=== PATIENT | female | born 1965 ===

== ENCOUNTER 2020-01-29 08:24 | Day surgery (SDC) | payer OTHER, SELFPAY ==
[2020-01-25 15:18] VITALS: BMI 34.2
--- NOTE | 2020-01-28 09:08 | HO.ANESPROP2 ---
Documented by User: Ladan Saunders 01/28/20 09:08 HPI - Anesthesia Eval Consult details Narrative: 54yo F for colonoscopy PMFSH Past Medical History Medical History Chronic fatigue syndrome Chronic pain Elevated cholesterol Fibromyalgia History of anxiety History of depression HTN (hypertension) Hx of cyst of breast Hx of sciatica Insulin dependent diabetes mellitus Obesity Osteoarthritis Plantar fasciitis Restless leg syndrome Rotator cuff syndrome of right shoulder Surgical History Surgical History History of back surgery Hx of section Hx of removal of cyst Social History Social History Smoking Status: Former smoker Smoking Quit Date: 2 weeks ago Patient Given Instructions on How to Stop Smoking: Yes Date Education Initiated: 01/25/20 Use of substances other than those prescribed or required for medical reasons: Yes Substance Use Frequency: Weekly Advance Directives: No Meds Allergies Allergy/AdvReac Type Severity Reaction Status Date / Time No Known Allergies Allergy Unverified 01/25/20 15:06 Home Medications Medication Instructions Recorded Confirmed Type acetaminophen [Tylenol 8 Hour] 1,300 mg PO Q12H 01/25/20 01/25/20 History aspirin [Aspir-81] 81 mg PO DAILY 01/25/20 01/25/20 History atorvastatin 40 mg PO BEDTIME 01/25/20 01/25/20 History cranberry extract 250 mg PO 01/25/20 History docusate sodium [Dulcolax Stool 100 mg PO DAILY 01/25/20 01/25/20 History Softener (dss)] dulaglutide [Trulicity] 1.5 mg SUBCUT QWEEK 01/25/20 01/25/20 History ibuprofen 1,200 mg PO BID 01/25/20 01/25/20 History insulin degludec [Tresiba 32 unit SUBCUT DAILY 01/25/20 01/25/20 History FlexTouch U-200] metformin 1,000 mg PO BID 01/25/20 01/25/20 History mirtazapine 15 mg PO BEDTIME 01/25/20 01/25/20 History multivitamin 1 tab PO DAILY 01/25/20 01/25/20 History oxybutynin chloride 5 mg PO BEDTIME 01/25/20 01/25/20 History pantoprazole 40 mg PO DAILY 01/25/20 01/25/20 History ropinirole [Requip] 8 mg PO BID 01/25/20 01/29/20 History valsartan 160 mg PO DAILY 01/25/20 01/25/20 History venlafaxine [Effexor] 25 mg PO BEDTIME 01/25/20 01/25/20 History venlafaxine [Effexor] 200 mg PO BEDTIME 01/25/20 01/25/20 History Exam Exam Date and Time: January 28, 2020 0908 Height,Weight and Vital Signs: Height 5 ft 3 in Weight 87.543 kg Assessment and Plan Assessment Anesthesia Assessment: Chart Reviewed Documented by User: Alea Freeman 01/29/20 08:52 [facility] Past Medical History Medical History Chronic fatigue syndrome Chronic pain Elevated cholesterol Fibromyalgia History of anxiety History of depression HTN (hypertension) Hx of cyst of breast Hx of sciatica Insulin dependent diabetes mellitus Obesity Osteoarthritis Plantar fasciitis Restless leg syndrome Rotator cuff syndrome of right shoulder Surgical History Surgical History History of back surgery Hx of section Hx of removal of cyst Social History Social History Smoking Status: Former smoker Smoking Quit Date: 2 weeks ago Patient Given Instructions on How to Stop Smoking: Yes Date Education Initiated: 01/25/20 Use of substances other than those prescribed or required for medical reasons: Yes Substance Use Frequency: Weekly Advance Directives: No Meds Allergies Allergy/AdvReac Type Severity Reaction Status Date / Time No Known Allergies Allergy Unverified 01/25/20 15:06 Home Medications Medication Instructions Recorded Confirmed Type acetaminophen [Tylenol 8 Hour] 1,300 mg PO Q12H 01/25/20 01/25/20 History aspirin [Aspir-81] 81 mg PO DAILY 01/25/20 01/25/20 History atorvastatin 40 mg PO BEDTIME 01/25/20 01/25/20 History cranberry extract 250 mg PO 01/25/20 History docusate sodium [Dulcolax Stool 100 mg PO DAILY 01/25/20 01/25/20 History Softener (dss)] dulaglutide [Trulicity] 1.5 mg SUBCUT QWEEK 01/25/20 01/25/20 History ibuprofen 1,200 mg PO BID 01/25/20 01/25/20 History insulin degludec [Tresiba 32 unit SUBCUT DAILY 01/25/20 01/25/20 History FlexTouch U-200] metformin 1,000 mg PO BID 01/25/20 01/25/20 History mirtazapine 15 mg PO BEDTIME 01/25/20 01/25/20 History multivitamin 1 tab PO DAILY 01/25/20 01/25/20 History oxybutynin chloride 5 mg PO BEDTIME 01/25/20 01/25/20 History pantoprazole 40 mg PO DAILY 01/25/20 01/25/20 History ropinirole [Requip] 8 mg PO BID 01/25/20 01/29/20 History valsartan 160 mg PO DAILY 01/25/20 01/25/20 History venlafaxine [Effexor] 25 mg PO BEDTIME 01/25/20 01/25/20 History venlafaxine [Effexor] 200 mg PO BEDTIME 01/25/20 01/25/20 History Exam Airway Mallampati Class: II TM Dist: >3cm Neck ROM: Full Heart: RRR Lungs: CTA
[2020-01-29 08:47] VITALS: BP 159/95; PULSE 89; RESP 16; TEMP 36.2; O2SAT 98
--- NOTE | 2020-01-29 08:52 | P.CONAN_ITS ---
[facility] Past Medical History Medical History Chronic fatigue syndrome Chronic pain Elevated cholesterol Fibromyalgia History of anxiety History of depression HTN (hypertension) Hx of cyst of breast Hx of sciatica Insulin dependent diabetes mellitus Obesity Osteoarthritis Plantar fasciitis Restless leg syndrome Rotator cuff syndrome of right shoulder Surgical History Surgical History History of back surgery Hx of section Hx of removal of cyst Social History Social History Smoking Status: Former smoker Smoking Quit Date: 2 weeks ago Patient Given Instructions on How to Stop Smoking: Yes Date Education Initiated: 01/25/20 Use of substances other than those prescribed or required for medical reasons: Yes Substance Use Frequency: Weekly Advance Directives: No Meds Allergies Allergy/AdvReac Type Severity Reaction Status Date / Time No Known Allergies Allergy Unverified 01/25/20 15:06 Home Medications Medication Instructions Recorded Confirmed Type acetaminophen [Tylenol 8 Hour] 1,300 mg PO Q12H 01/25/20 01/25/20 History aspirin [Aspir-81] 81 mg PO DAILY 01/25/20 01/25/20 History atorvastatin 40 mg PO BEDTIME 01/25/20 01/25/20 History cranberry extract 250 mg PO 01/25/20 History docusate sodium [Dulcolax Stool 100 mg PO DAILY 01/25/20 01/25/20 History Softener (dss)] dulaglutide [Trulicity] 1.5 mg SUBCUT QWEEK 01/25/20 01/25/20 History ibuprofen 1,200 mg PO BID 01/25/20 01/25/20 History insulin degludec [Tresiba 32 unit SUBCUT DAILY 01/25/20 01/25/20 History FlexTouch U-200] metformin 1,000 mg PO BID 01/25/20 01/25/20 History mirtazapine 15 mg PO BEDTIME 01/25/20 01/25/20 History multivitamin 1 tab PO DAILY 01/25/20 01/25/20 History oxybutynin chloride 5 mg PO BEDTIME 01/25/20 01/25/20 History pantoprazole 40 mg PO DAILY 01/25/20 01/25/20 History ropinirole [Requip] 8 mg PO BID 01/25/20 01/29/20 History valsartan 160 mg PO DAILY 01/25/20 01/25/20 History venlafaxine [Effexor] 25 mg PO BEDTIME 01/25/20 01/25/20 History venlafaxine [Effexor] 200 mg PO BEDTIME 01/25/20 01/25/20 History Exam Exam Date and Time: January 29, 2020 0852 Height,Weight and Vital Signs: Height 5 ft 3 in Weight 87.543 kg Last Vital Signs Temp 97.2 F 01/29/20 08:47 Pulse 89 01/29/20 08:47 Resp 16 01/29/20 08:47 BP 159/95 H 01/29/20 08:47 Pulse Ox 98 01/29/20 08:47 Assessment and Plan Assessment Anesthesia Assessment: Anesthesia Plan Discussed, Smoking Cess. Discussed and PAT Visit Final Anesthetic Review NPO: Yes ASA Class: II and III Final Preanesthetic Review: No Changes in Pt Med Stat, Meds/Allgs Chart Reviewed, Consent Obtained/Reviewed and Anes Risks/Benef Reviewed Patient Risk: Intermediate Procedure Risk: Low Anesthetic Plan Anesthetic Plan: MAC: Disposition: Standard PACU
[2020-01-29 08:53] LABS: Glucose, Whole Blood 175 mg/dL (60-115)
--- NOTE | 2020-01-29 08:53 | MHC.SHP ---
Pre-Procedural Eval Section A The patient is an INPATIENT: No The History & Physical has been completed within 30 days and I have reviewed it.: No Section B Chief Complaint: SCREENING Details of Present Illness: for screening colonoscopy, no GI complaints Relevant Family History (Specify if Yes): Yes Relevant Social History: None Present Medications: see Short Stay Collaborative assessment Medical History: Significant History (DM, obesity,fibromyalgia, chronic fatigue) Allergies: Allergies Allergy/AdvReac Type Severity Reaction Status Date / Time No Known Allergies Allergy Unverified 01/25/20 15:06 Review of Systems Sugical H&P ROS: Negative: Constitution, Cardiovascular, Respiratory, Neurological, Psychiatric, Hem-Onc, Allergic/Immunologic, Gastrointestinal, Genitourinary, Musculoskeletal, Integumentary, Endocrine and Eyes/Ears/Nose/Throat Exam Surgical H&P Exam: Normal: HEENT, Normal: Heart, Normal: Lungs, Normal: Extremities, Normal: Abdomen, Normal: Skin and Normal: Neurological Plan Diagnosis/Plan: Unchanged Patient has been examined and remains a candidate for the planned procedure
[2020-01-29] MEDS: Lactated Ringers 1,000 ML 100 ML IVCONT (09:05)
[2020-01-29 10:10] VITALS: BP 125/65; PULSE 84; RESP 22; TEMP 36.2; O2SAT 96
--- NOTE | 2020-01-29 10:10 | PM.OP ---
Brief Operative Note Date of procedure: 01/29/20 Pre-op diagnosis: colon ca scree Post-op diagnosis: other (incomplete colonoscopy - poor prep) Procedure: incomplete colonoscopy Surgeon: Ramón Small MD Anesthesia: MAC Estimated blood loss (mL): 0 Pathology: none sent Condition: stable Disposition: PACU
[2020-01-29 10:25] VITALS: BP 130/85; PULSE 88; RESP 20; O2SAT 99
--- NOTE | 2020-01-29 10:46 | OP_ITS ---
SURGEON: Ramón Small MD INDICATIONS: The patient is a 54-year-old female referred to me for screening colonoscopy. She understood the technique of procedure and was aware of the risks, benefits, and alternatives. She did state that she had a colonoscopy in 2010. PREOPERATIVE DIAGNOSIS: Colon cancer screening. POSTOPERATIVE DIAGNOSIS: Poor bowel prep. Therefore, incomplete colonoscopy up to about the area of the transverse colon. PROCEDURE PERFORMED: Incomplete colonoscopy. ESTIMATED BLOOD LOSS: COMPLICATIONS: ANESTHESIA: ASSISTANTS: SPECIMENS: DESCRIPTION OF PROCEDURE: She was brought to the operating room, placed in left lateral decubitus position under monitored anesthesia care. A full digital rectal exam was done. There were no palpable mass or lesions. We proceeded to gently advance the scope with insufflation. Immediately, we encountered pools of thin watery stools. We were able to see some of the lumen, so we were able to advance the scope all the way to about the transverse colon. However, from this point on, there was increased amount of pools of watery brown stool and visualization became much more difficult. This pools of stool were seen throughout the colon that had been traversed so far. In view of this very poor bowel prep, we decided to withdraw the scope and not proceed as visualization of the colon mucosa was very poor. We continued to examine with scope withdrawal and there were no large lesions that were seen. However, as stated earlier, there was note of multiple segments with thin brown watery stools throughout and visualization was inadequate. We desufflated with withdrawal and the scope was then withdrawn completely. The patient tolerated the procedure well. I would, however, discuss these findings to her and would recommend repeating the colonoscopy hopefully with better bowel prep. MD SMILEY Chappell/TRELLL / [id number]
== END 2020-01-29 11:00 | disposition home or self-care (01) ==
PROVIDERS: Visit Provider Surgery
PROC: 0DJD8ZZ Inspection of Lower Intestinal Tract, Via Natural or Artificial Opening Endoscopic (ICD-10-PCS; CPT 45378; principal; 2020-01-29 09:40)
DX: Z12.11 Encounter for screening for malignant neoplasm of colon (principal); E66.01 Morbid (severe) obesity due to excess calories; Z68.34 Body mass index [BMI] 34.0-34.9, adult; K59.09 Other constipation; I10 Essential (primary) hypertension; E11.9 Type 2 diabetes mellitus without complications; Z79.4 Long term (current) use of insulin; Z79.82 Long term (current) use of aspirin; Z79.899 Other long term (current) drug therapy; Z87.891 Personal history of nicotine dependence
CPT/HCPCS: 45378; 82947

== ENCOUNTER → 2020-02-15 08:49 | Outpatient (BNVA) | payer OTHER, SELFPAY | PROVIDERS: Visit Provider Surgery | DX: Z01.818 Encounter for other preprocedural examination (principal); R13.10 Dysphagia, unspecified; Z98.890 Other specified postprocedural states | CPT/HCPCS: 99212 ==

== ENCOUNTER 2020-03-08 06:07 | Day surgery (SDC) | payer OTHER, SELFPAY ==
[2020-03-02 14:47] VITALS: BMI 34.2
[2020-03-08 06:52] VITALS: BP 131/75; PULSE 83; RESP 16; TEMP 35.9; O2SAT 96
[2020-03-08] MEDS: Lactated Ringers 1,000 ML 50 ML IVCONT (07:20)
--- NOTE | 2020-03-08 07:22 | HO.ANESPROP2 ---
HPI - Anesthesia Eval Consult details Narrative: 54yo female patient here for EGD and colonoscopy. [facility] Past Medical History Medical History (Updated 03/08/20 @ 07:29 by Leslie Leong) Chronic fatigue syndrome Chronic pain Dysphagia Elevated cholesterol Fibromyalgia History of anxiety History of depression HTN (hypertension) Hx of cyst of breast Hx of sciatica Insulin dependent diabetes mellitus Obesity Osteoarthritis Plantar fasciitis Restless leg syndrome Rotator cuff syndrome of right shoulder Family History Family history of problems with anesthesia: No Surgical History Surgical History History of back surgery Hx of section Hx of removal of cyst History of Problems with Anesthesia: No Social History Social History Smoking Status: Former smoker Advance Directives: No Advance Directives Information Provided: Yes Meds Allergies Allergy/AdvReac Type Severity Reaction Status Date / Time No Known Allergies Allergy Verified 02/15/20 08:56 Home Medications Medication Instructions Recorded Confirmed Type acetaminophen [Tylenol 8 Hour] 1,300 mg PO Q12H 01/25/20 03/02/20 History aspirin [Aspir-81] 81 mg PO DAILY 01/25/20 03/02/20 History atorvastatin 40 mg PO BEDTIME 01/25/20 03/02/20 History cranberry extract 250 mg PO 01/25/20 History docusate sodium [Dulcolax Stool 100 mg PO DAILY 01/25/20 03/02/20 History Softener (dss)] dulaglutide [Trulicity] 1.5 mg SUBCUT QWEEK 01/25/20 03/02/20 History ibuprofen 1,200 mg PO BID 01/25/20 03/02/20 History insulin degludec [Tresiba 32 unit SUBCUT DAILY 01/25/20 03/02/20 History FlexTouch U-200] metformin 1,000 mg PO BID 01/25/20 01/25/20 History mirtazapine 15 mg PO BEDTIME 01/25/20 03/02/20 History multivitamin 1 tab PO DAILY 01/25/20 03/02/20 History oxybutynin chloride 5 mg PO BEDTIME 01/25/20 03/02/20 History pantoprazole 40 mg PO DAILY 01/25/20 03/02/20 History ropinirole [Requip] 8 mg PO BID 01/25/20 03/02/20 History valsartan 160 mg PO DAILY 01/25/20 03/02/20 History venlafaxine [Effexor] 25 mg PO BEDTIME 01/25/20 03/02/20 History venlafaxine [Effexor] 200 mg PO BEDTIME 01/25/20 03/02/20 History Exam Exam Date and Time: March 08, [id number] Height,Weight and Vital Signs: Height 5 ft 3 in Weight 87.54 kg Last Vital Signs Temp 96.7 F L 03/08/20 06:52 Pulse 83 03/08/20 06:52 Resp 16 03/08/20 06:52 BP 131/75 03/08/20 06:52 Pulse Ox 96 03/08/20 06:52 Pertinent Lab Results Pertinent Lab Results: POC 148mg% Airway Mallampati Class: II TM Dist: >3cm Neck ROM: Full (Some shoulder pain) Loose/Missing/Broken Teeth: Yes (Missing) Heart: RRR Lungs: CTAB Assessment and Plan Assessment Anesthesia Assessment: Anesthesia Plan Discussed and Chart Reviewed Final Anesthetic Review NPO: No (About 2oz kadi calixto with meds this am) ASA Class: III Final Preanesthetic Review: No Changes in Pt Med Stat, Meds/Allgs Chart Reviewed, Consent Obtained/Reviewed and Anes Risks/Benef Reviewed Patient Risk: Intermediate Procedure Risk: Low Anesthetic Plan Anesthetic Plan: MAC: Disposition: Standard PACU
--- NOTE | 2020-03-08 07:27 | MHC.SHP ---
Pre-Procedural Eval Section B Chief Complaint: Screening, Dysphagia Allergies: Allergies Allergy/AdvReac Type Severity Reaction Status Date / Time No Known Allergies Allergy Verified 02/15/20 08:56 Plan Patient has been examined and remains a candidate for the planned procedure
[2020-03-08 07:43] LABS: Glucose, Whole Blood 148 mg/dL (60-115)
[2020-03-08 08:09] VITALS: BP 104/64; PULSE 101; RESP 16; TEMP 36.2; O2SAT 97
--- NOTE | 2020-03-08 08:12 | PM.OP ---
Brief Operative Note Date of Service: 03/08/20 Pre-op diagnosis: dysphagia, colon ca screen Post-op diagnosis: other (normal EGD and colonoscopy findings) Procedure: EGD, colonoscopy Surgeon: Ramón Small MD Anesthesia: MAC Estimated blood loss (mL): 0 Condition: stable Disposition: PACU
[2020-03-08 08:24] VITALS: BP 108/69; PULSE 91; RESP 16; TEMP 36.2; O2SAT 97
--- NOTE | 2020-03-08 08:29 | OP_ITS ---
SURGEON: Ramón Small MD INDICATIONS: The patient is a 54-year-old female, who underwent colonoscopy for screening last December 2019. However, she had very poor bowel prep, so I recommended to repeat a colonoscopy. Her primary care physician had also stated that she had dysphagia and wanted to include an EGD in the report. The patient has felt that her food seems to be stuck in her chest whenever she swallows. She understood the technique of the EGD and colonoscopy. She was aware of the risks, benefits, and alternatives. PREOPERATIVE DIAGNOSIS: Dysphagia, for colon cancer screening. POSTOPERATIVE DIAGNOSIS: PROCEDURE PERFORMED: ESTIMATED BLOOD LOSS: COMPLICATIONS: ANESTHESIA: ASSISTANTS: SPECIMENS: POSTOPERATIVE DIAGNOSES: 1. Normal esophagogastroduodenoscopy. 2. Normal colonoscopy. DESCRIPTION OF PROCEDURE: She was brought to the operating room and placed in left lateral decubitus position under monitored anesthesia care. A surgical time-out was done. A bite-block was in position. We gently inserted the gastroscope through the bite-block into the oropharynx. The vocal cords were visualized. The esophageal slit was seen posterior to this. The esophageal slit was intubated. The scope was advanced through the entire length of the esophagus easily all the way to the stomach. We continued to advance through the pyloric orifice. The C-loop of the duodenum was examined carefully. The duodenal mucosa unremarkable. There were no lesions or any ulcers. The scope was gradually withdrawn with careful examination of the entire duodenal mucosa being done with scope withdrawal. The scope was brought back into the stomach. The scope was retroflexed to visualize cardia and hiatus. There was a note of a small hiatal hernia. We examined the entire stomach mucosa carefully and there were no lesions or any ulcers. We proceeded to withdraw the scope back into the esophagus. The GE junction appeared unremarkable. The entire length of the esophageal mucosa appeared unremarkable without any lesions or any stricture. The scope was then withdrawn completely. We then proceeded to do the colonoscopy The patient was placed in left lateral decubitus position. A full digital rectal exam was done. There were no palpable anal canal lesions. The tip of the Olympus colonoscope was gently introduced through the anal orifice and advanced with insufflation all the way to the cecum. The cecum was intubated. The cecum was identified by visualization of the ileocecal valve as well as the appendiceal orifice. The cecal mucosa was unremarkable. The scope was gradually withdrawn with careful examination of the entire colonic mucosa being done with scope withdrawal. The patient had good bowel prep at this time, but it was unlikely that any lesion had been missed. The rectum was reached and there were no lesions seen. The anal canal was unremarkable. The scope was then withdrawn completely. The patient tolerated the procedure well. There were no complications noted. I would recommend that her next colonoscopy for screening will be in the next 10 years. PROCEDURES PERFORMED: Esophagogastroduodenoscopy and colonoscopy. MD SMILEY Chappell/NOEMI / [id number]
--- NOTE | 2020-03-08 08:46 | HO.POSTANES ---
Post Anesthesia Evaluation Post Anesthesia Evaluation Vital Signs: Vital Signs Temp Pulse Resp BP Pulse Ox 03/08/20 08:24 97.1 F 91 16 108/69 97 03/08/20 08:09 97.1 F 101 H 16 104/64 97 03/08/20 06:52 96.7 F L 83 16 131/75 96 Anesthesia: Monitored Mental Status: Awake Pain Control: Satisfactory Nausea/Vomiting: None Hydration: Adequate Anesthesia-Related Issues: No Anes. Related Issues
== END 2020-03-08 08:55 | disposition home or self-care (01) ==
PROVIDERS: Visit Provider Surgery
PROC: (CPT 43235; principal; 2020-03-08 07:30)
DX: Z12.11 Encounter for screening for malignant neoplasm of colon (principal); R13.10 Dysphagia, unspecified; E11.9 Type 2 diabetes mellitus without complications; Z79.4 Long term (current) use of insulin
CPT/HCPCS: 43235; G0121; 82947; J2765

== ENCOUNTER → 2020-03-21 09:18 | Outpatient (BNVA) | payer OTHER, SELFPAY | PROVIDERS: Visit Provider Surgery | DX: Z13.89 Encounter for screening for other disorder (principal) | CPT/HCPCS: 99212 ==

== ENCOUNTER 2022-03-12 19:55 | Emergency (ER) | payer OTHER, SELFPAY ==
[2022-03-12 20:01] VITALS: BP 162/94; PULSE 119; RESP 20; O2SAT 98; BMI 33.3
--- NOTE | 2022-03-12 20:04 | ED.WOUNDLAC ---
HPI - Wound/Laceration General Chief Complaint: Skin/Abscess/Foreign Body <Kortney Leavitt NP - Last Filed: 03/12/22 20:06> Stated Complaint: cyst on bottom, hurts to sit <Kortney Leavitt NP - Last Filed: 03/12/22 20:06> Time Seen by Provider: 03/12/22 20:23 <Kortney Leavitt NP - Last Filed: 03/12/22 20:06> Source: patient <SARAN Joe - Last Filed: 03/12/22 21:09> Mode of arrival: ambulatory <SARAN Joe - Last Filed: 03/12/22 21:09> Limitations: no limitations <SARAN Joe - Last Filed: 03/12/22 21:09> History of Present Illness HPI narrative: 56-year-old female presents to the ER for evaluation of an abscess/cyst on her left buttock. She reports that it started a few days ago, she was seen at [facility] 2 days ago wounds prescribe doxycycline. She reports it was not drained at that time. She has been taking pictures of it. She states it started as a reddened area with a black central dot. She states that is now open and draining. She feels a ?hunger of meat? hanging out of the area. She denies any fever or chills at home. She reports history of a labial cyst in the past and was almost septic from it so she is worried that may happen again. <SARAN Joe - Last Filed: 03/12/22 21:09> Onset (ago): day(s) <SARAN Joe - Last Filed: 03/12/22 21:09> Location: genitals <SARAN Joe - Last Filed: 03/12/22 21:09> Place: home <SARAN Joe - Last Filed: 03/12/22 21:09> Patient tetanus UTD: Yes <SARAN Joe Last Filed: 03/12/22 21:09> Context: accidental <SARAN Joe Last Filed: 03/12/22 21:09> Associated symptoms: pain <SARAN Joe - Last Filed: 03/12/22 21:09> Treatments prior to arrival: bandage and other (abx) <SARAN Joe - Last Filed: 03/12/22 21:09> Related Data Home Medications: Home Medications Medication Instructions Recorded Confirmed acetaminophen 650 mg 1,300 mg PO Q12H 01/25/20 03/02/20 tablet,extended release (Tylenol 8 Hour) aspirin 81 mg tablet,delayed 81 mg PO DAILY 01/25/20 03/02/20 release atorvastatin 40 mg tablet 40 mg PO BEDTIME 01/25/20 03/02/20 cranberry extract 250 mg tablet 250 mg PO 01/25/20 docusate sodium 100 mg capsule 100 mg PO DAILY 01/25/20 03/02/20 (Dulcolax Stool Softener (docusate)) dulaglutide 1.5 mg/0.5 mL 1.5 mg subcut QWEEK 01/25/20 03/02/20 subcutaneous pen injector (Trulicity) ibuprofen 600 mg tablet 1,200 mg PO BID 01/25/20 03/02/20 insulin degludec 200 unit/mL (3 32 unit subcut DAILY 01/25/20 03/02/20 mL) subcutaneous pen (Tresiba FlexTouch U-200 insulin) metformin 1,000 mg tablet 1,000 mg PO BID 01/25/20 01/25/20 mirtazapine 15 mg tablet 15 mg PO BEDTIME 01/25/20 03/02/20 multivitamin 1 tab PO DAILY 01/25/20 03/02/20 oxybutynin chloride 5 mg tablet 5 mg PO BEDTIME 01/25/20 03/02/20 pantoprazole 40 mg tablet,delayed 40 mg PO DAILY 01/25/20 03/02/20 release ropinirole 4 mg tablet 8 mg PO BID 01/25/20 03/08/20 valsartan 160 mg tablet 160 mg PO DAILY 01/25/20 03/02/20 venlafaxine 100 mg tablet 200 mg PO BEDTIME 01/25/20 03/02/20 venlafaxine 25 mg tablet 25 mg PO BEDTIME 01/25/20 03/02/20 mirtazapine 15 mg tablet (Remeron) 15 mg PO BEDTIME 03/21/20 morphine 15 mg immediate release 15 mg PO BID PRN 03/21/20 tablet Previous Rx's Medication Instructions Recorded peg 3350-electrolytes 236 240 ml PO Q10M #4,000 mL 01/25/20 gram-22.74 gram-6.74 gram-5.86 gram solution (Golytely) sodium,potassium,mag sulfates 17.5 See Rx Instructions PO .COMPLEX 02/15/20 gram-3.13 gram-1.6 gram oral soln #354 mL (Suprep Bowel Prep Kit) sodium,potassium,mag sulfates 17.5 See Rx Instructions PO .COMPLEX 02/17/20 gram-3.13 gram-1.6 gram oral soln #354 mL (Suprep Bowel Prep Kit) cephalexin 500 mg capsule 500 mg PO QID 7 days #28 caps 03/12/22 <Kortney Leavitt NP - Last Filed: 03/12/22 20:06> Allergies/Adverse Reactions: Allergies Allergy/AdvReac Type Severity Reaction Status Date / Time No Known Allergies Allergy Verified 03/12/22 20:06 <Kortney Leavitt NP - Last Filed: 03/12/22 20:06> Review of Systems Review of Systems: Constitutional: No Fever, No Chills Cardiovascular: No Chest Pain, No SOB Gastrointestinal: No Nausea, No Vomiting, No Diarrhea, No abdominal Pain Genitourinary: No Dysuria, No Urinary Frequency, No Hematuria Musculoskeletal: No joint pain, No Myalgias Skin: + Skin Lesions, No rash Neuro: No Weakness, No Dizziness, No Headache Psych: +Anxiety/Panic Heme/Lymph: No Lymphadenopathy <SARAN Joe - Last Filed: 03/12/22 21:09> ON LICENSE OF [facility] Past Medical History Medical History: Medical History Chronic fatigue syndrome Chronic pain Dysphagia Elevated cholesterol Fibromyalgia History of anxiety History of depression HTN (hypertension) Hx of cyst of breast Hx of sciatica Insulin dependent diabetes mellitus Obesity Osteoarthritis Plantar fasciitis Restless leg syndrome Rotator cuff syndrome of right shoulder <Kortney Leavitt NP - Last Filed: 03/12/22 20:06> Surgical History: Surgical History History of back surgery Hx of section Hx of removal of cyst <Kortney Leavitt NP - Last Filed: 03/12/22 20:06> Social History Social History: Social History Advance Directives: No Advance Directives Information Provided: No <Kortney Leavitt NP - Last Filed: 03/12/22 20:06> Physical Exam Vital Signs: Vital Signs: Last Vital Signs Temp 97.8 F 03/12/22 20:32 Pulse 81 03/12/22 20:32 Resp 20 03/12/22 20:01 BP 133/75 03/12/22 20:32 Pulse Ox 95 03/12/22 20:32 O2 Del Method 03/12/22 20:32 BMI result Body Mass Index 33.3 <Kortney Leavitt NP - Last Filed: 03/12/22 20:06> Vital Signs: Last Vital Signs Temp 97.8 F 03/12/22 20:32 Pulse 81 03/12/22 20:32 Resp 20 03/12/22 20:01 BP 133/75 03/12/22 20:32 Pulse Ox 95 03/12/22 20:32 O2 Del Method 03/12/22 20:32 BMI result Body Mass Index 33.3 <SARAN Joe - Last Filed: 03/12/22 21:09> Appearance: Alert. Oriented X3. No acute distress. HEENT: normal inspection CVS: Normal heart rate and rhythm. Pulses normal. Respiratory: No respiratory distress. Skin: Skin warm and dry. Normal skin color. Normal skin turgor. No rashes. : Normal inspection of the external genitalia. At the base of the left buttock there is a 1 cm around circular ulceration with clean base, yellow muciod scabbing protruding, moderate surrounding induration and erythema/warmth. no fluctuance. no active drainage. Extremities: normal inspection x4, normal ROM Neuro: Oriented X 3. Grossly normal, nonfocal, ambulatory. Normal speech and cognition.. <SARAN Joe - Last Filed: 03/12/22 21:09> Course Course Course Narrative: This is a rapid medical exam. Deferred additional HPI, ROS and PE to primary provider. 56 yo female with history of IDDM, depression, anxiety, arthritis, DDD seen at [facility] Saturday for cyst on buttocks and started on doxycycline 100mg BID which patient has been taking. Patient here she is concerned that the area is getting worse. No fevers, chills. VSS. Unable to visualize in triage. <Kortney Leavitt NP - Last Filed: 03/12/22 20:06> Reevaluation(s) Reevaluation #1: 56-year-old female presents to the ER for evaluation of a cyst/abscess on her left buttock. There is a yellow, purulence well-formed scab that is being out of the ulceration. This was trimmed away using forceps and scissors. The ulceration has a clean base with pink mucosa. No purulent discharge. There is mild surrounding cellulitis without any appreciated area for incision and drainage today. She seems to be responding to doxycycline but will add Gram-negative coverage with Keflex. Does not appear to extend to the perirectal area and seems to be very localized. She arrived to the ER tachycardic 119, but afebrile. She was anxious and nervous and triage. Heart rate repeated and was in the 80s. She appears well, nontoxic. Comfortable discharge home with additional antibiotic management. She will follow-up with her PCP. <SARAN Joe - Last Filed: 03/12/22 21:09> Medications Administered Discontinued Medications Generic Name Dose Route Start Last Admin Trade Name Freq PRN Reason Stop Dose Admin Cephalexin HCl 1,000 mg 03/12/22 20:39 03/12/22 20:43 Cephalexin 500 Mg Capsule PO 03/12/22 20:40 1,000 mg ONCE ONE Administration <Kortney Leavitt NP - Last Filed: 03/12/22 20:06> Medications Administered Discontinued Medications Generic Name Dose Route Start Last Admin Trade Name Freq PRN Reason Stop Dose Admin Cephalexin HCl 1,000 mg 03/12/22 20:39 03/12/22 20:43 Cephalexin 500 Mg Capsule PO 03/12/22 20:40 1,000 mg ONCE ONE Administration <SARAN Joe - Last Filed: 03/12/22 21:09> Discharge Plan Discharge Clinical Impression: Cellulitis <Kortney Leavitt NP - Last Filed: 03/12/22 20:06> Patient Disposition: Home, Self-Care <Kortney Leavitt NP - Last Filed: 03/12/22 20:06> Instructions: Cellulitis (ED), Warm Compress or Soak (ED) <Kortney Leavitt NP - Last Filed: 03/12/22 20:06> Additional Instructions: Take the prescribed antibiotic as directed, continue to take her previously prescribed antibiotic as well. Use warm compresses to the area several times per day Follow-up with your doctor. If you develop new or worsening symptoms call 911 or come back to the ER for further evaluation. <Kortney Leavitt NP - Last Filed: 03/12/22 20:06> Prescriptions: New cephalexin 500 mg capsule 500 mg PO QID 7 Days Qty: 28 0RF No Action peg 3350-electrolytes [Golytely] 236-22.74-6.74 -5.86 gram recon soln 240 ml PO Q10M Qty: 4000 0RF Rx Instructions: until fecal effluent is clear; do not exceed a total volume of 2,000 mL Suprep Bowel Prep Kit 17.5-3.13-1.6 gram recon soln See Rx Instructions PO .COMPLEX Qty: 354 0RF Rx Instructions: DILUTE; drink full amount early evening before AND next morning at least 2 hr before procedure; follow w 32 oz. water PO multivitamin Tablet 1 tab PO DAILY atorvastatin 40 mg Tablet 40 mg PO BEDTIME venlafaxine [Effexor] 25 mg Tablet 25 mg PO BEDTIME aspirin [Aspir-81] 81 mg Tablet,Delayed Release (Dr/Ec) 81 mg PO DAILY acetaminophen [Tylenol 8 Hour] 650 mg Tablet Extended Release 1,300 mg PO Q12H venlafaxine [Effexor] 100 mg Tablet 200 mg PO BEDTIME pantoprazole 40 mg Tablet,Delayed Release (Dr/Ec) 40 mg PO DAILY metformin 1,000 mg Tablet 1,000 mg PO BID docusate sodium [Dulcolax Stool Softener (dss)] 100 mg Capsule 100 mg PO DAILY mirtazapine 15 mg Tablet 15 mg PO BEDTIME ibuprofen 600 mg Tablet 1,200 mg PO BID oxybutynin chloride 5 mg Tablet 5 mg PO BEDTIME ropinirole [Requip] 4 mg Tablet 8 mg PO BID valsartan 160 mg Tablet 160 mg PO DAILY cranberry extract 250 mg Tablet 250 mg PO Tresiba FlexTouch U-200 200 unit/mL (3 mL) Insulin Pen 32 unit SUBCUT DAILY Trulicity 1.5 mg/0.5 mL Pen Injector 1.5 mg SUBCUT QWEEK Suprep Bowel Prep Kit 17.5-3.13-1.6 gram recon soln See Rx Instructions PO .COMPLEX Qty: 354 0RF Rx Instructions: DILUTE; drink full amount early evening before AND next morning at least 2 hr before procedure; follow w 32 oz. water PO mirtazapine [Remeron] 15 mg tablet 15 mg PO BEDTIME morphine 15 mg tablet 15 mg PO BID PRN <Kortney Leavitt NP - Last Filed: 03/12/22 20:06> Interventions: ED Discharge Assessment Last Done: 03/12/22 20:58 <Kortney Leavitt NP - Last Filed: 03/12/22 20:06> Discharge Date/Time: 03/12/22 20:58 <Kortney Leavitt NP - Last Filed: 03/12/22 20:06>
[2022-03-12 20:32] VITALS: BP 133/75; PULSE 81; TEMP 36.6; O2SAT 95
[2022-03-12] MEDS: cephALEXin 500 MG CAPSULE 1000 MG PO (20:43)
== END 2022-03-12 20:58 | disposition home or self-care (01) ==
PROVIDERS: Emergency Provider Emergency Medicine; PCP Internal Medicine
DX: L03.317 Cellulitis of buttock (principal); E11.9 Type 2 diabetes mellitus without complications; Z79.4 Long term (current) use of insulin
CPT/HCPCS: 99282; 99283

== ENCOUNTER 2022-07-11 08:25 | Outpatient (REF) | payer OTHER, SELFPAY ==
[2022-07-11 09:43] LABS: Alanine Aminotransferase 19 U/L (0-31); Albumin Level 3.7 g/dL (3.5-5.0); Alkaline Phosphatase 109 U/L (39-117); Anion Gap 13 (12-20); Aspartate Amino Transferase 17 U/L (5-31); Bilirubin Total 0.3 mg/dL (0.0-1.0); Blood Urea Nitrogen 9 mg/dL (9-16); Calcium 8.7 mg/dL (8.4-10.2); Carbon Dioxide 28 mmol/L (22-29); Chloride 108 mmol/L (96-108); Estimated Glomerular Filt Rate > 60; Glucose Random 240 mg/dL (60-115); Sodium 145 mmol/L (135-145); Total Protein 6.2 g/dL (6.5-8.0)
[2022-07-11 10:03] LABS: Free T4 (Free Thyroxine) 0.76 ng/dL (0.71-1.85); Thyroid Stimulating Hormone 3.16 uIU/mL (0.32-4.0)
== END 2022-07-11 08:26 | disposition home or self-care (01) ==
LOC: HO.LAB 08:25
PROVIDERS: PCP Internal Medicine; Visit Provider Nurse Practitioner Psychiatric/Mental Health
DX: F33.2 Major depressive disorder, recurrent severe without psychotic features (principal); F43.10 Post-traumatic stress disorder, unspecified
CPT/HCPCS: 36415; 80053; 84439; 84443

== ENCOUNTER 2022-07-25 09:45 | Outpatient (RCR) | payer OTHER, SELFPAY ==
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
[2022-07-10 13:08] VITALS: BP 140/60; PULSE 76; TEMP 36.8
[2022-07-10 13:12] VITALS: BMI 37.2
--- NOTE | 2022-07-10 14:08 | PC.ADMIT ---
Patient is a 57 year old female who self referred to PHP d/t increased depression and anxiety. She reports many stressors including her father being dx with dementia, her brother having a bilateral leg amputation, and her son being incarcerated. Patient reports she has been taking her medications as prescribed including her diabetic medications however stated she does not take her blood sugars and is unable to remember the last time she took her blood sugar. Patient reports she has not been checking her Blood sugars as she has a phobia. She stated she is, bad at it . Patient does however state she takes her insulin daily. Patient educated on diabetes care. Patient reports she was dx with diabetes while in the hospital in 2012 as she had Ketoacidosis. She stated that is when she found out she had diabetes. Patient reports she has not been hospitalized since 2013 for diabetes related complications. Patient is alert and oriented x4. Calm and cooperative. Presented with depressed mood and anxious affect. Denied SI or thoughts to harm herself. Patient given a copy of her safety plan and I reviewed her plan with her. Patient has a history of substance use, see below. Medications reconciled with patient and patient's pharmacy.
--- NOTE | 2022-07-10 14:26 | PC.NURSE ---
Per [facility] pharmacy Last filled Pantoprazole 40 mg daily 12/24/22 fro 90 day supply, no refills, and Oxybutrin 10 mg daily last filled 09/23/21 with no refills.
--- NOTE | 2022-07-10 14:36 | PC.NURSE ---
Patient stated she is no longer on Fluoxetine d/t diarrhea.
--- NOTE | 2022-07-12 14:58 | HO.PHP ---
Clients case was reviewed and opened today in treatment team.
--- NOTE | 2022-07-18 09:56 | HO.PHPPROGNO ---
Subjective Subjective Date of Service: 07/18/22 Reason For Visit: anxiety Medical Problems Affecting Mental Status: No Interim History: Describes mood as good, more anxious right now than depressed . No SI, no safety concerns. Has not yet started the risperidone. Has been having trouble staying asleep, slept almost 5 hours last night. Planning trip to [facility] july, having anxiety about this. Received a phone call several nights ago from her mother, brought up past trauma. Medication Compliance: Intermittent Side effects from medications: No Attending Groups: Yes Review of Systems Acute medical concerns: No Medical Review of Systems: unchanged Review of Systems Review of Systems Yes all other systems are reviewed and are negative Constitutional: Reports no additional constitutional complaints Mental Status Exam Mental Status Exam Narrative: NAD Patient Appearance: Well Grooomed Patient Orientation: Person, Place, Time and Situation Level of Consciousness: Appropriate Patient Behavior: Appropriate, Talkative, Cooperative, Anxious and Good Eye Contact Mood Description: Anxious Affect Description: Depressed (improving) and Anxious Patient Cognition Impaired: No Ability to Follow Directions: Excellent Speech Pattern: Clear Memory Description: Intact Hallucinations: None Delusions: Not Present Thought Process: Intact Thought Content: positive for Intact Depressive Symptoms: Increased Anxiety, Difficulty Sleeping, Loss of Int. in Activity, Unhappiness, Increased Fatigue, Loss of Energy and Difficulty Concentrating Judgement: Fair Diagnostics Vital Signs (24Hr): BMI result Body Mass Index 37.2 Assessment & Plan Assessment & Plan (1) Major depressive disorder, recurrent severe without psychotic features: Status: Acute Code(s): F33.2 - Major depressive disorder, recurrent severe without psychotic features Assessment and Plan: Describes mood as good, more anxious right now than depressed . No SI, no safety concerns. Has not yet started the risperidone. We discussed the medication, patient was encouraged to started tonight. Has been having trouble staying asleep, slept almost 5 hours last night. We discussed this, possibility that the phone call from her mother triggered the past trauma, which could in turn have led to difficulty sleeping afterwards. Planning trip to [facility] july, having anxiety about this. Going to stay there for several months, to visit son that is incarcerated. Patient will also have contact with her grand children. Received a phone call several nights ago from her mother, brought up past trauma. She reports she process this on the phone with her sister. (2) PTSD (post-traumatic stress disorder): Status: Acute Code(s): F43.10 - Post-traumatic stress disorder, unspecified Plan 1. Continue with to be plan of care. 2. Continue with current medications, patient states she will start a trial of risperidone tonight. 3. Follow-up as per protocol. Patient educated on: diagnosis, medication risk/benefits and therapeutic strategies Reason for contiued partial hosp. stay Substantial Risk for: harm to self, inability to function and rapid decompensation Certification I certify that partial hospital treatment is medically necessary due to the symptoms and problems resulting from the patient's mental illness and the failure to treat the patient at the partial hospital level of care would likely result in the patient requiring inpatient psychiatric care which could not be prevented at a less intensive level of care. Total time managing care of this patient today ___20_ minutes. Discharge Plan Discharge Attending provider: Lucas Leone Medications: New risperidone 0.25 mg tablet 0.25 mg PO BEDTIME Qty: 7 0RF No Action multivitamin Tablet 1 tab PO DAILY atorvastatin 40 mg Tablet 40 mg PO BEDTIME ropinirole [Requip] 4 mg Tablet 8 mg PO BID valsartan 160 mg Tablet 160 mg PO DAILY cranberry extract 250 mg Tablet 250 mg PO DAILY Trulicity 1.5 mg/0.5 mL Pen Injector 1.5 mg SUBCUT QWEEK Rx Instructions: Takes on Saturday metformin 500 mg tablet 500 mg PO BID estradiol 10 mcg tablet 10 mcg vaginal 2XW hydroxyzine pamoate 25 mg Capsule 25 mg PO BID PRN (Reason: Anxiety) escitalopram oxalate 10 mg Tablet 10 mg PO DAILY pregabalin 75 mg capsule 75 mg PO BID insulin degludec [Tresiba FlexTouch U-100] 100 unit/mL (3 mL) Insulin Pen 48 unit SUBCUT DAILY mirtazapine [Remeron] 15 mg tablet 15 mg PO BEDTIME Patient Comments: Patient stated she is currently taking 15 mg QHS. Stand Alone Forms: Patient Portal Discharge page Patient Education: Risperidone (By mouth)
--- NOTE | 2022-07-23 17:17 | HO.PHP ---
Reached out to [facility] with Yuli to get clarification around if the identified psychiatrist is also her outpatient therapist. [facility] had noted that the psychiatrist April Merritt, is not her outpatient therapist. [facility] staff placed a referral through [facility] for OP therapy with Yuli. Yuli stated she will complete the walk in intake sometime this week. [facility] staff member noted she is currently on the waitlist for OP services. [facility] staff and Yuli were receptive.
--- NOTE | 2022-07-25 11:32 | P.PNPSP_ITS ---
Subjective Subjective Date of Service: 07/25/22 Reason For Visit: anxiety Medical Problems Affecting Mental Status: No Interim History: Reports with experiencing some acid reflux is morning, left group to go outside due to this. Feels stable emotionally/mood grover. No SI, no mood lability, states depression and anxiety manageable. Sees her psychiatric provider on August 14. Took risperidone, states that she experienced edema in feet bilaterally. We reviewed side effects, plan to discontinue prescription. Patient states she did not notice overall beneficial effect from risperidone any way. Plans to leave for [place] on August 15, may spend up to 3 months there, visiting family. Feels stable for discharge from [facility] at this time. Medication Compliance: Yes Side effects from medications: Yes (bilat pedal edema, attributes to risperidone) Attending Groups: Yes Review of Systems Acute medical concerns: No Medical Review of Systems: unchanged Review of Systems Review of Systems Had some edema when started risperidone, has since stopped taking it, edema has resolved. Yes all other systems are reviewed and are negative Constitutional: Reports no additional constitutional complaints Mental Status Exam Mental Status Exam Narrative: NAD Patient Appearance: Well Grooomed Patient Orientation: Person, Place, Time and Situation Level of Consciousness: Appropriate Patient Behavior: Appropriate, Cooperative and Good Eye Contact Mood Description: Appropriate Affect Description: Appropriate Patient Cognition Impaired: No Ability to Follow Directions: Excellent Speech Pattern: Clear Memory Description: Intact Hallucinations: None Delusions: Not Present Thought Process: Intact Thought Content: positive for Intact Judgement: Good Diagnostics Vital Signs (24Hr): BMI result Body Mass Index 37.2 Assessment & Plan Assessment & Plan (1) Major depressive disorder, recurrent severe without psychotic features: Status: Acute Code(s): F33.2 - Major depressive disorder, recurrent severe without psychotic features Assessment and Plan: Feels ready for discharge from [facility] at this time. States that her depression, anxiety, and PTSD symptoms have stabilized. Plans to go to [place] for up to 3 months on August 15, has an appointment with her outpatient psychiatric provider on August 14. States she will obtain scripts/refills from her provider at that time. Stopped the trial of risperidone 0.25mg at night for PTSD sx, reports she experienced pedal edema from it. Taking all other medications as prescribed by outpatient provider. No SI, feels safe. Looking forward to seeing her family in [place]. States that she has found groups in [facility] to be helpful. (2) Generalized anxiety disorder: Status: Acute Code(s): F41.1 - Generalized anxiety disorder (3) PTSD (post-traumatic stress disorder): Status: Acute Code(s): F43.10 - Post-traumatic stress disorder, unspecified Plan 1. Patient appears stable for discharge from [facility] at this time. 2. Patient to follow-up with outpatient providers going forward. Patient educated on: diagnosis, medication risk/benefits and therapeutic strategies Informed Consent: understands Reason for contiued partial hosp. stay Substantial Risk for: stable for discharge Certification I certify that partial hospital treatment is medically necessary due to the symptoms and problems resulting from the patient's mental illness and the fa ilure to treat the patient at the partial hospital level of care would likely result in the patient requiring inpatient psychiatric care which could not be prevented at a less intensive level of care. Total time managing care of this patient today __20__ minutes. Discharge Plan Discharge Attending provider: Lucas Leone Medications: No Action multivitamin Tablet 1 tab PO DAILY atorvastatin 40 mg Tablet 40 mg PO BEDTIME ropinirole [Requip] 4 mg Tablet 8 mg PO BID valsartan 160 mg Tablet 160 mg PO DAILY cranberry extract 250 mg Tablet 250 mg PO DAILY Trulicity 1.5 mg/0.5 mL Pen Injector 1.5 mg SUBCUT QWEEK Rx Instructions: Takes on Saturday metformin 500 mg tablet 500 mg PO BID estradiol 10 mcg tablet 10 mcg vaginal 2XW hydroxyzine pamoate 25 mg Capsule 25 mg PO BID PRN (Reason: Anxiety) escitalopram oxalate 10 mg Tablet 10 mg PO DAILY pregabalin 75 mg capsule 75 mg PO BID insulin degludec [Tresiba FlexTouch U-100] 100 unit/mL (3 mL) Insulin Pen 48 unit SUBCUT DAILY mirtazapine [Remeron] 15 mg tablet 15 mg PO BEDTIME Patient Comments: Patient stated she is currently taking 15 mg QHS. Stand Alone Forms: Patient Portal Discharge page Patient Education: Risperidone (By mouth), Depression (DC)
== END 2022-07-25 23:59 | disposition home or self-care (01) ==
LOC: HO.PHPA 09:45
PROVIDERS: Visit Provider Psychiatry & Neurology Psychiatry
DX: F33.2 Major depressive disorder, recurrent severe without psychotic features (principal); F43.10 Post-traumatic stress disorder, unspecified; F41.1 Generalized anxiety disorder; F14.10 Cocaine abuse, uncomplicated
CPT/HCPCS: 90791; 90853

== ENCOUNTER 2023-07-06 14:43 | Emergency (ER) | payer OTHER, SELFPAY ==
--- NOTE | ~2023-07-06 | CT_ITS ---
EXAMINATION: CT ABDOMEN AND PELVIS WITH CONTRAST CLINICAL INFORMATION: Abdominal pain, nausea, vomiting COMPARISON: None available. TECHNIQUE: Multidetector volumetric images were obtained from the superior aspect of the liver through the pubic symphysis following administration 85 mL of Omnipaque 350 intravenous contrast. Sagittal and coronal reformatted images were obtained on the technologist's workstation. Oral contrast: No This CT examination was performed using dose optimization techniques as appropriate, variously including the following: *Automated exposure control *Adjustment of mA and/or kV according to patient size (this includes techniques or standardized protocols for targeted exams where dose is matched to indication/reason for exam; i.e. extremities or head) *Use of iterative reconstruction technique DLP: 683 mGy-cm FINDINGS: LUNG BASES: The visualized lung bases are unremarkable. LIVER, GALLBLADDER, AND BILIARY TREE: The liver is normal in size, shape, and attenuation. No focal hepatic lesion or biliary ductal dilatation is present. The gallbladder is unremarkable with no evidence of radiopaque gallstones, gallbladder wall thickening, or obvious pericholecystic inflammatory changes. PANCREAS: Unremarkable. SPLEEN: Unremarkable. ADRENAL GLANDS: Unremarkable. KIDNEYS AND URETERS: The kidneys are normal in size, shape, and attenuation. No hydronephrosis, hydroureter, or calculi seen. No perinephric stranding. BLADDER: Unremarkable. GASTROINTESTINAL TRACT: The small and large bowel are unremarkable. The appendix is unremarkable. ABDOMINAL WALL: No significant hernia is appreciated. LYMPH NODES: Normal. VASCULAR: Unremarkable. PELVIC VISCERA: Unremarkable. OSSEOUS STRUCTURES: Multilevel degenerative changes of the lumbar spine, worst at L3-L4 where there is moderate central canal and severe right and moderate left neural foraminal stenosis. CT/CT abdomen pelvis w IV con IMPRESSION: No significant abnormality. Fleischner guidelines were followed.
[2023-07-06 15:27] VITALS: BP 146/58; PULSE 100; RESP 18; TEMP 36; O2SAT 98; BMI 36.0
--- NOTE | 2023-07-06 15:29 | ED_ITS ---
HPI - Nausea/Vomiting/Diarrhea General Chief complaint: Nausea/Vomiting/Diarrhea Stated complaint: Stomach virus Time Seen by Provider: 07/06/23 17:39 Source: patient Mode of arrival: ambulatory Limitations: no limitations History of Present Illness HPI Narrative: 58-year-old female history of anxiety, depression, PTSD, dysphagia, cocaine abuse presents with fatigue, malaise, myalgias, nausea, vomiting, fatigue all of which started this morning, she decided to come into the emergency department because she was feeling dehydrated. Patient denies sick contacts. Denies abdominal pain, chest pain, shortness of breath, headache, vision changes, dizziness, weakness, melena, changes in urinary or bowel habits, hematochezia Related Data Home Medications ?Medication ?Instructions ?Recorded ?Confirmed atorvastatin 40 mg tablet 40 mg PO BEDTIME 01/25/20 07/10/22 cranberry extract 250 mg tablet 250 mg PO DAILY 01/25/20 07/10/22 dulaglutide 1.5 mg/0.5 mL 1.5 mg subcut QWEEK 01/25/20 07/10/22 subcutaneous pen injector (Trulicity) multivitamin 1 tab PO DAILY 01/25/20 07/10/22 ropinirole 4 mg tablet 8 mg PO BID 01/25/20 07/10/22 valsartan 160 mg tablet 160 mg PO DAILY 01/25/20 07/10/22 mirtazapine 15 mg tablet (Remeron) 15 mg PO BEDTIME 03/21/20 07/10/22 escitalopram oxalate 10 mg tablet 10 mg PO DAILY 07/10/22 07/10/22 estradiol 10 mcg vaginal tablet 10 mcg vaginal 2XW 07/10/22 07/10/22 hydroxyzine pamoate 25 mg capsule 25 mg PO BID PRN Anxiety 07/10/22 07/10/22 insulin degludec 100 unit/mL (3 48 unit subcut DAILY 07/10/22 07/10/22 mL) subcutaneous pen (Tresiba FlexTouch U-100 insulin) metformin 500 mg tablet 500 mg PO BID 07/10/22 07/10/22 pregabalin 75 mg capsule 75 mg PO BID 07/10/22 07/10/22 Previous Rx's ?Medication ?Instructions ?Recorded cefuroxime axetil 250 mg tablet 250 mg PO BID 7 days #14 tabs 07/06/23 ondansetron 4 mg disintegrating 4 mg PO Q6H PRN nausea and 07/06/23 tablet vomiting #14 tabs Allergies Allergy/AdvReac Type Severity Reaction Status Date / Time No Known Allergies Allergy Verified 07/06/23 15:29 Review of Systems 2 Review of Systems: Yes all other systems are reviewed and are negative [facility] Past Medical History Attestation statement: The following information was validated with the patient. Source: old records reviewed and nursing notes reviewed Medical History Kidney disease Dysphagia Hx of cyst of breast Chronic fatigue syndrome Osteoarthritis Hx of sciatica History of anxiety History of depression Fibromyalgia Plantar fasciitis Obesity Insulin dependent diabetes mellitus Elevated cholesterol HTN (hypertension) Rotator cuff syndrome of right shoulder Chronic pain Restless leg syndrome Surgical History Hx of removal of cyst History of back surgery Hx of section Social History Social History Household Members: None Patient Tobacco Use Status: Current everyday Tobacco user Tobacco use type: Cigarette Advance Directives: No Advance Directives Information Provided: Yes Physical Exam 2 Vital Signs: Vital Signs: Last Vital Signs Temp 98.6 F 07/06/23 20:25 Pulse 78 07/06/23 20:25 Resp 18 07/06/23 20:25 BP 126/63 07/06/23 20:25 Pulse Ox 100 07/06/23 20:25 O2 Del Method Room Air 07/06/23 20:25 BMI result Body Mass Index 36.0 vss Appearance: Alert.? Oriented X3.? No acute distress.? Head: Normocephalic, atraumatic, no step-offs or deformities Eyes: Pupils equal, round and reactive to light.? Neck: Normal inspection.? Neck supple.? CVS: Normal heart rate and rhythm.? Pulses normal.? Respiratory: No respiratory distress.? Breath sounds normal.? Abdomen: Soft and diffuse abdominal discomfort.? Skin: Skin warm and dry.? Normal skin color.? Normal skin turgor.? Extremities: No lower extremity edema.? No calf ttp. 5/5 strength to bilateral upper and lower extremities Back: No midline tenderness, no C-spine tenderness, full range of motion, no CVA tenderness bilaterally Neuro: Oriented X 3.? No motor deficit.? No sensory deficit. CN 2-12 intact Course Course Course Narrative: This is a Rapid Medical Examination (RME) in triage, full HPI, ROS, assessment and plan per primary provider in the Main ED. 58 yo female presenting with N/V/D since this morning at 6am. Feels dehydrated. No abdominal pain. VSS in triage Plan: lab workup and viral swab Reevaluation(s) Reevaluation #1: CBC with leukocytosis likely reactive secondary to nausea, vomiting. Chemistry with low potassium 1.2, IV potassium ordered. Random glucose 269 patient takes insulin at home fluids ordered here. CT abd and UA pending. Time: 17:51 Reevaluation #2: UA with 1+ bacteria. Patient without urinary symptoms however very low level of epithelial cells makes me concerned for UTI. Will treat with Ceftin. CT abdomen pelvis pending, beta hydroxybutyrate and VBG also pending. Signed out to Bhavani Alfaro Time: 18:31 Reevaluation #3: CT normal. stable for d/c home Medications Administered Discontinued Medications Generic Name Dose Route Start Last Admin Trade Name Freq PRN Reason Stop Dose Admin Magnesium Sulfate 2 gm in 50 mls @ 25 mls/hr 07/06/23 16:11 07/06/23 18:28 Magnesium Sulfate/H2o IV 07/06/23 18:10 25 mls/hr ONCE ONE Administration Sodium Chloride 1,000 mls @ 999 mls/hr 07/06/23 16:15 07/06/23 19:38 Ns IVCONT 07/06/23 17:15 Infused .Q1H1M YASH Infusion Sodium Chloride 1,000 mls @ 999 mls/hr 07/06/23 18:00 07/06/23 20:18 Ns IV 07/06/23 19:00 999 mls/hr .Q1H1M YASH Administration Iohexol 85 ml 07/06/23 19:09 07/06/23 19:09 Iohexol 350 Mg/Ml 100 Ml Infus..Btl IV 07/06/23 19:10 85 ml ONCE ONE Administration Ropinirole HCl 8 mg 07/06/23 20:10 07/06/23 20:28 Ropinirole Hcl 2 Mg Tablet PO 07/06/23 20:11 8 mg ONCE ONE Administration Medical Decision Making Medical Decision Making [facility] Narrative: 58-year-old female presents with nausea, vomiting, fatigue, malaise, diarrhea all of which started this morning. No known sick contacts. Physical exam diffuse abdominal discomfort. History and physical exam concerning for flu versus COVID versus gastroenteritis versus norovirus. Unlikely acute abdomen. Will rule out metabolic derangements. Unlikely pancreatitis, diverticulitis, cholecystitis, appendicitis, obstruction, C diff. unlikely DKA, HHS Plan at this time labs, imaging urine Differential Diagnosis Differential Diagnoses: The differential diagnosis associated with the presentation includes History and physical exam concerning for flu versus COVID versus gastroenteritis versus norovirus. Unlikely acute abdomen. Will rule out metabolic derangements. Unlikely pancreatitis, diverticulitis, cholecystitis, appendicitis, obstruction, C diff. unlikely DKA, HHS Admission/Observation Consideration of admission/observation: Escalation of care including admission/observation considered unlikley Lab Data [facility] Lab Attestation statement: I reviewed the patient's lab results. 07/06/23 15:38 07/06/23 15:38 Labs: Lab Results 07/06/23 07/06/23 07/06/23 Range/Units 15:38 17:39 18:40 WBC 11.0 H (4.8-10.8) X10*3/uL RBC 4.46 (4.20-5.50) X10*6/uL Hgb 13.4 (12.0-16.0) g/dl Hct 39.3 (37.0-47.0) % MCV 88.1 (80.0-98.0) fL MCH 30.0 (27.0-33.0) pg MCHC 34.1 (31.0-35.0) g/dl RDW 12.3 (11.0-16.0) % Plt Count 255 (160-400) X10*3/uL MPV 9.5 (9.4-12.3) fL Immature Gran % (Auto) 0.4 (0.0-0.4) % Neut % (Auto) 78.0 H (45-73) % Lymph % (Auto) 16.2 L (20-40) % Rankin % (Auto) 4.5 (2-11) % Eos % (Auto) 0.7 (0-4) % Baso % (Auto) 0.2 (0-2) % Lymph # (Auto) 1.8 (1.2-4.9) X10*3/uL Rankin # (Auto) 0.5 (0.1-1.2) X10*3/uL Eos # (Auto) 0.1 (0.0-0.4) X10*3/uL Baso # (Auto) 0.0 (0.0-0.2) X10*3/uL Abs Immat Gran (auto) 0.04 H (0.00-0.03) X10*3/uL Absolute Neuts (auto) 8.6 H (2.0-8.3) x10*3/uL Absolute Nucleated RBC 0.000 (0.0-0.012) X10*3/uL Nucleated RBC % (auto) 0.0 (0.0-0.2) /100WBC VBG pH (7.32-7.43) VBG pCO2 mmHg VBG pO2 mmHg VBG HCO3 (22-26) mmol/L VBG O2 Saturation % VBG Base Excess mmol/L Sodium 137 (135-145) mmol/L Potassium 4.0 (3.3-5.1) mmol/L Chloride 103 (96-108) mmol/L Carbon Dioxide 26 (22-29) mmol/L Anion Gap 12 (12-20) BUN 14 (9-16) mg/dL Creatinine 0.84 (0.5-1.4) mg/dL Estim Creat Clear Calc 77.7 Estimated GFR > 60 Random Glucose 269 H (60-115) mg/dL Calcium 9.0 (8.4-10.2) mg/dL Magnesium 1.2 L* (1.6-2.6) mg/dL Total Bilirubin 0.6 (0.0-1.0) mg/dL Direct Bilirubin 0.2 (0.0-0.5) mg/dL AST 15 (5-31) U/L ALT 16 (0-31) U/L Alkaline Phosphatase 96 (39-117) U/L Total Protein 7.2 (6.5-8.0) g/dL Albumin 3.8 (3.5-5.0) g/dL Lipase 15 (8-78) U/L Beta-Hydroxybutyrate 0.06 (0.02-0.27) mmol/L Urine Color Yellow Urine Appearance Clear Urine pH 5.5 (5.0-9.0) Ur Specific [place] >= 1.030 H (1.005-1.025) Urine Protein Trace (Neg-Trace) mg/dL Urine Glucose (UA) >=1000 H (Negative) mg/dL Urine Ketones Trace (Negative) mg/dL Urine Blood Negative (Negative) Urine Nitrite Negative (Negative) Ur Leukocyte Esterase Negative (Negative) Urine RBC 0-2 (0-2) /HPF Urine WBC 0-5 (0-5) /HPF Ur Squamous Epith Cells 3-5 (0-2) /HPF Urine Bacteria 1+ (None Seen) Hyaline Casts 0-2 (0-2) /LPF Influenza Type A (PCR) NEGATIVE (Negative) Influenza Type B (PCR) NEGATIVE (Negative) RSV RNA Qual (PCR) NEGATIVE (Negative) SARS-CoV-2 RNA (RT-PCR) NEGATIVE (Negative) 07/06/23 Range/Units 18:46 WBC (4.8-10.8) X10*3/uL RBC (4.20-5.50) X10*6/uL Hgb (12.0-16.0) g/dl Hct (37.0-47.0) % MCV (80.0-98.0) fL MCH (27.0-33.0) pg MCHC (31.0-35.0) g/dl RDW (11.0-16.0) % Plt Count (160-400) X10*3/uL MPV (9.4-12.3) fL Immature Gran % (Auto) (0.0-0.4) % Neut % (Auto) (45-73) % Lymph % (Auto) (20-40) % Rankin % (Auto) (2-11) % Eos % (Auto) (0-4) % Baso % (Auto) (0-2) % Lymph # (Auto) (1.2-4.9) X10*3/uL Rankin # (Auto) (0.1-1.2) X10*3/uL Eos # (Auto) (0.0-0.4) X10*3/uL Baso # (Auto) (0.0-0.2) X10*3/uL Abs Immat Gran (auto) (0.00-0.03) X10*3/uL Absolute Neuts (auto) (2.0-8.3) x10*3/uL Absolute Nucleated RBC (0.0-0.012) X10*3/uL Nucleated RBC % (auto) (0.0-0.2) /100WBC VBG pH 7.36 (7.32-7.43) VBG pCO2 46 mmHg VBG pO2 48 mmHg VBG HCO3 27 H (22-26) mmol/L VBG O2 Saturation 77.0 % VBG Base Excess 1.2 mmol/L Sodium (135-145) mmol/L Potassium (3.3-5.1) mmol/L Chloride (96-108) mmol/L Carbon Dioxide (22-29) mmol/L Anion Gap (12-20) BUN (9-16) mg/dL Creatinine (0.5-1.4) mg/dL Estim Creat Clear Calc Estimated GFR Random Glucose (60-115) mg/dL Calcium (8.4-10.2) mg/dL Magnesium (1.6-2.6) mg/dL Total Bilirubin (0.0-1.0) mg/dL Direct Bilirubin (0.0-0.5) mg/dL AST (5-31) U/L ALT (0-31) U/L Alkaline Phosphatase (39-117) U/L Total Protein (6.5-8.0) g/dL Albumin (3.5-5.0) g/dL Lipase (8-78) U/L Beta-Hydroxybutyrate (0.02-0.27) mmol/L Urine Color Urine Appearance Urine pH (5.0-9.0) Ur Specific [place] (1.005-1.025) Urine Protein (Neg-Trace) mg/dL Urine Glucose (UA) (Negative) mg/dL Urine Ketones (Negative) mg/dL Urine Blood (Negative) Urine Nitrite (Negative) Ur Leukocyte Esterase (Negative) Urine RBC (0-2) /HPF Urine WBC (0-5) /HPF Ur Squamous Epith Cells (0-2) /HPF Urine Bacteria (None Seen) Hyaline Casts (0-2) /LPF Influenza Type A (PCR) (Negative) Influenza Type B (PCR) (Negative) RSV RNA Qual (PCR) (Negative) SARS-CoV-2 RNA (RT-PCR) (Negative) Independent Interpretation I performed an independent interpretation of an: CT Scan Radiology Impression Discussion of test interpretation with radiology: I have reviewed the radiologist's reading. External Record Review External record reviewed: Inpatient record, Office record, Outpatient record, Prior outpatient labs, Prior outpatient radiology, Primary care record and Outside ED record Prescription Management I considered prescription management with: Other (antiemetic ) Chronic Conditions Patient?s care impacted by: Other (Depression, anxiety, substance use disorder) Critical Care Time Critical Care Time Critical Care Time: Yes Total Critical Care Time: 35 Attestation: I attest to this time spent taking care of the patient, obtaining history, physical, reviewing labs, imaging, repleting magnesium Discharge Plan Discharge Clinical Impression: Viral illness, Nausea & vomiting, Diarrhea, Hypomagnesemia, Urinary tract infection Patient Disposition: Home, Self-Care Instructions: Urinary Tract Infection in Women (ED), Acute Abdominal Pain (ED), Viral Syndrome (ED), Nutrition Tips for Relief of Diarrhea (ED) Additional Instructions: CT scan today was normal. Labs were unremarkable. Take your medications as prescribed. If you were prescribed antibiotics today, it is important that you take your medication to their entirety, do not skip any doses, do not finish them early. Follow-up with your primary care provider this week. Return to the emergency department with new or worsening symptoms. Such as fevers, chills, chest pain, shortness of breath, nausea, vomiting, dizziness, headache, vision changes, lethargy In case of emergency call 911 Zofran has been sent for nausea vomiting. Your potassium was low here in the hospital. We gave you potassium. Please follow-up with your PCP for recheck in 1-3 days. Prescriptions: New ondansetron 4 mg tablet,disintegrating 4 mg PO Q6H PRN (Reason: nausea and vomiting) Qty: 14 0RF cefuroxime axetil 250 mg tablet 250 mg PO BID 7 Days Qty: 14 0RF No Action multivitamin Tablet 1 tab PO DAILY atorvastatin 40 mg Tablet 40 mg PO BEDTIME ropinirole [Requip] 4 mg Tablet 8 mg PO BID valsartan 160 mg Tablet 160 mg PO DAILY cranberry extract 250 mg Tablet 250 mg PO DAILY Trulicity 1.5 mg/0.5 mL Pen Injector 1.5 mg SUBCUT QWEEK Rx Instructions: Takes on Saturday metformin 500 mg tablet 500 mg PO BID estradiol 10 mcg tablet 10 mcg vaginal 2XW hydroxyzine pamoate 25 mg Capsule 25 mg PO BID PRN (Reason: Anxiety) escitalopram oxalate 10 mg Tablet 10 mg PO DAILY pregabalin 75 mg capsule 75 mg PO BID insulin degludec [Tresiba FlexTouch U-100] 100 unit/mL (3 mL) Insulin Pen 48 unit SUBCUT DAILY mirtazapine [Remeron] 15 mg tablet 15 mg PO BEDTIME Patient Comments: Patient stated she is currently taking 15 mg QHS. Referrals: Sydnie Andrade MD [Primary Care Provider] - 2 days Print Language: Bulgarian
[2023-07-06 15:43] LABS: MANUAL DIFF FLAG NO
[2023-07-06 15:57] LABS: Basophils Percent Auto 0.2 % (0-2); Eosinophils Absolute Auto 0.1 X10*3/uL (0.0-0.4); Eosinophils Percent Auto 0.7 % (0-4); Hematocrit 39.3 % (37.0-47.0); Hemoglobin 13.4 g/dl (12.0-16.0); Imm Gran Abs Auto 0.04 X10*3/uL (0.00-0.03); Imm Gran Pct Auto 0.4 % (0.0-0.4); Lymphocytes Absolute Auto 1.8 X10*3/uL (1.2-4.9); Lymphocytes Percent Auto 16.2 % (20-40); Mean Corpuscular HGB Conc 34.1 g/dl (31.0-35.0); Mean Corpuscular Volume 88.1 fL (80.0-98.0); Mean Platelet Volume 9.5 fL (9.4-12.3); Monocytes Absolute Auto 0.5 X10*3/uL (0.1-1.2); Monocytes Percent Auto 4.5 % (2-11); Neutrophils Absolute Auto 8.6 x10*3/uL (2.0-8.3); Platelet Count 255 X10*3/uL (160-400); Red Blood Count 4.46 X10*6/uL (4.20-5.50); Red Cell Distribution Width 12.3 % (11.0-16.0)
[2023-07-06 16:12] LABS: Alanine Aminotransferase 16 U/L (0-31); Albumin Level 3.8 g/dL (3.5-5.0); Alkaline Phosphatase 96 U/L (39-117); Anion Gap 12 (12-20); Aspartate Amino Transferase 15 U/L (5-31); Bilirubin Direct 0.2 mg/dL (0.0-0.5); Bilirubin Total 0.6 mg/dL (0.0-1.0); Blood Urea Nitrogen 14 mg/dL (9-16); Carbon Dioxide 26 mmol/L (22-29); Chloride 103 mmol/L (96-108); Creatinine Clr Calc Pharmacy 77.7; Estimated Glomerular Filt Rate > 60; Glucose Random 269 mg/dL (60-115); Magnesium 1.2 mg/dL (1.6-2.6); Sodium 137 mmol/L (135-145); Total Protein 7.2 g/dL (6.5-8.0)
[2023-07-06 16:21] LABS: Influenza A PCR NEGATIVE (Negative); Influenza B PCR NEGATIVE (Negative); Resp Syncy Virus RNA Qual PCR NEGATIVE (Negative); SARS COV2 PCR INHOUSE NEGATIVE (Negative)
[2023-07-06 17:49] LABS: Appearance Urine Clear; Color Urine Yellow; Glucose Urine UA >=1000 mg/dL (Negative); Leukocyte Esterase Urine Negative (Negative); Nitrite Urine Negative (Negative); PH 5.5 (5.0-9.0); Specific Gravity - Urine >= 1.030 (1.005-1.025); UMIC TRIGGER UACC YES; Urine Blood Negative (Negative); Urine Ketones Trace mg/dL (Negative); Urine Protein Trace mg/dL (Neg-Trace)
[2023-07-06 18:11] LABS: Bacteria Urine 1+ (None Seen); Hyaline Casts Urine 0-2 /LPF (0-2); RBC Urine 0-2 /HPF (0-2); WBC Urine 0-5 /HPF (0-5)
[2023-07-06] MEDS: Magnesium Sulfate/H2O 2 GM/50 ML PIGGYBACK IV (18:28)
[2023-07-06 18:29] LABS: Lipase 15 U/L (8-78)
[2023-07-06] MEDS: 0.9 % Sodium Chloride 1,000 ML 999 ML IVCONT (18:34)
[2023-07-06 18:51] LABS: Venous Blood Gas Refer to POC result
[2023-07-06 18:51] LABS: VBG Base Excess 1.2 mmol/L; VBG HCO3 27 mmol/L (22-26); VBG pCO2 46 mmHg; VBG pH 7.36 (7.32-7.43); VBG pO2 48 mmHg
[2023-07-06 19:01] LABS: Beta-Hydroxybutyrate 0.06 mmol/L (0.02-0.27)
[2023-07-06] MEDS: iohexoL 350 MG/ML 100 ML INFUS..BTL 85 ML IV (19:09)
[2023-07-06] MEDS: 0.9 % Sodium Chloride 1,000 ML 999 ML IV (20:18)
[2023-07-06 20:25] VITALS: BP 126/63; PULSE 78; RESP 18; TEMP 37; O2SAT 100
[2023-07-06] MEDS: rOPINIRole HCL 2 MG TABLET 8 MG PO (20:28)
[2023-07-06 22:45] VITALS: BP 140/66; PULSE 80; RESP 18; TEMP 36.7; O2SAT 97
== END 2023-07-06 22:47 | disposition home or self-care (01) ==
PROVIDERS: Physician Assistant; Emergency Provider Emergency Medicine Emergency Medical Services; PCP Internal Medicine
DX: B34.9 Viral infection, unspecified (principal); N39.0 Urinary tract infection, site not specified; E83.42 Hypomagnesemia; R11.2 Nausea with vomiting, unspecified; M79.10 Myalgia, unspecified site; F14.10 Cocaine abuse, uncomplicated; Z03.818 Encounter for observation for suspected exposure to other biological agents ruled out; Z79.899 Other long term (current) drug therapy
CPT/HCPCS: 0241U; 36415; 74177; 80048; 80076; 81001; 82010; 82803; 83690; 83735; 85025; 96365; 96366; 99284; J3475; Q9967

== ENCOUNTER 2023-10-07 13:29 | Outpatient (AMB) | payer OTHER, SELFPAY ==
[2023-10-07 13:39] VITALS: BP 138/68; PULSE 110; BMI 35.1
--- NOTE | 2023-10-07 13:39 | MHC.OFFVIS ---
Vital Signs 10/07/23 13:39 Height 5 ft 3 in Weight 198 lb BMI 35.1 BP 138/68 Blood Pressure Location Rt brachial Position Sitting Pulse 110 H Intake Visit Reasons: ? recall colonoscopy, EGD Intake Note: This patient presents for a recall colonoscopy and EGD. Patient c/o; reports dysphagia, reports constipation, reports pain, reports bulge, ? EGD. Last colonoscopy:03/08/2020 [employer] Operator Required: No Accompanied by: Self / Same As Patient Allergies No Known Allergies Allergy (Verified 10/07/23 13:39) HPI HPI ? recall colonoscopy, EGD: Details: [age] year old female referred to me for a question of a hernia. She has multiple complaints with regards to her abdomen. She says she has this frequent ?fluttering? of her abdominal wall. She has this chronic history of dysphagia and that was why I had done an EGD in the past. She also has chronic constipation. She says she takes Colace and Metamucil for this She says that she has this frequent incision being full all the time. In view of her above multiple complaints, she asked to be referred to me. Review of her records shows that she had an EGD and colonoscopy in 2019. This were both unremarkable. I had recommended a follow-up colonoscopy in 10 years. She has a long history of diabetes. Her A1c hovers between 8 and 9. [facility] Medical History (Updated 10/07/23 @ 14:07 by Ramón Small MD) Abdominal pain Kidney disease Dysphagia Hx of cyst of breast Chronic fatigue syndrome Osteoarthritis Hx of sciatica History of anxiety History of depression Fibromyalgia Plantar fasciitis Obesity Insulin dependent diabetes mellitus Elevated cholesterol HTN (hypertension) Rotator cuff syndrome of right shoulder Chronic pain Restless leg syndrome Surgical History Hx of removal of cyst History of back surgery Hx of section Social History Household Members: None Patient Tobacco Use Status: Current everyday Tobacco user Tobacco use type: Cigarette Substance Use Type: Marijuana Review of Systems Const Denies chills and Denies fever(s) Card Denies chest pain, Denies dyspnea and Denies dyspnea on exertion Resp Denies cough, Denies dyspnea and Denies dyspnea on exertion GI Denies hematochezia, Denies change in bowel habits and Reports constipation Denies hematuria Musc Denies back pain and Denies limited range of motion Neuro Denies focal weakness and Denies convulsions Psych Denies depression and Denies mood swings Physical Exam Vital Signs: Last Vital Signs Pulse 110 H 10/07/23 13:39 BP 138/68 10/07/23 13:39 BMI result Body Mass Index 35.1 Const General: comfortable and no acute distress Orientation/consciousness: patient oriented x3 Neck Neck: Yes no lymphadenopathy Resp Auscultation: clear to auscultation bilaterally Cardio Rhythm: regular rhythm GI Other: No palpable hernia on the abdominal wall with Valsalva maneuvers Palpation (GI): Soft to palpation, nontender and no guarding Neuro General: patient oriented x3 Assessment & Plan Assessment & Plan (1) Abdominal pain: Code(s): R10.9 - Unspecified abdominal pain Category: Medical Plan: She mentions various abdominal complaints including pain, difficulty swallowing, constipation and a question of a hernia. She says she was told by her primary care that she has a hernia Current exam does not reveal any abdominal wall hernia. She does state that she had a CAT scan just about 3 weeks ago. I am going to retrieve this and review the findings I will review the CT scan findings with her and discuss what may be the next step in her care. I also had a long discussion with her about the importance of good control of her diabetes. She understands that diabetes itself can cause some degree of gastroparesis. Coding Level of Care Code New Pt Level 3 (07746) Diagnoses Abdominal pain R10.9
== END 2023-10-07 14:05 | disposition home or self-care (01) ==
PROVIDERS: PCP Internal Medicine; Visit Provider Surgery
DX: R10.9 Unspecified abdominal pain (principal)
CPT/HCPCS: 99203

== ENCOUNTER → 2023-10-07 13:29 | Outpatient (BNVA) | payer OTHER, SELFPAY | PROVIDERS: PCP Internal Medicine; Visit Provider Surgery | DX: R10.9 Unspecified abdominal pain (principal) | CPT/HCPCS: 99202 ==

== ENCOUNTER 2024-04-25 21:56 | Emergency (ER) | payer OTHER, SELFPAY ==
--- NOTE | ~2024-04-25 | CT_ITS ---
CLINICAL HISTORY: R flank pain CT abdomen and pelvis without contrast Comparison: CT of the abdomen and pelvis from 07/06/2023. Findings: Mild bibasilar atelectasis and/or scarring of the imaged lung bases with motion artifacts. No obstructing stone of either imaged kidney or either imaged ureter accounting for motion artifacts. Multiple calcifications in the pelvis are favored to be due to phleboliths. Mild fat deposition of the liver with motion artifacts. Adrenal glands are unremarkable accounting for artifacts. Imaged spleen is nonenlarged. Mild volume loss of the pancreas. Mild pancreatic stranding could be obscured given the degraded motion artifacts. Gallbladder is unremarkable for CT without contrast and with artifacts. Mild small bowel dilatation in the midabdomen is nonspecific measuring up to 2.2 cm diameter. No definite small bowel obstruction in this noncontrast study with motion artifacts. Severe stool burden is present, including the cecum. Imaged appendix is gas-filled and nondilated. 1 cm calcification of the uterus is likely due to ventral fibroid with a additional small fibroids in the uterus by CT. No adnexal soft tissue mass by CT. Trace fluid in the pelvis may be reactive. No free intraperitoneal air. Subcutaneous edema is noted. Urinary bladder is mildly distended. Vascular calcifications include imaged aorta and its branches. Mild vertebral height losses appear old chronic. Multifocal vacuum disc phenomenon redemonstrated with multifocal degenerative changes of the imaged spine. IMPRESSION: 1. Severe stool burden, including the cecum. No small bowel obstruction. 2. Mild small bowel dilatation is nonspecific including upper abdomen. This can be seen with adjacent inflammation such as mild pancreatitis. 3. No definite obstructing stone in either kidney or either ureter in the study with motion artifacts. This document has been electronically signed by: Robbie Renner MD on 04/26/2024 02:19:52
[2024-04-25 22:07] VITALS: BP 136/57; PULSE 92; RESP 16; TEMP 36.6; O2SAT 95; BMI 35.1
--- NOTE | 2024-04-25 22:17 | ECG_ITS ---
Test Reason : abd pain Blood Pressure : */* mmHG Vent. Rate : 76 BPM Atrial Rate : 76 BPM P-R Int : 118 ms QRS Dur : 86 ms QT Int : 386 ms P-R-T Axes : 50 -46 41 degrees QTcB Int : 434 ms Normal sinus rhythm Left axis deviation Abnormal ECG When compared with ECG of 05-Jul-2016 18:07, No significant change was found Referred By: Generic ED Physician Electronically Signed By: CHRISTOPHER DEL TORO MD
--- OUTSIDE RECORDS SUMMARY | 2024-04-25 23:19 | XMS_ITS | Patient Health Record ---
Author Organization [facility] Address [address], [place] [id number] Care Team Providers Care Supervisor Fertilizer Processing Name Role Phone Ghada Sanchez MD Primary Care Provider Unavaila ble Landon Cee Unavailable [phone] Allergies No Known Allergies Reason For Referral No Information Medications Medication SIG (Take, Route, Frequency, Duration) Notes Start Date End Date Status Pepcid Not-Taking multivitamin Multiple Vitamins 1 tab(s) orally once a day for 30 day(s) Active naproxen Not-Taking metFORMIN 1000 mg 1 tab(s) orally 2 ti mes a day Active Cymbalta 60 mg 1 cap(s) orally once a day for 30 day(s) Not-Taking Requip Active clonazePAM 0.5 mg 1 tab(s) orally QHS for 30 day(s) Not-Taking atorvastatin Active simvastatin 20 mg 1 tab(s) orally once a day (at bedtime) for 30 day(s) Not-Taking lisinopril Active traMADol 50 mg 1 tab(s) orally Not-Taking Tresiba Active glipiZIDE 5 mg 1 tab(s) orally once a day Not-Taking Trulicity Pen Active Seroquel 100 mg 1 tab(s) orally Not-Taking Vistaril Active aspirin Active Lexapro Active Stool Softener with Laxative Active valsartan Active Tylenol Active Protonix Active Immunizations Vaccine Route Administration Date Status Comme nts Td offered and declined Unknown 09/18/2011 Administered PPD planted Unknown 09/18/2011 Administered PPD planted Unknown 09/24/2011 Administered PPD negative Unknown 09/27/2011 Administered 0 mm. 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) Photosensitization (692.72) Active confirmed Problem Hypercholesterolemia (96160579) Hypercholesterolemia (272.0) Active confirmed Problem Hypertension (10748651) Hypertension NOS (401.9) Active confirmed Problem Low back pain (133534866) Low back pain (724.2) Active confirmed Problem Fibromyalgia (169120056) Fibromyalgia (729.1) Active confirmed Problem Chronic pain (57491732) Chronic pain, not elsewhere classified (338.29) Active confirmed Problem Anxiety state (256180653) ANXIETY STATE NOS (300.00) Active confirmed Plan Of Treatment No Information Insurance Providers Payer Name Payer Address Payer Phone Subscriber Number Group Number Insured Name Patient Relationship to Insured Coverage Start Date Coverage End Date [address] [phone] [id number] Jermaine bañuelos Yuli Self - patient is the insured [employer] [facility] [employer] 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 scolosis in back restless legs Diabetes Surgical History Surgery Date(Month/Year) L5-S1 [place] [facility] [place] 1998 1983 Rt Breast cyst non malignant 2000 Hospitalization History Reason Date(Month/Year) [place] [facility] admit [facility] for SI x 3 days [facility]
--- OUTSIDE RECORDS SUMMARY | 2024-04-25 23:19 | XMS_ITS | Continuity of Care Document ---
Author Organization [facility] Address [address] [place] [address]- Care Team Providers Care Television News Producer Name Role Phone Sydnie Andrade MD Primary Care Physician [phone] Encounter [facility] Date(s): 03/09/24 - 04/08/[address] [id number] Encounter Type: Triage Allergies, Adverse Reactions, Alerts Substance Criticality Severity Reaction Reaction Severity Status contrast media (iodine-based) 1 Low criticality Mild Active 1Facial tingling after receiving CT contrast 02/04/2023. NO anaphylaxis, facial swelling, or throat swelling. Immunizations Given and Recorded Vaccine Date Status Refusal Reason tetanus/diphtheria/pertussis, acel(Tdap) 02/04/24 Given tetanus/diphtheria/pertussis, acel(Tdap) 04/07/13 Given influenza virus vaccine, inactivated 02/04/24 Give n influenza virus vaccine, inactivated 03/16/22 Give n influenza virus vaccine, inactivated 01/15/19 Give n influenza virus vaccine, inactivated 02/02/16 Myke rded [id number] 12y+ bivalent booster vax 03/16/22 Given SARS-CoV-2 (COVID-19) mRNA-1273 vaccine 07/01/20 R ecorded SARS-CoV-2 (COVID-19) mRNA-1273 vaccine 06/03/20 R ecorded Hepatitis B Vaccine (old term) 07/31/15 Recorded Hepatitis B Vaccine (old term) 07/30/14 Recorded Hepatitis B Vaccine (old term) 07/30/13 Recorded pneumococcal 23-valent vaccine 07/30/14 Recorded Medications Alcohol Pads See Instructions, # 200 each, Refills 11, Tot. Refills 11, Maintenance, dx: T2DM icd10: E11.9 to check blood sugar up to 4 times per day, 12/19/23 2:43:00 PM EDT, Supply, 160, cm, 12/17/23 13:55:00 EDT, Height, 95, kg, 09/22/23 21:51:00 EDT, Dry Weight Start Date: 12/19/23 Status: Ordered Quantity: 200.0 Unit: each Repeat number: 12 Alcohol Wipes See Instructions, # 100 each, Refills 11, Tot. Refills 11, Maintenance, dx: T2DM to check blood sugar up to 4 times per day, 11/28/22 9:20:00 AM EDT, Supply, 159, cm, 10/16/22 14:19:00 EDT, Height, 89.25, kg, 03/27/22 13:48:00 EST, Dry Weight Start Date: 11/28/22 Status: Ordered Quantity: 100.0 Unit: each Repeat number: 12 amLODIPine 10 mg oral tablet See Instructions, TAKE 1 TABLET BY MOUTH ONCE DAILY, # 90 tablet, 1 Refills, Maintenance, 03/31/24 8:11:00 AM EST, [facility] [id number], 160, cm, 03/12/24 2:19:00 EST, Height, 90, kg, 03/12/24 2:19:00 EST, Dry Weight Start Date: 03/31/24 Status: Ordered Quantity: 90.0 Unit: tablet Repeat number: 2 atorvastatin 40 mg oral tablet See Instructions, TAKE 1 TABLET BY MOUTH ONCE DAILY AT BEDTIME, # 90 tablet, 1 Refills, Maintenance, 03/31/24 8:12:00 AM EST, [place], [place] - [id number], 160, cm, 03/12/24 2:19:00EST, Height, 90, kg, 03/12/24 2:19:00 EST, Dry Weight Start Date: 03/31/24 Status: Ordered Quantity: 90.0 Unit: tablet Repeat number: 2 bench shower chair bench shower chair, See Instructions, # 1 each, Refills 0, Tot. Refills 0, Maintenance, dx: lumbar spondylosis ICD10: M47.816 duration: 99, 01/09/24 2:41:00 PM EDT, Supply Start Date: 01/09/24 Status: Ordered Quantity: 1.0 Unit: each Repeat number: 1 cetirizine 10 mg oral tablet 1 tablet = 10 mg, By Mouth, Daily, # 90 tablet, 3 Refills, Maintenance, 11/19/23 12:49:00 PM EDT, Tablet, [facility] [id number], Partial fill upon patient request if the prescription is for a schedule II opioid drug., 160, cm, 10/31/23 15:16:00 EDT, Height, 95, kg, 09/22/23 21:51:00 EDT, Dry Weight Start Date: 11/19/23 Stop Date: 11/13/24 Status: Ordered Quantity: 90.0 Unit: tablet Repeat number: 4 contour 10 in flip pillow contour 10 in flip pillow, See Instructions, # 1 each, Refills 0, Tot. Refills 0, Maintenance, dx: restless leg syndrome, chronic low back pain ICD10: M54.5, G25.81 duration: 12 months, 11/22/23 3:19:00 PM EDT, Supply Start Date: 11/22/23 Status: Ordered Quantity: 1.0 Unit: each Repeat number: 1 cranberry oral capsule 1 capsule, By Mouth, Daily, # 90 capsule, 3 Refills, Maintenance, 02/04/24 2:29:00 PM EST, [facility] [id number], Partial fill upon patient request if the prescription is for a schedule II opioid drug., 1 capsule By Mouth Daily,x90 days, 160, cm, 02/04/24 14:09:00 EST, Height, 95, kg, 09/22/23 21:51:00 EDT, Dry Weight Start Date: 02/04/24 Stop Date: 01/29/25 Status: Ordered Quantity: 90.0 Unit: capsule Repeat number: 4 Daily Luciana oral tablet See Instructions, TAKE 1 TABLET BY MOUTH EVERY DAY, # 90 tablet, 3 Refills, 04/15/22 8:15:00 AM EST,[facility] [id number], 90, TAKE 1 TABLET BY MOUTH EVERY DAY, 159, cm, 03/27/22 13:48:00 EST, Height, 89.25, kg, 03/27/22 13:48:00 EST, Dry Weight Start Date: 04/15/22 Status: Ordered Quantity: 90.0 Unit: tablet Repeat number: 4 Dexcom G6 Heel Seat Trimmer Dexcom G6 Heel Seat Trimmer, See Instructions, # 1 each, Refills 0, Tot. Refills 0, Maintenance, Use to check blood sugar 4 times daily as directed., 06/28/23 3:58:00 PM EDT, PA is in progress, to replace G7, Supply, 159, cm, 06/18/23 14:07:00 EDT, Height, 96, kg, 01/28/23 16:17:00 EDT, Dry Weight Start Date: 06/28/23 Status: Ordered Quantity: 1.0 Unit: each Repeat number: 1 Indication: Type 2 diabetes mellitus without complications Dexcom G6 Sensor Dexcom G6 Sensor, See Instructions, # 3 each, Refills 11, Tot. Refills 11, Maintenance, Use to monitor BG 4 times daily as directed. Replace sensor every 10 days, 3 sernsors/month ., 12/17/23 2:54:00 PM EDT, PA is in progress, to replace G7, Supply, 160, cm, 12/17/23 13:55:00 EDT, Height, 95, kg, 09/22/23 21:51:00 EDT, Dry Weight Start Date: 12/17/23 Status: Ordered Quantity: 3.0 Unit: each Repeat number: 12 Indication: Type 2 diabetes mellitus without complications Dexcom G6 Transmitter Dexcom G6 Transmitter, See Instructions, # 1 each, Refills 3, Tot. Refills 3, Maintenance, Use to monitor BG 4 times daily as directed. Replace transmitter every 90 days., 12/17/23 2:54:00 PM EDT, PA is in progress, to replace G7, Supply, 160, cm, 12/17/23 13:55:00 EDT, Height, 95, kg, 09/22/23 21:51:00 EDT, Dry Weight Start Date: 12/17/23 Status: Ordered Quantity: 1.0 Unit: each Repeat number: 4 Indication: Type 2 diabetes mellitus without complications docusate sodium 100 mg oral capsule See Instructions, TAKE 1 CAPSULE BY MOUTH ONCE DAILY NEEDED FOR CONSTIPATION, # 90 capsule, 1 Refills, Maintenance, 12/16/23 11:35:00 PM EDT, [place], [place] - [id number], 160, cm, 12/05/23 13:58:00 EDT, Height, 95, kg, 09/22/23 21:51:00 EDT, Dry Weight Start Date: 12/16/23 Status: Ordered Quantity: 90.0 Unit: capsule Repeat number: 2 Ecotrin 325 mg oral delayed release tablet 1 tablet = 325 mg, By Mouth, Daily, # 30 tablet, 0 Refills, Maintenance, 01/29/23 6:43:00 AM EDT, EC Tablet, Partial fill upon patient request if the prescription is for a schedule II opioid drug. Start Date: 01/29/23 Status: Ordered Quantity: 30.0 Unit: tablet Repeat number: 1 escitalopram 10 mg oral tablet 2 tablet = 20 mg, By Mouth, Daily in AM, 0 Refills, Maintenance, 10/16/22 2:32:00 PM EDT, Partial fill upon patient request if the prescription is for a schedule II opioid drug. Start Date: 10/16/22 Status: Ordered Repeat number: 1 flip table flip table, See Instructions, # 1 each, Refills 0, Tot. Refills 0, Maintenance, dx: diabetic neuropathy, chronic low back pain ICD10: E11.40 duration: 99, 11/22/23 3:20:00 PM EDT, Supply Start Date: 11/22/23 Status: Ordered Quantity: 1.0 Unit: each Repeat number: 1 Gvoke HypoPen 0.5 mg/0.1 mL subcutaneous solution 0.2 mL = 1 mg, Subcutaneous Injection, Once, To be use for hypoglycemic emergency by family member or accompanying person, if blood glucoses less than 60 and unconscious. Please call 911 after use glucagon pen., # 0.2 mL, 0 Refills, Soft Stop, 12/17/23 2:52:00 PM EDT, Solution, [place], [place] - [phone], Partial fill upon patient request if the prescription is for a schedule II opioid drug., 160, cm, 12/17/23 13:55:00 EDT, Height, 95, kg, 09/22/23 21:51:00 EDT, Dry Weight Start Date: 12/17/23 Status: Ordered Quantity: 0.2 Unit: mL Repeat number: 1 handheld shower head handheld shower head, See Instructions, # 1 each, Refills 0, Tot. Refills 0, Maintenance, dx: lumbar spondylosis ICD10: M47.816 duration: , 01/09/24 2:42:00 PM EDT, Supply Start Date: 01/09/24 Status: Ordered Quantity: 1.0 Unit: each Repeat number: 1 home blood pressure monitor home blood pressure monitor, See Instructions, # 1 each, Refills 0, Tot. Refills 0, Maintenance, dx: hypertension ICD10: I10 duration: , 10/31/23 4:46:00 PM EDT, Supply Start Date: 10/31/23 Status: Ordered Quantity: 1.0 Unit: each Repeat number: 1 hydrochlorothiazide-valsartan 12.5 mg-320 mg oral tablet See Instructions, TAKE 1 TABLET BY MOUTH ONCE DAILY, # 90 tablet, 1 Refills, Maintenance, 03/31/24 8:12:00 AM EST, [facility] [id number], TAKE 1 TABLET BY MOUTH ONCE DAILY, 160, cm, 03/12/24 2:19:00 EST, Height, 90, kg, 03/12/24 2:19:00 EST, Dry Weight Start Date: 03/31/24 Status: Ordered Quantity: 90.0 Unit: tablet Repeat number: 2 Insulin Lispro KwikPen 100 units/mL injectable solution See Instructions, 100 - 149 6 units 150 - 199 8 units 200 - 249 10 units 250 - 299 12 units 300 - 349 14 units 350 - 399 16 units maximum units 50 units/day, # 15 mL, 5 Refills, Maintenance, 12/17/23 2:50:00 PM EDT, [facility] [id number], Partial fill upon patient request ifthe prescription is for a schedule II opioid drug., 160, cm, 12/17/23 13:55:00 EDT, Height, 95, kg,09/22/23 21:51:00 EDT, Dry Weight Start Date: 12/17/23 Status: Ordered Quantity: 15.0 Unit: mL Repeat number: 6 left thumb spica splint left thumb spica splint, See Instructions, # 1 each, Refills 0, Tot. Refills 0, Maintenance, dx: left dequervains tenosynovitis ICD10: M65.4 duration: 12 weeks, 12/11/23 2:13:00 PM EDT, Supply Start Date: 12/11/23 Status: Ordered Quantity: 1.0 Unit: each Repeat number: 1 metFORMIN 500 mg oral tablet See Instructions, TAKE 2 TABLETS BY MOUTH two (2) times a day, # 360 tablet, 1 Refills, Maintenance, 03/31/24 8:13:00 AM EST, [facility], [place] - [id number], 160, cm, 03/12/24 2:19:00EST, Height, 90, kg, 03/12/24 2:19:00 EST, Dry Weight Start Date: 03/31/24 Status: Ordered Quantity: 360.0 Unit: tablet Repeat number: 2 mirtazapine 15 mg oral tablet 1 tablet = 15 mg, By Mouth, Daily at bedtime, # 90 tablet, 3 Refills, Maintenance, 10/31/23 3:57:00 PM EDT, [facility], [facility] [id number], Partial fill upon patient request if the prescription is for a schedule II opioid drug., 160, cm, 10/31/23 15:16:00 EDT, Height, 95, kg, 09/21/2420:51:00 EDT, Dry Weight Start Date: 10/31/23 Stop Date: 10/25/24 Status: Ordered Quantity: 90.0 Unit: tablet Repeat number: 4 morphine 15 mg/8 to 12 hr oral tablet, extended release 1 tablet = 15 mg, By Mouth, Every 12 hours, # 56 tablet, 0 Refills, Maintenance, 03/09/24 1:26:00 PMEST, ER Tablet, [place], [place] - [id number], Partial fill upon patient request if the prescription is for a schedule II opioid drug., 160, cm, 02/04/24 14:09:00 EST, Height, 95, kg, 09/22/23 21:51:00 EDT, Dry Weight Start Date: 03/09/24 Stop Date: 04/06/24 Status: Ordered Quantity: 56.0 Unit: tablet Repeat number: 1 nalOXONE 4 mg/0.1 mL nasal spray = 4 mg, Nares, Both, Once, # 2 each, 0 Refills, Soft Stop, 04/22/23 8:46:00 AM EST, [place], [place] - [id number], Partial fill upon patient request if the prescription is for a schedule II opioid drug., 159, cm, 04/19/23 13:30:00 EST, Height, 96, kg, 01/28/23 16:17:00 EDT, Dry Weight Start Date: 04/22/23 Status: Ordered Quantity: 2.0 Unit: each Repeat number: 1 One Touch Delica Lancets See Instructions, # 100 each, Refills 11, Tot. Refills 11, Maintenance, dx: T2DM to check blood sugar up to 4 times per day, 11/28/22 9:20:00 AM EDT, Supply, 159, cm, 10/16/22 14:19:00 EDT, Height, 89.25, kg, 03/27/22 13:48:00 EST, Dry Weight Start Date: 11/28/22 Status: Ordered Quantity: 100.0 Unit: each Repeat number: 12 One Touch Delica Lancing System See Instructions, # 1 each, Maintenance, dx: T2DM to check blood sugar up to 4 times a day, :13:00 AM EDT, Supply, 159, cm, 10/16/22 14:19:00 EDT, Height, 89.25, kg, 03/27/22 13:48:00 EST, Dry Weight Start Date: 11/28/22 Status: Ordered Quantity: 1.0 Unit: each Repeat number: 1 One Touch Ultra 2 Glucose Meter See Instructions, # 1 each, Maintenance, dx: T2DM ICD10: E11.9 to check blood sugar up to 4 times per day, 11/28/22 9:07:00 AM EDT, Supply, 159, cm, 10/16/22 14:19:00 EDT, Height, 89.25, kg, 03/27/22 13:48:00 EST, Dry Weight Start Date: 11/28/22 Status: Ordered Quantity: 1.0 Unit: each Repeat number: 1 One Touch Ultra Test Strips See Instructions, # 100 each, Refills 11, Tot. Refills 11, Maintenance, dx: T2DM to test blood sugar up to four times per day, 11/28/22 9:12:00 AM EDT, Supply, 159, cm, 10/16/22 14:19:00 EDT, Height, 89.25, kg, 03/27/22 13:48:00 EST, Dry Weight Start Date: 11/28/22 Status: Ordered Quantity: 100.0 Unit: each Repeat number: 12 OneTouch Ultra Test strips OneTouch Ultra Test strips, See Instructions, # 100 Unknown, 3 Refills, Maintenance, USE TO TEST FINGER STICK BLOOD SUGAR UP TO 4 (FOUR) TIMES DAILY, 03/09/24 5:05:00 PM EST, 160, cm, 02/04/24 14:09:00 EST, Height, 95, kg, 09/22/23 21:51:00 EDT, Dry Weight Start Date: 03/09/24 Status: Ordered Quantity: 100.0 Unit: Unknown Repeat number: 1 OneTouch Ultra Test strips OneTouch Ultra Test strips, See Instructions, # 100 Unknown, 11 Refills, Maintenance, USE TO TEST FINGER STICK BLOOD SUGAR UP TO 4 (FOUR) TIMES DAILY, 12/24/23 2:18:00 PM EDT, 160, cm, 12/17/23 13:55:00 EDT, Height, 95, kg, 09/22/23 21:51:00 EDT, Dry Weight Start Date: 12/24/23 Status: Ordered Quantity: 100.0 Unit: Unknown Repeat number: 1 oxybutynin 10 mg/24 hr oral tablet, extended release 1 tablet = 10 mg, By Mouth, Daily, # 90 tablet, 3 Refills, Maintenance, 10/31/23 3:59:00 PM EDT, [place], [place] - [id number], Partial fill upon patient request if the prescription isfor a schedule II opioid drug., 160, cm, 10/31/23 15:16:00 EDT, Height, 95, kg, 09/22/23 21:51:00 EDT, Dry Weight Start Date: 10/31/23 Stop Date: 10/25/24 Status: Ordered Quantity: 90.0 Unit: tablet Repeat number: 4 oxybutynin 10 mg/24 hr oral tablet, extended release 1 tablet = 10 mg, By Mouth, Daily in AM, TAKE 1 TABLET BY MOUTH EVERY DAY WITH MEALS Start Date: 12/29/18 Status: Ordered Repeat number: 1 pantoprazole 40 mg oral delayed release tablet See Instructions, TAKE 1 TABLET BY MOUTH two (2) times a day, # 60 tablet, 5 Refills, Maintenance, 12/16/23 11:31:00 PM EDT, 160, cm, 12/05/23 13:58:00 EDT, Height, 95, kg, 09/22/23 21:51:00 EDT, Dry Weight Start Date: 12/16/23 Status: Ordered Quantity: 60.0 Unit: tablet Repeat number: 6 Pen [place], 32 G x 4 mm BD Ultra Fine III See instructions, # 100 each, Refills 5, Tot. Refills 5, Maintenance, to inject tresiba every day dx: T2DM ICD10: E11.9, 04/08/24 2:36:00 PM EST, Supply, 159, cm, 03/12/23 14:24:00 EST, Height, 96, kg,01/28/23 16:17:00 EDT, Dry Weight Start Date: 04/08/24 Stop Date: 09/30/25 Status: Ordered Quantity: 100.0 Unit: each Repeat number: 6 pregabalin 150 mg oral capsule 1 capsule = 150 mg, By Mouth, 2 times a day, # 60 capsule, 5 Refills, Maintenance, 02/10/24 2:28:00PM EST, Capsule, [facility] [id number], Partial fill upon patient request if the prescription is for a schedule II opioid drug., 160, cm, 02/04/24 14:09:00 EST, Height, 95, kg, 09/22/23 21:51:00 EDT, Dry Weight Start Date: 02/10/24 Stop Date: 08/08/24 Status: Ordered Quantity: 60.0 Unit: capsule Repeat number: 6 rOPINIRole 4 mg oral tablet See Instructions, TAKE 2 TABLETS BY MOUTH two (2) times a day, # 360 tablet, 1 Refills, Maintenance, 03/31/24 8:13:00 AM EST, [facility] [id number], 160, cm, 03/12/24 2:19:00EST, Height, 90, kg, 03/12/24 2:19:00 EST, Dry Weight Start Date: 03/31/24 Status: Ordered Quantity: 360.0 Unit: tablet Repeat number: 2 Skin Tac Wipes Skin Tac Wipes, See Instructions, # 50 each, Refills 3, Tot. Refills 3, Maintenance, Apply under dexcom sensor every 10 days as directed. Dx E11.9, ALF 12 months., 07/08/23 1:28:00 PM EDT, Supply Start Date: 07/08/23 Status: Ordered Quantity: 50.0 Unit: each Repeat number: 4 Indication: Type 2 diabetes mellitus without complications square fenestrated tegaderm 8.8cmx8.8 cm square fenestrated tegaderm 8.8cmx8.8 cm, See Instructions, # 30 each, Refills 11, Tot. Refills 11,Maintenance, dx: T2DM ICD10: E11.9 to use to keep dexcom in place, 04/22/23 8:45:00 AM EST, Supply, 159, cm, 04/19/23 13:30:00 EST, Height, 96, kg, 01/28/23 16:17:00 EDT, Dry Weight Start Date: 04/22/23 Status: Ordered Quantity: 30.0 Unit: each Repeat number: 12 Tegaderm Transparent Film Dressing 4in x 10 in Tegaderm Transparent Film Dressing 4in x 10 in, See Instructions, # 20 each, Refills 3, Tot. Refills 3, Maintenance, Apply over Dexcom sensor every 10 days as directed. Dx E11.9, ALF 12 months., 07/08/23 1:28:00 PM EDT, Supply Start Date: 07/08/23 Status: Ordered Quantity: 20.0 Unit: each Repeat number: 4 tempurpedic orthopedic peters sized mattress tempurpedic orthopedic peters sized mattress, See Instructions, # 1 each, Refills 0, Tot. Refills 0,Maintenance, dx: chronic low back pain, achilles tendonitis ICD10: M54.5 duration: 99, 03/18/23 8:51:00 AM EST, Supply Start Date: 03/18/23 Status: Ordered Quantity: 1.0 Unit: each Repeat number: 1 toilet seat riser w/ removable arms toilet seat riser w/ removable arms, See Instructions, # 1 each, Refills 0, Tot. Refills 0, Maintenance, dx: lumbar spondylosis ICD10: M47.816 duration: 99, 01/09/24 2:39:00 PM EDT, Supply Start Date: 01/09/24 Status: Ordered Quantity: 1.0 Unit: each Repeat number: 1 Tresiba FlexTouch 100 units/mL subcutaneous solution = 80 units, Subcutaneous Injection, Daily, # 30 mL, 11 Refills, Maintenance, 12/03/23 1:54:00 PM EDT,[place], [place] - [phone], increase in dose. patient was taking 66 units daily, 160, cm, 12/03/23 13:21:00 EDT, Height, 95, kg, 09/22/23 21:51:00 EDT, Dry Weight Start Date: 12/03/23 Stop Date: 11/27/24 Status: Ordered Quantity: 30.0 Unit: mL Repeat number: 12 true comfort lancet 30 gauge true comfort lancet 30 gauge, See Instructions, # 200 each, Refills 11, Tot. Refills 11, Maintenance, dx: T2DM icd10: E11.9 to check blood sugar up to 4 times per day, 12/19/23 2:42:00 PM EDT, Supply,160, cm, 12/17/23 13:55:00 EDT, Height, 95, kg, 09/22/23 21:51:00 EDT, Dry Weight Start Date: 12/19/23 Status: Ordered Quantity: 200.0 Unit: each Repeat number: 12 Tylenol Extra Strength 500 mg oral tablet 2 tablet = 1,000 mg, By Mouth, 3 times a day, PRN as needed for pain, # 100 tablet, 5 Refills, Maintenance, 02/11/24 5:08:00 PM EST, Tablet, [place], [place] - [id number], Partial fill upon patient request if the prescription is for a schedule II opioid drug., 160, cm, 02/04/24 14:09:00 EST, Height, 95, kg, 09/22/23 21:51:00 EDT, Dry Weight Start Date: 02/11/24 Stop Date: 08/09/24 Status: Ordered Quantity: 100.0 Unit: tablet Repeat number: 6 Vistaril pamoate 25 mg oral capsule 1 capsule = 25 mg, By Mouth, Daily in AM, 0 Refills, Maintenance, 01/25/23 9:31:00 AM EDT, Partial fill upon patient request if the prescription is for a schedule II opioid drug. Start Date: 01/25/23 Status: Ordered Repeat number: 1 Problem List Condition Confirmation Course Effective Dates Status Health Status Informant COVID-19 1 Confirmed 07/28/21 Active Depression Confirmed Active Diabetes mellitus Confirmed Active Controlled substance agreement signed 04/19/2023 Confirmed Active Fibromyalgia Confirmed Active Hypercholesterolemia Confirmed Active HLD (hyperlipidemia) Confirmed Active Hypertension Confirmed Active Low back pain with radiation Confirmed Active Morbid obesity Confirmed Active Osteoarthritis Confirmed Active N [employer], [employer]; Norma Larry, Confirmed Active Nasal septum perforation Confirmed Active Plantar fasciitis Confirmed Active Restless legs syndrome Confirmed Active Severe obesity (BMI 35.0-39.9) with comorbidity Confirmed Active Lumbar spinal stenosis, Controlled Substance Agreement Signed Confirmed 03/18/20 Active Lumbar spondylitis Confirmed Active 1Problem added by Discern Expert Social History Social History Type Response Smoking Status Use: 4 or less cigar ettes(less than 1/4 pack)/day in last 30 days; Interested in cessation: No; Patient wants NRT during admission No;Former smokeless tobacco user, quit more than 30 days ago entered on: 05/22/22 Sex Sex Representation Female (finding) Patient Care team information Care Team Personnel Name: Carlita Jensen RN Position: [facility] AMB Nurse Member Role: Primary Care Nurse Name: Brigette Chaidez Position: [facility] Outreach Member Role: Lifetime Consulting Physician Name: Kiara Stapleton RN Position: [facility] Onco RN Member Role: Primary Care Nurse Name: Aneta Navarro RN Position: [facility] SN RN Member Role: Primary Care Nurse Name: Shyam Jimenez DO Position: [facility] Renal MD Member Role: Lifetime Consulting Physician Address: [address] [place], [place] [address] [place] [address]- DS Telecom: Name: Echo Gomez RN Position: [facility] RN Member Role: Primary Care Nurse Name: Adriana Bolden RN Position: [facility] Onco RN Member Role: Primary Care Nurse Name: Sydnie Andrade MD Position: [facility] Physician - Primary Care Member Role: PCP Address: [address] [place] [phone]- Telecom: Care Team Related Persons Name: NANDO BRADFORD Name: NANDO BRADFORD Name: JV BRADFORD Insurance Providers Guarantor name: FAB SANCHEZ Health Plan Information #: 1 Payer: [facility] Member Number: NA Policy Number: NA Group Number: NA
--- OUTSIDE RECORDS SUMMARY | 2024-04-25 23:19 | XMS_ITS | Continuity of Care Document ---
Author Organization [facility] [place] Address [address] [place] [address]- Care Team Providers Care Sugar Controller Name Role Phone Sydnie Andrade MD Primary Care Physician [phone] Encounter [facility] [place] Date(s): 03/09/24 - 04/08/[address] [id number] Encounter Type: Triage Allergies, Adverse Reactions, [...] influenza virus vaccine, inactivated 02/02/16 Myke rded [id number] 12y+ bivalent booster vax 03/16/22 Given SARS-CoV-2 [...] 1 Refills, Maintenance, 03/31/24 8:11:00 AM EST, [facility] [id number], 160, cm, 03/12/24 2:19:00 EST, Height, 90, kg, 03/12/24 2:19:00 EST, Dry Weight Start Date: 03/31/24 Status: Ordered Quantity: 90.0 Unit: tablet Repeat number: 2 atorvastatin 40 mg oral tablet See Instructions, TAKE 1 TABLET BY MOUTH ONCE DAILY AT BEDTIME, # 90 tablet, 1 Refills, Maintenance, 03/31/24 8:12:00 AM EST, [place], [place] - [id number], 160, cm, 03/12/24 2:19:00EST, Height, 90, kg, [...] Refills, Maintenance, 11/19/23 12:49:00 PM EDT, Tablet, [facility] [id number], Partial fill upon patient request if the [...] 3 Refills, Maintenance, 02/04/24 2:29:00 PM EST, [facility] [id number], Partial fill upon patient request if the [...] 90 tablet, 3 Refills, 04/15/22 8:15:00 AM EST,[facility] [id number], 90, TAKE 1 TABLET BY MOUTH EVERY DAY, 159, cm, 03/27/22 13:48:00 EST, Height, 89.25, kg, 03/27/22 13:48:00 EST, Dry Weight Start Date: 04/15/22 Status: Ordered Quantity: 90.0 Unit: tablet Repeat number: 4 Dexcom G6 Msw Dexcom G6 Msw, See Instructions, # 1 each, Refills 0, [...] 1 Refills, Maintenance, 12/16/23 11:35:00 PM EDT, [place], [place] - [id number], 160, cm, 12/05/23 13:58:00 EDT, Height, 95, [...] Soft Stop, 12/17/23 2:52:00 PM EDT, Solution, [place], [place] - [id number], Partial fill upon patient request if the [...] 1 Refills, Maintenance, 03/31/24 8:12:00 AM EST, [facility] [id number], TAKE 1 TABLET BY MOUTH ONCE DAILY, [...] 5 Refills, Maintenance, 12/17/23 2:50:00 PM EDT, [facility] [id number], Partial fill upon patient request ifthe prescription [...] 1 Refills, Maintenance, 03/31/24 8:13:00 AM EST, [facility], [place] - [id number], 160, cm, 03/12/24 2:19:00EST, Height, 90, kg, 03/12/24 2:19:00 EST, Dry Weight Start Date: 03/31/24 Status: Ordered Quantity: 360.0 Unit: tablet Repeat number: 2 mirtazapine 15 mg oral tablet 1 tablet = 15 mg, By Mouth, Daily at bedtime, # 90 tablet, 3 Refills, Maintenance, 10/31/23 3:57:00 PM EDT, [facility], [facility] [id number], Partial fill upon patient request if the [...] Refills, Maintenance, 03/09/24 1:26:00 PMEST, ER Tablet, [place], [place] - [id number], Partial fill upon patient request if the [...] Refills, Soft Stop, 04/22/23 8:46:00 AM EST, [place], [place] - [id number], Partial fill upon patient request if the [...] 3 Refills, Maintenance, 10/31/23 3:59:00 PM EDT, [place], [place] - [id number], Partial fill upon patient request if the [...] 60.0 Unit: tablet Repeat number: 6 Pen [place], 32 G x 4 mm BD Ultra [...] 5 Refills, Maintenance, 02/10/24 2:28:00PM EST, Capsule, [facility] [id number], Partial fill upon patient request if the [...] 1 Refills, Maintenance, 03/31/24 8:13:00 AM EST, [facility] [id number], 160, cm, 03/12/24 2:19:00EST, Height, 90, kg, 03/12/24 2:19:00 EST, Dry Weight Start Date: 03/31/24 Status: Ordered Quantity: 360.0 Unit: tablet Repeat number: 2 Skin Tac Wipes Skin Tac Wipes, See Instructions, # 50 each, Refills 3, Tot. Refills 3, Maintenance, Apply under dexcom sensor every 10 days as directed. 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; Norma Larry, Confirmed Active Nasal septum perforation [...] MD Member Role: Lifetime Consulting Physician Address: [address] [place], [place] [address] [place] [address]- [place] [employer]: Name: Echo Gomez RN Position: [facility] RN Member Role: Primary Care Nurse Name: Adriana Bolden RN Position: [facility] Onco RN Member Role: Primary Care Nurse Name: Sydnie Andrade MD Position: [facility] Physician - Primary Care Member Role: PCP Address: [address] [place] [phone]- Telecom: Care Team Related Persons Name: NANDO BRADFORD Name: NANDO BRADFORD Name: JV BRADFORD Insurance Providers Guarantor name: FAB SANCHEZ Health Plan Information #: 1 Payer: [facility] [employer]/[facility] Member Number: NA Policy Number: NA Group Number: NA
[2024-04-25 23:20] LABS: Appearance Urine Clear; Basophils Absolute Auto 0.1 X10*3/uL (0.0-0.2); Basophils Percent Auto 0.9 % (0-2); Color Urine Yellow; Eosinophils Absolute Auto 0.1 X10*3/uL (0.0-0.4); Eosinophils Percent Auto 0.9 % (0-4); Glucose Urine UA >=1000 mg/dL (Negative); Hematocrit 38.2 % (37.0-47.0); Hemoglobin 13.3 g/dl (12.0-16.0); Imm Gran Abs Auto 0.02 X10*3/uL (0.00-0.03); Imm Gran Pct Auto 0.3 % (0.0-0.4); Leukocyte Esterase Urine Negative (Negative); Lymphocytes Absolute Auto 2.7 X10*3/uL (1.2-4.9); Lymphocytes Percent Auto 33.7 % (20-40); MANUAL DIFF FLAG NO; Mean Corpuscular HGB Conc 34.8 g/dl (31.0-35.0); Mean Corpuscular Hemoglobin 31.4 pg (27.0-33.0); Mean Corpuscular Volume 90.3 fL (80.0-98.0); Mean Platelet Volume 9.9 fL (9.4-12.3); Monocytes Absolute Auto 0.5 X10*3/uL (0.1-1.2); Monocytes Percent Auto 6.3 % (2-11); Neutrophils Absolute Auto 4.6 x10*3/uL (2.0-8.3); Neutrophils Percent Auto 57.9 % (45-73); Nitrite Urine Negative (Negative); Platelet Count 214 X10*3/uL (160-400); Red Blood Count 4.23 X10*6/uL (4.20-5.50); Specific Gravity - Urine >= 1.030 (1.005-1.025); UMIC TRIGGER UACC YES; Urine Blood Negative (Negative); Urine Ketones Negative (Negative); Urine Protein Negative (Neg-Trace); White Blood Count 7.9 X10*3/uL (4.8-10.8)
--- OUTSIDE RECORDS SUMMARY | 2024-04-25 23:20 | XMS_ITS | Data Portability ---
Author Organization [facility] Brian Sylvester Msalex formerly [facility], [facility] Address [address] [place] [address] Care Team Providers Care Senior Administrative Assistant Name Role Phone [facility] Primary Care Provider Assessment Encounter Date Assessment Date Assessment LastModified by Organization Details LastModified Time 08/29/2023 08/29/2023 I am seeing the patient today under the supervision of zhang who was available but who did not see the patient. Patient comes to the office with known L lateral epicondylitis. The patient has done well with conservative management for their elbow. Has had increasing discomfort over the past several weeks without injury. Pain is generalized about the elbow. Off and on discomfort is noted at night. PFMSH and ROS has been reviewed, updated, and is located in the patient's chart. PHYSICAL FINDINGS: The patient is well appearing, in no apparent distress, alert and oriented to person, place and time. Gait is symmetric. No significant swelling, warmth or erythema about either elbow. There is mild tenderness to palpation about the lateral epicondyle. Active range of motion of the elbow is near full with elbow to shoulder. Peripheral, vascular, lymphatic examination, skin, neurologic coordination, reflexes, sensation are within normal limits. ASSESSMENT : L elbow lateral epicondylitis. PLAN: The patient has done well with conservative management in regards to the L elbow. Continued conservative management recommended. Moderating activities with the upper extremity recommended also. Please see procedure note. The patient will follow up prn. Previous shoulder injection only helped a little bit once proceed with MRI of the left shoulder to confirm rotator cuff tear for surgical planning ramon Not available 08/29/2023 07:40:19 02/19/2024 02/19/2024 I am seeing the patient today under the supervision of Dr Bowen who was available but who did not see the patient. ramon Not available 02/19/2024 14:23:31 Plan of Treatment Reminders Order Date Submit Date Provider Last Modified By Organization Details Last Modified Time Details Appointments RECHECK 15 2024 01:00P Madonna Cedeno PA-C Not available Not available Not available Lab None recorded . Referral None recorded . Procedures None recorded . Surgeries None recorded . Imaging MRI, ankle, w/o contrast - eval peroneal tendons 2024 025 [email or web address] [facility] ([facility]), [address], [place], [address], 04/24/2024 13:43:52 Medication Orders None recorded . Patient TargetsNo targets recorded. Patient InstructionsNo instructions recorded. Reason for Referral None Reported. Results Created Date Observation Date Name Description Value Unit Range Abnormal Flag Note LastModifiedBy Organization Detail LastModifiedTime 09/23/19 24 09/20/2023 MRI, shoul brad, w/o contr ast [facility] Access ion Number : [id number] Patien t Name: Yuli Pendleton Record Number : [id number] Date of : 1965 Date of Exam: 2023 Referr ing Physic kalie: [facility] ([facility]) [address], [address] [facility] [place] [address] Exam: MR Should er (C-) CPT 23340 - Left Room Descri ption: [facility] Pion 3T Clinic al Histor y: Other specif ic joint derang ements of the left should er, questi on tear. 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 Techni que: MRI of the left should er was perfor med withou t intrav enous contra st. Compar beverly: None. Findin gs: Rotato r cuff: There is tendin opathy of infras pinatu s and to a lesser extent supras pinatu s. The subsca pulari s and teres minor tendon s are intact . There is normal muscle bulk. Glenoi d labrum and biceps tendon : There is no displa mamta labral tear. The biceps tendon is in the groove , though there is mild thicke edmund and interm ediate signal of the intra- articu lar portio n, sugges ting mild tendin opathy . AC joint: Mild to modera te acromi oclavi cular degene rative change s seen with bony prolif eratio n and subcho ndral marrow edema. There is mild narrow ing of the medial outlet . Trace fluid is seen in the subacr omial/ subdel toid bursa. Articu lar cartil age: There is chondr al thinni ng inferi liv on the whole head. No discre te chondr al defect in the glenoi d. No eviden ce of glenoh umeral joint effusi on. Bone: The bone and bone marrow are normal . Impres marily: 1. Tendin opathy of infras pinatu s and to lesser extent supras pinatu s with no eviden ce of rotato r cuff tear. 2. Mild tendin opathy of the intra- articu lar biceps . 3. Mild to modera te acromi oclavi cular and mild glenoh umeral degene rative change . Electr onical ly Signed By: Bijal grantzliya [facility] ([facility]) [address], [place], [address], 09/24/2023 19:28:21 11/30/19 24 03/09/2020 imagi ng/di agnos tic resul t No observ ation record ed. [email or web address] Not Available 11/01 04:27:35 11/30/19 24 03/09/2020 imagi ng/di agnos tic resul t No observ ation record ed. [email or web address] Not Available 11/01 04:27:36 11/30/19 24 10/13/2018 imagi ng/di agnos tic resul t No observ ation record ed. [email or web address] Not Available 11/01 04:27:54 11/30/19 24 12/15/2018 imagi ng/di agnos tic resul t No observ ation record ed. [email or web address] Not Available 11/01 04:27:56 04/23/19 25 04/19/2024 MRI, ankle , w/o contr ast [facility] Access ion Number : [id number] Zana johnson Name: Yuli Pendleton Record Number : [id number] Date of : 1965 Date of Exam: 2024 Referr ing Physic kalie: [facility]) [address] [facility] [place] [address] Exam: MR Ankle (C-) CPT 37460 - Right Room Descri ption: [facility] Pion 3T Right ankle MRI Clinic al Histor y: Pain. Findin gs: Marrow edema and cystic change at the fourth metata rsal base The anteri or and staple processing machine operator ior tibiof ibular ligame nts are intact . Helicopter Repairer ior talofi bular ligame nt is intact . Amorph ous, interm ediate T2 signal replac es the anteri or talofi bular ligame nt. Findin g is consis tent with a high-g rade partia l injury /sprai n of the ATFL. The deltoi d and calcan eofibu lar ligame nts are intact . The staple processing machine operator ior tibial is, flexor digito rum, and flexor halluc is longus tendon s are intact . Perone us brevis split tear at the level of the retrom alleol ar groove and hindfo ot. Perone us longus tendon is intact . Mild perone al tenosy noviti s with a small amount of fluid in the tendon sheath . The anteri or tibial is, extens or halluc is, and extens or digito rum tendon s are intact . The planta r fascia is intact The Achill es tendon is intact . The sinus tarsi is within normal limits . Impres marily: Interm ediate T2 signal within an amorph ous anteri or talofi bular ligame nt. Findin g is consis tent with a high-g rade partia l injury /sprai n of the ATFL. Perone us brevis split tear with mild perone al tenosy noviti s. Small amount of marrow edema and cystic change at the fourth metata rsal base is likely due to early/ mild degene rative change at the fourth TMT joint. Electr onical ly Signed By: Annetta Esparza MD [email or web address] [facility] ([facility]) [address], [place], [address], 04/24/2024 08:05:33 Result Notes None recorded. Problems Name Problem SNOMED Code Status Onset Date Resolution Date Notes Provider Name and Address Organization Details Recorded Time No complaint s 356218627 Active Status: 'I'; Not Available [facility] 4 09:10:06 Trigger thumb of left hand 121201193854 107 Active 2023 Humble Hernandes PA-C [address], [place], [address] , [facility] 4 14:23:36 Impingeme nt syndrome of right shoulder region 494087451306 102 Active 2018 Problem Code: M75.41; Problem Code Type: ICD-10; Status: 'A'; Not Available [facility] 4 10:55:17 Trigger finger of right hand 455344176764 84919 Active 2018 Problem Code: M65.341; Problem Code Type: ICD-10; Status: 'A'; Not Available [facility] 4 10:55:17 Carpal tunnel syndrome of right wrist 184554719509 108 Active 2018 Problem Code: G56.01; Problem Code Type: ICD-10; Status: 'A'; Not Available [facility] 4 10:55:17 Osteoarth ritis of wrist 520961304 Active 2023 Humble Hernandes PA-C [address], [place], [address] , [facility] - [facility] 4 11:29:03 Impingeme nt syndrome of left shoulder region 991492736388 104 Active 2023 Humble Hernandes PA-C [address], [place], [address] , [facility] - [facility] 4 11:29:09 Lateral epicondyl itis of left humerus 308271860737 100 Active 2023 Humble Hernandes PA-C [address], [place], [address] , [facility] 4 07:40:24 Pain of left shoulder joint 506656144082 34175 Active 2023 Humble Hernandes PA-C [address], [place], [address] , [facility] 4 07:40:33 Derangeme nt of left shoulder joint 982736591363 [facility] 4 07:41:50 Problem Notes None recorded. Procedures Surgical History Date Name Laterality Status Provider Name and Address Organization Details Recorded Time 4 JZLat Epi completed Humble Hernandes PA-C [address], [place], [address], [facility] 02/19/2024 14:23:51 4 JZTrigger Finger Injection completed Humble Hernandes PA-C [address], [place], [address], [facility] 02/19/2024 14:24:05 4 JZLat Epi completed Humble Hernandes PA-C [address], [place], [address], [facility] 08/29/2023 07:40:42 4 JZShoulder INJ completed Humble Hernandes PA-C [address], [place], [address], [facility] 08/15/2023 11:28:48 4 JZWrist Joint Inj completed Humble Hernandes PA-C [address], [place], [address], [facility] 08/15/2023 11:28:47 Imaging Results Imaging Date Name Status LastModified by Organiz ation Details LastModified Time 09/20/2023 MRI, shoulder, w/o contrast completed [email or web address] [facility] ([facility]) [address] [place], [address], 09/24/2023 19:28:21 03/09/2020 imaging/diagn ostic result completed Information not available 11/30/2023 04:27:35 03/09/2020 imaging/diagn ostic result completed Information not available 11/30/2023 04:27:36 10/13/2018 imaging/diagn ostic result completed Information not available 11/30/2023 04:27:54 12/15/2018 imaging/diagn ostic result completed Information not available 11/30/2023 04:27:56 04/19/2024 MRI, ankle, w/o contrast completed [email or web address] [facility] ([facility]) [address] [place], [address], 04/24/2024 08:05:33 Procedure Notes None recorded. Medical Equipment None Reported. Allergies No known drug allergies Medications Name Sig Start Date Stop Date Status Note LastModified by Organization Details LastModified Time atorvastati n 40 mg tablet TAKE 1 TABLET BY MOUTH ONCE DAILY AT BEDTIME active Not Available Not Available No t Available metformin 500 mg tablet TAKE 2 TABLETS BY MOUTH two (2) times a day active Not Available Not Available No t Available cefuroxime axetil 250 mg tablet TAKE 1 TABLET BY MOUTH two (2) times a day FOR 7 DAYS active Not Available Not Available No t Available cetirizine 10 mg tablet TAKE 1 TABLET BY MOUTH DAILY active Not Available Not Available No t Available cefpodoxime 200 mg tablet TAKE 1 TABLET BY MOUTH EVERY TWELVE HOURS FOR 9 DAYS active Not Available Not Available No t Available oxybutynin chloride ER 10 mg tablet,exte nded release 24 hr TAKE 1 TABLET BY MOUTH ONCE DAILY active Not Available Not Available No t Available miconazole nitrate 2 % topical cream APPLY TO THE AFFECTED AREA TOPICALLY two (2) times a day active Not Available Not Available No t Available miconazole nitrate 2 % vaginal cream APPLY 1 APPLICATO RFUL VAGINALLY two (2) times a day FOR 14 DAYS active Not Available Not Available No t Available amlodipine 5 mg tablet TAKE 1 TABLET BY MOUTH ONCE DAILY active Not Available Not Available No t Available sulfamethox azole 800 mg-trimetho prim 160 mg tablet TAKE 1 TABLET BY MOUTH two (2) times a day FOR 7 DAYS 08/28 completed Not Available Not Available Not Available acetaminoph en 500 mg tablet TAKE 2 TABLETS BY MOUTH 3 (THREE) TIMES A DAY NEEDED FOR PAIN active Not Available Not Available No t Available aspirin 325 mg tablet,tico yed release TAKE 1 TABLET BY MOUTH ONCE DAILY. TO start THE DAY AFTER SURGERY 08/28 completed Not Available Not Available Not Available OneTouch Ultra Test strips USE TO TEST FINGER STICK BLOOD SUGAR UP TO 4 (FOUR) TIMES DAILY active Not Available Not Available No t Available amlodipine 10 mg tablet TAKE 1 TABLET BY MOUTH ONCE DAILY active Not Available Not Available No t Available pantoprazol e 40 mg tablet,tico yed release TAKE 1 TABLET BY MOUTH two (2) times a day active Not Available Not Available No t Available acyclovir 5 % topical ointment APPLY TO THE AFFECTED AREA 2-5 TIMES daily 08/28 completed Not Available Not Available Not Available mirtazapine 30 mg tablet TAKE 1 TABLET BY MOUTH EVERYDAY AT BEDTIME active Not Available Not Available No t Available valsartan 320 mg tablet TAKE 1 TABLET BY MOUTH ONCE DAILY active Not Available Not Available No t Available docusate sodium 100 mg capsule TAKE 1 CAPSULE BY MOUTH ONCE DAILY NEEDED FOR CONSTIPAT ION active Not Available Not Available No t Available morphine ER 15 mg tablet,exte nded release TAKE 1 TABLET BY MOUTH EVERY TWELVE HOURS active Not Available Not Available No t Available mirtazapine 15 mg tablet TAKE 1 TABLET BY MOUTH ONCE DAILY AT BEDTIME active Not Available Not Available No t Available methadone 5 mg tablet TAKE 1 TABLET BY MOUTH EVERY 8 HOURS NEEDED FOR PAIN 08/14 completed Not Available Not Available Not Available ondansetron 4 mg disintegrat ing tablet PLACE 1 TABLET UNDER THE TONGUE TO DISSOLVE EVERY 8 HOURS NEEDED FOR NAUSEA AND FOR VOMITING active Not Available Not Available No t Available doxycycline hyclate 100 mg tablet TAKE 1 TABLET BY MOUTH two (2) times a day FOR 7 DAYS active Not Available Not Available No t Available ropinirole 4 mg tablet TAKE 2 TABLETS BY MOUTH two (2) times a day active Not Available Not Available No t Available hydroxyzine pamoate 25 mg capsule Take one (1) capsule by mouth three times a day, as needed active Not Available Not Available No t Available valsartan 160 mg tablet TAKE 1 TABLET BY MOUTH ONCE DAILY active Not Available Not Available No t Available insulin lispro (U-100) 100 unit/mL subcutaneou s pen 150-199 2 units; 200-249 4 units; 250-299 6 units; 300-349 - 8 units; 350-399 - 10 units; over 400 call clinic; maximum units 30 units/day active Not Available Not Available No t Available escitalopra m 10 mg tablet Take one and one half (1.5) tablets by mouth daily active Not Available Not Available No t Available escitalopra m 20 mg tablet Take one (1) tablet by mouth daily active Not Available Not Available No t Available Alcohol Prep Pads USE TO TEST FINGER STICK BLOOD SUGAR UP TO 4 (FOUR) TIMES DAILY active Not Available Not Available No t Available pregabalin 150 mg capsule TAKE 1 CAPSULE BY MOUTH two (2) times a day active Not Available Not Available No t Available valsartan 320 mg-hydrochl orothiazide 12.5 mg tablet TAKE 1 TABLET BY MOUTH ONCE DAILY active Not Available Not Available No t Available oxycodone HCl-oxycodo ne-ASA as directed 1 TABLET Q 4 HOURS PRN PAIN DO NOT DIRVE WHILE ON THIS MED 07/25 completed Statu s: 'Disc ontin ued'; Not Available Not Available Not Available estradiol 10 mcg vaginal tablet INSERT 1 TABLET VAGINALLY TWICE A WEEK active Not Available Not Available No t Available BD Ultra-Fine Erika Pen Needle 32 gauge x /32 USE TO INJECT tresiba EVERY DAY active Not Available Not Available No t Available Trulicity 1.5 mg/0.5 mL subcutaneou s pen injector INJECT 1 PEN SUBCUTANE OUSLY ONCE WEEKLY. ROTATE INJECTION SITES active Not Available Not Available No t Available Tresiba FlexTouch U-100 insulin 100 unit/mL (3 mL) subcutaneou s pen INJECT 80 UNITS UNDER THE SKIN ONCE DAILY active Not Available Not Available No t Available naloxone 4 mg/actuatio n nasal spray SPRAY ONCE INTO EACH NOSTRIL DIRECTED active Not Available Not Available No t Available Dexcom G6 Sensor device Use to monitor BG 4 times daily as directed. Replace sensor every 10 days. active Not Available Not Available No t Available Dexcom G6 Roll Cleaner Use to check blood sugar 4 times daily as directed. active Not Available Not Available No t Available Dexcom G6 Transmitter device Use to monitor BG 4 times daily as directed. Replace transmitt er every 90 days. active Not Available Not Available No t Available True Comfort Lancet 30 gauge USE TO TEST FINGER STICK BLOOD SUGAR UP TO 4 (FOUR) TIMES DAILY active Not Available Not Available No t Available OneTouch Ultra2 Meter USE TO TEST FINGER STICK BLOOD SUGAR UP TO 4 (FOUR) TIMES DAILY active Not Available Not Available No t Available Gvoke HypoPen 2-Pack 0.5 mg/0.1 mL subcutaneou s auto-inject or TO be USE FOR hypoglyce harshal emergency BY family member OR accompany ing person, IF blood glucoses less THAN 60 AND unconscio us. Please call 911 AFTER USE glucagon pen.] active Not Available Not Available No t Available Trulicity 3 mg/0.5 mL subcutaneou s pen injector INJECT THE CONTENT OF 1 pen UNDER THE SKIN EACH WEEK active Not Available Not Available No t Available Daily-Luciana (with folic acid) 400 mcg tablet TAKE 1 TABLET BY MOUTH ONCE DAILY active Not Available Not Available No t Available cranberry fruit concentrate 215 mg capsule TAKE 1 CAPSULE BY MOUTH ONCE DAILY active Not Available Not Available No t Available Vitals Date Recorded Body height Body mass index (BMI) Body weight Provider Name and Address Organization Details Last Updated DateTime 08/15/2023 160.02 cm 37.2 kg/m2 13926.4 g CRIS MO [facility] 08/15/2023 10:35:22 Date Recorded Body height Body mass index (BMI) Body weight Provider Name and Address Organization Details Last Updated DateTime 08/29/2023 160.02 cm 37.2 kg/m2 76085.4 g CRIS MO [facility] 08/29/2023 07:35:32 Date Recorded Body height Body mass index (BMI) Body weight Provider Name and Address Organization Details Last Updated DateTime 02/19/2024 160.02 cm 37.2 kg/m2 14258.4 g Nick Morales [facility] 02/19/2024 14:13:05 Date Recorded Body height Body mass index (BMI) Body weight Provider Name and Address Organization Details Last Updated DateTime 04/14/2024 160.02 cm 37.2 kg/m2 26998.4 g ROBIN SOTO [place] [facility] 04/14/2024 15:40:01 Social History None recorded. Functional Status None recorded. Mental Status None recorded. Family History Nothing Reported. Medical History Condition Response Allergies/Hayfever N Coronary Artery Disease N Breathing or lung disorders N Anxiety/Depression N Emphysema N Nerve Disorders Y Thyroid Problems N COPD N Pacemaker N Kidney/Bladder Problems N Anemia N Vascular Disease Y Heart Trouble N Gastrointestinal Disease N Heart Attack (DE) N Cholesterol Y Diabetes Y Autoimmune disease N Bleeding Disorder N Orthotics N Arthritis Y Seizures/Epilepsy N Blood Clot N AIDS/HIV N Congestive Heart Failure (CHF) N Acid Reflux (GERD) Y Cancer N Stroke N Asthma N Peripheral Vascular Disease N Sleep Apnea N Hepatitis N Heart Disease N Rheumatoid Arthritis Y Arrhythmia N Pulmonary Embolism N Headaches N Fibromyalgia N Hypertension Y Osteoporosis N Gynecological HistoryNo gynecological history recorded. Obstetrics History GPAL:G 0 P 0 0 0 0 Past Encounters Encounter ID Performer Location Encounter Start Date Encounter Closed Date Diagnosis/Indication Diagnosis SNOMED-CT Code Diagnosis ICD10 Code Diagnosis Note [id number] GINO Kim [address] [place] [address] 08/15/2023 10:30:06 09/10/2023 10:15:02 Osteoarthritis of wrist 932259284 M19.039 Impingemen t syndrome of left shoulder region 3979360498 79713 M75.42 [id number] Humble Hernandes PA-C [place] [address] [place] [address] 08/29/2023 07:29:21 09/19/2023 12:07:47 Lateral epicondylitis of left humerus 8701045118 15744 M77.12 Pain of le ft shoulder joint 2031967695 3456050 M25.021 [id number] GINO Kim [address] [place] [address] 02/19/2024 14:07:04 03/17/2024 11:37:08 Lateral epicondylitis of left humerus 0215128438 19991 M77.12 Trigger th umb of left hand 3584666713 76128 M65.936 [id number] GINO Davis [address] [place] [address] 04/14/2024 14:58:36 04/24/2024 13:43:52 Ankle pain 812712737 M25.571 Peroneal t endinitis of right lower limb 0907779336 80969 M76.71 Left Achil les tendinitis 7239248857 55671 M76.62 Health Concerns Section Related Observation LastModified by Organization Detai ls LastModified Time None Recorded Concern Status LastModified by Organization Details LastModified Time None Recorded Advance Directives Directive None Recorded Payers Encounter Date Sequence Insurance Name Policy Number Policy Parsons Covered Member ID Parsons Member ID Guarantor Name 08/15/2023 1 [facility] - DOS ON OR AFTER 2022 - ONE CARE (MEDICARE REPLACEMENT/AD VANTAGE - HMO) Yuli Hayden [id number] Yuli Hayden 08/29/2023 1 [facility] DOS ON OR AFTER 2022 - ONE CARE (MEDICARE REPLACEMENT/AD VANTAGE - HMO) Yuli Hayden [id number] Yuli Hayden 02/19/2024 1 [facility] DOS ON OR AFTER 2022 - ONE CARE (MEDICARE REPLACEMENT/AD VANTAGE - HMO) Yuli Hayden [id number] Yuli Hayden 04/14/2024 1 [facility] - DOS ON OR AFTER 2022 - ONE CARE (MEDICARE REPLACEMENT/AD VANTAGE - HMO) Yuli Hayden [id number] Yuli Hayden Notes Date Note Type Note Provider Name and Address Organization Details Recorded Time 04/14/2024 text/html I am seeing this patient under the supervision of Dr. Blackmon, who was available but who did not see the patient. HPI: Patient is a 58-year-old female presenting today for follow-up in regards to bilateral ankle pain. She is status post left insertional Achilles reconstruction, calcaneal exostectomy and gastrocnemius recession in December 2022. Last seen by myself for this in May 2023. She continues to have some swelling about the Achilles tendon insertion and soreness about the lateral aspect of the ankle on the left. On her right side she fell a few weeks ago and landed on her right side. She feels that since then her foot has been staying inverted and she has difficulty everting the foot. She also feels that her restless leg syndrome has been worsened since then. She has a follow-up with her primary care in this regard. Denies any interval trauma. Denies any fevers, chills, or paresthesias. PFMSH, Meds and ROS reviewed, updated and signed by me, and is located in the patient's chart. PHYSICAL EXAMINATION: The patient is well appearing and in no apparent distress. Alert and oriented x 3. Examination of her left ankle reveals mild edema. She has well-healed gastrocnemius incision. Good gastrocnemius flexibility. Normal Esparza test. Healed incision over the posterior Achilles tendon. No evidence of infectious changes. Calf soft, nontender. Sensation intact to light touch in the left lower extremity. Examination of her right ankle reveals mild edema about the lateral ankle with no evidence of erythema or warmth. Neutral alignment. Good ankle sagittal plane range of motion although with mild discomfort. Difficulty with hindfoot eversion and pain with such. Calf soft, nontender. Sensation intact light touch in the lower right lower extremity. RADIOLOGY: X-rays were reviewed from outside facility. 3 views of the right ankle reveal no evidence of acute fractures IMPRESSION: Left ankle discomfort status post surgery December 2022, right ankle pain status post injury, possible common peroneal nerve injury, possible peroneal tendon injury PLAN: Discussed the findings and situation with the patient today. I believe most of the discomfort in her right side is secondary to the fall that she had. She may have had a contusion to the common peroneal nerve which is making it difficult to find her peroneal tendons and silver her hindfoot. That being said she has pain with hindfoot inversion's I recommended an MRI to evaluate her peroneal tendons. She will follow-up in 2 weeks for MRI review. Call with questions or concerns. The patient is ambulatory, but has weakness and/or instability of their extremity which requires stabilization from this semi-rigid/rigid orthosis to improve their function. Verbal and written instructions for the use and application of this item were given. Patient was instructed that should the brace result in increased pain, decreased sensation, increased swelling or an overall worsening of their medical condition, to please contact our office immediately. Cathy Cedeno PA-C [address], [place], [address], [facility] 04/15/2024 12:35:20 OBGyn Episode No OBEpisode recorded.
--- OUTSIDE RECORDS SUMMARY | 2024-04-25 23:20 | XMS_ITS | Data Portability ---
Author Organization [employer], [place] - [facility] Address [address] [place] [phone] Care Team Providers Care Groundwater Consultant Name Role Phone HIM CCA OTHER Assessment Encounter Date Assessment Date Assessment LastModified by Organization Details LastModified Time 08/07/2021 08/07/2021 I have reviewed and agree with the assessment and plan as documented by the application integration engineer. I provided real-time medical direction for this encounter and was immediately available to provide additional phone-based assistance as needed. Pt 56F concerned for COVID. Recent hospitalization, states she feels improved and wanted to see results. Vitals normal. Rapid strep+covid negative. Reassurance provided. Pt advised to follow up with care team and instructed to seek medical attention if new or concerning symptoms. [email or web address] Not available 08/07/2021 16:51:31 09/16/2023 09/16/2023 As noted, we alex ring called to see this patient regarding concerns of UTI 58 yo F s/p UTI in May 2023 (?treated with cephalexin) with right flank pain x 1 week consistent with prior UTI. No hematuria. No dysuria. +nausea. Vomited earlier in the day (has a h/o this, she is scheduled for an endoscopy). No fevers. No chills. No cough. No sob. No cp. PMHx notable for DM, htn, CKD. No recent catheterization or hospitalizations. On medic exam tachycardic to 115, afebrile, awake, alert, oriented, nonfocal neuro exam, lungs clear, tachycardic, abd +nabs, soft, nd, right CVA tenderness, otherwise nontender, no ext edema; no skin rashes on flank Evaluation in the field was performed by my application integration engineer colleague, as noted above, I provided real-time direction and supervision for this visit. Impression & Plan: Right flank pain, possible UTI/pyelo. Ddx includes intra-abd processes but lower clinical suspicion for appendicitis, hepatobiliary dz, colitis, diverticulitis. Also lower clinical suspicion for acute pulmonary process Tachycardia--resol berto with IVFs, lower clinical suspicion for PE. EKG reviewed--no acute ischemic changes LR 1L Toradol 15mg IVP Ceftriaxone 1g IV Vitals and sxs improved. She is afebrile. Repeat HR 89 Unable to find prior abx or ucx results. Will Rx empirically with cefpodoxime while ucx are pending Primary care, consider a re-evaluation of the patient. We did empirically treat for possible UTI given udip with ++LE and right flank pain with ucx pending. Disposition: We discussed the diagnostic uncertainty of home visits and the risk associated with this. In this case, the patient and I felt this to be an acceptable and reasonable amount of risk given the benefit of avoiding an ED visit. We discussed the need to seek care urgently/emergentl y in the setting of any new or worsening serious symptoms, particularly fevers, vomiting, chills, abdominal pain [email or web address] Not available 09/16/2023 16:39:01 09/23/2023 09/23/2023 I provided real -time medical direction via phone for this encounter and was available for additional phone-based assistance as needed. I have reviewed and agree with the Assessment and Plan as documented by the Program Director Scouting. Patient given the opportunity to ask questions. Our service contacted for an assessment of: Urinary tract infection As per above, patient with known ESBL in urine and was referred to the emergency department but left last night. Calls for an appointment again today. Per application integration engineer on the scene, patient has stable vital signs and is afebrile Impression: ESBL UTI Plan: Referred back to the emergency department [email or web address] Not available 09/23/2023 12:29:02 Plan of Treatment Reminders Order Date Submit Date Provider Last Modified By Organization Details Last Modified Time Details Appointments None recorded. Lab urinalysis, dipstick [address] [facility], [address] [place] [address], [id number], 08:17:07 BMP, serum or plasma [address] [facility], [address] [place] [address], [phone], 4 08:17:21 hemoglobin + hematocrit, blood [address] [facility], [address] [place] [address], [phone], 4 08:17:42 culture, urine 2023 024 [facility], [address] [place] [address], [id number], 4 10:06:26 urinalysis, dipstick [address] [facility], [address] [place] [address], [phone], 4 08:17:58 Referral None recorded. Procedures None recorded. Surgeries None recorded. Imaging electrocard iogram [email or web address] [place] [address], [address] [place] [address], [phone], 4 13:43:54 Medication Orders lactated Ringers intravenous solution 2023 024 [email or web address] [place], [place] - [id number], [address] [place], [address], 4 16:03:32 ketorolac 30 mg/mL injection solution 2023 024 [email or web address] Not available 4 16:03:32 cefpodoxime 200 mg tablet 2023 024 [place] - [id number], [address] [place], [address], 4 12:52:35 Patient TargetsNo targets recorded. Patient InstructionsNo instructions recorded. Reason for Referral None Reported. Results Created Date Observation Date Name Description Value Unit Range Abnormal Flag Note LastModifiedBy Organization Detail LastModifiedTime 09/16/19 24 09/19/2023 URINE CULTU RE,CO MPREH ENSIV E urine culture,comp rehensive Final report abnormal Not Available [facility] ([facility]) [address] [place], [address], 09/19/2023 12:06:46 09/16/19 24 09/19/2023 URINE CULTU RE,CO MPREH ENSIV E result 1 Klebsi clemente pneumo niae abnormal Great er than 100,0 00 colon y formi ng units per mL Susce ptibi lity profi le is consi stent with a proba ble ESBL. Not Available [facility] ([facility]) [address] [facility], [place], [address], 09/19/2023 12:06:46 09/16/19 24 09/19/2023 URINE CULTU RE,CO MPREH ENSIV E antimicrobia l susceptibili ty Commen t S = Susce ptibl e; I = Inter media te; R = Resis tant P = Posit juan; N = Negat juan MICS are expre ssed in micro grams per mL Antib iotic RSLT# 1 RSLT# 2 RSLT# 3 RSLT# 4 Amoxi cilli n/Cla vulan ic Acid I Ampic illin R Cefaz odessa R Cefep veronica I Ceftr iaxon e R Cefur oxime R Cipro floxa mily R Ertap enem S Genta micin R Imipe nem S Levof loxac in R Merop enem S Nitro furan toin R Piper acill in/Ta zobac smith S Tetra cycli ne S Tobra mycin I Trime thopr im/Betancourt lfa R Not Available [facility] ([facility]) [address] [facility], [place], [address], 09/19/2023 12:06:46 01/23/20 24 01/25/2024 URINE CULTU RE,CO MPREH ENSIV E urine culture,comp rehensive Final report abnormal Not Available [facility] ([facility]) [address] [facility], [place], [address], 01/25/2024 16:06:14 01/23/20 24 01/25/2024 URINE CULTU RE,CO MPREH ENSIV E result 1 COMMEN T abnormal Beta hemol ytic Strep tococ cus, group B Penic illin and ampic illin are drugs of [facility] e for treat ment of beta- hemol ytic strep tococ angelo infec tions . Susce ptibi lity testi ng of penic illin s and other beta- lacta m agent s appro berto by the FDA for treat ment of beta- hemol ytic strep tococ angelo infec tions need not be perfo rmed routi lana becau se nonsu scept ible isola archana are extre thuy rare in any beta- hemol ytic strep tococ cus and have not been repor adalgisa for Strep tococ cus pyoge fermin (grou p A). (CLSI ) Not Available [facility] ([facility]) [address] [facility], [place], [address], 01/25/2024 16:06:14 09/16/19 24 09/17/2023 elect tulio [email or web address] am No observ ation record ed. [address], [phone], 09/17/2023 08:18:14 Result Notes None recorded. Procedures Surgical History None recorded. Imaging Results Imaging Date Name Status LastModified by Organization Details LastModified Time 09/17/2023 electrocardiogram completed [address], [phone], 09/17/2023 08:18:14 Procedure Notes None recorded. Medical Equipment None Reported. Allergies No known drug allergies Medications Name Sig Start Date Stop Date Status Note LastModified by Organization Details LastModified Time fluconazole 100 mg tablet TAKE 1 TABLET BY MOUTH EVERY DAY active Not Available Not Available No t Available atorvastatin 40 mg tablet TAKE 1 TABLET BY [...] t Available oxybutynin chloride ER 10 mg tablet,exten ded release 24 hr TAKE 1 TABLET BY MOUTH EVERY DAY active Not Available Not Available No t Available FreeStyle Lancets 28 gauge USE TO CHECK BLOOD SUGAR DAILY active Not Available Not Available Not Available metronidazol e 0.75 % (37.5 mg/5 gram) vaginal gel INSERT 1 APPLICATORF UL VAGINALLY AT BEDTIME active Not Available Not Available N ot Available Alcohol Pads USE TO TEST FINGER STICK BLOOD SUGAR UP TO 4 (FOUR) TIMES DAILY active Not Available Not Available Not Available metronidazol e 500 mg tablet TAKE 1 TABLET BY MOUTH TWICE A DAY active Not Available Not Available No t Available amlodipine 5 mg tablet TAKE 1 TABLET BY MOUTH ONCE DAILY active Not Available Not Available No t Available sulfamethoxa zole 800 mg-trimethop rim 160 mg tablet TAKE 1 TABLET BY MOUTH two (2) times a day FOR 7 DAYS active Not Available Not Available No t Available lamotrigine 25 mg tablet PLEASE SEE ATTACHED FOR DETAILED DIRECTIONS active Not Available Not Available N ot Available acetaminophe n ER 650 mg tablet,exten ded release TAKE 2 TABLETS BY MOUTH EVERY 8 HOURS (DO NOT TO EXCEED 6 TAB DAILY) active Not Available Not Available N ot Available aspirin 325 mg tablet,delay ed release TAKE 1 TABLET BY MOUTH ONCE DAILY. TO start THE DAY AFTER SURGERY active Not Available Not Available No t Available OneTouch Ultra Test strips USE TO TEST FINGER STICK BLOOD SUGAR UP TO 4 (FOUR) TIMES DAILY active Not Available Not Available Not Available amitriptylin e 10 mg tablet TAKE 2 TABLETS BY MOUTH DAILY AT BEDTIME active Not Available Not Available N ot Available amlodipine 10 mg tablet TAKE 1 TABLET BY MOUTH ONCE DAILY active Not Available Not Available No t Available pantoprazole 40 mg tablet,delay ed release TAKE 1 TABLET BY MOUTH two (2) times a day active Not Available Not Available No t Available acyclovir 5 % topical ointment APPLY TO THE AFFECTED AREA 2-5 TIMES daily active Not Available Not Available Not Available mirtazapine 30 mg tablet TAKE 1 TABLET BY MOUTH EVERYDAY AT BEDTIME active Not Available Not Available No t Available clotrimazole -betamethaso ne 1 %-0.05 % topical cream APPLY TOPICALLY TO AFFECTED AREA THREE TIMES A DAY NEEDED FOR ITCHING/DIS COMFORT active Not Available Not Available No t Available valsartan 320 mg tablet TAKE 1 TABLET BY MOUTH ONCE DAILY active Not Available Not Available No t Available docusate sodium 100 mg capsule TAKE 1 CAPSULE BY MOUTH ONCE DAILY NEEDED FOR CONSTIPATIO N active Not Available Not Available No t Available morphine ER 15 mg tablet,exten ded release TAKE 1 TABLET BY MOUTH EVERY TWELVE HOURS active Not Available Not Available No t Available mirtazapine 15 mg tablet Take one (1) tablet by mouth at bedtime active Not Available Not Available No t Available Cranberry Concentrate 500 mg capsule TAKE 1 CAPSULE BY MOUTH EVERY DAY active Not Available Not Available No t Available methadone 5 mg tablet TAKE 1 TABLET BY MOUTH EVERY 8 HOURS NEEDED FOR PAIN active Not Available Not Available No t Available ondansetron 4 mg disintegrati ng tablet PLACE 1 TABLET UNDER THE TONGUE [...] Not Available Not Available No t Available escitalopram 20 mg tablet Take one (1) tablet by mouth daily active Not Available Not Available No t Available Pain Relief Extra Strength (acetaminoph en) 500 mg tablet TAKE 2 TABLETS BY MOUTH EVERY 8 HOURS NEEDED FOR PAIN active Not Available Not Available No t Available pregabalin 150 mg capsule TAKE 1 CAPSULE BY MOUTH two (2) times a day active Not Available Not Available No t Available valsartan 320 mg-hydrochlo rothiazide 12.5 mg tablet TAKE 1 TABLET BY MOUTH ONCE DAILY active Not Available Not Available No t Available FreeStyle Lite Meter kit USE DIRECTED TWICE A DAY active Not Available Not Available Not Available ketorolac 30 mg/mL injection solution Inject 15 mg. 2023 active Not Available Not Available Not Avai lable estradiol 10 mcg vaginal tablet INSERT 1 TABLET VAGINALLY TWICE A WEEK active Not Available Not Available No t Available BD Ultra-Fine Erika Pen Needle 32 gauge x 5/32 USE TO INJECT tresiba EVERY DAY active Not Available Not Available No t Available Trulicity 1.5 mg/0.5 mL subcutaneous pen injector INJECT 1 SYRINE BY SUCUTANEOUS INJECTION ONCE A WEEK (ROTATE SITES) active Not Available Not Available No t Available Tresiba FlexTouch U-100 insulin 100 unit/mL (3 mL) subcutaneous pen INJECT 52 UNITS UNDER THE SKIN ONCE DAILY active Not Available Not Available N ot Available naloxone 4 mg/actuation nasal spray SPRAY ONCE INTO EACH NOSTRIL DIRECTED active Not Available Not Available No t Available Dexcom G6 Sensor device Use to monitor BG 4 times daily as directed. Replace sensor every 10 days. active Not Available Not Available No t Available Dexcom G6 Skin Therapist Use to check blood sugar 4 times daily as directed. active Not Available Not Available No t Available Dexcom G6 Transmitter device Use to monitor BG 4 times daily as directed. Replace transmitter every 90 days. active Not Available Not Available No t Available True Comfort Lancet 30 gauge USE TO TEST FINGER STICK BLOOD SUGAR UP TO 4 (FOUR) TIMES DAILY active Not Available Not Available Not Available OneTouch Ultra2 Meter USE TO TEST FINGER STICK BLOOD SUGAR UP TO 4 (FOUR) TIMES DAILY active Not Available Not Available Not Available Trulicity 3 mg/0.5 mL subcutaneous pen injector INJECT THE CONTENT OF 1 pen UNDER THE SKIN EACH WEEK active Not Available Not Available No t Available Daily-Luciana (with folic acid) 400 mcg tablet TAKE 1 TABLET BY MOUTH ONCE DAILY active Not Available Not Available No t Available Vitals Date Recorded Body height Respiratory rate Oxygen saturation Oxygen saturation in Arterial blood by Pulse oximetry Body temperature Heart rate Body weight Heart rate Systolic blood pressure Diastolic blood pressure Systolic blood pressure Diastolic blood pressure Provider Name and Address Organization Details Last Updated DateTime 4 160.02 cm 16 /min 97 % 97 % 97 [degF] 115 /min 84461.3 2 g 89 /min 159 mm[Hg] 89 mm[Hg] 153 mm[Hg] 89 mm[Hg] Not Available [facility] - production 4 16:21:15 Date Recorded Oxygen saturation Oxygen saturation in Arterial blood by Pulse oximetry Body temperature Heart rate Respiratory rate Systolic blood pressure Diastolic blood pressure Provider Name and Address Organization Details Last Updated DateTime 4 100 % 100 % 97.1 [degF] 84 /min 16 /min 114 mm[Hg] 92 mm[Hg] Not Available [facility] - production 4 12:26:41 Date Recorded Oxygen saturation Oxygen saturation in Arterial blood by Pulse oximetry Respiratory rate Heart rate Body temperature Systolic blood pressure Diastolic blood pressure Provider Name and Address Organization Details Last Updated DateTime 2 98 % 98 % 20 /min 69 /min 99.1 [degF] 105 mm[Hg] 78 mm[Hg] Not Available [facility] - production 2 16:49:11 Social History None recorded. Functional Status None recorded. Mental Status None recorded. Family History Nothing Reported. Medical History No medical history recorded. Gynecological HistoryNo gynecological history recorded. Obstetrics History GPAL:G 0 P 0 0 0 0 Past Encounters Encounter ID Performer Location Encounter Start Date Encounter Closed Date Diagnosis/Indication Diagnosis SNOMED-CT Code Diagnosis ICD10 Code Diagnosis Note [id number] Aarti Chance MD [facility] [address] [place] [phone] 08/07/2021 16:49:06 12/06/2021 11:53:37 Exposure to SARS-CoV-2 469067949 Z20.822 [id number] CHARO ROBLEDO MD [facility] [address] [place] [id number] 09/16/2023 15:52:22 09/16/2023 23:28:28 Right flank pain 016690594 R10.9 Tachycardia 9889239 R00. 0 [id number] Susie Larios MD [facility] [address] [place] [phone] 09/23/2023 12:26:38 09/23/2023 21:48:55 Infection caused by extended spectrum beta-lactamase producing Escherichia coli 067212343 Z16.12 Health Concerns Section Related Observation LastModified by Organization Detai ls LastModified Time None Recorded Concern Status LastModified by Organization Details LastModified Time None Recorded Advance Directives Directive None Recorded Payers Encounter Date Sequence Insurance Name Policy Number Policy Parsons Covered Member ID Parsons Member ID Guarantor Name 08/07/2021 1 [facility] - DOS PRIOR TO 2022 - DUAL ELIGIBLE (MEDICARE REPLACEMENT/AD VANTAGE - HMO) Yuli Hayden [id number] Yuli Hayden 09/16/2023 1 [facility] - DOS ON OR AFTER 2022 - DUAL ELIGIBLE - [employer] AND ONE CARE (MEDICARE REPLACEMENT/AD VANTAGE - HMO) Yuil Hayden [id number] Yuli Hayden 09/23/2023 1 [facility] - DOS ON OR AFTER 2022 - DUAL ELIGIBLE - [facility] [employer] AND ONE CARE (MEDICARE REPLACEMENT/AD VANTAGE - HMO) Yuli Catracho [id number] Yuli Hayden Notes Date Note Type Note Provider Name and Address Organization Details Recorded Time 08/07/2021 text/html [facility] Nursing Assessment: Patient Reports: Sputum increase ; Cough Chief Complaints: Cough PMH: Diabetes, Hypertension, Severe Persistent Mental Illness (SPMI) Allergies: No Known Comments: Patient called in stating she wants to be evaluated for + productive cough, yellow sputum. Denies fever/chills. Reports + rapid covid test at home on 07/27 and went to ED on 07/27 and admitted for obs into the 07/28. Pt states she was tested 2x for Covid in hospital but is unsure of results. Reports labs and EKG negative. Pt states she was told that CXR showed a little pneumonia but that she was not treated. Patient does not feel any relief of symptoms and wants to be further evaluated. Aarti Chance MD [address] [place] [address],[address], [place], [phone], [employer] 08/07/2021 16:51:58 09/16/2023 text/html [facility] Nurse Triage Notes (Divine Mckeon): Reason For Request: UTI Patient Reports: Frequent and increased urination with flank pain; Inability to fully empty bladder Denies: Painful urination Painful urination with or without fever Chief Complaints: UTI/Pyelonephritis PMH: Diabetes, Hypertension, Severe Persistent Mental Illness (SPMI) Allergies: Unknown Comments: Cyber Security Manager verified the member's name//address and phone number. Member is a 58 yr old female, a/o3 PMH > DM < check 166> HTN > fibromyalgia, Restless leg syndrome, osteoarthritis, anxiety/ depression. Member calling with UTI symptoms. Member has right flank pain. Member denies pain/ burning but has urgency and unable to empty bladder. Member urinates on command. Member states every time she has an UTI she needs a 14 day course. Member denies any f/c/n/v/dEducation provided on the response time and the member was advised to monitor reported s/s and seek emergency treatment if needed Program Director Scouting POC Test Results from [facility]und[facility] - ALS Urine Dipstick (15:44:09) Urine leukocytes: 3+ ALDA Urine nitrites: - NIT Urine urobilinogen: - URO Urine protein: 2+ PRO Urine pH: 5.0 pH Urine blood: - BLO Urine specific gravity: 1.025 SG Urine ketones: - KET Urine bilirubin: - WOJCIECH Urine glucose: - GLU epoc (15:50:20) pH: 7.47 pH units pCO2: 40.8 mmHg pO2: 18.3 mmHg Na: 141 mmol/L K: 3.6 mmol/L iCa: 1.17 mmol/L Cl: 102 mmol/L TCO2: 29.9 mEq/L Hct: 52 % Hb: 17.8 g/dL Glu: 139 mg/dL Lac: 1.4 mmol/L Cr: 0.7 mg/dL BUN: 10 mg/dL A .................... .................... .................... .................... .................... .................... .................... . Program Director Scouting Note From TeresacharoHumble siegel: Pt reports right sided flank pain for approx one week and believes she has a UTI. Pt had the same sx in May 2023 and tested positive for a UTI. Pt denies dysuria, hematuria, CP, SOB, ABD discomfort, fevers, chills. Pt is alert, NAD. Tachycardic, VS otherwise stable. Afebrile. Non focal neuro exam. Normal gait. Lungs CTA. Benign ABD exam. Right side CVA tenderness. No LE edema. UA uploaded. UC sent to [facility]. Unremarkable EKG. Unremarkable POC labs. Pt treated with lactated ringers 1 L IV, which resolved the tachycardia, and ceftriaxone 1 g IV. Pt educated on rx and to stay well hydrated. Pt to f/u with PCP later this week. Red flags reviewed. .................... .................... .................... .................... .................... .................... .................... . Disposition: Fulfilled CHARO ROBLEDO MD [address] [place] [address],[address], [place], [phone], [facility] [employer] 09/16/2023 16:51:29 09/23/2023 text/html [facility] Nurse Triage Notes (Angelica Avery): Reason For Request: Patient is calling from the ER/ED. Not happy with the way the ER/ED treated her, or what they are telling her. she is getting released tonight and wants a call first thing Saturday tomorrow morning. September 22. We saw her a week ago and already have her urine sample results. She states she is in pain. and prefers iv meds not pill meds. Chief Complaints: UTI/Pyelonephritis PMH: Diabetes, Hypertension, Severe Persistent Mental Illness (SPMI) Allergies: Unknown Comments: Patient calling to request visit in the morning for follow up post d/c from [facility] ED. Patient was recommended to present to ED by Marisela initially for UTI treatment with IV antibiotics. This RN sent records of UC and patient case to [facility] ED (confirmed fax sent) for review. Patient stating they are going to treat her with oral antibiotics not IV. Would like follow up in the am. .................... .................... .................... .................... .................... .................... .................... . Program Director Scouting Note From [facility] [place]: I visited Ms Hayden on 09/15 for a possible UTI. UA, UC, POC labs, EKG, IV fluids, IV ceftriaxone, [facility] rx cefpodoxime. Marisela contacted her two days ago with UC results that showed klebsiella and instructed to d/c the cefpodoxime and go to the ED for further management. Pt was in [facility] ED last night and sts she took out her own IV and left AMA. Today pt reports feeling worse than last week, still c/o right flank pain. Today pt? s VS are WNLs, afebrile. Pt educated on possible treatments for her specific bacteria and instructed to return to the ED. Pt sts she needs to get a few things together and will go soon. .................... .................... .................... .................... .................... .................... .................... . Disposition: Fulfilled Susie Larios MD [address] [facility],[address], [place], [phone], BASSAM BREWER 09/23/2023 12:29:45 OBGyn Episode No OBEpisode recorded.
--- OUTSIDE RECORDS SUMMARY | 2024-04-25 23:20 | XMS_ITS ---
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) ACTIVE 01/30/2023 MUSCLE WEAKNESS (GENERALIZED) (M62.81 - ICD-10-CM) ACT NANCY 01/30/2023 DIFFICULTY IN WALKING, NOT E LSEWHERE CLASSIFIED (R26.2 - ICD-10-CM) ACTIVE 01/30/2023 UNSTEADINESS ON FEET (R26.81 - ICD-10-CM) ACTIVE 01/30/2023 TYPE 2 DIABETES MELLITUS WIT HOUT COMPLICATIONS (E11.9 - ICD-10-CM) ACTIVE 01/30/2023 DEPRESSION, UNSPECIFIED (F32.A - ICD-10-CM) ACTIVE 01/30/2023 FIBROMYALGIA (M79.7 - ICD-10-CM) ACTIVE 01/31/20 23 HYPERLIPIDEMIA, UNSPECIFIED (E78.5 - ICD-10-CM) ACTIVE 01/30/2023 ESSENTIAL (PRIMARY) HYPERTENSION (I10 - ICD-10-CM) ACT NANCY 01/30/2023 MORBID (SEVERE) OBESITY DUE TO EXCESS CALORIES (E66.01 - ICD-10-CM) ACTIVE 01/30/2023 RESTLESS LEGS SYNDROME (G25.81 - ICD-10-CM) ACTIVE 01/30/2023 ANXIETY DISORDER, UNSPECIFIED (F41.9 - ICD-10-CM) ACTI VE 01/30/2023 GASTRO-ESOPHAGEAL REFLUX DIS EASE WITHOUT ESOPHAGITIS (K21.9 - ICD-10-CM) ACTIVE 01/30/2023 Encounters Encounter Performer Performer Role Encounter Diagnoses Location Date Leave - [facility] - Acute care hospital [facility] 01/30/2023 01:10 pm EDT - 02/03/2023 07:05 pm EST Discharge - Discharged to home or self care - Private home/apt. with home health services [facility] 02/04/2023 05:15 am EST - 02/12/2023 01:10 pm EST Reason For Referral Chest Pain Immunizations Vaccine Date SARS-COV-2 (COVID-19) 07/01/2020 12:00 a m EDT SARS-COV-2 (COVID-19) 06/03/2020 12:00 a m EST SARS-COV-2 (COVID-19 BOOSTER) 03/16/2022 12:00 am EST Social History
--- OUTSIDE RECORDS SUMMARY | 2024-04-25 23:21 | XMS_ITS | Clinical Summary ---
Author Organization [facility] it Address [address] [place] [address] Care Team Providers Care Spring Coiler Name Role Phone Unavailable Primary Care Provider Unavailabl e Social History Tobacco Use Types Packs/Day Years Used Date Smoking Tobacco: Never Assessed Sex and Gender Information Value Date Recorded Sex Assigned at Not on file Gender Identity Not on file Sexual Orientation Not on file Plan of Treatment Health Maintenance Due Date Last Done Comments DTaP,Tdap,and Td Vaccines (1 - Tdap) 1983 Hepatitis B Vaccines (1 of 3 - 19+ 3-dose series) 1983 Cervical Cancer Screening: Pap Smear 1985 Zoster Vaccines (1 of 2) 2014 Colorectal Cancer Screening: Colonoscopy 03/04/2022 Depression Screening 03/04/2022 HIV Screening 03/04/2022 Hepatitis C Screening 03/04/2022 Social Influencers of Health Screening 03/04/2022 COVID-19 Vaccine ( - 2023- season) 2023 Influenza Vaccine (#1) 2023 Breast Cancer Screening 08/08/2025 08/09/19 24, 08/06/2022, 07/04/2021, Additional history exists RSV Immunization Patients 60+ Years Old (1 - 1-dose 75+ series) 2039 HIB Vaccines Aged Out No longer eligi ble based on patient's age to complete this topic HPV Vaccines Aged Out No longer eligi ble based on patient's age to complete this topic Hepatitis A Vaccines Aged Out No long er eligible based on patient's age to complete this topic IPV Vaccines Aged Out No longer eligi ble based on patient's age to complete this topic MMR Vaccines Aged Out No longer eligi ble based on patient's age to complete this topic Meningococcal ACWY Vaccine Aged Out N o longer eligible based on patient's age to complete this topic Pneumococcal Vaccine: Pediatrics (0 to 5 Years) and At-Risk Patients (6 to 64 Years) Aged Out No longer eligible based on patient's age to complete this topic RSV Immunization Patients Under 20 months Aged Out No longer eligible based on patient's age to complete this topic Varicella Vaccines Aged Out No longer eligible based on patient's age to complete this topic Procedures Procedure Name Priority Date/Time Associated Diagnosis Comments [facility] SCREENING DIGITAL Routine 08/09/2023 2:29 PM EDT Encounter for screening mammogram for malignant neoplasm of breast from Last 3 Months or Most Recently Relevant to Health Maintenance Results * [facility] SCREENING DIGITAL (08/09/2023 2:29 PM EDT) Anatomical Region Laterality Modality Mammography 08/09/2023 1:13 PM EDT Narrative 08/09/2023 2:29 PM EDT [facility] Diagnostic Imaging Department [address] [place] [id number] Patient: ??YULI HAYDEN ?/Age/Sex: 1965 - 58 - F Unit#: ??[id number] ? Location/Status: ??SPDIMAM/REG CLI ? Mnemonic/Ordering Site: ??DIGSC/SPMAM Ordering Physician: ??AMARILIS RIUZ MD Andrew Screening Digital - 08/09/23 - 7170 Report Status:Signed EXAM: [facility] Screening Digital EXAM DATE AND TIME: 08/09/2023 1:50 PM HISTORY: ??Annual screening COMPARISON: ??Multiple exams dating back to 2018 TECHNIQUE: Bilateral digital breast tomosynthesis was performed in the CC and MLO projections. Computer aided detection with [employer] 3D 3.1 was employed. TISSUE DENSITY: b. There are scattered areas of fibroglandular density. FINDINGS: No suspicious masses, grouped microcalcifications, or areas of architectural distortion are seen. The skin and vascularity are unremarkable. IMPRESSION: Stable mammographic appearance of the breasts. ??No evidence of malignancy is seen. A negative mammogram in the presence of a clinically suspicious palpable abnormality does not preclude the possibility of malignancy or alter the indications for biopsy. BI-RADS: ??Category 1: Negative RECOMMENDATION(S): 1: Routine screening mammogram BILATERAL in 1 year. 3341F, 7092F Dictating Physician: ??ROSALIND HEALY MD Electronically Signed by: ??ROSALIND HEALY MD Dic Date/Time: ??08/09/231427 Sign date/Time: ??08/09/231428 Procedure Note Rosalind Healy MD - 11/18/2023 [facility] Diagnostic Imaging Department [address] [place] [address] Patient: YULI HAYDEN D.O.B./Age/Sex: 1965 - 58 - F Unit#: [id number] Location/Status: SPDIMAM/REG CLI Mnemonic/Ordering Site: [facility] Ordering Physician: AMARILIS RUIZ MD Andrew Screening Digital - 08/09/23 - 1350 Report Status:Signed EXAM: [facility] Screening Digital EXAM DATE AND TIME: 08/09/2023 1:50 PM HISTORY: Annual screening COMPARISON: Multiple exams dating back to 2018 TECHNIQUE: Bilateral digital breast tomosynthesis was performed in the CCand MLO projections. Computer aided detection with [employer] 3D 3.1was employed. TISSUE DENSITY: b. There are scattered areas of fibroglandular density. FINDINGS: No suspicious masses, grouped microcalcifications, or areas ofarchitectural distortion are seen. The skin and vascularity are unremarkable. IMPRESSION: Stable mammographic appearance of the breasts. No evidence of malignancyis seen. A negative mammogram in the presence of a clinically suspicious palpable abnormality does not preclude the possibility of malignancy or alter the indications for biopsy. BI-RADS: Category 1: Negative RECOMMENDATION(S): 1: Routine screening mammogram BILATERAL in 1 year. 3341F, 7025F Dictating Physician: ROSALIND HEALY MD Electronically Signed by: ROSALIND HEALY MD Dic Date/Time: 08/09/23 1428 Sign date/Time: 08/09/23 1429 Amarilis Ruiz MD IMG BI PROCEDURES from Last 3 Months or Most Recently Relevant to Health Maintenance
--- OUTSIDE RECORDS SUMMARY | 2024-04-25 23:21 | XMS_ITS | Clinical Summary ---
Author Organization [facility], Address [address] [place] [address] [place] [address] Phone Care Team Providers Care Paraffin Plant Sweater Operator Name Role Phone Ramón Sanchez MD Primary Care Provider Allergies No known active allergies Medications atorvastatin (LIPITOR) 40 MG tablet Take 1 tablet by mouth 1 (one) time each day 9 Active Dulaglutide (Trulicity) 1.5 MG/0.5ML solution pen-injector Inject 1 pre-filled pen syringe under the skin 1 (one) time per week 9 Active insulin aspart (NovoLOG) 100 UNIT/ML injection Active insulin glargine (Lantus) 100 UNIT/ML injection Active rOPINIRole (REQUIP) 2 MG tablet Take 2 tablets by mouth 2 (two) times a day Active simvastatin (ZOCOR) 20 MG tablet Take 1 tablet by mouth at bed time Active venlafaxine XR (Effexor XR) 150 MG 24 hr capsule Take 1 capsule by mouth 1 (one) time each day 9 Active Acetaminophen (Tylenol) 325 MG capsule 3 (three) times a day Active docusate sodium (Colace) 100 MG capsule 1 capsule at bed time Active ibuprofen (ADVIL,MOTRIN) 600 MG tablet 3 (three) times a day Active insulin degludec (Tresiba FlexTouch) 200 UNIT/ML injection Tresiba FlexTouch U-200 insulin 200 unit/mL (3 mL) subcutaneous pen 40 units at night Active metFORMIN (GLUCOPHAGE) 1000 MG tablet 2 (two) times a day Active mirtazapine (REMERON) 15 MG tablet at bed time Active Omeprazole Magnesium (PriLOSEC) 2.5 MG pack Prilosec 2.5 mg oral suspension,delay ed release Take by oral route. Active oxybutynin XL (DITROPAN-XL) 10 MG 24 hr tablet oxybutynin chloride ER 10 mg tablet,extended release 24 hr TAKE 1 TABLET BY MOUTH EVERY DAY WITH MEALS Active valsartan (Diovan) 320 MG tablet Take 1 tablet (320 mg total) by mouth 1 (one) time each day 90 tablet 3 3 Active Active Problems Problem Noted Date Diagnosed Date Hyperlipidemia 03/08/2021 Hypertension 11/04/2020 Type 2 diabetes mellitus wit h diabetic autonomic (poly)neuropathy 11/04/2020 Stage 3a chronic kidney disease 09/28/2019 Renal disorder due to type 2 diabetes mellitus 0 09/28/2019 Immunizations Name Administration Dates Next Due Hep B, Unspecified 07/31/2015,07/30/2014, 014 Influenza, Unspecified 01/15/2019,02/02/2016 Moderna SARS-COV-2 07/01/2020,06/03/2020 Pneumococcal Polysaccharide 07/30/2014 Td 04/07/2013 Tdap 04/07/2013 Family History Medical History Relation Comments Coronary artery disease Brother Diabetes Father Diabetes Mother Asthma Sister Deep vein thrombosis Sister Diabetes Sister Relation Status Comments Brother Father Mother Sister Social History Tobacco Use Types Packs/Day Years Used Date Smoking Tobacco: Former Comments:Smoking History Inf o:Unknown Alcohol Use Standard Drinks/Week Comments No 0 (1 standard drink = 0.6 oz pur e alcohol) Comments Unknown Sex and Gender Information Value Date Recorded Sex Assigned at Not on file Legal Sex Female 4:34 PM EST Gender Identity Not on file Sexual Orientation Not on file Last Filed Vital Signs Vital Sign Reading Time Taken Comments Blood Pressure 142/80 10/31/2022 3:06 PM EDT Pulse 74 10/31/2022 3:06 PM EDT Temperature - - Respiratory Rate - - Oxygen Saturation - - Inhaled Oxygen Concentration - - Weight 83 kg (182 lb 15.7 oz) 11/24/2021 2:26 PM EDT Height 167.6 cm (5' 6 ) 10/01/2018 12:00 PM EDT Body Mass Index 29.53 10/01/2018 12:00 PM EDT Plan of Treatment Health Maintenance Due Date Last Done Comments Breast Cancer Screening 1965 Colorectal Cancer Screening: Annual FOBT 2013 Colorectal Cancer Screening: Colonoscopy 2013 Colorectal Cancer Screening: Sigmoidoscopy 2013 Pneumococcal Vaccine: Pediatrics (0 to 5 Years) and At-Risk Patients (6 to 64 Years) (2 of 2 - PCV) 07/31/2015 07/30/2014 Diabetes: Ophthalmology Exam 06/22/2019 Diabetes: Pedal Pulse Checked 06/22/2019 Diabetes: Sensory Foot Exam 06/22/2019 Diabetes: Visual Foot Exam 06/22/2019 Diabetes: Hemoglobin A1C 02/24/2022 022, 06/15/2021, 03/21/2017 Influenza Vaccine (#1) 2023 9, 02/02/2016 Hepatitis B Vaccine Aged Out 07/31/2015, 07/30/2014, 07/30/2013 No longer eligible based on patient's age to complete this topic Procedures Procedure Name Priority Date/Time Associated Diagnosis Comments HEMOGLOBIN A1C Routine 11/24/2021 2:35 PM EDT Renal disorder due to type 2 diabetes mellitus <Diabetic nephropathy> (HCC) Hypertension Chronic kidney disease stage 3 (HCC) from Last 3 Months or Most Recently Relevant to Health Maintenance Results * (ABNORMAL) Hemoglobin A1c (11/24/2021 2:35 PM EDT) Hemoglobin A1C 10.5(H) (4.0-5.6) % [facility] Comment: MONITORING: In known diabetic patients, hemoglobin A1c targets should be discussed with health care provider. DIAGNOSTIC USE: ??The [place] Diabetes Association (ADA) and the World Health Organization (WHO) recommend the use of HbA1c to diagnose diabetes using a threshold of 6.5%. Patients who have an HbA1c between 5.7% and 6.4% are considered at increased risk for developing diabetes in the future. CAUTION: Falsely low HbA1c results may be observed in patients with hemolytic anemia, homozygous forms of abnormal hemoglobin (e.g. SS, CC, SC), , recent blood loss or hemoglobin F greater than 7%. Fructosamine may be used as an alternate test in these cases. REFERENCE: ADA: Standards of Medical Care in Diabetes 2020, The Journal of Clinical and Applied Research and Education Volume 43, Supplement 1 Testing performed or reported by [facility], a Service of [facility], [address] [place] [id number] Kim Zhou MD, Aircraft Assembler [facility]# [id number] Blood (Blood, Venous) 11/24/2021 2:35 PM EDT 11/24/2021 2:36 PM EDT us Shyam Jimenez DO LAB BLOOD ORDERABLES Final Resu lt [facility] from Last 3 Months or Most Recently Relevant to Health Maintenance Insurance [employer] ([id number]) Care Teams Paraffin Plant Sweater Operator Relationship Specialty Start Date End Date Ramón Sanchez MD [id number] [place] PCP - General Internal Medicine 09/28/19
--- OUTSIDE RECORDS SUMMARY | 2024-04-25 23:21 | XMS_ITS | Continuity of Care Document ---
Author Organization [facility] Address [address] [place] [address]- Care Team Providers Care Head Of Merchandise Buying Name Role Phone Sydnie Andrade MD Primary Care Physician [phone] Encounter [facility] Date(s): 03/09/24 - 04/08/[address] [address] Encounter Type: Triage Allergies, Adverse Reactions, [...] influenza virus vaccine, inactivated 02/02/16 Myke rded [id number] 12y+ bivalent booster vax 03/16/22 Given SARS-CoV-2 [...] 1 Refills, Maintenance, 03/31/24 8:11:00 AM EST, [facility] [id number], 160, cm, 03/12/24 2:19:00 EST, Height, 90, kg, 03/12/24 2:19:00 EST, Dry Weight Start Date: 03/31/24 Status: Ordered Quantity: 90.0 Unit: tablet Repeat number: 2 atorvastatin 40 mg oral tablet See Instructions, TAKE 1 TABLET BY MOUTH ONCE DAILY AT BEDTIME, # 90 tablet, 1 Refills, Maintenance, 03/31/24 8:12:00 AM EST, [place], [place] - [id number], 160, cm, 03/12/24 2:19:00EST, Height, 90, kg, [...] Refills, Maintenance, 11/19/23 12:49:00 PM EDT, Tablet, [facility] [id number], Partial fill upon patient request if the [...] 3 Refills, Maintenance, 02/04/24 2:29:00 PM EST, [facility] [id number], Partial fill upon patient request if the [...] 90 tablet, 3 Refills, 04/15/22 8:15:00 AM EST,[facility] [id number], 90, TAKE 1 TABLET BY MOUTH EVERY DAY, 159, cm, 03/27/22 13:48:00 EST, Height, 89.25, kg, 03/27/22 13:48:00 EST, Dry Weight Start Date: 04/15/22 Status: Ordered Quantity: 90.0 Unit: tablet Repeat number: 4 Dexcom G6 Principal Network Engineer Dexcom G6 Principal Network Engineer, See Instructions, # 1 each, Refills 0, [...] 1 Refills, Maintenance, 12/16/23 11:35:00 PM EDT, [place], [place] - [id number], 160, cm, 12/05/23 13:58:00 EDT, Height, 95, [...] Soft Stop, 12/17/23 2:52:00 PM EDT, Solution, [place], [place] - [id number], Partial fill upon patient request if the [...] 1 Refills, Maintenance, 03/31/24 8:12:00 AM EST, [facility] [id number], TAKE 1 TABLET BY MOUTH ONCE DAILY, [...] 5 Refills, Maintenance, 12/17/23 2:50:00 PM EDT, [facility] [id number], Partial fill upon patient request ifthe prescription [...] 1 Refills, Maintenance, 03/31/24 8:13:00 AM EST, [facility], [place] - [id number], 160, cm, 03/12/24 2:19:00EST, Height, 90, kg, 03/12/24 2:19:00 EST, Dry Weight Start Date: 03/31/24 Status: Ordered Quantity: 360.0 Unit: tablet Repeat number: 2 mirtazapine 15 mg oral tablet 1 tablet = 15 mg, By Mouth, Daily at bedtime, # 90 tablet, 3 Refills, Maintenance, 10/31/23 3:57:00 PM EDT, [facility], [facility] [id number], Partial fill upon patient request if the [...] Refills, Maintenance, 03/09/24 1:26:00 PMEST, ER Tablet, [facility], [place] - [id number], Partial fill upon patient request if the [...] Refills, Soft Stop, 04/22/23 8:46:00 AM EST, [place], [place] - [id number], Partial fill upon patient request if the [...] 3 Refills, Maintenance, 10/31/23 3:59:00 PM EDT, [place], [place] - [id number], Partial fill upon patient request if the [...] 60.0 Unit: tablet Repeat number: 6 Pen [place], 32 G x 4 mm BD Ultra [...] 5 Refills, Maintenance, 02/10/24 2:28:00PM EST, Capsule, [facility] [id number], Partial fill upon patient request if the [...] 1 Refills, Maintenance, 03/31/24 8:13:00 AM EST, [facility] [id number], 160, cm, 03/12/24 2:19:00EST, Height, 90, kg, [...] mL, 11 Refills, Maintenance, 12/03/23 1:54:00 PM EDT,[place], [place] - [id number], increase in dose. patient was taking 66 [...] Refills, Maintenance, 02/11/24 5:08:00 PM EST, Tablet, [place], [place] - [id number], Partial fill upon patient request if the [...] Confirmed Active Osteoarthritis Confirmed Active N [employer], [employer]; Norma Larry, Confirmed Active Nasal septum perforation [...] Team Personnel Name: Carlita Jensen RN Position: [facility] AMB Nurse Member Role: Primary Care Nurse Name: Brigette Chaidez Position: [facility] Outreach Member Role: Lifetime Consulting Physician Name: Kiara Stapleton RN Position: [facility] Onco RN Member Role: Primary Care Nurse Name: Aneta Navarro RN Position: [facility] SN RN Member Role: Primary Care Nurse Name: Shyam Jimenez DO Position: [facility] Renal MD Member Role: Lifetime Consulting Physician Address: [address] [place], [place] [address] [place] [address]- [employer] Tele[employer]: Name: Echo Gomez RN Position: [facility] RN Member Role: Primary Care Nurse Name: Adriana Bolden RN Position: [facility] Onco RN Member Role: Primary Care Nurse Name: Sydnie Andrade MD Position: [facility] Physician - Primary Care Member Role: PCP Address: [address] [place] [phone]- Telecom: Care Team Related Persons Name: NANDO BRADFORD Name: NANDO BRADFORD Name: JV BRADFORD Insurance Providers Guarantor name: FAB SANCHEZ Health Plan Information #: 1 Payer: [facility] [employer]/[facility] Member Number: NA Policy Number: NA Group Number: NA
--- OUTSIDE RECORDS SUMMARY | 2024-04-25 23:21 | XMS_ITS | Continuity of Care Document ---
Author Organization [facility] ter Address [address] [place] [id number] Care Team Providers Care Dye Penetrant Testing Technician Name Role Phone Sydnie Andrade MD Primary Care Physician Encounter 04/19/24 - 04/20/[address] [address]- Attending Physician: Not on Staff, Attending MD Referring Physician: Not on Staff, Referring MD Encounter Type: SMRI Allergies, Adverse Reactions, Alerts Substance Criticality Severity [...] influenza virus vaccine, inactivated 02/02/16 Myke rded [id number] 12y+ bivalent booster vax 03/16/22 Given SARS-CoV-2 [...] 1 Refills, Maintenance, 03/31/24 8:11:00 AM EST, [facility] [id number], 160, cm, 03/12/24 2:19:00 EST, Height, 90, kg, 03/12/24 2:19:00 EST, Dry Weight Start Date: 03/31/24 Status: Ordered Quantity: 90.0 Unit: tablet Repeat number: 2 atorvastatin 40 mg oral tablet See Instructions, TAKE 1 TABLET BY MOUTH ONCE DAILY AT BEDTIME, # 90 tablet, 1 Refills, Maintenance, 03/31/24 8:12:00 AM EST, [place], [place] - [id number], 160, cm, 03/12/24 2:19:00EST, Height, 90, kg, [...] Refills, Maintenance, 11/19/23 12:49:00 PM EDT, Tablet, [facility] [id number], Partial fill upon patient request if the [...] 3 Refills, Maintenance, 02/04/24 2:29:00 PM EST, [facility] [id number], Partial fill upon patient request if the [...] 90 tablet, 3 Refills, 04/15/22 8:15:00 AM EST,[facility] [id number], 90, TAKE 1 TABLET BY MOUTH EVERY DAY, 159, cm, 03/27/22 13:48:00 EST, Height, 89.25, kg, 03/27/22 13:48:00 EST, Dry Weight Start Date: 04/15/22 Status: Ordered Quantity: 90.0 Unit: tablet Repeat number: 4 Dexcom G6 [facility] Dexcom G6 [facility], See Instructions, # 1 each, Refills 0, [...] 1 Refills, Maintenance, 12/16/23 11:35:00 PM EDT, [place], [place] - [id number], 160, cm, 12/05/23 13:58:00 EDT, Height, 95, [...] Soft Stop, 12/17/23 2:52:00 PM EDT, Solution, [place], [place] - [id number], Partial fill upon patient request if the [...] lumbar spondylosis ICD10: M47.816 duration: 99, 01/09/24 2:42:00 PM EDT, Supply Start Date: [...] 1 Refills, Maintenance, 03/31/24 8:12:00 AM EST, [facility] [id number], TAKE 1 TABLET BY MOUTH ONCE DAILY, [...] 5 Refills, Maintenance, 12/17/23 2:50:00 PM EDT, [facility] [id number], Partial fill upon patient request ifthe prescription [...] 1 Refills, Maintenance, 03/31/24 8:13:00 AM EST, [facility] [id number], 160, cm, 03/12/24 2:19:00EST, Height, 90, kg, 03/12/24 2:19:00 EST, Dry Weight Start Date: 03/31/24 Status: Ordered Quantity: 360.0 Unit: tablet Repeat number: 2 mirtazapine 15 mg oral tablet 1 tablet = 15 mg, By Mouth, Daily at bedtime, # 90 tablet, 3 Refills, Maintenance, 10/31/23 3:57:00 PM EDT, [facility] [id number], Partial fill upon patient request if the [...] hours, # 56 tablet, 0 Refills, Maintenance, 04/13/24 5:11:00 PMEST, ER Tablet, [facility] [id number], Partial fill upon patient request if the prescription is for a schedule II opioid drug., 160, cm, 03/12/24 2:19:00 EST, Height, 90, kg,03/12/24 2:19:00 EST, Dry Weight Start Date: 04/13/24 Stop Date: 05/11/24 Status: Ordered Quantity: 56.0 Unit: tablet Repeat number: 1 nalOXONE 4 mg/0.1 mL nasal spray = 4 mg, Nares, Both, Once, # 2 each, 0 Refills, Soft Stop, 04/22/23 8:46:00 AM EST, [place], [place] - [id number], Partial fill upon patient request if the [...] 3 Refills, Maintenance, 10/31/23 3:59:00 PM EDT, [place], [place] - [id number], Partial fill upon patient request if the [...] 60.0 Unit: tablet Repeat number: 6 [place], 32 G x 4 mm BD Ultra [...] 5 Refills, Maintenance, 02/10/24 2:28:00PM EST, Capsule, [facility] [id number], Partial fill upon patient request if the [...] 1 Refills, Maintenance, 03/31/24 8:13:00 AM EST, [facility] [id number], 160, cm, 03/12/24 2:19:00EST, Height, 90, kg, [...] mL, 11 Refills, Maintenance, 12/03/23 1:54:00 PM EDT,[place], [place] - [id number], increase in dose. 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 Sonographer; Norma Larry, Confirmed Active Nasal septum perforation [...] Team Personnel Name: Carlita Jensen RN Position: [facility] AMB Nurse Member Role: Primary Care Nurse Name: Brigette Chaidez Position: [facility] Outreach Member Role: Lif[employer] Consulting Physician Name: Kiara Stapleton RN Position: [facility] Onco RN Member Role: Primary Care Nurse Name: Aneta Navarro RN Position: [facility] SN RN Member Role: Primary Care Nurse Name: Zarina Lombardi RN Position: [facility] RN Supv Member Role: Primary Care Nurse Name: Shyam Jimenez DO Position: [facility] Renal MD Member Role: Lifetime Consulting Physician Address: [address] [place], [place] [address] [place] [address]- Telecom: Name: Echo Gomez RN Position: [facility] RN Member Role: Primary Care Nurse Name: Adriana Bolden RN Position: [facility] Onco RN Member Role: Primary Care Nurse Name: Sydnie Andrade MD Position: [facility] Physician - Primary Care Member Role: PCP Address: [address] [place] [id number] Telecom: Care Team Related Persons Name: NANDO BRADFORD Name: NANDO BRADFORD Name: JV BRADFORD Insurance Providers Guarantor name: FAB SANCHEZ Health Plan Information #: 1 Payer: [facility] Member Number: NA Policy Number: NA Group Number: NA
[2024-04-25 23:23] LABS: Bacteria Urine None Seen (None Seen); Hyaline Casts Urine 0-2 /LPF (0-2); RBC Urine 0-2 /HPF (0-2); Squamous Epithelial Cell Urine 0-2 /HPF (0-2); WBC Urine 0-5 /HPF (0-5)
[2024-04-25 23:50] LABS: Alanine Aminotransferase 32 U/L (0-31); Alkaline Phosphatase 117 U/L (39-117); Anion Gap 15 (12-20); Aspartate Amino Transferase 35 U/L (5-31); Bilirubin Direct < 0.2 mg/dL (0.0-0.5); Bilirubin Total 0.2 mg/dL (0.0-1.0); Blood Urea Nitrogen 10 mg/dL (9-16); Calcium 8.9 mg/dL (8.4-10.2); Carbon Dioxide 25 mmol/L (22-29); Chloride 100 mmol/L (96-108); Creatinine Clr Calc Pharmacy 69.9; Estimated Glomerular Filt Rate > 60; Glucose Random 588 mg/dL (60-115); Lipase 21 U/L (8-78); Potassium 4.5 mmol/L (3.3-5.1); Sodium 135 mmol/L (135-145); Total Protein 7.6 g/dL (6.5-8.0)
--- NOTE | 2024-04-25 23:51 | PC.NURSE ---
critical glucose of 588 readback to lab. gas charger and dr rajan made aware no new orders at this time
[2024-04-26] MEDS: 0.9 % Sodium Chloride 2,000 ML 999 ML IVCONT (01:30)
[2024-04-26] MEDS: Insulin Regular, Human 100 UNIT/ML 10 ML VIAL 10 UNIT IVPUSH (01:30)
--- NOTE | 2024-04-26 01:31 | ED.ABDPAIN ---
HPI - Abdominal Pain General Chief Complaint: Abdominal Pain Stated Complaint: rt side sharp coming into the front Time Seen by Provider: 04/26/24 01:15 Source: patient Mode of arrival: ambulatory Limitations: no limitations History of Present Illness ED Provider: Dr. Sparkle Rodriguez HPI narrative: Patient comes to the emergency room complaining of right-sided flank pain. Patient states it has been about a week since she has been experiencing intermittent pain from the right flank radiating towards the right lower quadrant. Patient states that she fell approximately 3 weeks ago but she did not have pain until now. Also, patient reports that she has not been taking good care of herself, she is aware that her glucose is elevated. Patient's father 4 days ago. Patient denies nausea vomiting or diarrhea. Related Data Home Medications ?Medication ?Instructions ?Recorded ?Confirmed atorvastatin 40 mg tablet 40 mg PO BEDTIME 01/25/20 07/10/22 cranberry extract 250 mg tablet 250 mg PO DAILY 01/25/20 07/10/22 dulaglutide 1.5 mg/0.5 mL 1.5 mg subcut QWEEK 01/25/20 07/10/22 subcutaneous pen injector (Trulicity) multivitamin 1 tab PO DAILY 01/25/20 07/10/22 ropinirole 4 mg tablet 8 mg PO BID 01/25/20 07/10/22 valsartan 160 mg tablet 160 mg PO DAILY 01/25/20 07/10/22 mirtazapine 15 mg tablet (Remeron) 15 mg PO BEDTIME 03/21/20 07/10/22 escitalopram oxalate 10 mg tablet 10 mg PO DAILY 07/10/22 07/10/22 estradiol 10 mcg vaginal tablet 10 mcg vaginal 2XW 07/10/22 07/10/22 hydroxyzine pamoate 25 mg capsule 25 mg PO BID PRN Anxiety 07/10/22 07/10/22 insulin degludec 100 unit/mL (3 48 unit subcut DAILY 07/10/22 07/10/22 mL) subcutaneous pen (Tresiba FlexTouch U-100 insulin) metformin 500 mg tablet 500 mg PO BID 07/10/22 07/10/22 pregabalin 75 mg capsule 75 mg PO BID 07/10/22 07/10/22 Previous Rx's ?Medication ?Instructions ?Recorded cefuroxime axetil 250 mg tablet 250 mg PO BID 7 days #14 tabs 07/06/23 ondansetron 4 mg disintegrating 4 mg PO Q6H PRN nausea and 07/06/23 tablet vomiting #14 tabs polyethylene glycol 3350 17 17 g PO DAILY #238 grams 04/26/24 gram/dose oral powder (Miralax) Allergies Allergy/AdvReac Type Severity Reaction Status Date / Time No Known Allergies Allergy Verified 04/25/24 22:11 Review of Systems Review of Systems Constitutional : No Weight loss, No Fever, No Chills, No Night Sweats, No Fatigue, No Malaise ENT/Mouth : No Hearing loss, No Ear Pain, No Nasal Congestion, No Sinus Pain, No Hoarseness, No sore throat, No Rhinorrhea, No Swallowing Difficulty Eyes: No Eye Pain, No Swelling, No Redness, No Foreign Body, No Discharge, No Vision Changes Cardiovascular : No Chest Pain, No SOB, No Dyspnea on Exertion, No Orthopnea, No Edema, No Palpitations Respiratory : No Cough, No Sputum, No Wheezing, No Smoke Exposure, No Dyspnea Gastrointestinal : No Nausea, No Vomiting, No Diarrhea, No Constipation, No abdominal Pain, No Hematochezia, No Melena Genitourinary : no irregular bleeding, No Dysuria, No Urinary Frequency, No Hematuria, No Urinary Incontinence, No Urgency, complaining of right-sided Flank Pain, No Urinary Flow Changes, No Hesitancy Musculoskeletal : No joint pain, No Myalgias, No Joint Swelling Skin : No Skin Lesions, No rash Neuro : No Weakness, No Numbness, No Paresthesias, No Loss of Consciousness, No Dizziness, No Headache Psych : No Anxiety/Panic, No Depression, No SI/HI/AH/VH, No Social Issues, Heme/Lymph: No Bruising, No Bleeding,No Lymphadenopathy Endocrine : No Polyuria, No Polydipsia, complaining of high blood sugars No Temperature Intolerance PMFSH Past Medical History Medical History Abdominal pain Kidney disease Dysphagia Hx of cyst of breast Chronic fatigue syndrome Osteoarthritis Hx of sciatica History of anxiety History of depression Fibromyalgia Plantar fasciitis Obesity Insulin dependent diabetes mellitus Elevated cholesterol HTN (hypertension) Rotator cuff syndrome of right shoulder Chronic pain Restless leg syndrome Surgical History Hx of removal of cyst History of back surgery Hx of section Social History Social History Household Members: None Patient Tobacco Use Status: Current everyday Tobacco user Tobacco use type: Cigarette Smoked in Last 30 Days: No Use of substances other than those prescribed or required for medical reasons: No Substance Use Type: Marijuana Advance Directives: No Advance Directives Information Provided: Yes Do you have a plan to hurt others: No Plan Physical Exam ED Vital Signs: Vital Signs - 24 hr 04/25/24 22:07 Temperature 97.9 F Pulse Rate 92 Respiratory Rate 16 Blood Pressure 136/57 L Pulse Oximetry 95 Oxygen Delivery Method Room Air BMI result Body Mass Index 35.1 Const Other: Appearance: Alert. Oriented X3. No acute distress. Well-appearing Eyes: Pupils equal, round and reactive to light. ENT: Pharynx normal. Neck: Normal inspection. Neck supple. No lymph nodes noted. No crepitus CVS: Normal heart rate and rhythm. Pulses normal. Normal S1 and S2 Respiratory: No respiratory distress. Breath sounds normal. No Wheezing. No rales Abdomen: Soft and nontender. No rigidity. No distention. Mild CVA tenderness Skin: Skin warm and dry. Normal skin color. Normal skin turgor. Extremities: No lower extremity edema. No Lacerations. No Rash Neuro: Oriented X 3. No motor deficit. No sensory deficit. Moving all extremities. No slurred speech. CN 2 through 12 grossly intact Psych: calm, cooperative, normal affect Course Course Course Narrative: Patient receiving IV fluids and IV insulin. CT scan of the abdomen/pelvis pending. Medical Decision Making Medical Decision Making [facility] Narrative: My interpretation of labs: Normal hematology and chemistry, anion gap closed, LFTs and lipase normal, urinalysis negative CT scan shows a significant stool burden. No kidney stones Patient's glucose improved to 201. Overall patient feeling better Differential Diagnosis Differential Diagnoses: The differential diagnosis associated with the presentation includes (UTI, pyelonephritis, kidney stones, SBO) Admission/Observation Consideration of admission/observation: Escalation of care including admission/observation considered (Given patient's presentation, observation was considered) Lab Data [facility] Lab Attestation statement: I reviewed the patient's lab results. 04/25/24 23:13 04/25/24 23:13 Labs: Lab Results 04/25/24 04/26/24 Range/Units 23:13 02:09 WBC 7.9 (4.8-10.8) X10*3/uL RBC 4.23 (4.20-5.50) X10*6/uL Hgb 13.3 (12.0-16.0) g/dl Hct 38.2 (37.0-47.0) % MCV 90.3 (80.0-98.0) fL MCH 31.4 (27.0-33.0) pg MCHC 34.8 (31.0-35.0) g/dl RDW 13.0 (11.0-16.0) % Plt Count 214 (160-400) X10*3/uL MPV 9.9 (9.4-12.3) fL Immature Gran % (Auto) 0.3 (0.0-0.4) % Neut % (Auto) 57.9 (45-73) % Lymph % (Auto) 33.7 (20-40) % Ocean % (Auto) 6.3 (2-11) % Eos % (Auto) 0.9 (0-4) % Baso % (Auto) 0.9 (0-2) % Lymph # (Auto) 2.7 (1.2-4.9) X10*3/uL Ocean # (Auto) 0.5 (0.1-1.2) X10*3/uL Eos # (Auto) 0.1 (0.0-0.4) X10*3/uL Baso # (Auto) 0.1 (0.0-0.2) X10*3/uL Abs Immat Gran (auto) 0.02 (0.00-0.03) X10*3/uL Absolute Neuts (auto) 4.6 (2.0-8.3) x10*3/uL Absolute Nucleated RBC 0.000 (0.0-0.012) X10*3/uL Nucleated RBC % (auto) 0.0 (0.0-0.2) /100WBC Sodium 135 (135-145) mmol/L Potassium 4.5 (3.3-5.1) mmol/L Chloride 100 (96-108) mmol/L Carbon Dioxide 25 (22-29) mmol/L Anion Gap 15 (12-20) BUN 10 (9-16) mg/dL Creatinine 0.91 (0.5-1.4) mg/dL Estim Creat Clear Calc 69.9 Estimated GFR > 60 POC Glucose 201 H (60-115) mg/dL Random Glucose 588 H* (60-115) mg/dL Calcium 8.9 (8.4-10.2) mg/dL Total Bilirubin 0.2 (0.0-1.0) mg/dL Direct Bilirubin < 0.2 (0.0-0.5) mg/dL AST 35 H (5-31) U/L ALT 32 H (0-31) U/L Alkaline Phosphatase 117 (39-117) U/L Total Protein 7.6 (6.5-8.0) g/dL Albumin 4.0 (3.5-5.0) g/dL Lipase 21 (8-78) U/L Urine Color Yellow Urine Appearance Clear Urine pH 6.0 (5.0-9.0) Ur Specific Shannon >= 1.030 H (1.005-1.025) Urine Protein Negative (Neg-Trace) mg/dL Urine Glucose (UA) >=1000 H (Negative) mg/dL Urine Ketones Negative (Negative) mg/dL Urine Blood Negative (Negative) Urine Nitrite Negative (Negative) Ur Leukocyte Esterase Negative (Negative) Urine RBC 0-2 (0-2) /HPF Urine WBC 0-5 (0-5) /HPF Ur Squamous Epith Cells 0-2 (0-2) /HPF Urine Bacteria None Seen (None Seen) Hyaline Casts 0-2 (0-2) /LPF Radiology Impression Discussion of test interpretation with radiology: I have reviewed the radiologist's reading. Radiologist Impression: Findings: Mild bibasilar atelectasis and/or scarring of the imaged lung bases with motion artifacts. No obstructing stone of either imaged kidney or either imaged ureter accounting for motion artifacts. Multiple calcifications in the pelvis are favored to be due to phleboliths. Mild fat deposition of the liver with motion artifacts. Adrenal glands are unremarkable accounting for artifacts. Imaged spleen is nonenlarged. Mild volume loss of the pancreas. Mild pancreatic stranding could be obscured given the degraded motion artifacts. Gallbladder is unremarkable for CT without contrast and with artifacts. Mild small bowel dilatation in the midabdomen is nonspecific measuring up to 2.2 cm diameter. No definite small bowel obstruction in this noncontrast study with motion artifacts. Severe stool burden is present, including the cecum. Imaged appendix is gas-filled and nondilated. 1 cm calcification of the uterus is likely due to ventral fibroid with a additional small fibroids in the uterus by CT. No adnexal soft tissue mass by CT. Trace fluid in the pelvis may be reactive. No free intraperitoneal air. Subcutaneous edema is noted. Urinary bladder is mildly distended. Vascular calcifications include imaged aorta and its branches. Mild vertebral height losses appear old chronic. Multifocal vacuum disc phenomenon redemonstrated with multifocal degenerative changes of the imaged spine. IMPRESSION: 1. Severe stool burden, including the cecum. No small bowel obstruction. 2. Mild small bowel dilatation is nonspecific including upper abdomen. This can be seen with adjacent inflammation such as mild pancreatitis. 3. No definite obstructing stone in either kidney or either ureter in the study with motion artifacts. Medications Administered Generic Name Dose Route Start Last Admin Trade Name Freq PRN Reason Stop Dose Admin Sodium Chloride 2,000 mls @ 999 mls/hr 04/26/24 01:18 04/26/24 01:30 Ns IVCONT 04/26/24 03:18 999 mls/hr .Q2H1M ONE Administration Discontinued Medications Generic Name Dose Route Start Last Admin Trade Name Freq PRN Reason Stop Dose Admin Insulin Human Regular 10 unit 04/26/24 01:18 04/26/24 01:30 Insulin Regular, Human 100 Unit/Ml 10 Ml Vial IVPUSH 04/26/24 01:19 10 unit ONCE ONE Administration Ketorolac Tromethamine 30 mg 04/26/24 02:06 04/26/24 02:12 Ketorolac Tromethamine 30 Mg/Ml Vial IVPUSH 04/26/24 02:07 30 mg ONCE ONE Administration Critical Care Time Critical Care Time Critical Care Time: Yes Total Critical Care Time: 45 Attestation: I have personally provided critical care time. Time includes review of lab data, radiology results, discussion with consultants, and monitoring for potential decompensation. Intervention performed as documented. Discharge Plan Discharge Clinical Impression: Abdominal pain, Constipation, Acute hyperglycemia Patient Disposition: Home, Self-Care Instructions: Constipation (DC), Abdominal Pain (ED) Additional Instructions: Make sure that you drink plenty of fluids with your medication. Please follow-up with your primary care physician tomorrow. If you have any worsening or new symptoms, please return to the emergency room or call 911 Prescriptions: New polyethylene glycol 3350 [Miralax] 17 gram/dose powder 17 g PO DAILY Qty: 238 0RF No Action multivitamin Tablet 1 tab PO DAILY atorvastatin 40 mg Tablet 40 mg PO BEDTIME ropinirole [Requip] 4 mg Tablet 8 mg PO BID valsartan 160 mg Tablet 160 mg PO DAILY cranberry extract 250 mg Tablet 250 mg PO DAILY Trulicity 1.5 mg/0.5 mL Pen Injector 1.5 mg SUBCUT QWEEK Rx Instructions: Takes on Saturday metformin 500 mg tablet 500 mg PO BID estradiol 10 mcg tablet 10 mcg vaginal 2XW hydroxyzine pamoate 25 mg Capsule 25 mg PO BID PRN (Reason: Anxiety) escitalopram oxalate 10 mg Tablet 10 mg PO DAILY pregabalin 75 mg capsule 75 mg PO BID insulin degludec [Tresiba FlexTouch U-100] 100 unit/mL (3 mL) Insulin Pen 48 unit SUBCUT DAILY ondansetron 4 mg tablet,disintegrating 4 mg PO Q6H PRN (Reason: nausea and vomiting) Qty: 14 0RF cefuroxime axetil 250 mg tablet 250 mg PO BID 7 Days Qty: 14 0RF mirtazapine [Remeron] 15 mg tablet 15 mg PO BEDTIME Patient Comments: Patient stated she is currently taking 15 mg QHS. Print Language: Portuguese
--- NOTE | 2024-04-26 01:35 | PC.NURSE ---
Iv placed medicated per mar.
--- NOTE | 2024-04-26 02:02 | PC.NURSE ---
pt taken to ct scan.
[2024-04-26] MEDS: Ketorolac Tromethamine 30 MG/ML VIAL IVPUSH (02:12)
[2024-04-26 02:13] LABS: Glucose, Whole Blood 201 mg/dL (60-115)
--- NOTE | 2024-04-26 02:13 | PC.NURSE ---
pt back from ct scan, assisted back in bed from wheel chair, medicated for pain management.
[2024-04-26 04:07] VITALS: BP 138/60; PULSE 94; RESP 16; TEMP 36.6; O2SAT 96
--- NOTE | 2024-04-26 04:07 | PC.NURSE ---
Iv removed, vitals taken, reviewed discharge instructions with pt. pt verbalized understanding, no sign of distress, pt had a steady gait upon discharge.
[2024-04-26 04:09] VITALS: BP 138/60; PULSE 94; RESP 16; TEMP 36.6; O2SAT 96
== END 2024-04-26 04:09 | disposition home or self-care (01) ==
PROVIDERS: Emergency Provider Emergency Medicine; PCP Internal Medicine
DX: K59.00 Constipation, unspecified (principal); R10.31 Right lower quadrant pain; E11.65 Type 2 diabetes mellitus with hyperglycemia; I10 Essential (primary) hypertension; E78.5 Hyperlipidemia, unspecified; F17.210 Nicotine dependence, cigarettes, uncomplicated; Z79.02 Long term (current) use of antithrombotics/antiplatelets; Z79.85 Long-term (current) use of injectable non-insulin antidiabetic drugs; Z79.4 Long term (current) use of insulin; Z79.84 Long term (current) use of oral hypoglycemic drugs; Z79.899 Other long term (current) drug therapy
CPT/HCPCS: 36415; 74176; 80048; 80076; 81001; 82947; 83690; 85025; 93005; 96361; 96374; 96375; 99284; 99285; J1885

== ENCOUNTER → 2024-04-26 01:23 | Outpatient (BNV) | payer OTHER, SELFPAY | PROVIDERS: Emergency Provider Emergency Medicine; PCP Internal Medicine; Visit Provider Radiology Neuroradiology | DX: K56.41 Fecal impaction (principal) | CPT/HCPCS: 74176 ==

== ENCOUNTER 2025-01-26 10:11 | Outpatient (REF) | payer OTHER, SELFPAY ==
--- OUTSIDE RECORDS SUMMARY | 2024-06-15 09:40 | XMS_ITS ---
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, [address], [place], [address], Progress Notes * YULI BRADFORDDOB:[birth year] (59 yo F)Acc No.[id number]:06/15/2024 PROGRESS NOTES Patient: YULI REES Provider: Loly SCOTT MD :1965 A ge:59 Y S ex:Female Date:06/15/2024 Address:[address] [place] [address], [place] [address] Pcp:GEORGETTE LOW MD Subjective: * Chief Complaints: * 1 . Annual RATE MARKER Physical. 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 She is new to me, having [...] days/week by . * ROS: A nnual Wind Energy Project Manager Exam ROS: Bowel habit changes d enies. [...] no acute distress, well developed, well nourished, dental amalgam processor present in room. HEAD: n ormocephalic, atraumatic. [...] * Follow Up: 1 Year (Reason: Yearly Wind Energy Project Manager Exam) * Images: Billing Information: * Visit Code: [id number] Preventive Care Est Pt. Age 40-64. 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 She is new to me, having [...] General Examination GENERAL APPEARANCE: in no ac alessia distress, well developed, well nourished, dental amalgam processor present in room HEAD: normocephalic, atrau matic [...]
--- OUTSIDE RECORDS SUMMARY | 2024-11-05 09:40 | XMS_ITS ---
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 :1965 A ge:59 Y S ex:Female Date:11/05/2024 Address:[address] [place] [address], [address], [facility] Pcp:GEORGETTE LOW MD Subjective: * Chief Complaints: * 1 . Annual DEMO EVENT SPECIALIST Physical. * Medical History: Objective: * Vitals: Assessment: Plan: * Treatment: * Images: Billing Information: * Visit Code: * Procedure Codes: * Electronic signature of Lesley Ruiz MD on 01/26/2025 at 12:19 PM EDT Sign off status: Pending * Appointment Provider: Robi Ruiz M.D. Date: 0 11/05/2024 Generated for Devin mercado/Corie/Elinor on: 1 12:19 PM EDT
--- OUTSIDE RECORDS SUMMARY | 2024-12-12 17:00 | XMS_ITS ---
Author Organization [facility] Address [address] [place] [address] Care Team Providers Care Client Technical Support Associate Name Role Phone Shan - DO NOT USE Ghada EVANS Primary Care Provider Unavailable Landon Cee Unavailable [phone] Migration, Provider Unavailable Unavailable REASON FOR VISIT Mult[facility] To [facility] Conversion Encounter Medications Medication SIG (Take, Route, [...] Active Encounters Encounter Location Date Provider Diagnosis [address] [address] 12/12/2024 Provider Migration Plan Of Treatment No Information Progress Notes * Yuli HAYDENDOB:[birth year] (59 yo F)Acc No.[id number]:12/12/2024 Patient: Yuli REES Provider: :1965 A ge:59 Y S ex:Female Date:12/12/2024 Address:[address] [place] [address], [facility] Pcp:Ghada Torrez - DO NOT USEMD Subjective: [...] Electronic signature of Prov ider Migration on 01/26/2025 at 12:19 PM EDT Sign off status: Pending * Provider: Date: 0 12/12/2024 Generated for Devin mercado/Corie/Elinor on: 12:19 PM EDT
--- OUTSIDE RECORDS SUMMARY | 2025-01-21 23:59 | XMS_ITS | Continuity of Care Document ---
Author Organization [facility] Address [address] [place] [address]- Care Team Providers Care Linux Unix Engineer Name Role Phone Sydnie Andrade MD Primary Care Physician [id number] Date(s): 12/22/24 - 01/21/[address] [id number] Encounter Type: Triage Allergies, Adverse Reactions, Alerts No Known Allergies Immunizations Given and Recorded Vaccine Date Status Refusal Reason tetanus/diphtheria/pertussis, acel(Tdap) 02/04/24 Given tetanus/diphtheria/pertussis, acel(Tdap) 04/07/13 Given influenza virus vaccine, inactivated 02/04/24 Give n influenza virus vaccine, inactivated 03/16/22 Give n influenza virus vaccine, inactivated 01/15/19 Give n influenza virus vaccine, inactivated 02/02/16 Myke rded [id number] 12y+ bivalent booster vax 03/16/22 Given SARS-CoV-2 [...] Dry Weight Start Date: 12/19/23 Status: Ordered Medication Dispense Status: Completed Quantity: 200.0 Unit: each Total Allowed Fills: 12 Fills Dispensed: 0 Alcohol Wipes See Instructions, # 100 each, Refills 11, Tot. Refills 11, Maintenance, dx: T2DM to check blood sugar up to 4 times per day, 11/28/22 9:20:00 AM EDT, Supply, 159, cm, 10/16/22 14:19:00 EDT, Height, 89.25, kg, 03/27/22 13:48:00 EST, Dry Weight Start Date: 11/28/22 Status: Ordered Medication Dispense Status: Completed Quantity: 100.0 Unit: each Total Allowed Fills: 12 Fills Dispensed: 0 amLODIPine 10 mg oral tablet See Instructions, TAKE 1 TABLET BY MOUTH ONCE DAILY, # 90 tablet, 1 Refills, Maintenance, 07/28/24 11:26:00 AM EDT, [facility] [id number], 160, cm, 07/28/24 10:41:00 EDT, Height, 90, kg, 03/12/24 2:19:00 EST, Dry Weight Start Date: 07/28/24 Status: Ordered Medication Dispense Status: Completed Quantity: 90.0 Unit: tablet Total Allowed Fills: 2 Fills Dispensed: 0 atorvastatin 40 mg oral tablet See Instructions, TAKE 1 TABLET BY MOUTH ONCE DAILY AT BEDTIME, # 90 tablet, 1 Refills, Maintenance, 11/13/24 5:05:00 PM EDT, [facility] [id number], 160, cm, 08/07/24 13:04:00EDT, Height, 90, kg, 03/12/24 2:19:00 EST, Dry Weight Start Date: 11/13/24 Status: Ordered Medication Dispense Status: Completed Quantity: 90.0 Unit: tablet Total Allowed Fills: 2 Fills Dispensed: 0 BD Ultra-Fine Erika Pen Needle 32 gauge x 5/32 BD Ultra-Fine Erika Pen Needle 32 gauge x 5/32 , See Instructions, # 100 Unknown, 5 Refills, Maintenance, USE TO INJECT tresiba EVERY DAY, 05/18/24 1:12:00 PM EST, 160, cm, 05/15/24 11:34:00 EST, Height, 90, kg, 03/12/24 2:19:00 EST, Dry Weight Start Date: 05/18/24 Status: Ordered Medication Dispense Status: Completed Quantity: 100.0 Unit: Unknown Total Allowed Fills: 1 Fills Dispensed: 0 bench shower chair bench shower chair, See Instructions, # 1 each, Refills 0, Tot. Refills 0, Maintenance, dx: lumbar spondylosis ICD10: M47.816 duration: 99, 01/09/24 2:41:00 PM EDT, Supply Start Date: 01/09/24 Status: Ordered Medication Dispense Status: Completed Quantity: 1.0 Unit: each Total Allowed Fills: 1 Fills Dispensed: 0 cetirizine 10 mg oral tablet 1 tablet, By Mouth, Daily, # 30 tablet, 3 Refills, Maintenance, 11/23/24 4:01:00 PM EDT, [facility], 160, cm, 08/07/24 13:04:00 EDT, Height, 90, kg, 03/12/24 2:19:00 EST, Dry Weight Start Date: 11/23/24 Status: Ordered Medication Dispense Status: Completed Quantity: 30.0 Unit: tablet Total Allowed Fills: 1 Fills Dispensed: 0 contour 10 in flip pillow contour 10 in flip pillow, See Instructions, # 1 each, Refills 0, Tot. Refills 0, Maintenance, dx: restless leg syndrome, chronic low back pain ICD10: M54.5, G25.81 duration: 12 months, 11/22/23 3:19:00 PM EDT, Supply Start Date: 11/22/23 Status: Ordered Medication Dispense Status: Completed Quantity: 1.0 Unit: each Total Allowed Fills: 1 Fills Dispensed: 0 cranberry oral capsule 1 capsule, By Mouth, Daily, # 90 capsule, 3 Refills, Maintenance, 10/07/24 4:47:00 PM EDT, [place], [place] - [id number], Partial fill upon patient request if the prescription is for aschedule II opioid drug., 1 capsule By Mouth Daily,x90 days, 160, cm, 08/07/24 13:04:00 EDT, Height, 90, kg, 03/12/24 2:19:00 EST, Dry Weight Start Date: 10/07/24 Stop Date: 10/02/25 Status: Ordered Medication Dispense Status: Completed Quantity: 90.0 Unit: capsule Total Allowed Fills: 4 Fills Dispensed: 0 Daily Luciana oral tablet See Instructions, TAKE 1 TABLET BY MOUTH EVERY DAY, # 90 tablet, 3 Refills, 10/07/24 4:47:00 PM EDT, [facility] [id number], 90, TAKE 1 TABLET BY MOUTH EVERY DAY, 160, cm, 08/07/24 13:04:00 EDT, Height, 90, kg, 03/12/24 2:19:00 EST, Dry Weight Start Date: 10/07/24 Status: Ordered Medication Dispense Status: Completed Quantity: 90.0 Unit: tablet Total Allowed Fills: 4 Fills Dispensed: 0 dexamethasone 1 mg oral tablet 1 tablet = 1 mg, By Mouth, Once, take at 11:PM the night prior to 8AM blood work, # 1 tablet, 0 Refills, Soft Stop, 10/13/24 8:15:00 PM EDT, Tablet, [facility] [id number], Partial fill upon patient request if the prescription is for a schedule II opioid drug., 160, cm, 08/07/24 13:04:00 EDT, Height, 90, kg, 03/12/24 2:19:00 EST, Dry Weight Start Date: 10/13/24 Status: Ordered Medication Dispense Status: Completed Quantity: 1.0 Unit: tablet Total Allowed Fills: 1 Fills Dispensed: 0 Indications: Type 2 diabetes mellitus without complications; Dexcom G6 Director Immunology Dexcom G6 Director Immunology, See Instructions, # 1 each, Refills 0, Tot. Refills 0, Maintenance, Use to check blood sugar 4 times daily as directed., 08/05/24 10:09:00 AM EDT, PA is in progress, to replace G7, Supply, 160, cm, 07/28/24 10:41:00 EDT, Height, 90, kg, 03/12/24 2:19:00 EST, Dry Weight Start Date: 08/05/24 Status: Ordered Medication Dispense Status: Completed Quantity: 1.0 Unit: each Total Allowed Fills: 1 Fills Dispensed: 0 Indications: Type 2 diabetes mellitus without complications; Dexcom G6 Sensor Dexcom G6 Sensor, See Instructions, # 3 each, Refills 11, Tot. Refills 11, Maintenance, Use to monitor BG 4 times daily as directed. Replace sensor every 10 days, 3 sernsors/month ., 08/05/24 10:09:00 AM EDT, PA is in progress, to replace G7, Supply, 160, cm, 07/28/24 10:41:00 EDT, Height, 90, kg, 03/12/24 2:19:00 EST, Dry Weight Start Date: 08/05/24 Status: Ordered Medication Dispense Status: Completed Quantity: 3.0 Unit: each Total Allowed Fills: 12 Fills Dispensed: 0 Indications: Type 2 diabetes mellitus without complications; DEXCOM G6 Sensor DEXCOM G6 Sensor, See Instructions, # 3 each, Refills 11, Tot. Refills 11, Maintenance, Use to continuously monitor blood lgucose levels for diabetes 1 sensor every 10 days, 3 sensors per month, 08/01/24 5:21:00 AM EDT, Supply Start Date: 08/01/24 Status: Ordered Medication Dispense Status: Completed Quantity: 3.0 Unit: each Total Allowed Fills: 12 Fills Dispensed: 0 Dexcom G6 Transmitter Dexcom G6 Transmitter, See Instructions, # 1 each, Refills 3, Tot. Refills 3, Maintenance, Use to monitor BG 4 times daily as directed. Replace transmitter every 90 days., 08/05/24 10:09:00 AM EDT, PA is in progress, to replace G7, Supply, 160, cm, 07/28/24 10:41:00 EDT, Height, 90, kg, 03/12/24 2:19:00 EST, Dry Weight Start Date: 08/05/24 Status: Ordered Medication Dispense Status: Completed Quantity: 1.0 Unit: each Total Allowed Fills: 4 Fills Dispensed: 0 Indications: Type 2 diabetes mellitus without complications; docusate sodium 100 mg oral capsule 1 capsule, By Mouth, Daily, PRN NEEDED FOR CONSTIPATION, # 90 capsule, 1 Refills, Maintenance, 01/20/25 12:16:00 PM EDT, [place], [place] - [id number], 160, cm, 01/14/25 3:03:00 EDT, Height, 94, kg, 01/14/25 3:03:00 EDT, Dry Weight Start Date: 01/20/25 Status: Ordered Medication Dispense Status: Completed Quantity: 90.0 Unit: capsule Total Allowed Fills: 2 Fills Dispensed: 0 Ecotrin 325 mg oral delayed release tablet 1 tablet = 325 mg, By Mouth, Daily, # 30 tablet, 0 Refills, Maintenance, 01/29/23 6:43:00 AM EDT, [facility] Tablet, Partial fill upon patient request if the prescription is for a schedule II opioid drug. Start Date: 01/29/23 Status: Ordered Medication Dispense Status: Completed Quantity: 30.0 Unit: tablet Total Allowed Fills: 1 Fills Dispensed: 0 escitalopram 10 mg oral tablet 2 tablet = 20 mg, By Mouth, Daily in AM, 0 Refills, Maintenance, 10/16/22 2:32:00 PM EDT, Partial fill upon patient request if the prescription is for a schedule II opioid drug. Start Date: 10/16/22 Status: Ordered Medication Dispense Status: Completed Total Allowed Fills: 1 Fills Dispensed: 0 flip table flip table, See Instructions, # 1 each, Refills 0, Tot. Refills 0, Maintenance, dx: diabetic neuropathy, chronic low back pain ICD10: E11.40 duration: 99, 11/22/23 3:20:00 PM EDT, Supply Start Date: 11/22/23 Status: Ordered Medication Dispense Status: Completed Quantity: 1.0 Unit: each Total Allowed Fills: 1 Fills Dispensed: 0 Glucagon Emergency Kit See Instructions, # 1 each, Refills 1, Tot. Refills 1, Maintenance, To be use for hypoglycemic emergency by family member or accompanying person, if blood glucoses less than 60 and unconscious. Please call 911 after use glucagon pen., 05/15/24 12:09:00 PM EST, Supply, 160, cm, 05/15/24 11:34:00 EST,Height, 90, kg, 03/12/24 2:19:00 EST, Dry Weight Start Date: 05/15/24 Status: Ordered Medication Dispense Status: Completed Quantity: 1.0 Unit: each Total Allowed Fills: 2 Fills Dispensed: 0 Gvoke HypoPen 0.5 mg/0.1 mL subcutaneous solution 0.2 mL = 1 mg, Subcutaneous Injection, Once, To be use for hypoglycemic emergency by family member or accompanying person, if blood glucoses less than 60 and unconscious. Please call 911 after use glucagon pen., # 0.2 mL, 0 Refills, Soft Stop, 12/17/23 2:52:00 PM EDT, Solution, [place], [place] - [phone], Partial fill upon patient request if the prescription is for a schedule II opioid drug., 160, cm, 12/17/23 13:55:00 EDT, Height, 95, kg, 09/22/23 21:51:00 EDT, Dry Weight Start Date: 12/17/23 Status: Ordered Medication Dispense Status: Completed Quantity: 0.2 Unit: mL Total Allowed Fills: 1 Fills Dispensed: 0 handheld shower head handheld shower head, See Instructions, # 1 each, Refills 0, Tot. Refills 0, Maintenance, dx: lumbar spondylosis ICD10: M47.816 duration: , 01/09/24 2:42:00 PM EDT, Supply Start Date: 01/09/24 Status: Ordered Medication Dispense Status: Completed Quantity: 1.0 Unit: each Total Allowed Fills: 1 Fills Dispensed: 0 home blood pressure monitor home blood pressure monitor, See Instructions, # 1 each, Refills 0, Tot. Refills 0, Maintenance, dx: hypertension ICD10: I10 duration: , 10/31/23 4:46:00 PM EDT, Supply Start Date: 10/31/23 Status: Ordered Medication Dispense Status: Completed Quantity: 1.0 Unit: each Total Allowed Fills: 1 Fills Dispensed: 0 hydrochlorothiazide-valsartan 12.5 mg-320 mg oral tablet See Instructions, TAKE 1 TABLET BY MOUTH ONCE DAILY, # 90 tablet, 1 Refills, Maintenance, 07/28/24 11:26:00 AM EDT, [place], [place] - [id number], TAKE 1 TABLET BY MOUTH ONCE DAILY, 160, cm, 07/28/24 10:41:00 EDT, Height, 90, kg, 03/12/24 2:19:00 EST, Dry Weight Start Date: 07/28/24 Status: Ordered Medication Dispense Status: Completed Quantity: 90.0 Unit: tablet Total Allowed Fills: 2 Fills Dispensed: 0 Insulin Lispro KwikPen 100 units/mL injectable solution See Instructions, 100 - 149 8 units 150 - 199 10 units 200 - 249 12 units 250 - 299 14 units 300 - 349 16 units 350 - 399 18 units maximum units 50 units/day, # 15 mL, 5 Refills, Maintenance, 08/07/24 1:30:00 PM EDT, [facility] [id number], Partial fill upon patient request ifthe prescription is for a schedule II opioid drug., 160, cm, 08/07/24 13:04:00 EDT, Height, 90, kg,03/12/24 2:19:00 EST, Dry Weight Start Date: 08/07/24 Status: Ordered Medication Dispense Status: Completed Quantity: 15.0 Unit: mL Total Allowed Fills: 6 Fills Dispensed: 0 isopropyl alcohol 70% topical pad See Instructions, USE TO TEST FINGER STICK BLOOD SUGAR UP TO 4 (FOUR) TIMES DAILY, # 200 Unknown, 5Refills, Maintenance, 01/15/25 10:04:00 AM EDT, [place], [place] - [id number], 25,USE TO TEST FINGER STICK BLOOD SUGAR UP TO 4 (FOUR) TIMES DAILY, 160, cm, 01/14/25 3:03:00 EDT, Height, 94, kg, 01/14/25 3:03:00 EDT, Dry Weight Start Date: 01/15/25 Status: Ordered Medication Dispense Status: Completed Quantity: 200.0 Unit: Unknown Total Allowed Fills: 6 Fills Dispensed: 0 left thumb spica splint left thumb spica splint, See Instructions, # 1 each, Refills 0, Tot. Refills 0, Maintenance, dx: left dequervains tenosynovitis ICD10: M65.4 duration: 12 weeks, 12/11/23 2:13:00 PM EDT, Supply Start Date: 12/11/23 Status: Ordered Medication Dispense Status: Completed Quantity: 1.0 Unit: each Total Allowed Fills: 1 Fills Dispensed: 0 lidocaine 4% topical film 1 patch, Topically, Daily, for 30 days, Medically necessary. M96. 1 ICD 10 Code for failed back syndrome., # 30 patch, 5 Refills, Acute 04/05/25 4:49:00 PM EST, 10/07/24 4:49:00 PM EDT, Film, [facility] [id number], Partial fill upon patient request if the prescription is for a schedule II opioid drug., 1 patch Topically Daily,x30 days,Instr:Medically necessary. M96. 1 ICD 10 Code for failed back syndrome., 160, cm, 08/07/24 13:04:00 EDT, Height, 90, kg, 03/12/24 2:19:00 EST, Dry Weight Start Date: 10/07/24 Stop Date: 04/05/25 Status: Ordered Medication Dispense Status: Completed Quantity: 30.0 Unit: patch Total Allowed Fills: 6 Fills Dispensed: 0 metFORMIN 500 mg oral tablet See Instructions, TAKE 2 TABLETS BY MOUTH two (2) times a day, # 360 tablet, 1 Refills, Maintenance, 08/07/24 1:31:00 PM EDT, [facility] [id number], 160, cm, 08/07/24 13:04:00 EDT, Height, 90, kg, 03/12/24 2:19:00 EST, Dry Weight Start Date: 08/07/24 Status: Ordered Medication Dispense Status: Completed Quantity: 360.0 Unit: tablet Total Allowed Fills: 2 Fills Dispensed: 0 mirtazapine 15 mg oral tablet See Instructions, TAKE 1 TABLET BY MOUTH ONCE DAILY AT BEDTIME, # 90 tablet, 1 Refills, Maintenance, 11/21/24 6:31:00 AM EDT, [facility] [id number], 160, cm, 08/07/24 13:04:00EDT, Height, 90, kg, 03/12/24 2:19:00 EST, Dry Weight Start Date: 11/21/24 Status: Ordered Medication Dispense Status: Completed Quantity: 90.0 Unit: tablet Total Allowed Fills: 2 Fills Dispensed: 0 morphine 15 mg/8 to 12 hr oral tablet, extended release 1 tablet = 15 mg, By Mouth, Every 12 hours, # 56 tablet, 0 Refills, Maintenance, 01/15/25 10:57:00 AM EDT, ER Tablet, [facility] [id number], Partial fill upon patient requestif the prescription is for a schedule II opioid drug., 160, cm, 01/14/25 3:03:00 EDT, Height, 94, kg, 01/14/25 3:03:00 EDT, Dry Weight Start Date: 01/15/25 Stop Date: 02/12/25 Status: Ordered Medication Dispense Status: Completed Quantity: 56.0 Unit: tablet Total Allowed Fills: 1 Fills Dispensed: 0 nalOXONE 4 mg/0.1 mL nasal spray = 4 mg, Nares, Both, Once, # 2 each, 0 Refills, Soft Stop, 04/22/23 8:46:00 AM EST, [facility] [id number], Partial fill upon patient request if the prescription is for a schedule II opioid drug., 159, cm, 04/19/23 13:30:00 EST, Height, 96, kg, 01/28/23 16:17:00 EDT, Dry Weight Start Date: 04/22/23 Status: Ordered Medication Dispense Status: Completed Quantity: 2.0 Unit: each Total Allowed Fills: 1 Fills Dispensed: 0 One Touch Delica Lancets See Instructions, # 100 each, Refills 11, Tot. Refills 11, Maintenance, dx: T2DM to check blood sugar up to 4 times per day, 11/28/22 9:20:00 AM EDT, Supply, 159, cm, 10/16/22 14:19:00 EDT, Height, 89.25, kg, 03/27/22 13:48:00 EST, Dry Weight Start Date: 11/28/22 Status: Ordered Medication Dispense Status: Completed Quantity: 100.0 Unit: each Total Allowed Fills: 12 Fills Dispensed: 0 One Touch Delica Lancing System See Instructions, # 1 each, Maintenance, dx: T2DM to check blood sugar up to 4 times a day, :13:00 AM EDT, Supply, 159, cm, 10/16/22 14:19:00 EDT, Height, 89.25, kg, 03/27/22 13:48:00 EST, Dry Weight Start Date: 11/28/22 Status: Ordered Medication Dispense Status: Completed Quantity: 1.0 Unit: each Total Allowed Fills: 1 Fills Dispensed: 0 One Touch Ultra 2 Glucose Meter See Instructions, # 1 each, Maintenance, dx: T2DM ICD10: E11.9 to check blood sugar up to 4 times per day, 11/28/22 9:07:00 AM EDT, Supply, 159, cm, 10/16/22 14:19:00 EDT, Height, 89.25, kg, 03/27/22 13:48:00 EST, Dry Weight Start Date: 11/28/22 Status: Ordered Medication Dispense Status: Completed Quantity: 1.0 Unit: each Total Allowed Fills: 1 Fills Dispensed: 0 One Touch Ultra Test Strips See Instructions, # 100 each, Refills 11, Tot. Refills 11, Maintenance, dx: T2DM to test blood sugar up to four times per day incase of CGM failuer, 08/07/24 1:28:00 PM EDT, Supply, 160, cm, 08/07/24 13:04:00 EDT, Height, 90, kg, 03/12/24 2:19:00 EST, Dry Weight Start Date: 08/07/24 Status: Ordered Medication Dispense Status: Completed Quantity: 100.0 Unit: each Total Allowed Fills: 12 Fills Dispensed: 0 OneTouch Ultra Test strips OneTouch Ultra Test strips, See Instructions, # 100 Unknown, 3 Refills, Maintenance, USE TO TEST FINGER STICK BLOOD SUGAR UP TO 4 (FOUR) TIMES DAILY, 03/09/24 5:05:00 PM EST, 160, cm, 02/04/24 14:09:00 EST, Height, 95, kg, 09/22/23 21:51:00 EDT, Dry Weight Start Date: 03/09/24 Status: Ordered Medication Dispense Status: Completed Quantity: 100.0 Unit: Unknown Total Allowed Fills: 1 Fills Dispensed: 0 OneTouch Ultra Test strips OneTouch Ultra Test strips, See Instructions, # 100 Unknown, 11 Refills, Maintenance, USE TO TEST FINGER STICK BLOOD SUGAR UP TO 4 (FOUR) TIMES DAILY, 12/24/23 2:18:00 PM EDT, 160, cm, 12/17/23 13:55:00 EDT, Height, 95, kg, 09/22/23 21:51:00 EDT, Dry Weight Start Date: 12/24/23 Status: Ordered Medication Dispense Status: Completed Quantity: 100.0 Unit: Unknown Total Allowed Fills: 1 Fills Dispensed: 0 oxybutynin 10 mg/24 hr oral tablet, extended release 1 tablet, By Mouth, Daily, # 90 tablet, 3 Refills, Maintenance, 11/23/24 4:02:00 PM EDT, [facility], 160, cm, 08/07/24 13:04:00 EDT, Height, 90, kg, 03/12/24 2:19:00 EST, Dry Weight Start Date: 11/23/24 Status: Ordered Medication Dispense Status: Completed Quantity: 90.0 Unit: tablet Total Allowed Fills: 1 Fills Dispensed: 0 pantoprazole 40 mg oral delayed release tablet See Instructions, TAKE 1 TABLET BY MOUTH two (2) times a day, # 60 tablet, 5 Refills, Maintenance, 07/08/24 11:20:00 AM EDT, 160, cm, 06/19/24 13:34:00 EDT, Height, 90, kg, 03/12/24 2:19:00 EST, Dry Weight Start Date: 07/08/24 Status: Ordered Medication Dispense Status: Completed Quantity: 60.0 Unit: tablet Total Allowed Fills: 1 Fills Dispensed: 0 Pen [place], 32 G x 4 mm BD Ultra Fine III See instructions, # 100 each, Refills 5, Tot. Refills 5, Maintenance, to inject tresiba every day dx: T2DM ICD10: E11.9, 07/28/24 11:21:00 AM EDT, Supply, 160, cm, 07/28/24 10:41:00 EDT, Height, 90, kg, 03/12/24 2:19:00 EST, Dry Weight Start Date: 07/28/24 Stop Date: 01/19/26 Status: Ordered Medication Dispense Status: Completed Quantity: 100.0 Unit: each Total Allowed Fills: 6 Fills Dispensed: 0 pregabalin 150 mg oral capsule 1 capsule = 150 mg, By Mouth, 2 times a day, # 60 capsule, 5 Refills, Maintenance, 02/10/24 2:28:00PM EST, Capsule, [place], [place] - [id number], Partial fill upon patient request if the prescription is for a schedule II opioid drug., 160, cm, 02/04/24 14:09:00 EST, Height, 95, kg, 09/22/23 21:51:00 EDT, Dry Weight Start Date: 02/10/24 Stop Date: 08/08/24 Status: Ordered Medication Dispense Status: Completed Quantity: 60.0 Unit: capsule Total Allowed Fills: 6 Fills Dispensed: 0 rOPINIRole 4 mg oral tablet 2 tablet, By Mouth, 2 times a day, # 360 tablet, 1 Refills, Maintenance, 12/26/24 8:24:00 AM EDT, [facility], 160, cm, 08/07/24 13:04:00 EDT, Height, 90, kg, 03/12/24 2:19:00 EST, Dry Weight Start Date: 12/26/24 Status: Ordered Medication Dispense Status: Completed Quantity: 360.0 Unit: tablet Total Allowed Fills: 1 Fills Dispensed: 0 Skin Tac Wipes Skin Tac Wipes, See Instructions, # 50 each, Refills 3, Tot. Refills 3, Maintenance, Apply under dexcom sensor every 10 days as directed. Dx E11.9, ALF 12 months., 07/08/23 1:28:00 PM EDT, Supply Start Date: 07/08/23 Status: Ordered Medication Dispense Status: Completed Quantity: 50.0 Unit: each Total Allowed Fills: 4 Fills Dispensed: 0 Indications: Type 2 diabetes mellitus without complications; square fenestrated tegaderm 8.8cmx8.8 cm square fenestrated tegaderm 8.8cmx8.8 cm, See Instructions, # 30 each, Refills 11, Tot. Refills 11,Maintenance, dx: T2DM ICD10: E11.9 to use to keep dexcom in place, 04/22/23 8:45:00 AM EST, Supply, 159, cm, 04/19/23 13:30:00 EST, Height, 96, kg, 01/28/23 16:17:00 EDT, Dry Weight Start Date: 04/22/23 Status: Ordered Medication Dispense Status: Completed Quantity: 30.0 Unit: each Total Allowed Fills: 12 Fills Dispensed: 0 Tegaderm Transparent Film Dressing 4in x 10 in Tegaderm Transparent Film Dressing 4in x 10 in, See Instructions, # 20 each, Refills 3, Tot. Refills 3, Maintenance, Apply over Dexcom sensor every 10 days as directed. Dx E11.9, ALF 12 months., 07/08/23 1:28:00 PM EDT, Supply Start Date: 07/08/23 Status: Ordered Medication Dispense Status: Completed Quantity: 20.0 Unit: each Total Allowed Fills: 4 Fills Dispensed: 0 tempurpedic orthopedic peters sized mattress tempurpedic orthopedic peters sized mattress, See Instructions, # 1 each, Refills 0, Tot. Refills 0,Maintenance, dx: chronic low back pain, achilles tendonitis ICD10: M54.5 duration: , 03/18/23 8:51:00 AM EST, Supply Start Date: 03/18/23 Status: Ordered Medication Dispense Status: Completed Quantity: 1.0 Unit: each Total Allowed Fills: 1 Fills Dispensed: 0 toilet seat riser w/ removable arms toilet seat riser w/ removable arms, See Instructions, # 1 each, Refills 0, Tot. Refills 0, Maintenance, dx: lumbar spondylosis ICD10: M47.816 duration: , 01/09/24 2:39:00 PM EDT, Supply Start Date: 01/09/24 Status: Ordered Medication Dispense Status: Completed Quantity: 1.0 Unit: each Total Allowed Fills: 1 Fills Dispensed: 0 Tresiba FlexTouch 100 units/mL subcutaneous solution = 70 units, Subcutaneous Injection, Daily, # 30 mL, 11 Refills, Maintenance, 08/07/24 1:30:00 PM EDT,[place], [place] - [id number], increase in dose. patient was taking 66 units daily, 160, cm, 08/07/24 13:04:00 EDT, Height, 90, kg, 03/12/24 2:19:00 EST, Dry Weight Start Date: 08/07/24 Stop Date: 08/02/25 Status: Ordered Medication Dispense Status: Completed Quantity: 30.0 Unit: mL Total Allowed Fills: 12 Fills Dispensed: 0 true comfort lancet 30 gauge true comfort lancet 30 gauge, See Instructions, # 200 each, Refills 11, Tot. Refills 11, Maintenance, dx: T2DM icd10: E11.9 to check blood sugar up to 4 times per day, 12/19/23 2:42:00 PM EDT, Supply,160, cm, 12/17/23 13:55:00 EDT, Height, 95, kg, 09/22/23 21:51:00 EDT, Dry Weight Start Date: 12/19/23 Status: Ordered Medication Dispense Status: Completed Quantity: 200.0 Unit: each Total Allowed Fills: 12 Fills Dispensed: 0 Tylenol Extra Strength 500 mg oral tablet 2 tablet = 1,000 mg, By Mouth, 3 times a day, PRN as needed for pain, # 100 tablet, 5 Refills, Maintenance, 02/11/24 5:08:00 PM EST, Tablet, [place], [place] - [phone], Partial fill upon patient request if the prescription is for a schedule II opioid drug., 160, cm, 02/04/24 14:09:00 EST, Height, 95, kg, 09/22/23 21:51:00 EDT, Dry Weight Start Date: 02/11/24 Stop Date: 08/09/24 Status: Ordered Medication Dispense Status: Completed Quantity: 100.0 Unit: tablet Total Allowed Fills: 6 Fills Dispensed: 0 Vistaril pamoate 25 mg oral capsule 1 capsule = 25 mg, By Mouth, Daily in AM, 0 Refills, Maintenance, 01/25/23 9:31:00 AM EDT, Partial fill upon patient request if the prescription is for a schedule II opioid drug. Start Date: 01/25/23 Status: Ordered Medication Dispense Status: Completed Total Allowed Fills: 1 Fills Dispensed: 0 Problem List Condition Confirmation Course Effective Dates Status Health Status Informant COVID-19 1 Confirmed 07/28/21 Active Depression Confirmed Active Diabetes mellitus Confirmed Active Controlled substance agreement signed 05/21/2024 Confirmed Active Fibromyalgia Confirmed Active Hypercholesterolemia Confirmed Active HLD (hyperlipidemia) Confirmed Active Hypertension Confirmed Active Low back pain with radiation Confirmed Active Morbid obesity Confirmed Active Osteoarthritis Confirmed Active [facility], Post Framer; Norma Larry, Confirmed Active Nasal septum perforation Confirmed Active Plantar fasciitis Confirmed Active Restless legs syndrome Confirmed Active Severe obesity (BMI 35.0-39.9) with comorbidity Confirmed Active Lumbar spinal stenosis, Controlled Substance Agreement Signed Confirmed 03/18/20 Active Lumbar spondylitis Confirmed Active 1Problem added by Discern Expert Social History Social History Type Response Sexual Sexually involved in last 6 months: Yes. Smoking Status Use: 4 or less cigar ettes(less than 1/4 pack)/day in last 30 days; Interested in cessation: No; Patient wants NRT during admission No;Former smokeless tobacco user, quit more than 30 days ago entered on: 05/22/22 Sex Sex Representation Female (finding) Patient Care team information Care Team Personnel Name: Carlita Jensen RN Position: [facility] AMB Nurse Member Role: Primary Care Nurse Name: Brigette Chaidez Position: [facility] Outreach Member Role: Lifetime Consulting Physician Name: Kiara Stapleton RN Position: [facility] Onco RN Member Role: Primary Care Nurse Name: Aneta Navarro RN Position: [facility] SN RN Member Role: Primary Care Nurse Name: Zarina Lombardi RN Position: [facility] RN Supv Member Role: Primary Care Nurse Name: Shyam Jimenez DO Position: [facility] Renal MD Member Role: Lifetime Consulting Physician Address: [address] [place] [address] [facility] [place], [place] [address] Telecom: Name: Echo Gomez RN Position: [facility] RN Member Role: Primary Care Nurse Name: Adriana Bolden RN Position: [facility] Onco RN Member Role: Primary Care Nurse Name: Sydnie Andrade MD Position: [facility] Physician - Primary Care Member Role: PCP Address: [address] [place] [address] Telecom: Care Team Related Persons Name: NANDO BRADFORD Name: NANDO BRADFORD Name: JV BRADFORD Insurance Providers Guarantor name: FBA SANCHEZ Health Plan Information #: 1 Payer: [facility] ONE CARE Payer Identifier: NA Member Number: [id number] Group Number: [id number] Subscriber Identifier: NA Relationship to Subscriber: self Coverage Type: Medicare Managed Care (Includes Medicare Advantage Plans) Coverage Verification Date: [place] Telecom: NA Address: NA
--- OUTSIDE RECORDS SUMMARY | 2025-01-23 23:59 | XMS_ITS | Continuity of Care Document ---
Author Organization [facility] Address [address] [place] [address]- Care Team Providers Care Desktop Technician Name Role Phone Sydnie Andrade MD [facility] Phys[id number] Date([facility]): 12/24/24 - 01/23/[address] [address] Encounter Type: Triage Allergies, Adverse Reactions, Alerts No Known Allergies Immunizations Given and Recorded Vaccine Date Status Refusal Reason tetanus/diphtheria/pertussis, acel(Tdap) 02/04/24 Given tetanus/diphtheria/pertussis, acel(Tdap) 04/07/13 Given influenza virus vaccine, inactivated 02/04/24 Give n influenza virus vaccine, inactivated 03/16/22 Give n influenza virus vaccine, inactivated 01/15/19 Give n influenza virus vaccine, inactivated 02/02/16 Myke rded [id number] 12y+ bivalent booster vax 03/16/22 Given SARS-CoV-2 [...] 1 Refills, Maintenance, 07/28/24 11:26:00 AM EDT, [facility] [id number], 160, cm, 07/28/24 10:41:00 EDT, Height, 90, kg, 03/12/24 2:19:00 EST, Dry Weight Start Date: 07/28/24 Status: Ordered Medication Dispense Status: Completed Quantity: 90.0 Unit: tablet Total Allowed Fills: 2 Fills Dispensed: 0 atorvastatin 40 mg oral tablet See Instructions, TAKE 1 TABLET BY MOUTH ONCE DAILY AT BEDTIME, # 90 tablet, 1 Refills, Maintenance, 11/13/24 5:05:00 PM EDT, [facility] [id number], 160, cm, 08/07/24 13:04:00EDT, Height, 90, kg, [...] 3 Refills, Maintenance, 11/23/24 4:01:00 PM EDT, [facility], 160, cm, 08/07/24 13:04:00 EDT, Height, [...] 3 Refills, Maintenance, 10/07/24 4:47:00 PM EDT, [place], [place] - [id number], Partial fill upon patient request if the [...] tablet, 3 Refills, 10/07/24 4:47:00 PM EDT, [facility] [id number], 90, TAKE 1 TABLET BY MOUTH EVERY [...] Soft Stop, 10/13/24 8:15:00 PM EDT, Tablet, [facility] [id number], Partial fill upon patient request if the prescription is for a schedule II opioid drug., 160, cm, 08/07/24 13:04:00 EDT, Height, 90, kg, 03/12/24 2:19:00 EST, Dry Weight Start Date: 10/13/24 Status: Ordered Medication Dispense Status: Completed Quantity: 1.0 Unit: tablet Total Allowed Fills: 1 Fills Dispensed: 0 Indications: Type 2 diabetes mellitus without complications; Dexcom G6 Wire 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 Mesh Knitter, See Instructions, # 1 each, Refills 0, [...] 1 Refills, Maintenance, 01/20/25 12:16:00 PM EDT, [place], [place] - [id number], 160, cm, 01/14/25 3:03:00 EDT, Height, 94, [...] Soft Stop, 12/17/23 2:52:00 PM EDT, Solution, [place], [place] - [id number], Partial fill upon patient request if the [...] 1 Refills, Maintenance, 07/28/24 11:26:00 AM EDT, [place], [place] - [id number], TAKE 1 TABLET BY MOUTH ONCE DAILY, [...] 5 Refills, Maintenance, 08/07/24 1:30:00 PM EDT, [facility] [id number], Partial fill upon patient request ifthe prescription [...] Unknown, 5Refills, Maintenance, 01/15/25 10:04:00 AM EDT, [place], [place] - [id number], 25,USE TO TEST FINGER STICK BLOOD SUGAR [...] PM EST, 10/07/24 4:49:00 PM EDT, Film, [facility] [id number], Partial fill upon patient request if the [...] 1 Refills, Maintenance, 08/07/24 1:31:00 PM EDT, [facility] [id number], 160, cm, 08/07/24 13:04:00 EDT, Height, 90, kg, 03/12/24 2:19:00 EST, Dry Weight Start Date: 08/07/24 Status: Ordered Medication Dispense Status: Completed Quantity: 360.0 Unit: tablet Total Allowed Fills: 2 Fills Dispensed: 0 mirtazapine 15 mg oral tablet See Instructions, TAKE 1 TABLET BY MOUTH ONCE DAILY AT BEDTIME, # 90 tablet, 1 Refills, Maintenance, 11/21/24 6:31:00 AM EDT, [facility] [id number], 160, cm, 08/07/24 13:04:00EDT, Height, 90, kg, [...] Maintenance, 01/15/25 10:57:00 AM EDT, ER Tablet, [facility] [id number], Partial fill upon patient requestif the prescription [...] Refills, Soft Stop, 04/22/23 8:46:00 AM EST, [facility] [id number], Partial fill upon patient request if the [...] Allowed Fills: 1 Fills Dispensed: 0 Pen [place], 32 G x 4 mm BD Ultra [...] 5 Refills, Maintenance, 02/10/24 2:28:00PM EST, Capsule, [place], [place] - [id number], Partial fill upon patient request if the [...] mL, 11 Refills, Maintenance, 08/07/24 1:30:00 PM EDT,[place], [place] - [id number], increase in dose. 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; Norma Larry, Confirmed Active Nasal septum perforation [...] Team Personnel Name: Carlita Jensen RN Position: [facility] AMB Nurse Member Role: Primary Care Nurse Name: Brigette Chaidez Position: [facility] Outreach Member Role: Lifetime Consulting Physician Name: Kiara Stapleton RN Position: [facility] Onco RN Member Role: Primary Care Nurse Name: Aneta Navarro RN Position: [facility] SN RN Member Role: Primary Care Nurse Name: Zarina Lombardi RN Position: [facility] RN Supv Member Role: Primary Care Nurse Name: Shyam Jimenez DO Position: [facility] Renal MD Member Role: Lifetime Consulting Physician Address: [address] [place] [address] [facility] [place], [place] [address] Telecom: Name: Echo Gomez RN Position: [facility] RN Member Role: Primary Care Nurse Name: Adriana Bolden RN Position: [facility] Onco RN Member Role: Primary Care Nurse Name: Sydnie Andrade MD Position: [facility] Physician - Primary Care Member Role: PCP Address: [address] [place] [address] Telecom: Care Team Related Persons Name: NANDO BRADFORD Name: NANDO BRADFORD Name: JV BRADFORD Insurance Providers Guarantor name: FAB SANCHEZ Health Plan Information #: 1 Payer: [facility] ONE CARE Payer Identifier: NA Member Number: [id number] Group Number: [id number] Subscriber Identifier: NA Relationship to Subscriber: self Coverage Type: Medicare Managed Care (Includes Medicare Advantage Plans) Coverage Verification Date: [place] Telecom: NA Address: NA
--- NOTE | 2025-01-26 | EMG_ITS ---
Chief complaint:?M54.16 Radiculopathy Reason for referral: Bilateral pain upper extremities Referred by:?Beckie Oconnor CNP Procedure done: Bilateral upper extremities Bilateral median and ulnar motor studies were performed. Bilateral median and ulnar mixed sensory studies were performed, radial sensory studies were performed and paraspinals were tested with a needle. Findings: Bilateral median motor distal latencies were mildly prolonged. Similar pattern was noted with medial mixed distal latencies which was moderately prolonged on the left side and mildly on the right. Conduction velocity was in 20s on left side. Right ulnar motor studies revealed mild reduction of conduction velocity and drop in amplitude across elbow. 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 Bggc-ep-teucdeov right ulnar neuropathy across cubital tunnel [place] [address] 2 extremities [facility]
--- OUTSIDE RECORDS SUMMARY | 2025-01-26 12:19 | XMS_ITS ---
Author Organization [facility] Care Team Providers Care Glue Specialty Supervisor Name Role Phone Cathy Draper Unavailable Unavailable Brad Gregg Unavailable Unavailable Beckie Trejo Unavailable Unavailable Blane Ga Unavailable Unavailable Mandy Duffy Unavailable Unavailable Allergies and adverse reactions No Known Allergies Care Team Name Role Address Phone Organization Dates Brad Gregg PCP [address], [place], [address], [facility] (Office): [facility] 01/30/2023 - 02/12/2023 Cathy Draper [address], [place], [address], [facility] (Office): [facility] 01/30/2023 - 02/12/2023 Beckie Trejo [address], [place], [address], [facility] (Office): [facility] 01/30/2023 - 02/12/2023 Blane Ga [address] [place], [address], [facility] (Office): [facility] 01/30/2023 - 02/12/2023 Mandy Duffy [address] [place], [address], [facility] (Office): [facility] 01/30/2023 - 02/12/2023 Immunizations Immunization Status Vaccine Details Vaccine Code CodeSystem Alan e Notes SARS-COV-2 (COVID-19) completed SARS-COV-2 (COVID-19) vaccine, mRNA, spike protein, LNP, preservative free, 100 mcg/0.5mL dose or 50 mcg/0.25mL dose Mfg: Moderna Step 2 of Multi-step with next step required 207 CVX created date: 02/01/2023 administered date: 07/01/2020 SARS-COV-2 (COVID-19) completed SARS-COV-2 (COVID-19) vaccine, mRNA, spike protein, LNP, preservative free, 100 mcg/0.5mL dose or 50 mcg/0.25mL dose Mfg: Moderna Step 1 of Multi-step with next step required 207 CVX created date: 02/01/2023 administered date: 06/03/2020 SARS-COV-2 (COVID-19 BOOSTER) completed SARS-COV-2 (COVID-19) vaccine, mRNA, spike protein, LNP, bivalent, preservative free, 30 mcg/0.3 mL dose, remington-sucrose formulation Mfg: Ciklum booster bivalent 300 CVX created date: 02/01/2023 administered date: 03/16/2022 Mental Status Section Date Assessment Total Score Description 02/12/2023 CAM 0 No delirium ind icated 02/05/2023 BIMS 15 cognitively int act CAM 0 No delirium ind icated PHQ-9 00 Insurance Providers Problems Problem # Description Date of onset Resolved Date Code CodeSystem Concern Status 1 ANXIETY DISORDER, UNSPECIFIED [address] active 2 CONTRACTURE OF MUSCLE, LEFT LOWER LEG [address] active 3 DEPRESSION, UNSPECIFIED [address] active 4 DIFFICULTY IN WALKING, NOT ELSEWHERE CLASSIFIED [address] active 5 ENCOUNTER FOR OTHER ORTHOPEDIC AFTERCARE [address] active 6 ESSENTIAL (PRIMARY) HYPERTENSION [address] active 7 FIBROMYALGIA [address] active 8 GASTRO-ESOPHAGEAL REFLUX DISEASE WITHOUT ESOPHAGITIS [address] active 9 HYPERLIPIDEMIA, UNSPECIFIED [address] active 10 MORBID (SEVERE) OBESITY DUE TO EXCESS CALORIES [address] active 11 MUSCLE WEAKNESS (GENERALIZED) [address] active 12 OTHER ACQUIRED DEFORMITIES OF LEFT FOOT [address] active 13 RESTLESS LEGS SYNDROME [address] active 14 STRAIN OF LEFT ACHILLES TENDON, SUBSEQUENT ENCOUNTER [address] active 15 TYPE 2 DIABETES MELLITUS WITHOUT COMPLICATIONS [address] active 16 UNSTEADINESS ON FEET [address] active Reason for Referral No Reasons for Referral Entered Social History Social History Observation Description Start Date End Date Code Code System Current Smoking Status Tobacco smoking consumption unknown 982491620 SNOMED CT Sex Assigned At Female 1965 59004-0 [facility] Gender Identity Sexual Orientation Vital Signs Code Code System Vitals Name Values and Units Timing Information 2339-0 [facility] Blood Sugar Mwkrg=476.0 Units=mg/dL 02/12/2023 19901-1 [facility] Pain Level Value=0.0 02/12/2023 9279-1 [facility] Respiratory Rate Value=22.0 Units=/m in 02/12/2023 8462-4 [facility] Blood Pressure-Diastolic Value=68 Un its=mmHg 02/12/2023 8480-6 [facility] Blood Pressure-Systolic Lcxup=690 Un its=mmHg 02/12/2023 8310-5 [facility] Body Temperature Value=97.3 Units= F 02/12/2023 8867-4 [facility] Heart rate Value=88.0 Units=/min 83842-9 [facility] O2 % dC Oximetry Value=94.0 Units= % 02/12/2023 67885-5 [facility] Weight Ykuzn=193.8 Units=Lbs 03/2023 8302-2 [facility] Height Value=63.0 Units=Inches 01/30/2023
--- OUTSIDE RECORDS SUMMARY | 2025-01-26 12:19 | XMS_ITS | Patient Health Record ---
Author Organization [facility] Address [address] [place] [address] Care Team Providers Care Hiv/Aids Care Nurse Name Role Phone Johnhive - DO NOT USE Ghada EVANS Primary Care Provider Unavailable Landon Cee Unavailable [phone] Migration, Provider Unavailable Unavailable Allergies No Known Allergies Reason For Referral No Information Medications Medication SIG (Take, Route, Frequency, Duration) Notes Start Date End Date Status SEROquel 100 MG 1 tab(s) orally Not-Taking Atorvastatin Calcium *Please review and pick correct strength-formulati on from Medispan options. If intended option is not shown, discontinue and re-order from Quick Search* Active Simvastatin 20 MG 1 tab(s) orally once a day (at bedtime) for 30 day(s) Not-Taking Requip *Please review a nd pick correct strength-formulati on from Medispan options. If intended option is not shown, discontinue and re-order from Quick Search* Active clonazePAM 0.5 MG 1 tab(s) orally QHS for 30 day(s) Not-Taking Tresiba *Please review a nd pick correct strength-formulati on from Medispan options. If intended option is not shown, discontinue and re-order from Quick Search* Active glipiZIDE 5 MG 1 tab(s) orally once a day Not-Taking Lisinopril *Please review a nd pick correct strength-formulati on from Medispan options. If intended option is not shown, discontinue and re-order from Quick Search* Active traMADol HCl 50 MG 1 tab(s) orally Not-Taking Protonix *Please review a nd pick correct strength-formulati on from Medispan options. If intended option is not shown, discontinue and re-order from Quick Search* Active Pepcid *Please review a nd pick correct strength-formulati on from Medispan options. If intended option is not shown, discontinue and re-order from Quick Search* Not-Taking Valsartan *Please review a nd pick correct strength-formulati on from Medispan options. If intended option is not shown, discontinue and re-order from Quick Search* Active Tylenol *Please review a nd pick correct strength-formulati on from Medispan options. If intended option is not shown, discontinue and re-order from Quick Search* Active metFORMIN HCl 1000 MG 1 tab(s) orally 2 times a day Active Cymbalta 60 MG 1 cap(s) orally once a day for 30 day(s) Not-Taking Multi Vitamin - 1 tab(s) orally once a day for 30 day(s) Active Naproxen *Please review a nd pick correct strength-formulati on from Medispan options. If intended option is not shown, discontinue and re-order from Quick Search* Not-Taking Trulicity *Please review a nd pick correct [...] for e-prescription and drug interaction check* Active Vistaril *Please review a nd pick correct strength-formulati on from Medispan options. If intended option is not shown, discontinue and re-order from Quick Search* Active Aspirin *Please review a nd pick correct strength-formulati on from Medispan options. If intended option is not shown, discontinue and re-order from Quick Search* Active Immunizations Vaccine Route Administration Date Status Comme nts Td offered and declined Unknown 09/18/2011 Administered PPD planted Unknown 09/18/2011 Administered PPD planted Unknown 09/24/2011 Administered PPD negative Unknown 09/27/2011 Administered 0 mm. 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.72) Active confirmed Problem Hypercholesterolemia (49646473) Hypercholesterolemia (272.0) Active confirmed Problem Hypertension (77938672) Hypertension NOS (401.9) Active confirmed Problem Low back pain (340103058) Low back pain (724.2) Active confirmed Problem Fibromyalgia (981273696) Fibromyalgia (729.1) Active confirmed Problem Chronic pain (25753543) Chronic pain, not elsewhere classified (338.29) Active confirmed Problem Anxiety state (448974367) ANXIETY STATE NOS (300.00) Active confirmed Encounters Encounter Location Date Provider Diagnosis [facility] [address] [place] [address] 12/12/2024 Provider Migration Plan Of Treatment No Information Insurance Providers Payer Name Payer Address Payer Phone Subscriber Number Group Number Insured Name Patient Relationship to Insured Coverage Start Date Coverage End Date [facility] [address] [place]IMENEZ [phone] [id number] Jermaine bañuelosYuli Self - patient is the insured [employer] [facility] [employer] [address] [place] [address] [id number] Jermaine Yuli bañuelos Self - patient is the insured Medical [...] Diabetes Surgical History Surgery Date(Month/Year) L5-S1 Discectomy- [facility], [place] Dr Villalobos 1998 1983 Rt Breast cyst non malignant 1999 Hospitalization History Reason Date(Month/Year) [place] [facility] admit Section 12 for SI x 3 days [facility]
--- OUTSIDE RECORDS SUMMARY | 2025-01-26 12:20 | XMS_ITS | Clinical Summary ---
Author Organization [facility] Address [address] [place] [address] Phone Care Team Providers Care Roll Up Helper Name Role Phone Sydnie Andrade MD Primary Care Provider [phone] Encounters Date Type Department Care Team Description 11/10/2024 2:00 PM EDT - 11/10/2024 11:59 PM EDT [facility] [address] [address] Discharge Disposition: Home or Self Care from Last 3 Months Surgical History Surgery Date Site/Laterality Comments STEREOTACTIC CORE BIOPSY Right Social History Tobacco Use Types Packs/Day Years Used Date Smoking Tobacco: Never Assessed Comments No Sex and Gender Information Value Date Recorded Sex Assigned at Not on file Legal Sex Female 4:53 AM EST Gender Identity Not on file Sexual Orientation Not on file Obstetrics History Para Term AB IAB SAB Ectopic Multiple Livin g Live Births 1 Last Filed Vital Signs Vital Sign Reading Time Taken Comments Blood Pressure - - Pulse - - Temperature - - Respiratory Rate - - Oxygen Saturation - - Inhaled Oxygen Concentration - - Weight 93.9 kg (207 lb) 11/10/2024 2:17 PM EDT Height 160 cm (5' 3 ) 11/10/2024 2:17 PM EDT Body Mass Index 36.67 11/10/2024 2:17 PM EDT Plan of Treatment Health Maintenance Due Date Last Done Comments Colorectal Cancer Screening: Colonoscopy 1964 Diabetes: Annual GFR (Glomerular Filtration Rate) 1964 Diabetes: Annual Foot Exam 1974 Diabetes: Annual Retina Eye Exam 1974 Cervical Cancer Screening: Pap Smear 1985 RSV Immunization Adult Patients (1 - Risk 50-74 years 1-dose series) 2014 Zoster Vaccines (1 of 2) 2014 Pneumococcal Vaccine: 50+ Years (2 of 2 - PCV) 07/31/2015 07/30/2014 Cholesterol Screening (Lipid Panel) 03/04/2022 HIV Screening 03/04/2022 Hepatitis C Screening 03/04/2022 Medicare Annual Wellness Visit 03/04/2022 Social Influencers of Health Screening 03/04/2022 Depression Screening 04/01/2024 Diabetes: Annual Urine Albumin-Creatinine Ratio (uACR) 10/22/2024 10/31/2022 Diabetes: Blood Sugar Control Test (HGBA1C) 10/22/2024 11/24/2021 Hypertension/CHF/CAD Annual BMP Blood Test 10/22/2024 COVID-19 Vaccine ( - season) 2024 03/16/2022, 07/01/2020, 06/03/2020 Influenza Vaccine (#1) 2024 , 03/16/2022, 01/15/2019, Additional history exists Breast Cancer Screening 11/10/2026 11/11/19, 08/09/2023, 08/06/2022, Additional history exists DTaP,Tdap,and Td Vaccines (4 - Td or Tdap) 02/03/2034 02/04/2024, 04/07/2013, 04/07/2013 Hepatitis B Vaccines Completed 07/31/2015, 07/30/2014, 07/30/2013 HIB Vaccines Aged Out No longer eligi [...] patient's age to complete this topic Meningococcal B Vaccine Aged Out No l onger eligible based on patient's age to complete this topic RSV Immunization Patients Under 20 months Aged Out No longer eligible based on patient's age to complete this topic Varicella Vaccines Aged Out No longer eligible based on patient's age to complete this topic Procedures Procedure Name Priority Date/Time Associated Diagnosis Comments MG MAMMO DIGITAL SCREENING W KELVIN BILAT Routine 11/10/2024 2:28 PM EDT Encounter for screening mammogram for breast cancer from Last 3 Months Results * MG Mammo Digital Screening w Kelvin bilat (11/10/2024 2:28 PM EDT) Anatomical Region Laterality Modality Breast Bilateral Mammography 11/10/2024 5:47 PM EDT Impressions 11/10/2024 5:57 PM EDT Benign. BI-RADS CATEGORY: 1 - NEGATIVE RECOMMENDATION: Screening bilateral mammogram is recommended in 1 year. Mammo Location: [facility], [address] [place] [address], [address], . -------- FINAL REPORT -------- Dictated By: Oscar Guillen Dictated Date: 11/10/2024 17:47 ET Assigned Physician: Oscar Guillen Reviewed and Electronically Signed By: Oscar Guillen Signed Date: 11/10/2024 17:57 ET Workstation ID: [id number] Transcribed By: Self Edit Transcribed Date: 11/10/2024 17:47 ET Narrative 11/10/2024 5:57 PM EDT CLINICAL: 59 years old, Female, routine annual exam. COMPARISON: 08/09/2023. TECHNIQUE: Bilateral MLO and CC views were obtained digitally with 3-D mammogram (digital breast tomosynthesis). Computer-aided detection was utilized in evaluation of this exam (CAD). FINDINGS: There is no evidence of suspicious mass or architectural distortion. No worrisome calcifications are evident. There has been no significant change from prior exam(s). BREAST DENSITY: A - The breasts are almost entirely fatty. Procedure Note Oscar Guillen MD - 11/10/2024 CLINICAL: 59 years old, Female, routine annual exam. COMPARISON: 08/09/2023. TECHNIQUE: Bilateral MLO and CC views were obtained digitally with 3-Dmammogram (digital breast tomosynthesis). Computer-aided detection wasutilized in evaluation of this exam (CAD). FINDINGS: There is no evidence of suspicious mass or architectural distortion. Noworrisome calcifications are evident. There has been no significantchange from prior exam(s). BREAST DENSITY: A - The breasts are almost entirely fatty. IMPRESSION: Benign. BI-RADS CATEGORY: 1 - NEGATIVE RECOMMENDATION: Screening bilateral mammogram is recommended in 1 year. Mammo Location: [facility], [address] [place] [address], [id number], . -------- FINAL REPORT -------- Dictated By: Oscar Guillen Dictated Date: 11/10/2024 17:47 ET Assigned Physician: Oscar Guillen Reviewed and Electronically Signed By: Oscar Guillen Signed Date: 11/10/2024 17:57 ET Workstation ID: [id number] Transcribed By: Self Edit Transcribed Date: 11/10/2024 17:47 ET us Self Referral Sppl IMG BI PROCEDURES Final Resul t from Last 3 Months Insurance [employer] MED[employer] Member Subscriber Plan / Payer (Ef fective 2018-Present) Name:YULI HAYDEN Relation to Subscriber:Self Name:Yuli Hayden Payer ID:[id number] Group ID:[id number] Type:Not on file Address: [facility] [address] [id number] Care Teams Roll Up Helper Relationship Specialty Start Date End Date Sydnie Andrade MD [address] [place] [phone] PCP - General Internal Medicine 10/21/24
--- OUTSIDE RECORDS SUMMARY | 2025-01-26 12:20 | XMS_ITS | Patient Health Record ---
Author Organization [facility] Address [address] [facility] [address] [place] [address] Care Team Providers Care Histotechnologist Name Role Phone GEORGETTE LOW MD Primary Care Provider Unavail able Amarilis Ruiz Unavailable [phone] CYDNEY SCOTT Unavailable [phone] Allergies No Known Allergies Results Component Value Reference Range Notes PDF Report Reviewed date:11/13/2024 09:08:24 AM Interpretation: Performing Lab:[facility], [address] [place] [address], [facility] [address], [place], Phone - [phone], [facility] Notes/Report: Clinical Information:SRC:UR Urinalysis Reviewed date:10/12/2024 12:50:10 PM Interpretation: Performing Lab: Notes/Report: NITRITE Neg PH 5.0 PROTEIN Trace S.G 1.010 WBC Trace GLUCOSE Large KETONES Neg UROBILINOGEN Neg BILIRUBIN Trace BLOOD Trace Glucose, random Reviewed date:10/12/2024 12:50:03 PM Interpretation: Performing Lab: Notes/Report: Urinalysis, Complete-[id number] Reviewed date:10/14/2024 07:59:26 AM Interpretation: Performing Lab:[facility], [address] [facility], Phone - [phone], Director - Alex Notes/Report: Specific Sherrard >=1.030 1.005-1.030 pH 5.5 5.0-7.5 Urine-Color Yellow Yellow Appearance Clear Clear WBC Esterase Negative Negative Protein Trace Negative/Trace Glucose 3+ Negative Ketones Negative Negative Occult Blood Negative Negative Bilirubin Negative Negative Urobilinogen,Semi-Qn 0.2 0.2-1.0 mg/dL Nitrite, Urine Negative Negative Microscopic Examination Micr oscopic follows if indicated. Microscopic Examination See below: Micr oscopic was indicated and was performed. WBC None seen 0 - 5 /hpf RBC None seen 0 - 2 /hpf Epithelial Cells (non renal) 0-10 0 - 10 /hpf Casts None seen None seen /lpf Bacteria None seen None seen/Few HBsAg Screen-[id number] Reviewed date:11/13/2024 09:08:31 AM Interpretation: Performing Lab:[facility], [address], [address], [place], Phone - [phone], [facility] Notes/Report: Clinical Information:SRC:UR HBsAg Screen Negative Negative Urine Culture, Routine-[id number] Reviewed date:10/14/2024 07:59:03 AM Interpretation: Performing Lab:[facility], [address] [place] [address], [place], Phone - [phone], Director - Alex Notes/Report: Urine Culture, Routine Final report Result 1 Culture shows less than 10,000 colony forming units of bacteria per milliliter of urine. This colony count is not generally considered to be clinically significant. HIV Ab/p24 Ag with Reflex-[id number] Reviewed date:11/13/2024 09:08:57 AM Interpretation: Performing Lab:[facility], [address], [address], [place], Phone - [phone], Director - [facility] Notes/Report: Clinical Information:SRC:UR HIV Ab/p24 Ag Screen Non Reactive Non Reactive HIV-1/HIV-2 antibodies and HIV-1 p24 antigen were NOT detected. There is no laboratory evidence of HIV infection. HIV Negative M genitalium CHADD, Urine-1800 25 Reviewed date:11/13/2024 09:08:38 AM Interpretation: Performing Lab:[facility], [address], [address], [place], Phone - [phone], [facility] Notes/Report: Clinical Information:SRC:UR Mycoplasma genitalium CHADD Negative Negative [id number] IGP, CtNg Culture 30 Plus Reviewed date:10/14/2024 12:08:48 PM Interpretation: Performing Lab:[facility], [address], [address], [place], Phone - [phone], [facility] Notes/Report: Clinical Information:Vaginal/Cervical, LMP: Men o, Hx of ASCUS, + HPV Source.............Cervix;Vagina Dates / Results....06/12/24 NIL, Neg HPV Other..............Post Menopausal No. of containers..01 ThinPrep Vial DIAGNOSIS: NEGATIVE FOR INTRAEPITHELIAL LESION OR MALIGNANCY. 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 Specimen adequacy: Satisfactory for evaluation. Endocervical and/or squamous metaplastic cells (endocervical component) are present. Clinician provided ICD10: Z01.419 Z11.51 Z72.51 Z11.3 Performed by: Shyam Palomares , Avionics Integration Engineer (ASCP) QC reviewed by: Mulu Griffin, Avionics Integration Engineer (ASCP) . . Note: The Pap smear is a screening test designed to aid in the detection of premalignant and malignant conditions of the uterine cervix. It is not a diagnostic procedure and should not be used as the sole means of detecting cervical cancer. Both false-positive and false-negative reports do occur. . Test Methodology: This liquid based ThinPrep(R) pap test was screened with the use of an image guided system. HPV Aptima Negative Negative This nucleic acid amplification test detects fourteen high-risk HPV types (16,18,31,33,35,39,45,51,52,5 6,58,59,66,68) without differentiation. HPV Genotype Reflex Criteria not met, HPV Genotype not performed. Chlamydia, Nuc. Acid Amp Negative Negative Gonococcus, Nuc. Acid Amp Negative Negative HCV Antibody-[id number] Reviewed date:11/13/2024 09:08:51 AM Interpretation: Performing Lab:[facility], [address], [address] [place] [address], Phone - [phone], [facility] Notes/Report: Clinical Information:SRC:UR Hep C Virus Ab Non Reactive Non Reactive HCV antibody alone does not differentiate between previously resolved infection and active infection. Equivocal and Reactive HCV antibody results should be followed up with an HCV RNA test to support the diagnosis of active HCV infection. PDF Report Reviewed date:10/14/2024 07:57:19 AM Interpretation: Performing Lab:[facility], [address] [facility], [place], Phone - [phone], Director - Alex Notes/Report: Syphilis RPR w/reflex Reviewed date:11/13/2024 09:08:45 AM Interpretation: Performing Lab:[facility], [address], [address], [place], Phone - [phone], Director - [facility] Notes/Report: Clinical Information:SRC:UR RPR Non Reactive Non Reactive PDF Report Reviewed date:10/14/2024 12:09:07 PM Interpretation: Performing Lab:[facility], [address], [address], [place], Phone - [phone], Director - [facility] Notes/Report: Clinical Information:Vaginal/Cervical, LMP: Men o, Hx of ASCUS, + HPV Source.............Cervix;Vagina Dates / Results....06/12/24 NIL, Neg HPV Other..............Post Menopausal No. of containers..01 ThinPrep Vial Reason For Referral No Information Medications Medication SIG (Take, Route, Frequency, Duration) Notes Start Date End Date Status metFORMIN HCl 500 MG Oral; Duration: 30 Active Valsartan 160 MG Oral; Duration: 90 Active Colace Active amLODIPine Besylate 10 MG TAKE 1 TABLET BY MOUTH ONCE DAILY Oral; Duration: 30 Days Active Tresiba FlexTouch 100 UNIT/ML Subcutaneous; Duration: 30 Active Atorvastatin Calcium 40 MG Oral; Duration: 90 Active Morphine Sulfate 15 MG 1 tablet as neede d Orally every 4 hrs 06/13/2023 Active Yuvafem 10 mcg _insert 1 TABLET VAGINALLY TWICE A WEEK; Duration: 90 Active Mirtazapine 30 MG Oral; Duration: 30 Active Cranberry 450 MG as directed Orally Unknown Dose Active Multi-Vitamin Daily Active Pantoprazole Sodium 40 MG Oral; Duration: 30 Days Active oxyBUTYnin Chloride ER 10 MG 1 tablet Orally Once a day; Duration: 30 day(s) Active Lantus 10/12/2024 Active Social History Tobacco Use: Social History Observation Description Date Details (start date - stop date) Current Smoker NA - NA Sexual History Question Answer Notes Had sex in the past 12 months (vaginal, oral, or anal)? Yes with Men only Prevention strategies discussed: Other AUDIT-C (Standard) Question Answer Notes Did you have a drink containing alcohol in the p ast year? No Points 0 Interpretation Negative Tobacco Control (Standard) Question Answer Notes Tobacco use: Current smoker How often do you smoke cigarettes? Every day How many cigarettes a day do you smoke? 5 or les s Problems Problem Type SNOMED Code ICD Code Onset Dates Problem Status W/U Status Risk Notes Problem Human papilloma viru s deoxyribonucleic acid test positive, high risk on vaginal specimen (627649315890003) Cervical high risk human papillomavirus (HPV) DNA test positive (R87.810) Active confirmed Problem Postmenopausal atrophic vaginitis (65947892) Postmenopausal atrophic vaginitis (N95.2) Active confirmed Problem Atypical squamous cells of undetermined significance on cervical Papanicolaou smear (106927254) Atypical squamous cells of undetermined significance on cytologic smear of cervix (ASC-US) (R87.610) Active confirmed Problem Essential hypertensi on (27797283) Essential (primary) hypertension (I10) Active confirmed Problem Gynecological examination normal (430718174386147) Encounter for gynecological examination (general) (routine) without abnormal findings (Z01.419) Active confirmed Problem Disorder due to type 2 diabetes mellitus (275000307) Type 2 diabetes mellitus with unspecified complications (E11.8) Active confirmed Problem Hyperlipidemia (05919279) Hyperlipidemia, unspecified (E78.5) Active confirmed Problem Recurrent depression (927600188) Other recurrent depressive disorders (F33.8) Active confirmed Problem Restless legs syndro me (66826057) Restless legs syndrome (G25.81) Active confirmed Problem Osteoarthritis (522751364) Unspecified osteoarthritis, unspecified site (M19.90) Active confirmed Problem Fibromyalgia (105729711) Fibromyalgia (M79.7) Active confirmed Problem High risk heterosexu al behavior (572643541189378) High risk heterosexual behavior (Z72.51) Active confirmed Problem Sexually transmitted infectious disease (2144292) Encounter for screening for infections with a predominantly sexual mode of transmission (Z11.3) Active confirmed Problem Pure hypercholesterolemia (798764554) Pure hypercholesterol emia, unspecified (E78.00) Active confirmed Problem COVID-19 (964713530) COVID-19 (U07.1) Active co nfirmed Vital Signs Temperature 97.2 degrees Fahrenheit 10/12/2024 Blood pressure diastolic 78 mm Hg 10/12/2024 Height 63 in 10/12/2024 Blood pressure systolic 124 mm Hg 10/12/2024 Weight 211 lbs 10/12/2024 BMI 37 kg/m2 10/12/2024 Encounters Encounter Location Date Provider Diagnosis Total [address] [address] 10/12/2024 Amarilis Ruiz Encounter for gynecological examination (general) (routine) without abnormal findings Z01.419 ; Encounter for screening for human papillomavirus (HPV) Z11.51 ; Encounter for screening mammogram for malignant neoplasm of breast Z12.31 ; High risk heterosexual behavior Z72.51 ; Encounter for screening for infections with a predominantly sexual mode of transmission Z11.3 ; Pelvic Pain R10.2 ; Other low back pain M54.59 and Personal history of other diseases of the female genital tract Z87.[address] [address] 10/12/2024 Amarilis Ruiz Unspecified abdomina l pain R10.9 ; Pelvic Pain R10.2 ; Other low back pain M54.59 and Other microscopic hematuria R31.29 Assessments Encounter Date Diagnosis (ICD Code) Assessment Notes Treatment Notes Treatment Clinical Notes Section Notes 10/12/2024 Encounter for gynecological examination (general) (routine) without abnormal findings (ICD-10 - Z01.419) PAP TEST WAS OBTAINED. 10/12/2024 Unspecified abdominal pain (ICD-10 - R10.9) 10/12/2024 Pelvic Pain (ICD-10 - R10.2) 10/12/2024 Encounter for screening for human papillomavirus (HPV) (ICD-10 - Z11.51) HPV TYPING WAS ORDERED WITH PAP SMEAR. 10/12/2024 Encounter for screening mammogram for malignant neoplasm of breast (ICD-10 - Z12.31) REGULAR MAMMOGRAMS AND SBE'S WERE RECOMMENDED. 10/12/2024 Other low back pain (ICD-10 - M54.59) 10/12/2024 Other microscopic hematuria (ICD-10 - R31.29) 10/12/2024 High risk heterosexual behavior (ICD-10 - Z72.51) DISCUSSED STD TESTS AND IMPLICATIONS OF POSITIVE RESULTS. 10/12/2024 Encounter for screening for infections with a predominantly sexual mode of transmission (ICD-10 - Z11.3) SERUM STD TESTS WERE ORDERED. GC & CHLAMYDIA TESTS WITH PAP SMEAR. 10/12/2024 Pelvic Pain (ICD-10 - R10.2) DISCUSSED ABDOMINAL, PELVIC AND FLANK PAINS AND NEED FOR EVALUATION. ABDOMINAL, PELVIC AND RETROPERITONEAL SCANS WERE ORDERED. ADVISED PAT TO DISCUSS THESE PAINS WITH HER PCP. 10/12/2024 Other low back pain (ICD-10 - M54.59) 10/12/2024 Personal history of other diseases of the female genital tract (ICD-10 - Z87.42) DISCUSSED PREVIOUS ABNORMAL PAP TESTS IN HER S AND HER MORE RECENT ABNORMAL PAP TEST IN 2022 WITH NEGATIVE COLPOSCOPY. REPEAT PAP TEST WITH HPV TYPING WAS OBTAINED TODAY. Plan Of Treatment Pending Test Test Name Order Date Ultrasound : Abdomen 10/12/2024 Ultrasound : Abdomen and Pelvis 10/13/19 MAMMOGRAM, SCREENING 10/12/2024 Urinalysis 06/13/2023 Ultrasound : Retroperitoneal 10/12/2024 Ultrasound : Retroperitoneal 10/12/2024 ANTI-HEPATITIS C 06/06/2022 HEP. B SURF. AG 06/06/2022 MM Digital Mammo Screening 06/06/2022 MM Digital Mammo Screening 06/13/2023 MM Digital Mammo Screening 10/12/2024 SYPHILIS TESTING 06/06/2022 HIV AB-AG 4TH GENERATION 06/06/2022 PELVIC ULTRASOUND W/TRANSVAGINAL 025 HBsAg Screen-[id number] 06/13/2023 HIV Ab/p24 Ag with Reflex-[id number] 024 RPR Qn+TP Abs-[id number] 06/13/2023 HCV Antibody-[id number] 06/13/2023 Next Appt Details Provider Name:Amarilis batres, 10/25/2025 01:00:00 PM, [address] [facility], [address], [place], [address], Insurance Providers Payer Name Payer Address Payer Phone Subscriber Number Group Number Insured Name Patient Relationship to Insured Coverage Start Date Coverage End Date [employer] [address] [address] [place] [phone] [id number] LOTT Self - patient is the insured Medical (General) History Medical History History ICD Code COVID-19 U07.1 Other recurrent depressive disorders F33 .8 Type 2 diabetes mellitus with unspecifie d complications E11.8 Fibromyalgia M79.7 Hyperlipidemia, unspecified E78.5 Pure hypercholesterolemia, unspecified E 78.00 Essential (primary) hypertension I10 Restless legs syndrome G25.81 Unspecified osteoarthritis, unspecified site M19.90 Postmenopausal atrophic vaginitis N95.2 Atypical squamous cells of u ndetermined significance on cytologic smear of cervix (ASC-US) R87.610 Cervical high risk human papillomavirus (HPV) DNA test positive R87.810 Other abnormal findings in urine R82.998 Surgical History Surgery Date(Month/Year) 1984 Disectomy 1998 Right Hand Carpal Tunnel Surgery 2020 Colonoscopy 2019 Right Labial Cyst Removal 2021 Breast Biopsy - Benign 1999 L achilles heel tendinitis with spore Hospitalization History Reason Date(Month/Year) Ketoacidosis See Surgical Hx
== END 2025-01-26 10:12 | disposition home or self-care (01) ==
LOC: HO.NEURO 10:11
PROVIDERS: PCP Internal Medicine; Visit Provider Nurse Practitioner
DX: M54.16 Radiculopathy, lumbar region (principal); M79.641 Pain in right hand; M79.642 Pain in left hand
CPT/HCPCS: 95886; 95911

== ENCOUNTER → 2025-01-26 10:15 | Outpatient (BNV) | payer OTHER, SELFPAY | PROVIDERS: PCP Internal Medicine; Visit Provider Psychiatry & Neurology Neurology | DX: G56.03 Carpal tunnel syndrome, bilateral upper limbs (principal); G56.21 Lesion of ulnar nerve, right upper limb | CPT/HCPCS: 95886; 95911 ==

== ENCOUNTER 2025-02-18 08:16 | Inpatient (IN) | payer OTHER, SELFPAY ==
--- OUTSIDE RECORDS SUMMARY | 2024-06-15 08:40 | XMS_ITS ---
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 SCALER Physical Encounters Encounter Location Date Provider Diagnosis [facility] [address] [address] 06/15/2024 CYDNEY SCOTT Encounter for gynecological examination (general) (routine) without abnormal findings Z01.419 ; Encounter for screening mammogram for malignant neoplasm of breast Z12.31 and Encounter for screening for infections with a predominantly sexual mode of transmission Z11.3 Assessments Encounter Date Diagnosis (ICD Code) Assessment Notes Treatment Notes Treatment Clinical Notes Section Notes 06/15/2024 Encounter for gynecological examination (general) (routine) without abnormal findings (ICD-10 - Z01.419) During the visit, the following areas of concern were addressed: Discussed cervical cancer screening with either cytology alone every 3 years or high risk HPV co-testing every 5 years as per ASCCP guidelines. Advised continued annual pelvic exams. Patient encouraged to increase her level of exercise. SBE technique encouraged/tau ght. Patient reminded when annual mammogram is due. Patient encouraged to keep colon screening up to date. 06/15/2024 Encounter for screening mammogram for malignant neoplasm of breast (ICD-10 - Z12.31) 06/15/2024 Encounter for screening for infections with a predominantly sexual mode of transmission (ICD-10 - Z11.3) Plan Of Treatment Treatment Notes Assessment Notes Encounter for gynecological examination (general) (routine) without abnormal findings During the visit, the following areas of concern were addressed: Discussed cervical cancer screening with either cytology alone every 3 years or high risk HPV co-testing every 5 years as per ASCCP guidelines. Advised continued annual pelvic exams. Patient encouraged to increase her level of exercise. SBE technique encouraged/taught. Patient reminded when annual mammogram is due. Patient encouraged to keep colon screening up to date. Pending Test Test Name Order Date MM Digital Screening Mammogram 3D 2024 Next Appt Details Follow Up: 1 Year, Reason: Y early Distribution Agent Exam Provider Name:Amarilis Preston michellejohnny, 10/25/2025 01:00:00 PM, [address], [address], [place], [address], Progress Notes * YULI BRADFORDDOB:[birth year] (59 yo F)Acc No.[id number]:06/15/2024 PROGRESS NOTES Patient: YULI REES Provider: Loly SCOTT MD :1965 A ge:59 Y S ex:Female Date:06/15/2024 Address:[address] [place] [address], [place] [address] Pcp:GEORGETTE LOW MD Subjective: * Chief Complaints: * 1 . Annual POND SCALER Physical. 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 She is new to me, having seen Dr Ruiz in this practice in the past. She has been in state of good health since her last exam. She has the following concerns:. Has received Moderna Covid-19 vaccine. Relationship status: *partnered for 7 years. She is sexually active. Sexual partner(s): male. She does wish to have STI testing. She does report vaginal dryness. She does have hot flashes/night sweats. The patient has had an abnormal pap smear within the last 5 years - 06/06/22 - ASCUS< +HR HPV. Colpo negative 07/03/22. H er most recent pap smear was 06/13/23 - NIL, neg HR HPV. For cotesting today. She has been diagnosed with breast cancer. She does have a family history of breast cancer. Her last mammogram was 08/06/2022. She does have a family history of colon cancer. She a has had a colonoscopy. The last colonoscopy was in 2019. The patient does exercise. She exercises x days/week by . * ROS: A nnual Distribution Agent Exam ROS: Bowel habit changes d enies. B ladder symptoms d enies. V aginal discharge, unusual d enies. V aginal itch or odor d enies. w eight or appetite changes d enies. C hest pains, SOB d enies. d epression d enies.? B reast: Denies B reast lump. D enies N ipple discharge.? H ematology: Denies S wollen glands. S kin: Patient denies c hanging moles. P sychiatric: Denies A nxiety. 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 HEAD: n ormocephalic, atraumatic. NECK/THYROID: n rusty supple, full range of motion, thyroid normal. LYMPH NODES: n o axillary or supraclavicular adenopathy.? SKIN: normal, good turgor, no rashes, no suspicious lesions. BREASTS: normal, no dimpling, no discharge, no drainage, no masses palpable bilaterally, nontender. ABDOMEN: soft, non-tender, non distended without masses or hepatosplenomegay. RECTAL: normal tone, no masses palpable. BACK: no costovertebral angle tenderness. FEMALE GENITOURINARY: V ulva without lesions or masses, vagina pink without abnormal discharge, lesions or masses, cervix appears normal and is not tender to palpation, uterus is normal size, mobile, nontender and anteverted, ovaries are not palpable. NEUROLOGIC: alert and oriented, gait normal. PSYCH: alert, oriented, cognitive function intact, cooperative with exam, good eye contact, mood/affect full range, speech clear. Assessment: * Assessment: 1. E ncounter for gynecological examination (general) (routine) without abnormal findings - Z01.419 (Primary) 2 . E ncounter for screening mammogram for malignant neoplasm of breast - Z12.31 3 . E ncounter for screening for infections with a predominantly sexual mode of transmission - Z11.3 Plan: * Treatment: 2. E ncounter for screening mammogram for malignant neoplasm of breast I maging: MM Digital Screening Mammogram 3D * Follow Up: 1 Year (Reason: Yearly Distribution Agent Exam) * Images: Billing Information: * Visit Code: 44510 Preventive Care Est Pt. Age 40-64. 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 She is new to me, having seen Dr Ruiz in this practice in the past. She has been in state of good health since her last exam. She has the following concerns:. Has received Moderna Covid-19 vaccine. Relationship status: *partnered for 7 years. She is sexually active. Sexual partner(s): male. She does wish to have STI testing. She does report vaginal dryness. She does have hot flashes/night sweats. The patient has had an abnormal pap smear within the last 5 years - 06/06/22 - ASCUS< +HR HPV. Colpo negative 07/03/22. Her most recent pap smear was 06/13/23 - NIL, neg HR HPV. For cotesting today. She has been diagnosed with breast cancer. She does have a family history of breast cancer. Her last mammogram was 08/06/2022. She does have a family history of colon cancer. She a has had a colonoscopy. The last colonoscopy was in 2019. The patient does exercise. She exercises x days/week by . 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 HEAD: normocephalic, atrau matic NECK/THYROID: neck supple, full ra nge of motion, thyroid normal ABDOMEN: soft, non-tender, no n distended without masses or hepatosplenomegay NEUROLOGIC: alert and oriented, gait normal SKIN: normal, good turgor, no rashes, no suspicious lesions BACK: no costovertebral an gle tenderness BREASTS: normal, no dimpling, no discharge, no drainage, no masses palpable bilaterally, nontender LYMPH NODES: no axillary or supra clavicular adenopathy RECTAL: normal tone, no mass es palpable PSYCH: alert, oriented, cog nitive function intact, cooperative with exam, good eye contact, mood/affect full range, speech clear FEMALE GENITOURINARY: Vulva without lesi ons or masses, vagina pink without abnormal discharge, lesions or masses, cervix appears normal and is not tender to palpation, uterus is normal size, mobile, nontender and anteverted, ovaries are not palpable
--- OUTSIDE RECORDS SUMMARY | 2024-11-05 08:40 | XMS_ITS ---
Author Organization [email or web address] Address [address] [facility] [address] [place] [address] Care Team Providers Care Choke Setter Name Role Phone DEVANTE EVANS, GEORGETTE Primary Care Provider Unavail Amarilis Burger Unavailable [phone] REASON FOR VISIT Annual MANAGER KNOWLEDGE Physical Encounters Encounter Location Date Provider Diagnosis [email or web address] [address] [place] [address] 11/05/2024 Amarilis Ruiz Plan Of Treatment Next Appt Details Provider Name:Amarilis batres, 10/25/2025 01:00:00 PM, [address] [facility], [address], [place], [address], Progress Notes * FAB BRADFORDDOB:[birth year] (59 yo F)Acc No.[id number]:11/05/2024 PROGRESS NOTES Patient: FAB REES Appointment Provider: Robi Ruiz M.D. :1965 A ge:59 Y S ex:Female Date:11/05/2024 Address:[address] [place] [address], [address], [facility] Pcp:GEORGETTE LOW MD Subjective: * Chief Complaints: * 1 . Annual MANAGER KNOWLEDGE Physical. * Medical History: Objective: * Vitals: Assessment: Plan: * Treatment: * Images: Billing Information: * Visit Code: * Procedure Codes: * Electronic signature of Lesley Ruiz MD on 02/18/2025 at 11:42 AM EST Sign off status: Pending * Appointment Provider: Robi SantanaD. Date: 0 11/05/2024 Generated for Devin mercado/Corie/Elinor on: 1 04/20/2024 11:42 AM EST
--- OUTSIDE RECORDS SUMMARY | 2024-12-12 16:00 | XMS_ITS ---
Author Organization [employer] Address [address] [place] [address] Care Team Providers Care Case Packer And Sealer Name Role Phone Shan - DO NOT USE Ghada EVANS Primary Care Provider Unavailable Landon Cee Unavailable Migration, Provider Unavailable Unavailable REAS[facility] FOR VISIT [facility] Encounter Medications Medication SIG (Take, Route, Frequency, Duration) Notes Start Date End Date Status SEROquel 100 MG 1 tab(s) orally Not-Taking glipiZIDE 5 MG 1 tab(s) orally once a day Not-Taking Valsartan *Please review a nd pick correct strength-formulati on from Medispan options. If intended option is not shown, discontinue and re-order from Quick Search* Active Lexapro *Please review a nd pick correct strength-formulati on from Medispan options. If intended option is not shown, discontinue and re-order from Quick Search* Active Vistaril *Please review a nd pick correct strength-formulati on from Medispan options. If intended option is not shown, discontinue and re-order from Quick Search* Active Simvastatin 20 MG 1 tab(s) orally once a day (at bedtime) for 30 day(s) Not-Taking clonazePAM 0.5 MG 1 tab(s) orally QHS for 30 day(s) Not-Taking traMADol HCl 50 MG 1 tab(s) orally Not-Taking Cymbalta 60 MG 1 cap(s) orally once a day for 30 day(s) Not-Taking Naproxen *Please review a nd pick correct strength-formulati on from Medispan options. If intended option is not shown, discontinue and re-order from Quick Search* Not-Taking Pepcid *Please review a nd pick correct strength-formulati on from Medispan options. If intended option is not shown, discontinue and re-order from Quick Search* Not-Taking Tylenol *Please review a nd pick correct strength-formulati on from Medispan options. If intended option is not shown, discontinue and re-order from Quick Search* Active Trulicity *Please review a nd pick correct strength-formulati on from Medispan options. If intended option is not shown, discontinue and re-order from Quick Search* Active STOOL SOFTENER WITH LAXATIVE *Please review for potential replacement for e-prescription and drug interaction check* Active Aspirin *Please review a nd pick correct strength-formulati on from Medispan options. If intended option is not shown, discontinue and re-order from Quick Search* Active Atorvastatin Calcium *Please review and pick correct strength-formulati on from Medispan options. If intended option is not shown, discontinue and re-order from Quick Search* Active Requip *Please review a nd pick correct strength-formulati on from Medispan options. If intended option is not shown, discontinue and re-order from Quick Search* Active Tresiba *Please review a nd pick correct strength-formulati on from Medispan options. If intended option is not shown, discontinue and re-order from Quick Search* Active Lisinopril *Please review a nd pick correct strength-formulati on from Medispan options. If intended option is not shown, discontinue and re-order from Quick Search* Active metFORMIN HCl 1000 MG 1 tab(s) orally 2 times a day Active Protonix *Please review a nd pick correct strength-formulati on from Medispan options. If intended option is not shown, discontinue and re-order from Quick Search* Active Multi Vitamin - 1 tab(s) orally once a day for 30 day(s) Active Encounters Encounter Location Date Provider Diagnosis [address] [address] 12/12/2024 Provider Migration Plan Of Treatment No Information Progress Notes * Yuli HAYDENDOB:[birth year] (59 yo F)Acc No.[id number]:12/12/2024 Patient: Yuli REES Provider: :1965 A ge:59 Y S ex:Female Date:12/12/2024 Address:[address] [place] [address], [facility] Pcp:Ghada Torrez - DO NOT USEMD Subjective: * Chief Complaints: * 1 . Multum To Medispan Conversion Encounter. * Medical History: * Medications: T aking Vistaril , Notes to Pharmacist: *Please review and pick correct strength-formulation from Medispan options. If intended option is not shown, discontinue and re-order from Quick Search*, Taking Lexapro , Notes to Pharmacist: *Please review and pick correct strength-formulation from Medispan options. If intended option is not shown, discontinue and re-order from Quick Search*, Taking Valsartan , Notes to Pharmacist: *Please review and pick correct strength- formulation from Medispan options. If intended option is not shown, discontinue and re-order from Quick Search*, Taking Protonix , Notes to Pharmacist: *Please review and pick correct strength-formulation from Medispan options. If intended option is not shown, discontinue and re-order from Quick Search*, Taking Multi Vitamin - Tablet 1 tab(s) orally once a day , Taking metFORMIN HCl 1000 MG Tablet 1 tab(s) orally 2 times a day , Taking Requip , Notes to Pharmacist: *Please review and pick correct strength-formulation from Medispan options. If intended option is not shown, discontinue and re-order from Quick Search*, Taking Atorvastatin Calcium , Notes to Pharmacist: *Please review and pick correct strength-formulation from Medispan options. If intended option is not shown, discontinue and re-order from Quick Search*, Taking Lisinopril , Notes to Pharmacist: *Please review and pick correct strength-formulation from Medispan options. If intended option is not shown, discontinue and re-order from Quick Search*, Taking Tresiba , Notes to Pharmacist: *Please review and pick correct strength-formulation from Medispan options. If intended option is not shown, discontinue and re-order from Quick Search*, Taking Trulicity , Notes to Pharmacist: *Please review and pick correct strength- formulation from Medispan options. If intended option is not shown, discontinue and re-order from Quick Search*, Taking Aspirin , Notes to Pharmacist: *Please review and pick correct strength-formulation from Medispan options. If intended option is not shown, discontinue and re-order from Quick Search*, Taking STOOL SOFTENER WITH LAXATIVE , Notes to Pharmacist: *Please review for potential replacement for e-prescription and drug interaction check*, Taking Tylenol , Notes to Pharmacist: *Please review and pick correct strength-formulation from Medispan options. If intended option is not shown, discontinue and re-order from Quick Search*, Not-Taking/PRN Pepcid , Notes to Pharmacist: *Please review and pick correct strength-formulation from Medispan options. If intended option is not shown, discontinue and re-order from Quick Search*, Not-Taking/PRN Naproxen , Notes to Pharmacist: *Please review and pick correct strength-formulation from Medispan options. If intended option is not shown, discontinue and re-order from Quick Search*, Not-Taking/PRN Cymbalta 60 MG Capsule Delayed Release Particles 1 cap(s) orally once a day , Not-Taking/PRN clonazePAM 0.5 MG Tablet 1 tab(s) orally QHS , Not-Taking/PRN Simvastatin 20 MG Tablet 1 tab(s) orally once a day (at bedtime) , Not-Taking/PRN traMADol HCl 50 MG Tablet 1 tab(s) orally , Not-Taking/PRN glipiZIDE 5 MG Tablet 1 tab(s) orally once a day , Not-Taking/PRN SEROquel 100 MG Tablet 1 tab(s) orally Objective: * Vitals: Assessment: Plan: * Treatment: * Images: Billing Information: * Visit Code: * Procedure Codes: * Electronic signature of Prov ider Migration on 02/18/2025 at 11:41 AM EST Sign off status: Pending * Provider: Date: 0 12/12/2024 Generated for Devin mercado/Corie/Elinor on: 04/20/2024 11:41 AM EST
[2025-02-18] VITALS (8 sets, daily range): BP systolic 120–163; BP diastolic 63–87; PULSE 71–119; RESP 16–21; TEMP 36.1–37; O2SAT 96–98; BMI 35.7
--- NOTE | ~2025-02-18 | CT_ITS ---
EXAMINATION: CT ABDOMEN AND PELVIS WITH CONTRAST CLINICAL INFORMATION: White count. Vomiting. Diarrhea COMPARISON: April 26, 2024. TECHNIQUE: Multidetector volumetric images were obtained from the superior aspect of the liver through the pubic symphysis following administration 85 mL of Omnipaque 350 intravenous contrast. Sagittal and coronal reformatted images were obtained on the technologist's workstation. Oral contrast: No This CT examination was performed using dose optimization techniques as appropriate, variously including the following: *Automated exposure control *Adjustment of mA and/or kV according to patient size (this includes techniques or standardized protocols for targeted exams where dose is matched to indication/reason for exam; i.e. extremities or head) *Use of iterative reconstruction technique DLP: 711 mGy-cm FINDINGS: LUNG BASES: No acute airspace disease. LIVER, GALLBLADDER, AND BILIARY TREE: Liver measures 19 cm with decreased enhancement pattern. No solid or cystic lesion. Main portal veins, hepatic veins and intrahepatic portion of the IVC are patent. Gallbladder is contracted without pericholecystic fluid collection or gallbladder wall thickening. No intrahepatic or extrahepatic biliary ductal dilatation. PANCREAS: No solid or cystic lesion. No main pancreatic ductal dilatation. No peripancreatic fluid collection. SPLEEN: 8 cm. No solid or cystic lesion. ADRENAL GLANDS: No nodular lesions. KIDNEYS AND URETERS: No hydronephrosis. No gross nephrolithiasis. No enhancing renal mass. Focal cortical defect, anterior inferior pole of the right kidney. No dilatation of the ureters. BLADDER: Fluid-filled nearly collapsed. GASTROINTESTINAL TRACT: Appendix is fluid-filled measures 9 mm in maximum diameter with thickened wall. No periappendiceal edema pattern or fluid collections. Fluid-filled ileal loops. Poor distention of the jejunal loops. Fluid-filled mildly prominent mid to distal ileal loops. No gross intestinal wall thickening. No pneumoperitoneum. No ascites. No peripheral enhancing fluid collection, peritoneal cavity. ABDOMINAL WALL: Diastases abdominal rectus muscles in the periumbilical region and small fat-containing umbilical hernia. LYMPH NODES: Nonspecific mildly prominent mesenteric and retroperitoneal lymph nodes. VASCULAR: Mixed plaques throughout the abdominal aorta wall and iliac arteries. No aneurysm or dissection, abdominal aorta. PELVIC VISCERA: Probable calcified uterine fibroids. OSSEOUS STRUCTURES: Multilevel thoracolumbar spondylosis. Osteopenia versus osteoporosis. Degenerative changes in the sacroiliac joints and coxofemoral joints. No acute fracture. CT/CT abdomen pelvis w IV con IMPRESSION: Nonperforated acute appendicitis should be considered in the correct clinical settings. Hepatomegaly and steatosis.. Fleischner guidelines were followed. Electronically signed by: Loi Salinas MD 02/18/2025 10:53 AM CORAL
--- NOTE | 2025-02-18 09:15 | ED.GENADULT ---
HPI - General Adult General Chief complaint: Nausea/Vomiting/Diarrhea Stated complaint: Nausea Vomiting Diarrhea Time Seen by Provider: 02/18/25 08:31 Source: patient Mode of arrival: ambulatory Limitations: no limitations History of Present Illness ED Provider: BRII SMILEY PA-C HPI narrative: 59 year old female with pmhx of diabetes mellitus (insulin dependent), chronic pain syndrome (on morphine 15mg BID), and hiatal hernia presents today after abruptly waking up this morning covered in diarrhea. Shortly after, she developed vomiting and has been having multiple episodes since. Also complains of chills, and constant cramping that started in her epigastric area radiating to her LUQ but is now diffuse. She tried to take a tums with no relief. Her last meal was last night and consisted of fish, carrots, and potatoes. Denies blood in vomit or stool, but now describes her stool as bilious and greasy. Denies chest pain, shortness of breath, dizziness, lightheadedness, or any urinary symptoms. Related Data Home Medications ?Medication ?Instructions ?Recorded ?Confirmed atorvastatin 40 mg tablet 40 mg PO BEDTIME 01/25/20 02/18/25 ropinirole 4 mg tablet 8 mg PO BID 01/25/20 02/18/25 mirtazapine 15 mg tablet (Remeron) 15 mg PO BEDTIME 03/21/20 02/18/25 estradiol 10 mcg vaginal tablet 10 mcg vaginal 2XW 07/10/22 02/18/25 insulin degludec 100 unit/mL (3 75 unit subcut DAILY 07/10/22 02/18/25 mL) subcutaneous pen (Tresiba FlexTouch U-100 insulin) metformin 500 mg tablet 1,000 mg PO BID 07/10/22 02/18/25 amlodipine 10 mg tablet 10 mg PO DAILY 02/18/25 02/18/25 cranberry extract 250 mg capsule 250 mg PO DAILY 02/18/25 02/18/25 docusate sodium 100 mg capsule 100 mg PO DAILY PRN constipation 02/18/25 02/18/25 insulin lispro 100 unit/mL See Protocol subcut TIDAC 02/18/25 02/18/25 subcutaneous pen lidocaine 4 % topical patch 1 patch topical DAILY 02/18/25 02/18/25 (Lidocaine Pain Relief) morphine 15 mg tablet,extended 15 mg PO BID 02/18/25 02/18/25 release multivitamin with folic acid 400 1 tab PO DAILY 02/18/25 02/18/25 mcg tablet (Daily-Luciana (with folic acid)) oxybutynin chloride 10 mg 10 mg PO DAILY 02/18/25 02/18/25 tablet,extended release 24 hr pantoprazole 40 mg tablet,delayed 40 mg PO BID@0630,1630 02/18/25 02/18/25 release valsartan 320 1 tab PO DAILY 02/18/25 02/18/25 mg-hydrochlorothiazide 12.5 mg tablet Previous Rx's ?Medication ?Instructions ?Recorded acetaminophen 325 mg tablet 650 mg (2 x 325 mg) PO Q6H PRN 02/21/25 Pain, Mild 1-3,Fever,Headache #10 tabs levofloxacin 750 mg tablet 750 mg PO DAILY #5 tabs 02/21/25 levofloxacin 750 mg tablet 750 mg PO Q24H #5 tabs 02/21/25 metronidazole 500 mg tablet 500 mg PO Q12H #15 tabs 02/21/25 metronidazole 500 mg tablet 500 mg PO Q8H #15 tabs 02/21/25 metronidazole 500 mg tablet 500 mg PO Q8H #15 tabs 02/21/25 Allergies Allergy/AdvReac Type Severity Reaction Status Date / Time No Known Allergies Allergy Verified 02/18/25 08:32 Review of Systems Review of Systems: Yes all other systems are reviewed and are negative PMFSH Past Medical History Attestation statement: The following information was validated with the patient. Source: old records reviewed and nursing notes reviewed Medical History Abdominal pain Kidney disease Dysphagia Hx of cyst of breast Chronic fatigue syndrome Osteoarthritis Hx of sciatica History of anxiety History of depression Fibromyalgia Plantar fasciitis Obesity Insulin dependent diabetes mellitus Elevated cholesterol HTN (hypertension) Rotator cuff syndrome of right shoulder Chronic pain Restless leg syndrome Surgical History H/O carpal tunnel repair History of surgery Hx of removal of cyst History of back surgery Hx of section Social History Social History Household Members: None Housing: Apartment Do you presently have visiting 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 to refused alarms Patient Tobacco Use Status: Current someday Tobacco user Tobacco use type: Cigarette Cigarettes Per Day: 1 Second Hand Smoke Exposure: No Substance Use Type: Marijuana service: No Physical Exam ED Vital Signs: Vital Signs - 24 hr 02/18/25 08:26 02/18/25 10:18 02/18/25 10:27 Temperature 98.0 F Pulse Rate 119 H 97 Respiratory Rate 20 20 21 H Blood Pressure 163/75 H 134/69 Pulse Oximetry 97 97 Oxygen Delivery Method Room Air Room Air BMI result Body Mass Index 35.7 hypertensive, tachycardic, afebrile General: Well appearing, in no acute distress. Skin: Warm, dry, intact. No rashes or lesions. Head: Normocephalic, atraumatic. EENT: Hearing is intact b/l. Conjunctiva clear. PERRLA. EOM intact. Moist mucous membranes.? Neck: Supple without LAD Cardiac: Chest wall symmetric. RRR Lungs: Normal respiratory effort without accessory muscle use. CTA bilaterally Abdomen: obese, soft, non-distended, ttp of epigastric region, no rebound tenderness or guarding. negative schneider sign. no mcburney point tenderness. Positive BS x4. Rectal exam performed with [place] NOONAN student present in room to internal investigator. Normal rectal sphincter tone. No external masses or lesions. Palpable hard/ soft stool in rectal vault. Stool is normal in appearance. OBS negative. Back: No midline spinous or paraspinal tenderness. No step off deformity. Ext: Upper and lower extremities atraumatic, without tenderness, deformity, swelling or erythema Neuro: AOx3. Normal speech. Ambulating with steady gait. Course Course Course Narrative: CBC showing leukocytosis to 15.7 with left shift. No anemia, h&h stable. Hypomagnesemic to 1.2 - repletion ordered. Chemistry without other acute electrolyte abnormality requiring intervention.? Bun mildly elevated. Liver function around baseline.? Urine without infection. OBS negative.? CT showing: CT abdomen pelvis w IV con IMPRESSION: Nonperforated acute appendicitis should be considered in the correct? clinical settings. Discussed case w/ general surgeon dr. Gambino and general surgery SARAN nguyen has evaluated patient at bedside. Plan for OR later today. Patient to be admitted to the surgical service. Patient agreeable. Medications Administered Discontinued Medications Generic Name Dose Route Start Last Admin Trade Name Vick PRN Reason Stop Dose Admin Amlodipine Besylate 10 mg 02/19/25 13:50 02/21/25 07:56 Amlodipine Besylate 10 Mg Tablet PO 10 mg DAILY YASH Administration Protocol Enoxaparin Sodium 30 mg 02/18/25 13:00 02/21/25 12:07 Enoxaparin Sodium 30 Mg/0.3 Ml Syringe SUBCUT 30 mg Q12H YASH Administration Magnesium Sulfate 2 gm in 50 mls @ 25 mls/hr 02/18/25 10:00 02/18/25 12:28 Magnesium Sulfate/H2o IV 02/18/25 11:59 Infused ONCE ONE Infusion Sodium Chloride 1,000 mls @ 999 mls/hr 02/18/25 11:15 02/18/25 12:37 Ns IV 02/18/25 12:15 Infused .Q1H1M YASH Infusion Piperacillin Sod/Tazobactam 50 mls @ 100 mls/hr 02/18/25 11:59 02/18/25 12:45 Sod 3.375 gm/ Sodium Chloride IV 02/18/25 12:28 Infused ONCE ONE Infusion Dextrose/Sodium Chloride 1,000 mls @ 100 mls/hr 02/18/25 12:30 02/19/25 11:19 D51/2ns IVCONT Not Given .Q10H YASH Lactated Ringer's 1,000 mls @ 80 mls/hr 02/18/25 15:00 02/19/25 08:25 Lr IVCONT Infused .[id number] YASH Infusion Metronidazole 500 mg in 100 mls @ 100 mls/hr 02/18/25 16:00 02/18/25 16:22 Flagyl IV Not Given Q12H YASH Levofloxacin 750 mg in 150 mls @ 100 mls/hr 02/18/25 15:45 02/20/25 17:48 Levaquin IV Infused Q24H YASH Infusion Metronidazole 500 mg in 100 mls @ 100 mls/hr 02/18/25 18:00 02/21/25 08:01 Flagyl IV Infused Q12H YASH Infusion Lactated Ringer's 1,000 mls @ 100 mls/hr 02/19/25 09:45 02/20/25 16:17 Lr IVCONT Infused .Q10H YASH Infusion Insulin Human Lispro 0 unit 02/19/25 13:50 02/21/25 12:06 Insulin Lispro 100 Unit/Ml 3 Ml Vial SUBCUT 4 unit QIDACHS [facility] Administration Protocol Iohexol 100 ml 02/18/25 10:32 02/18/25 10:32 Iohexol 350 Mg/Ml 100 Ml Infus..Btl IV 02/18/25 10:33 85 ml ONCE ONE Administration Lidocaine 1 patch 02/19/25 12:00 02/21/25 07:56 Lidocaine 4 % Patch Adh..Patch TRANSDERMA 1 patch DAILY [facility] Administration Protocol Mirtazapine 15 mg 02/18/25 21:00 02/20/25 23:02 Mirtazapine 15 Mg Tablet PO Not Given BEDTIME [facility] Mirtazapine 15 mg 02/20/25 23:15 02/21/25 00:21 Mirtazapine 15 Mg Tablet PO 15 mg 2300 YASH Administration Morphine Sulfate 4 mg 02/18/25 10:15 02/18/25 10:27 Morphine Sulfate 4 Mg/Ml Cartridge IVPUSH 02/18/25 10:16 4 mg ONCE ONE Administration Protocol Morphine Sulfate 2 mg 02/18/25 12:21 02/21/25 08:04 Morphine Sulfate 4 Mg/Ml Cartridge IVPUSH 2 mg Q4H PRN Administration Pain, Severe (Pain Scale 7-10) Protocol Ondansetron HCl 4 mg 02/18/25 09:55 02/18/25 10:05 Ondansetron Hcl 4 Mg/2 Ml Vial IVPUSH 02/18/25 09:56 4 mg ONCE ONE Administration Ondansetron HCl 4 mg 02/18/25 12:21 02/19/25 08:18 Ondansetron Hcl 4 Mg/2 Ml Vial IVPUSH 4 mg Q8H PRN Administration Nausea and Vomiting Oxycodone HCl 5 mg 02/18/25 12:21 02/18/25 20:20 Oxycodone Hcl Immed Release 5 Mg Tablet PO 5 mg Q6H PRN Administration Pain, Moderate(Pain Scale 4-6) Pantoprazole Sodium 40 mg 02/19/25 09:00 02/21/25 05:22 Pantoprazole Sodium 40 Mg/10 Ml Vial IVPUSH 40 mg DAILY@0630 [facility] Administration Ropinirole HCl 8 mg 02/18/25 21:00 02/21/25 07:56 Ropinirole Hcl 2 Mg Tablet PO 8 mg BID YASH Administration Sodium Chloride 3 ml 02/18/25 16:00 02/21/25 08:07 0.9 % Sodium Chloride Flush 3 Ml Syringe IVFLUSH 3 ml QSHIFT YASH Administration Medical Decision Making Medical Decision Making [facility] Narrative: 59 year old female with pmhx of diabetes mellitus (insulin dependent), chronic pain syndrome (on morphine 15mg BID), and hiatal hernia presents today after abruptly waking up this morning covered in diarrhea. she is hypertensive and tachycardic. well appearing, in NAD. on exam, abdomen is obese, soft, non-distended, ttp of epigastric region, no rebound tenderness or guarding. negative schneider sign. no mcburney point tenderness. Positive BS x4. Rectal exam performed with [place] NOONAN student present in room to internal investigator. Normal rectal sphincter tone. No external masses or lesions. Palpable hard/ soft stool in rectal vault. Stool is normal in appearance. OBS negative. Differential diagnosis includes biliary colic, renal colic, nephrolithiasis, gastroenteritis, gastritis, PUD. Abdominal exam without peritoneal signs. No evidence of acute abdomen at this time. Well appearing. Moderate suspicion for acute hepatobiliary disease (including acute cholecystitis). Less likely to represent acute pancreatitis, perforated ulcer/ GI bleed, acute infectious processes (pneumonia, hepatitis, pyelonephritis), atypical appendicitis, vascular catastrophe, bowel obstruction or viscus perforation. Plan: labs, UA, pain control, CT, serial reassessment Differential Diagnosis Differential Diagnoses: The differential diagnosis associated with the presentation includes as above. Admission/Observation Consideration of admission/observation: Escalation of care including admission/observation considered patient admitted to the surgical service for management of acute appendicitis Consult Healthcare Provider Management of the patient was discussed with: Handwriting Expert general surgery - dr. gambino Lab Data [facility] Lab Attestation statement: I reviewed the patient's lab results. as above. 02/19/25 05:21 02/19/25 05:21 Labs: Lab Results 02/18/25 02/18/25 02/18/25 Range/Units 09:17 10:03 10:21 WBC 15.7 H (4.8-10.8) X10*3/uL RBC 5.18 D (4.20-5.50) X10*6/uL Hgb 15.9 (12.0-16.0) g/dl Hct 46.7 D (37.0-47.0) % MCV 90.2 (80.0-98.0) fL MCH 30.7 (27.0-33.0) pg MCHC 34.0 (31.0-35.0) g/dl RDW 12.3 (11.0-16.0) % Plt Count 311 D (160-400) X10*3/uL MPV 9.5 (9.4-12.3) fL Immature Gran % (Auto) 0.4 (0.0-0.4) % Neut % (Auto) 84.5 H (45-73) % Lymph % (Auto) 7.3 L (20-40) % Marion % (Auto) 7.2 (2-11) % Eos % (Auto) 0.3 (0-4) % Baso % (Auto) 0.3 (0-2) % Lymph # (Auto) 1.2 (1.2-4.9) X10*3/uL Marion # (Auto) 1.1 (0.1-1.2) X10*3/uL Eos # (Auto) 0.1 (0.0-0.4) X10*3/uL Baso # (Auto) 0.0 (0.0-0.2) X10*3/uL Abs Immat Gran (auto) 0.07 H (0.00-0.03) X10*3/uL Absolute Neuts (auto) 13.3 H (2.0-8.3) x10*3/uL Absolute Nucleated RBC 0.000 (0.0-0.012) X10*3/uL Nucleated RBC % (auto) 0.0 (0.0-0.2) /100WBC Sodium 144 (135-145) mmol/L Potassium 3.7 (3.3-5.1) mmol/L Chloride 109 H (96-108) mmol/L Carbon Dioxide 25 (22-29) mmol/L Anion Gap 14 (12-20) BUN 20 H (9-16) mg/dL Creatinine 0.83 (0.5-1.4) mg/dL Estim Creat Clear Calc 77.3 Estimated GFR > 60 Random Glucose 158 H (60-115) mg/dL Lactic Acid (0.5-2.0) mmol/L Calcium 10.1 D (8.4-10.2) mg/dL Magnesium 1.2 L* (1.6-2.6) mg/dL Total Bilirubin 0.7 (0.0-1.0) mg/dL AST 29 (5-31) U/L ALT 24 (0-31) U/L Alkaline Phosphatase 122 H (39-117) U/L Total Protein 8.2 H (6.5-8.0) g/dL Albumin 4.9 (3.5-5.0) g/dL Lipase 12 (8-78) U/L Urine Color Yellow Urine Appearance Cloudy Urine pH 5.0 (5.0-9.0) Ur Specific [place] >= 1.030 H (1.005-1.025) Urine Protein 100 (2+) H (Neg-Trace) mg/dL Urine Glucose (UA) Negative (Negative) mg/dL Urine Ketones Trace (Negative) mg/dL Urine Blood Negative (Negative) Urine Nitrite Negative (Negative) Ur Leukocyte Esterase Trace H (Negative) Urine RBC 0-2 (0-2) /HPF Urine WBC 6-10 H (0-5) /HPF Ur Squamous Epith Cells 3-5 (0-2) /HPF Urine Bacteria None Seen (None Seen) Hyaline Casts 0-2 (0-2) /LPF Stool Occult Blood NEGATIVE (NEGATIVE) Urine Opiates Screen POSITIVE H (Not Detect) Ur Buprenorphine Scrn Not Detected (Not Detect) ng/mL Ur Oxycodone Screen Not Detected (Not Detect) ng/mL Urine Methadone Screen Not Detected (Not Detect) ng/mL Urine Fentanyl Screen Not Detected (Not Detect) Ur Barbiturates Screen Not Detected (Not Detect) Ur Phencyclidine Scrn Not Detected (Not Detect) Ur Amphetamines Screen Not Detected (Not Detect) U Benzodiazepines Scrn Not Detected (Not Detect) Urine Cocaine Screen POSITIVE H (Not Detect) U Marijuana (THC) Screen POSITIVE H (Not Detect) 02/18/25 Range/Units 11:21 WBC (4.8-10.8) X10*3/uL RBC (4.20-5.50) X10*6/uL Hgb (12.0-16.0) g/dl Hct (37.0-47.0) % MCV (80.0-98.0) fL MCH (27.0-33.0) pg MCHC (31.0-35.0) g/dl RDW (11.0-16.0) % Plt Count (160-400) X10*3/uL MPV (9.4-12.3) fL Immature Gran % (Auto) (0.0-0.4) % Neut % (Auto) (45-73) % Lymph % (Auto) (20-40) % Marion % (Auto) (2-11) % Eos % (Auto) (0-4) % Baso % (Auto) (0-2) % Lymph # (Auto) (1.2-4.9) X10*3/uL Marion # (Auto) (0.1-1.2) X10*3/uL Eos # (Auto) (0.0-0.4) X10*3/uL Baso # (Auto) (0.0-0.2) X10*3/uL Abs Immat Gran (auto) (0.00-0.03) X10*3/uL Absolute Neuts (auto) (2.0-8.3) x10*3/uL Absolute Nucleated RBC (0.0-0.012) X10*3/uL Nucleated RBC % (auto) (0.0-0.2) /100WBC Sodium (135-145) mmol/L Potassium (3.3-5.1) mmol/L Chloride (96-108) mmol/L Carbon Dioxide (22-29) mmol/L Anion Gap (12-20) BUN (9-16) mg/dL Creatinine (0.5-1.4) mg/dL Estim Creat Clear Calc Estimated GFR Random Glucose (60-115) mg/dL Lactic Acid 1.2 (0.5-2.0) mmol/L Calcium (8.4-10.2) mg/dL Magnesium (1.6-2.6) mg/dL Total Bilirubin (0.0-1.0) mg/dL AST (5-31) U/L ALT (0-31) U/L Alkaline Phosphatase (39-117) U/L Total Protein (6.5-8.0) g/dL Albumin (3.5-5.0) g/dL Lipase (8-78) U/L Urine Color Urine Appearance Urine pH (5.0-9.0) Ur Specific [place] (1.005-1.025) Urine Protein (Neg-Trace) mg/dL Urine Glucose (UA) (Negative) mg/dL Urine Ketones (Negative) mg/dL Urine Blood (Negative) Urine Nitrite (Negative) Ur Leukocyte Esterase (Negative) Urine RBC (0-2) /HPF Urine WBC (0-5) /HPF Ur Squamous Epith Cells (0-2) /HPF Urine Bacteria (None Seen) Hyaline Casts (0-2) /LPF Stool Occult Blood (NEGATIVE) Urine Opiates Screen (Not Detect) Ur Buprenorphine Scrn (Not Detect) ng/mL Ur Oxycodone Screen (Not Detect) ng/mL Urine Methadone Screen (Not Detect) ng/mL Urine Fentanyl Screen (Not Detect) Ur Barbiturates Screen (Not Detect) Ur Phencyclidine Scrn (Not Detect) Ur Amphetamines Screen (Not Detect) U Benzodiazepines Scrn (Not Detect) Urine Cocaine Screen (Not Detect) U Marijuana (THC) Screen (Not Detect) Independent Interpretation I performed an independent interpretation of an: CT Scan Interpretation: ct a/p without bowel obstruction Radiology Impression Discussion of test interpretation with radiology: I have reviewed the radiologist's reading. Radiologist Impression: Procedure(s): CT abdomen pelvis w IV con Accession Number(s): [id number] cc: Physician,Unknown ; Brii Smiley~ Report Number: [id number]: Total DLP = 711.00 mGy-cm Reason for Exam: white count, vom, diarrhea EXAMINATION: CT ABDOMEN AND PELVIS WITH CONTRAST CLINICAL INFORMATION: White count. Vomiting. Diarrhea COMPARISON: April 26, 2024. TECHNIQUE: Multidetector volumetric images were obtained from the superior aspect of the liver through the pubic symphysis following administration 85 mL of Omnipaque 350 intravenous contrast. Sagittal and coronal reformatted images were obtained on the technologist's workstation. Oral contrast: No This CT examination was performed using dose optimization techniques as appropriate, variously including the following: *Automated exposure control *Adjustment of mA and/or kV according to patient size (this includes techniques or standardized protocols for targeted exams where dose is matched to indication/reason for exam; i.e. extremities or head) *Use of iterative reconstruction technique DLP: 711 mGy-cm FINDINGS: LUNG BASES: No acute airspace disease. LIVER, GALLBLADDER, AND BILIARY TREE: Liver measures 19 cm with decreased enhancement pattern. No solid or cystic lesion. Main portal veins, hepatic veins and intrahepatic portion of the IVC are patent. Gallbladder is contracted without pericholecystic fluid collection or gallbladder wall thickening. No intrahepatic or extrahepatic biliary ductal dilatation. PANCREAS: No solid or cystic lesion. No main pancreatic ductal dilatation. No peripancreatic fluid collection. SPLEEN: 8 cm. No solid or cystic lesion. ADRENAL GLANDS: No nodular lesions. KIDNEYS AND URETERS: No hydronephrosis. No gross nephrolithiasis. No enhancing renal mass. Focal cortical defect, anterior inferior pole of the right kidney. No dilatation of the ureters. BLADDER: Fluid-filled nearly collapsed. GASTROINTESTINAL TRACT: Appendix is fluid-filled measures 9 mm in maximum diameter with thickened wall. No periappendiceal edema pattern or fluid collections. Fluid-filled ileal loops. Poor distention of the jejunal loops. Fluid-filled mildly prominent mid to distal ileal loops. No gross intestinal wall thickening. No pneumoperitoneum. No ascites. No peripheral enhancing fluid collection, peritoneal cavity. ABDOMINAL WALL: Diastases abdominal rectus muscles in the periumbilical region and small fat-containing umbilical hernia. LYMPH NODES: Nonspecific mildly prominent mesenteric and retroperitoneal lymph nodes. VASCULAR: Mixed plaques throughout the abdominal aorta wall and iliac arteries. No aneurysm or dissection, abdominal aorta. PELVIC VISCERA: Probable calcified uterine fibroids. OSSEOUS STRUCTURES: Multilevel thoracolumbar spondylosis. Osteopenia versus osteoporosis. Degenerative changes in the sacroiliac joints and coxofemoral joints. No acute fracture. CT/CT abdomen pelvis w IV con IMPRESSION: Nonperforated acute appendicitis should be considered in the correct clinical settings. Hepatomegaly and steatosis.. Fleischner guidelines were followed. Electronically signed by: Loi Salinas MD 02/18/2025 10:53 AM EST Independent Historian Clinical information obtained from an independent historian. History obtained from or confirmed by: EMS External Record Review External record reviewed: Inpatient record Prescription Management I considered prescription management with: Pain Medication and Antibiotic Social Determinants Patient?s care significantly limited by Social Determinants of Health including: Other Social Determinant of Health Critical Care Time Critical Care Time Critical Care Time: Yes Total Critical Care Time: 50 Attestation: Critical care time in the amount of 50 minutes has been provided to the patient in terms of direct patient care, frequent reevaluation, consultation with general surgery, review and interpretation of medical data and results, and management of potentially life-threatening conditions. This is all outside of any medical procedures. Discharge Plan Discharge Clinical Impression: Acute appendicitis Patient Disposition: Admitted As Inpatient Interventions: Admission Worksheet (ED) Last Done: 02/18/25 14:13 Discharge Date/Time: 02/18/25 14:29
[2025-02-18 09:22] LABS: MANUAL DIFF FLAG NO
[2025-02-18 09:24] LABS: Hematocrit 46.7 % (37.0-47.0); Hemoglobin 15.9 g/dl (12.0-16.0); Imm Gran Abs Auto 0.07 X10*3/uL (0.00-0.03); Imm Gran Pct Auto 0.4 % (0.0-0.4); Lymphocytes Absolute Auto 1.2 X10*3/uL (1.2-4.9); Mean Corpuscular HGB Conc 34.0 g/dl (31.0-35.0); Mean Corpuscular Hemoglobin 30.7 pg (27.0-33.0); Mean Corpuscular Volume 90.2 fL (80.0-98.0); NRBC Abs Auto 0.000 X10*3/uL (0.0-0.012); NRBC Pct Auto 0.0 /100WBC (0.0-0.2); Platelet Count 311 X10*3/uL (160-400); Red Blood Count 5.18 X10*6/uL (4.20-5.50); White Blood Count 15.7 X10*3/uL (4.8-10.8)
[2025-02-18 09:46] LABS: Alanine Aminotransferase 24 U/L (0-31); Albumin Level 4.9 g/dL (3.5-5.0); Alkaline Phosphatase 122 U/L (39-117); Anion Gap 14 (12-20); Aspartate Amino Transferase 29 U/L (5-31); Blood Urea Nitrogen 20 mg/dL (9-16); Calcium 10.1 mg/dL (8.4-10.2); Carbon Dioxide 25 mmol/L (22-29); Chloride 109 mmol/L (96-108); Creatinine Clr Calc Pharmacy 77.3; Estimated Glomerular Filt Rate > 60; Lipase 12 U/L (8-78); Magnesium 1.2 mg/dL (1.6-2.6); Potassium 3.7 mmol/L (3.3-5.1); Sodium 144 mmol/L (135-145); Total Protein 8.2 g/dL (6.5-8.0)
[2025-02-18 10:13] LABS: Appearance Urine Cloudy; Glucose Urine UA Negative (Negative); PH 5.0 (5.0-9.0); Specific Gravity - Urine >= 1.030 (1.005-1.025); UMIC TRIGGER UACC YES
[2025-02-18 10:18] LABS: UACC Culture Trigger YES
[2025-02-18] MEDS: Magnesium Sulfate/H2O 2 GM/50 ML PIGGYBACK IV (10:28)
[2025-02-18] MEDS: iohexoL 350 MG/ML 100 ML INFUS..BTL IV (10:32)
[2025-02-18 10:42] LABS: OBS Int Ctl Valid YES; OBS1 NEGATIVE (NEGATIVE)
--- OUTSIDE RECORDS SUMMARY | 2025-02-18 11:41 | XMS_ITS | Patient Health Record ---
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 Problem Hypercholesterolemia (48244567) Hypercholesterolemia (272.0) Active confirmed Problem Hypertension (55168747) Hypertension NOS (401.9) Active confirmed Problem Low back pain (784114644) Low back pain (724.2) Active confirmed Problem Fibromyalgia (406412072) Fibromyalgia (729.1) Active confirmed Problem Chronic pain (54891433) Chronic pain, not elsewhere classified (338.29) Active confirmed Problem Anxiety state (492454305) ANXIETY STATE NOS (300.00) Active confirmed Encounters Encounter Location Date Provider Diagnosis [facility] [address] [place] [address] 12/12/2024 Provider Migration Plan Of Treatment No Information Insurance Providers Payer Name Payer Address Payer Phone Subscriber Number Group Number Insured Name Patient Relationship to Insured Coverage Start Date Coverage End Date [facility] [address] [place]AN JIMENEZ [phone] [id number] Jermaine bañuelosYuli Self - patient is the insured [employer] [address] [place] [address] [phone] [id number] Jermaine Yuli bañuelos Self - patient is [...] Diabetes Surgical History Surgery Date(Month/Year) L5-S1 Discectomy- [facility], [place] Dr Villalobos 1998 1983 Rt Breast cyst non malignant 1999 Hospitalization History Reason Date(Month/Year) [place] [facility] admit Section 12 for SI x 3 days [facility]
--- OUTSIDE RECORDS SUMMARY | 2025-02-18 11:42 | XMS_ITS | Data Portability ---
Author Organization [employer], [email or web address] Address [address] [place] [address] Care Team Providers Care Ditching Machine Operator Name Role Phone HIM CCA OTHER Assessment Encounter Date Assessment Date Assessment LastModified by Organization Details LastModified Time 08/07/2021 08/07/2021 I have reviewed and agree with the assessment and plan as documented by the fire assistant. I provided real-time medical direction for this [...] in the field was performed by my fire assistant colleague, as noted above, I provided real-time [...] Assessment and Plan as documented by the Sr. Social Media & Mobile Manager. Patient given the opportunity to ask questions. Our service contacted for an assessment of: Urinary tract infection As per above, patient with known ESBL in urine and was referred to the emergency department but left last night. Calls for an appointment again today. Per fire assistant on the scene, patient has stable vital signs and is afebrile Impression: ESBL UTI Plan: Referred back to the emergency department [email or web address] Not available 09/23/2023 12:29:02 05/13/2024 05/13/2024 Impression: 59yo/f with pmhx as above including prior klebsiella UTI, candidiasis, DM, referred for evaluation for vaginal discharge and discomfort and not checking BS at home. Patient suffered loss of a family member recently and states has not been checking her BS at home, she has been compliant with her medications however. Over the last few days has noticed some whitish vaginal discharge and discomfort, some occasional discomfort with urinating. Referred for evaluation. For medic in home she is awake, alert, in no distress. A/ox3, GCS. Ambulating comfortably, breathing comfortably. Denies other associated symptoms at this time, currently denies any abdominal pain, chest pain, dyspnea. No fevers/chills, nausea/vomiting, diarrhea. Eating and drinking normally. No other UTI symptoms of frequency, hesitancy, incompete voiding. Patient states her symptoms feel similar to prior yeast infection. Plan: Patient underwent medic evaluation as above, she is hypertensive at 177/94 but awake, alert, neuro intact. Exam is re-assuring. POC BS is 300s, urine with glucose and ketones but no obvious bacterial infection at this time. No clinical signs of DKA or HHS at this time. Discussed at length with patient, she has access to all of her medications at home and dexcom for BS, she feels comfortable resuming her daily diabetes routine. She feels like her vaginal symptoms are most consistent with prior fungal infection, and I believe it's reasonable to give x1 dose of fluconazole and send urine culture for UTI testing. I have a lower suspicion at this time for an occult emergency medical condition such as ACS, PE, aortic dissection, AAA, appendicitis, pyelonephritis, sepsis. Counseled to followup with PMD in 24-48 hours for recheck and seek care immediately with any acute worsening or change in symptoms which she understands. Primary care, consider 48 hour followup Disposition: We discussed the diagnostic uncertainty of home visits and the risk associated with this. In this case, the patient and I felt this to be an acceptable and reasonable amount of risk given the benefit of avoiding an ED visit. We discussed the need to seek care urgently/emergentl y in the setting of any new or worsening serious symptoms [email or web address] Not available 05/13/2024 14:51:01 Plan of Treatment Reminders Order Date Submit Date Provider Last Modified By Organization Details Last Modified Time Details Appointments None recorded. Lab culture, urine 2024 025 RAHEEM [facility] (Centralized Electronic Ordering - All Locations), Patient Can Go To The Location Of Their Choice, [id number] 08:08:09 urinalysis, dipstick 2024 025 [email or web address] [facility] [address] [place] [address], [phone] 02/12/202 5 14:43:02 urinalysis, dipstick 2023 024 [facility], [address] [place] [address], [id number] 4 08:17:07 BMP, serum or plasma 2023 024 [facility], [address] [place] [address], [id number] 4 08:17:21 hemoglobin + hematocrit, blood 2023 024 [facility], [address] [place] [address], [id number] 4 08:17:42 culture, urine 2023 024 [place] [facility] (Centralized Electronic Ordering - All Locations), Patient Can Go To The Location Of Their Choice, [id number] 4 10:06:26 urinalysis, dipstick 2023 024 [facility], [address] [place] [address], [id number] 4 08:17:58 Referral None recorded. Procedures None recorded. Surgeries None recorded. Imaging electrocard iogram 2023 024 [email or web address] [facility], [address] [place] [address], [id number] 4 13:43:54 Medication Orders fluconazole 200 mg tablet 2024 025 [facility] [place], [place] - [id number], [address] [place], [address], 5 12:30:42 lactated Ringers intravenous solution 2023 024 [email or web address] [facility] [place] - [id number], [address] [place], [address], 4 16:03:32 ketorolac 30 mg/mL injection solution 2023 024 [email or web address] Not available 4 16:03:32 cefpodoxime 200 mg tablet 2023 024 [facility] [place] - [id number], [address] [facility], [place], [address], 12:52:35 Patient TargetsNo targets recorded. Patient InstructionsNo instructions recorded. Reason for Referral None Reported. Results Created Date Observation Date Name Description Value Unit Range Abnormal Flag Note LastModifiedBy Organization Detail LastModifiedTime 09/16/19 24 09/19/2023 URINE CULTU RE,CO MPREH ENSIV E urine culture,comp rehensive Final report abnormal Not Available [facility] ([facility]) [address] [facility], [place], [address], 09/19/2023 12:06:46 09/16/19 24 09/19/2023 URINE CULTU RE,CO MPREH ENSIV E result 1 Klebsi clemente pneumo niae abnormal Great er than 100,0 00 colon y formi ng units per mL Susce ptibi lity profi le is consi stent with a proba ble ESBL. Not Available [facility] ([facility]) [address] [facility], [place], [address], 09/19/2023 12:06:46 09/16/19 24 09/19/2023 URINE CULTU [...] thopr im/Betancourt lfa R Not Available [facility] ([facility]) [address] [facility], [place], [address], 09/19/2023 12:06:46 01/23/2001/25/2024 URINE CULTU RE,CO MPREH ENSIV E urine culture,comp rehensive Final report abnormal Not Available [facility] ([facility]) [address] [facility], [place], [address], 01/25/2024 16:06:14 01/23/2001/25/2024 URINE CULTU RE,CO MPREH ENSIV E result 1 COMMEN T abnormal Beta hemol ytic Strep tococ cus, group B Penic illin and ampic illin are drugs of choic e for treat ment of beta- hemol [...] p A). (CLSI ) Not Available [facility] ([facility]) [address] [facility], [place], [address], 01/25/2024 16:06:14 05/13/19 25 05/16/2024 URINE CULTU RE,CO MPREH ENSIV E urine culture,comp rehensive Final report Not Available [facility] ([facility]) [address] [facility], [place], [address], 05/16/2024 08:07:19 05/13/1905/16/2024 URINE CULTU RE,CO MPREH ENSIV E result 1 No growth Not Available [facility] ([facility]) [address] [facility], [place], [address], 05/16/2024 08:07:19 09/16/19 24 09/17/2023 lora carlson am No observ ation record ed. [email or web address] [address], [phone] 09/17/2023 08:18:14 Result Notes None recorded. Medical Equipment None Reported. Allergies No known drug allergies Medications Name Sig Start Date Stop Date Status Note LastModified by Organization Details LastModified Time amoxicillin 500 mg capsule TAKE 1 CAPSULE BY MOUTH 3 (THREE) TIMES A DAY active Not Available Not Available Not Available fluconazole 100 mg tablet TAKE 1 TABLET [...] MOUTH DAILY active Not Available Not Available Not Available cefpodoxime 200 mg tablet TAKE 1 [...] a day active Not Available Not Available Not Available Glucagon Emergency Kit 1 mg solution for injection To be use for hypoglycemi c emergency by family member or accompanyin g person, if blood glucoses less than 60 and unconscious . Please call 911 after use glucagon pen. active Not Available Not Available No t Available fluconazole 200 mg tablet TAKE 1 TABLET BY MOUTH ONCE FOR 1 DAY active Not Available Not Available No t Available FreeStyle Lancets 28 gauge USE TO CHECK BLOOD SUGAR DAILY active Not Available Not Available Not Available metronidazol e 0.75 % (37.5 mg/5 gram) vaginal gel INSERT 1 APPLICATORF UL VAGINALLY AT BEDTIME active Not Available Not Available N ot Available lidocaine 4 % topical cream APPLY TO THE AFFECTED AREA TOPICALLY 4 (FOUR) TIMES DAILY. not to exceed 3 application s IN 24 HOURS active Not Available Not Available No t Available miconazole nitrate 2 % vaginal cream APPLY 1 APPLICATORF UL VAGINALLY two (2) times a day FOR 14 DAYS active Not Available Not Available Not Available [...] Not Available Not Available No t Available acetaminophe n 500 mg tablet TAKE 2 TABLETS BY [...] Not Available Not Available No t Available polyethylene glycol 3350 17 gram/dose oral powder DISSOLVE 17 grams IN beverage OF choice AND DRINK ONCE DAILY active Not Available Not Available [...] t Available insulin lispro (U-100) 100 unit/mL subcutaneous pen 150-199 2 units; 200-249 4 units; [...] active Not Available Not Available Not Available pregabalin 150 mg capsule TAKE 1 [...] Ultra-Fine Erika Pen Needle 32 gauge x use to inject tresiba and insulin lispro every day; dx T2DM; ICD10 E11.9 active Not Available Not Available Not Available Trulicity 1.5 mg/0.5 mL subcutaneous pen injector INJECT 1 SYRINE BY SUCUTANEOUS INJECTION ONCE A WEEK (ROTATE SITES) active Not Available Not Available No t Available insulin degludec (U-100) 100 unit/mL (3 mL) subcutaneous pen INJECT 80 UNITS UNDER THE SKIN [...] Not Available No t Available Dexcom G6 Resource Program Teacher Use to check blood sugar 4 times [...] active Not Available Not Available Not Available Gvoke HypoPen 2-Pack 0.5 mg/0.1 mL subcutaneous auto-injecto r TO be USE FOR hypoglycemi c emergency BY family member OR accompanyin g person, IF blood glucoses less THAN 60 AND unconscious . Please call 911 AFTER USE glucagon pen.] active Not Available Not Available No t Available Trulicity 3 mg/0.5 mL subcutaneous pen [...] Available No t Available Vitals Date Recorded Oxygen saturation Body temperature Body height Respiratory rate Heart rate Body weight Systolic And Diastolic Provider Name and Address Organization Details Last Updated DateTime 5 98 % 98.5 [degF] 160.02 cm 16 /min 90 /min 68700.2 16 g 177/94 mm[Hg] Not Available [facility] - production 5 14:35:16 Date Recorded Oxygen saturation Respiratory rate Heart rate Body temperature Systolic And Diastolic Provider Name and Address Organization Details Last Updated DateTime 2 98 % 20 /min 69 /min 99.1 [degF] 105/78 mm[Hg] Not Available [facility] - production 2 16:49:11 Date Recorded Body height Respiratory rate Oxygen saturation Body temperature Heart rate Body weight Heart rate Systolic And Diastolic Systolic And Diastolic Provider Name and Address Organization Details Last Updated DateTime 4 160.02 cm 16 /min 97 % 97 [degF] 115 /min 30200.3 2 g 89 /min 159/89 mm[Hg] 153/89 mm[Hg] Not Available [facility] - production 4 16:21:15 Date Recorded Oxygen saturation Body temperature Heart rate Respiratory rate Systolic And Diastolic Provider Name and Address Organization Details Last Updated DateTime 4 100 % 97.1 [degF] 84 /min 16 /min 114/92 mm[Hg] Not Available [facility] - production 4 12:26:41 Social History None recorded. Functional Status None recorded. Mental Status None recorded. Family History Nothing Reported. Medical History No medical history recorded. Gynecological HistoryNo gynecological history recorded. Obstetrics History GPAL:G 0 P 0 0 0 0 Past Encounters Encounter ID Performer Location Encounter Start Date Encounter Closed Date Diagnosis/Indication Diagnosis SNOMED-CT Code Diagnosis ICD10 Code Diagnosis IMO Codes Diagnosis Note [id number] Aarti Chance MD [facility] [address] [place] [id number] 08/07/2021 16:49:06 12/06/2021 11:53:37 Exposure to SARS-CoV-2 155277191 Z20.822 [id number] CHARO ROBLEDO MD [facility] [address] [place] [id number] 09/16/2023 15:52:22 09/16/2023 23:28:28 Right flank pain 986418431 R10.9 Tachycardia 2846758 R00. 0 [id number] Susie Larios MD [facility] [address] [place] [id number] 09/23/2023 12:26:38 09/23/2023 21:48:55 Infection caused by extended spectrum beta-lactamase producing Escherichia coli 828372368 Z16.12 [id number] Cheikh Patrick MD [facility] [address] [place] [id number] 05/13/2024 14:35:13 05/13/2024 17:47:48 Acute urinary tract infection 326871816 N39.0 Health Concerns Section Related Observation LastModified by Organization Detai ls LastModified Time None Recorded Concern Status LastModified by Organization Details LastModified Time None Recorded Advance Directives Directive None Recorded Payers Insurance Date Sequence Insurance Name Policy Number Policy Parsons Covered Member ID Parsons Member ID Guarantor Name 05/13/2024 1 [facility] - DOS PRIOR TO 2022 - DUAL ELIGIBLE (MEDICARE REPLACEMENT/AD VANTAGE - HMO) Yuli Hayden [id number] Yuli Hayden 05/13/2024 1 [facility] - DOS ON OR AFTER 2022 - DUAL ELIGIBLE - HALFWAY OPTIONS AND ONE CARE (MEDICARE REPLACEMENT/AD VANTAGE - HMO) Yuli Hayden [id number] Yuli Hayden Notes Date Note Type Note [...] to be further evaluated. Aarti Chance MD [address] [facility],[address], [place], [phone], [employer] 08/07/2021 16:51:58 09/16/2023 text/html ROS as noted in the HPI CRC Nurse Triage Notes (Divien Mckeon): Reason For Request: UTI Patient Reports: Frequent and increased urination with flank pain; Inability to fully empty bladder Denies: Painful urination Painful urination with or without fever Chief Complaints: UTI/Pyelonephritis PMH: Diabetes, Hypertension, Severe Persistent Mental Illness (SPMI) Allergies: Unknown Comments: Nickel Plant Operator verified the member's name//address and phone number. [...] s/s and seek emergency treatment if needed Sr. Social Media & Mobile Manager POC Test Results from [facility] - [facility] Urine Dipstick (15:44:09) Urine leukocytes: 3+ ALDA [...] .................... .................... .................... .................... .................... .................... . Sr. Social Media & Mobile Manager Note From [facility]: Pt reports right sided flank pain for [...] .................... .................... .................... .................... .................... . Disposition: Susy ROBLEDO MD [address] [place] [address],[address], [place], [phone], [employer] 09/16/2023 16:51:29 09/23/2023 text/html CRC Nurse Triage [...] morning for follow up post d/c from [facility] ED. Patient was recommended to present to ED by Marisela initially for UTI treatment with IV antibiotics. This RN sent records of UC and patient case to [facility] ED (confirmed fax sent) for review. Patient stating they are going to treat her with oral antibiotics not IV. Would like follow up in the am. .................... .................... .................... .................... .................... .................... .................... . Sr. Social Media & Mobile Manager Note From [facility]: I visited Ms Hayden on 09/15 for a possible UTI. UA, UC, POC labs, EKG, IV fluids, IV ceftriaxone, [facility] rx cefpodoxime. [facility] contacted her two days ago with UC results that showed klebsiella and instructed to d/c the cefpodoxime and go to the ED for further management. Pt was in [facility] ED last night and sts she took out her own IV and left AMA. Today pt reports feeling worse than last week, still c/o right flank pain. Today pt s VS are WNLs, afebrile. Pt educated on possible treatments for her specific bacteria and instructed to return to the ED. Pt sts she needs to get a few things together and will go soon. .................... .................... .................... .................... .................... .................... .................... . Disposition: Fulfilled Susie Larios MD [address] [facility],[address], [place], [address], [place] [facility] 09/23/2023 12:29:45 05/13/2024 text/html ROS as noted in the HPI CRC Nurse Triage Notes (Bhavani Marcano - RN): Chief Complaints: Diarrhea, Fatigue, Urinary symptoms PMH: Hypertension, Severe Persistent Mental Illness (SPMI), Diabetes Mellitus Type 2, Chronic Kidney Disease, Hyperlipidemia, Fibromyalgia PMH Reviewed at 05/13/2024 Allergies Reviewed at 05/13/2024 Comments: Patient calling in to place a referral, identified via name and . In addition to PMH patient has RLS, plantar fasciitis and constipation. Patient who believes she has a UTI and yeast vs BV infection. Patient lost her father 04/21/24, and has not been checking or treating her blood sugars, and contributes these infections to her diabetes. Patient states her vaginal area is raw , burning and white mucous with andrade care, denies itchiness, no odor. Patient reports frequency/urgency with urination and right flank pain, she denies malodor, no pain or dysuria, no fever/chills, no nausea or vomiting, no abdominal pain, +diarrhea. She has not checked her glucose levels, her DM regime is metformin, lantus and tresiba. She would like to be evaluated. Sr. Social Media & Mobile Manager Organization Information for [facility] [employer] Business Legal Name: [employer] Address: [address] [place] [id number], Manager Of Disaster Recovery: Eladio Casey MD [facility] No.: [id number] Sr. Social Media & Mobile Manager POC Test Results from [facility] Shakir MENDEZ Blood Glucose Measurement (14:30:00) Blood Glucose: 319 mg/dL Urine Dipstick (14:31:15) Urine leukocytes: - ALDA Urine nitrites: - NIT Urine urobilinogen: - URO Urine protein: + PRO Urine pH: 5.0 pH Urine blood: - BLO Urine specific gravity: 1.020 SG Urine ketones: + KET Urine bilirubin: - WOJCIECH Urine glucose: ++++ GLU Cheikh Patrick MD [address] [facility],[address], [place], [address], [place] [facility] 05/13/2024 16:25:16 OBGyn Episode No OBEpisode recorded.
--- OUTSIDE RECORDS SUMMARY | 2025-02-18 11:42 | XMS_ITS | Patient Health Record ---
Author Organization [facility] Address [address] [place] [address] Care Team Providers Care Environmental Management Specialist Name Role Phone GEORGETTE LOW MD Primary Care Provider Unavail able Amarilis Ruiz Unavailable [phone] CYDNEY SCOTT Unavailable [phone] Allergies No Known Allergies Results Component Value Reference Range Notes PDF Report Reviewed date:10/14/2024 12:09:07 PM Interpretation: Performing Lab:[facility] [address], [address], [place], Phone - [phone], Director - Jessica Notes/Report: Clinical Information:Vaginal/Cervical, LMP: Men o, Hx of ASCUS, + HPV Source.............Cervix;Vagina Dates / Results....06/12/24 NIL, Neg HPV Other..............Post Menopausal No. of containers..01 ThinPrep Vial Syphilis RPR w/reflex Reviewed date:11/13/2024 09:08:45 AM Interpretation: Performing Lab:[facility], [address], [place], Phone - [phone], Director - Jessica Notes/Report: Clinical Information:SRC:UR RPR Non Reactive Non Reactive PDF Report Reviewed date:10/14/2024 07:57:19 AM Interpretation: Performing Lab:[facility], [address] [place] [address], [place], Phone - [phone], Director - Alex Notes/Report: HCV Antibody-[id number] Reviewed date:11/13/2024 09:08:51 AM Interpretation: Performing Lab:[facility]aina Pe[facility], [address], [place], Phone - [phone], Director - [facility] Notes/Report: Clinical Information:SRC:UR Hep C Virus Ab Non Reactive Non Reactive HCV antibody alone does not differentiate between previously resolved infection and active infection. Equivocal and Reactive HCV antibody results should be followed up with an HCV RNA test to support the diagnosis of active HCV infection. [id number] IGP, CtNg Culture 30 Plus Reviewed date:10/14/2024 12:08:48 PM Interpretation: Performing Lab:[facility] [place], [address], [address], [place], Phone - [phone], Director - [facility] Notes/Report: Clinical Information:Vaginal/Cervical, LMP: Men o, Hx of ASCUS, + HPV Source.............Cervix;Vagina Dates / Results....06/12/24 NIL, Neg HPV Other..............Post Menopausal No. of containers..01 ThinPrep Vial DIAGNOSIS: NEGATIVE FOR INTRAEPITHELIAL LESION OR MALIGNANCY. 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 Specimen adequacy: Satisfactory for evaluation. Endocervical and/or squamous metaplastic cells (endocervical component) are present. Clinician provided ICD10: Z01.419 Z11.51 Z72.51 Z11.3 Performed by: Shyam Palomares , Wellness Health Coach ([facility]) QC reviewed by: Mulu Griffin, Wellness Health Coach ([facility]) . . Note: The Pap smear is [...] Negative Gonococcus, Nuc. Acid Amp Negative Negative M genitalium CHADD, Urine-[id number] Reviewed date:11/13/2024 09:08:38 AM Interpretation: Performing Lab:[facility] [place], [address], [address], [place], Phone - [phone], Director - [facility] Notes/Report: Clinical Information:SRC:UR Mycoplasma genitalium CHADD Negative Negative HIV Ab/p24 Ag with Reflex-[id number] Reviewed date:11/13/2024 09:08:57 AM Interpretation: Performing Lab:[facility] [place], [address], [address], [place], Phone - [phone], Director - [facility] Notes/Report: Clinical Information:SRC:UR HIV Ab/p24 Ag Screen Non Reactive Non Reactive HIV-1/HIV-2 antibodies and HIV-1 p24 antigen were NOT detected. There is no laboratory evidence of HIV infection. HIV Negative Urine Culture, Routine-[id number] Reviewed date:10/14/2024 07:59:03 AM Interpretation: Performing Lab:[facility] [place], [address] [place] [address], Phone - [phone], Director - NMMaria Del Carmen Notes/Report: Urine Culture, Routine Final report Result 1 Culture shows less than 10,000 colony forming units of bacteria per milliliter of urine. This colony count is not generally considered to be clinically significant. HBsAg Screen-[id number] Reviewed date:11/13/2024 09:08:31 AM Interpretation: Performing Lab:[facility] [place], [address], [address], [place], Phone - [phone], Director - [facility] Notes/Report: Clinical Information:SRC:UR HBsAg Screen Negative Negative Urinalysis, Complete-[id number] Reviewed date:10/14/2024 07:59:26 AM Interpretation: Performing Lab:[facility] [place], [address] [facility] [address] [facility], Phone - [phone], Director - NMIsrael Notes/Report: Specific Willard >=1.030 1.005-1.030 pH 5.5 5.0-7.5 Urine-Color Yellow [...] seen /lpf Bacteria None seen None seen/Few Glucose, random Reviewed date:10/12/2024 12:50:03 PM Interpretation: Performing Lab: Notes/Report: Urinalysis Reviewed date:10/12/2024 12:50:10 PM Interpretation: Performing Lab: Notes/Report: NITRITE Neg PH 5.0 PROTEIN Trace S.G 1.010 WBC Trace GLUCOSE Large KETONES Neg UROBILINOGEN Neg BILIRUBIN Trace BLOOD Trace PDF Report Reviewed date:11/13/2024 09:08:24 AM Interpretation: Performing Lab:[facility] [place], [address], [address], [place], Phone - [phone], Director - [facility] Notes/Report: Clinical Information:SRC:UR Reason For Referral No Information Medications Medication [...] test positive, high risk on vaginal specimen (773209030975545) Cervical high risk human papillomavirus (HPV) DNA test positive (R87.810) Active confirmed Problem Postmenopausal atrophic vaginitis (14212484) Postmenopausal atrophic vaginitis (N95.2) Active confirmed Problem Atypical squamous cells of undetermined significance on cervical Papanicolaou smear (050357335) Atypical squamous cells of undetermined significance on cytologic smear of cervix ([facility]-US) (R87.610) Active confirmed Problem Essential hypertensi on (60005284) Essential (primary) hypertension (I10) Active confirmed Problem Gynecological examination normal (069615906068790) Encounter for gynecological examination (general) (routine) without abnormal findings (Z01.419) Active confirmed Problem Disorder due to type 2 diabetes mellitus (325691943) Type 2 diabetes mellitus with unspecified complications (E11.8) Active confirmed Problem Hyperlipidemia (76528051) Hyperlipidemia, unspecified (E78.5) Active confirmed Problem Recurrent depression (285164452) Other recurrent depressive disorders (F33.8) Active confirmed Problem Restless legs syndro me (55442544) Restless legs syndrome (G25.81) Active confirmed Problem Osteoarthritis (469008062) Unspecified osteoarthritis, unspecified site (M19.90) Active confirmed Problem Fibromyalgia (084961826) Fibromyalgia (M79.7) Active confirmed Problem High risk heterosexu al behavior (892843634229321) High risk heterosexual behavior (Z72.51) Active confirmed Problem Sexually transmitted infectious disease (0190606) Encounter for screening for infections with a predominantly sexual mode of transmission (Z11.3) Active confirmed Problem Pure hypercholesterolemia (165457408) Pure hypercholesterol emia, unspecified (E78.00) Active confirmed Problem COVID-19 (192785830) COVID-19 (U07.1) Active co nfirmed Vital Signs Temperature 97.2 degrees Fahrenheit 10/12/2024 Blood pressure diastolic 78 mm Hg 10/12/2024 Height 63 in 10/12/2024 Blood pressure systolic 124 mm Hg 10/12/2024 Weight 211 lbs 10/12/2024 BMI 37 kg/m2 10/12/2024 Encounters Encounter Location Date Provider Diagnosis Total [address] [address] 10/12/2024 Amarilis Ruiz Encounter for gynecological examination [...] diseases of the female genital tract Z87.[address] [address] 10/12/2024 Amarilis Ruiz Unspecified abdomina l pain [...] GENERATION 06/06/2022 PELVIC ULTRASOUND W/TRANSVAGINAL 025 HBsAg Screen-[id number] 06/13/2023 HIV Ab/p24 Ag with Reflex-[id number] 024 RPR Qn+TP Abs-[id number] 06/13/2023 HCV Antibody-[id number] 06/13/2023 Next Appt Details Provider Name:Amarilis batres, 10/25/2025 01:00:00 PM, [address], [address], [place], [address], Insurance Providers Payer Name Payer Address Payer Phone Subscriber Number Group Number Insured Name Patient Relationship to Insured Coverage Start Date Coverage End Date [facility] [address] [address] [place] [phone] [id number] FAB LOTT Self - patient is the [...]
--- OUTSIDE RECORDS SUMMARY | 2025-02-18 11:42 | XMS_ITS | Clinical Summary ---
Author Organization [facility], Address [address] [place] [address] [place] [address] Phone Care Team Providers Care Line Installation Supervisor Name Role Phone Ramón Sanchez MD Primary Care Provider [phone] Allergies No known active allergies Medications atorvastatin [...] to type 2 diabetes mellitus 0 09/28/2019 Encounters Date Type Department Care Team Description 12/11/2024 2:30 PM EDT Office Visit [facility], [address] [place] [address] Shyam Jimenez DO Renal disorder due to type 2 diabetes mellitus <Diabetic nephropathy> (HCC) (Primary Dx); Hypertension; Stage 3a chronic kidney disease (HCC) from Last 3 Months Immunizations Immunization Administration Dates Next Due Hep B, Unspecified [...] Sign Reading Time Taken Comments Blood Pressure 122/68 12/11/2024 2:43 PM EDT Pulse 72 12/11/2024 2:43 PM EDT Temperature - - Respiratory Rate - - Oxygen Saturation - - Inhaled Oxygen Concentration - - Weight 83 kg (182 lb 15.7 oz) 11/24/2021 2:26 PM EDT Height 167.6 cm (5' 6 ) 10/01/2018 12:00 PM EDT Body Mass Index 29.53 10/01/2018 12:00 PM EDT Plan of Treatment Upcoming Encounters Date Type Department Care Team (Late st Contact Info) Description 12/10/2025 1:30 PM EDT Office Visit [facility], [address] [place] [address] Shyam Jimenez, [address] [place] [address] Health Maintenance Due Date Last Done Comments Breast Cancer Screening 1965 Colorectal Cancer Screening: Annual FOBT 2013 Colorectal Cancer Screening: Colonoscopy 2013 Colorectal Cancer Screening: Sigmoidoscopy 2013 Pneumococcal Vaccine: 50+ Years (2 of 2 - PCV) 07/31/2015 07/30/2014 Diabetes: Ophthalmology Exam 06/22/2019 Diabetes: Pedal Pulse Checked 06/22/2019 Diabetes: Sensory Foot Exam 06/22/2019 Diabetes: Visual Foot Exam 06/22/2019 Diabetes: Hemoglobin A1C 02/24/2022 022, 06/15/2021, 03/21/2017 Influenza Vaccine (#1) 2024 4, 03/16/2022, 01/15/2019, Additional history exists Pneumococcal Vaccine: Peds (0 to 5 Years) and At-Risk Patients (6 to 49 Years) Discontinued 07/30/2014 Hepatitis B Vaccine Aged Out 07/31/2015, 07/30/2014, [...] PM EDT) Hemoglobin A1C 10.5(H) (4.0-5.6) % [facility] Comment: MONITORING: In known diabetic patients, hemoglobin A1c targets should be discussed with health care provider. DIAGNOSTIC USE: The [place] Diabetes Association (ADA) and the World Health [...] Supplement 1 Testing performed or reported by [facility], a Service of [facility], [address] [place] [address] Kim Zhou MD, Heavy Equipment Operating Engineer [facility]# [id number] Blood specimen (specimen) Venous blood / Unknown 11/24/2021 2:35 PM EDT 11/24/2021 2:36 PM EDT us Shyam Jimenez DO LAB BLOOD ORDERABLES Final Resu lt [facility] from Last 3 Months or Most Recently Relevant to Health Maintenance Insurance * Guarantor: Yuli Hayden Account Type Relation to Patient Date of Phone Billing Address Personal/Family Self [address] [address] [employer] Dual SNP ([id number]) Care Teams Line Installation Supervisor Relationship Specialty Start Date End Date Ramón Sanchez MD [id number] [place] PCP - General Internal Medicine 09/28/19
--- NOTE | 2025-02-18 12:13 | PM.HPGS ---
History of Present Illness History of Present Illness Date of Service: 02/18/25 Chief complaint: Nausea Vomiting Diarrhea Narrative: Yuli Hayden is a 59 year old female sudden onset yesterday p.m. with nausea vomiting diarrhea and abdominal pain. Review of Systems Review of Systems: Yes all other systems are reviewed and are negative [facility] Past Medical History Medical History Abdominal pain Kidney disease Dysphagia Hx of cyst of breast Chronic fatigue syndrome Osteoarthritis Hx of sciatica History of anxiety History of depression Fibromyalgia Plantar fasciitis Obesity Insulin dependent diabetes mellitus Elevated cholesterol HTN (hypertension) Rotator cuff syndrome of right shoulder Chronic pain Restless leg syndrome Surgical History Surgical History Hx of removal of cyst History of back surgery Hx of section Social History Social History Household Members: None Patient Tobacco Use Status: Current everyday Tobacco user Tobacco use type: Cigarette Smoked in Last 30 Days: No Use of substances other than those prescribed or required for medical reasons: No Substance Use Type: Marijuana Advance Directives: No Advance Directives Information Provided: Yes Do you have a plan to hurt others: No Plan Patient : No Meds Allergies Allergy/AdvReac Type Severity Reaction Status Date / Time No Known Allergies Allergy Verified 02/18/25 08:32 Active Medications: Current Medications Sodium Chloride (Ns) 1,000 mls @ 999 mls/hr IV .Q1H1M YASH Stop: 02/18/25 12:15 Last Admin: 02/18/25 11:19 Dose: 999 mls/hr Piperacillin Sod/Tazobactam (Sod 3.375 gm/ Sodium Chloride) 50 mls @ 100 mls/hr IV ONCE ONE Stop: 02/18/25 12:28 Last Admin: 02/18/25 12:12 Dose: 100 mls/hr Home Medications ?Medication ?Instructions ?Recorded ?Confirmed ?Last Taken ?Type atorvastatin 40 mg tablet 40 mg PO BEDTIME 01/25/20 07/10/22 07/09/22 22:00 History cranberry extract 250 mg tablet 250 mg PO DAILY 01/25/20 07/10/22 07/10/22 07:30 History dulaglutide 1.5 mg/0.5 mL 1.5 mg subcut QWEEK 01/25/20 07/10/22 Unknown History subcutaneous pen injector (Trulicity) multivitamin 1 tab PO DAILY 01/25/20 07/10/22 07/10/22 07:30 History ropinirole 4 mg tablet 8 mg PO BID 01/25/20 07/10/22 07/10/22 07:30 History valsartan 160 mg tablet 160 mg PO DAILY 01/25/20 07/10/22 07/10/22 07:30 History mirtazapine 15 mg tablet (Remeron) 15 mg PO BEDTIME 03/21/20 07/10/22 07/09/22 22:00 History escitalopram oxalate 10 mg tablet 10 mg PO DAILY 07/10/22 07/10/22 07/10/22 07:30 History estradiol 10 mcg vaginal tablet 10 mcg vaginal 2XW 07/10/22 07/10/22 Unknown History hydroxyzine pamoate 25 mg capsule 25 mg PO BID PRN Anxiety 07/10/22 07/10/22 07/10/22 07:30 History insulin degludec 100 unit/mL (3 48 unit subcut DAILY 07/10/22 07/10/22 07/10/22 07:30 History mL) subcutaneous pen (Tresiba FlexTouch U-100 insulin) metformin 500 mg tablet 500 mg PO BID 07/10/22 07/10/22 07/10/22 07:30 History pregabalin 75 mg capsule 75 mg PO BID 07/10/22 07/10/22 07/10/22 07:30 History Physical Exam Vital Signs: Vital Signs: Last Vital Signs Temp 98.0 F 02/18/25 08:26 Pulse 97 02/18/25 10:18 Resp 21 H 02/18/25 10:27 BP 134/69 02/18/25 10:18 Pulse Ox 97 02/18/25 10:18 O2 Del Method Room Air 02/18/25 10:18 BMI result Body Mass Index 35.7 Const: General: comfortable Nutritional Appearance: obese morbidly obese HEENT: Head: Yes normal to inspection and Yes normocephalic Eyes: General: appearance normal, both eyes and all related structures Pupils: Equal, round and reactive pupils present EOM: EOMs intact bilaterally Neck: Neck: Yes normal visual inspection Chest: Chest palpation & inspection: normal inspection of the chest Resp: Effort & Inspection: normal respiratory effort and able to speak in complete sentences Cardio: Rate: regular rate Rhythm: regular rhythm GI: Other: Tender to palpation in the gastrium with slight guarding but no real peritoneal signs. No significant tenderness or guarding to palpation in the suprapubic region or right lower quadrant or left lower quadrant. Inspection: Yes normal to inspection Back/Spine/Pelvis: Thoracic/Lumbar Spine: thoracic and lumbar spine normal to inspection Neuro: Cranial nerves: Yes Equal, round and reactive pupils present Psych: Appearance: grossly normal Mental Status: mental status grossly normal Results Results Labs: Short CBC 02/18/25 Range/Units 09:17 WBC 15.7 H (4.8-10.8) X10*3/uL Hgb 15.9 (12.0-16.0) g/dl Hct 46.7 D (37.0-47.0) % Plt Count 311 D (160-400) X10*3/uL BMP 02/18/25 09:17 Sodium 144 Potassium 3.7 Chloride 109 H Carbon Dioxide 25 BUN 20 H Creatinine 0.83 Calcium 10.1 D Liver Function 02/18/25 Range/Units 09:17 Total Bilirubin 0.7 (0.0-1.0) mg/dL AST 29 (5-31) U/L ALT 24 (0-31) U/L Alkaline Phosphatase 122 H (39-117) U/L Albumin 4.9 (3.5-5.0) g/dL Urine 02/18/25 Range/Units 10:03 Urine Color Yellow Urine Appearance Cloudy Urine pH 5.0 (5.0-9.0) Ur Specific Guion >= 1.030 H (1.005-1.025) Urine Protein 100 (2+) H (Neg-Trace) mg/dL Urine Glucose (UA) Negative (Negative) mg/dL Assessment and Plan (1) Appendicitis: Qualifiers: Appendicitis type: acute appendicitis Acute appendicitis type: other Qualified Code(s): K35.890 - Other acute appendicitis without perforation or gangrene Status: Acute Plan Patient has a somewhat unusual presentation of acute appendicitis which was diagnosed radiographically on CT scan earlier today. She was consulted with regard to treatment options in chose to undergo operative intervention form of laparoscopic possible open appendectomy. We reviewed with her the risks involved with such undertaken which included but are not limited to the risk of bleeding the risk of infection risk of damage to surrounding structures the risk of conversion to an open procedure risks if appendiceal stump leak and the wrist at her appendix will be normal upon finding. If that were the case would still take out her appendix and try and ascertain the etiology behind her intra-abdominal presentation. She indicated that she understood. She told me that she considered her options and she wished to proceed with surgery despite the risks reviewed. Quality Stroke Does the patient have a stroke diagnosis?: No VTE Prior VTE?: No VTE Risk Level:: Surgical - moderate VTE Device Contraindication: N/A - Device Ordered VTE Drug Contraindication: N/A - Med Ordered Procedures Date of Service Date of Service: 02/18/25
[2025-02-18] MEDS: Dextrose 5 % and 0.45 % NaCl 1,000 ML 100 ML IVCONT (12:49)
--- NOTE | 2025-02-18 13:02 | PC.NURSE ---
59 y/o F, A/ox3, Full Code Came from home for N/V/Diarrhea and diffuse abdominal pain- sudden onset this AM when she woke up. Labs: WBC 15.7, BUN 20, Mag 1.2, Stool Occ negative Reports: Abd/Pelvis CT- Acute Appendicitis 20g IV Left AC -Meds given: 4mg Zofran, 4mg Morphine @1027am, 2gm IV Mag, 1L NS, IV Abx, PRN 2mg Morphine @1247pm. Currently has D5 1/2 NS running @ 100mls/hr. Plan for surgery today- has been NPO since last night. She is independent/ambulatory at baseline. Still needs a GI panel- has been unable to provide us with stool sample.
--- NOTE | 2025-02-18 13:38 | PHA.MEDREC ---
Addendum entered by Danelle Chung [facility] 02/18/25 13:50: REVIEWED BY PHARMACIST Original Note: Pharmacy Consult ? Medication Reconciliation Pharmacy has completed the medication reconciliation. Spoke with pt and she confirmed her medications. Pt states she has not taken her Estradiol tablet since the first week on January, she takes 75 units of Tresiba once daily, she states she still has and uses Humalog per sliding scale TIDAC and she has not been able to take any of her medications in about 2 days since getting sick.
[2025-02-18 14:11] LABS: Magnesium 1.9 mg/dL (1.6-2.6)
--- NOTE | 2025-02-18 14:52 | PC.NURSE ---
20G LEFT AC-PATENT AND NO LEAKING
[2025-02-18] MEDS: Lactated Ringers 1,000 ML 80 ML IVCONT (14:54)
[2025-02-18 15:01] LABS: Glucose, Whole Blood 191 mg/dL (60-115)
[2025-02-18 15:15] LABS: Cannabinoid Screen Urine POSITIVE (Not Detect)
--- NOTE | 2025-02-18 15:24 | ECG_ITS ---
Test Reason : POSTOP Blood Pressure : */* mmHG Vent. Rate : 80 BPM Atrial Rate : 80 BPM P-R Int : 140 ms QRS Dur : 84 ms QT Int : 386 ms P-R-T Axes : 59 -38 42 degrees QTcB Int : 445 ms Normal sinus rhythm Left axis deviation Abnormal ECG When compared with ECG of 25-Apr-2024 23:06, No significant change was found Referred By: Angella Yoder Electronically Signed By: NASH RAO
--- NOTE | 2025-02-18 15:28 | PC.NURSE ---
CALLED FOR AN EKG PER MD ANTI ORDER.
--- NOTE | 2025-02-18 15:32 | PC.NURSE ---
PATIENT CANCELED PER MD BRIONES AND MD FRANCO. POSITIVE FOR COCAINE. MD FRANCO BY BEDSIDE AWARE OF PLAN OF CARE.
--- NOTE | 2025-02-18 15:37 | PC.NURSE ---
REPIORT GIVEN TO INDIO ON [facility]. ROOM 363-1 ADMISSION. EKG WAS PERFORMED.
--- NOTE | 2025-02-18 15:47 | PC.NURSE ---
REPORT GIVEN TO FLOOR RN INDIO. TRANSFERRED PATIENT TO ROOM WITH BELONGINGS.
[2025-02-18] MEDS: 0.9 % Sodium Chloride Flush 3 ML SYRINGE IVFLUSH (16:07)
[2025-02-18] MEDS: metroNIDAZOLE/NS 500 MG/100 ML PIGGYBACK 100 MG IV (17:56)
[2025-02-18] MEDS: oxyCODONE HCl Immed Release 5 MG TABLET PO (20:20)
[2025-02-19 04:00] VITALS: BP 109/56; PULSE 68; RESP 18; TEMP 35.9; O2SAT 97
[2025-02-19] MEDS: Dextrose 5 % and 0.45 % NaCl 1,000 ML 100 ML IVCONT (05:50)
[2025-02-19] MEDS: metroNIDAZOLE/NS 500 MG/100 ML PIGGYBACK 100 MG IV ×2 (05:55→18:39)
[2025-02-19 06:23] LABS: Hematocrit 37.9 % (37.0-47.0); Hemoglobin 12.6 g/dl (12.0-16.0); Mean Corpuscular HGB Conc 33.2 g/dl (31.0-35.0); Mean Corpuscular Hemoglobin 30.4 pg (27.0-33.0); Mean Corpuscular Volume 91.5 fL (80.0-98.0); NRBC Abs Auto 0.000 X10*3/uL (0.0-0.012); NRBC Pct Auto 0.0 /100WBC (0.0-0.2); Platelet Count 249 X10*3/uL (160-400); Red Blood Count 4.14 X10*6/uL (4.20-5.50); White Blood Count 8.8 X10*3/uL (4.8-10.8)
[2025-02-19 06:45] LABS: Anion Gap 15 (12-20); Blood Urea Nitrogen 10 mg/dL (9-16); Calcium 8.7 mg/dL (8.4-10.2); Carbon Dioxide 20 mmol/L (22-29); Chloride 107 mmol/L (96-108); Creatinine Clr Calc Pharmacy 89.1; Estimated Glomerular Filt Rate > 60; Potassium 3.7 mmol/L (3.3-5.1); Sodium 138 mmol/L (135-145)
[2025-02-19 07:52] VITALS: BP 147/75; PULSE 70; RESP 16; TEMP 36.1; O2SAT 99
[2025-02-19] MEDS: 0.9 % Sodium Chloride Flush 3 ML SYRINGE IVFLUSH ×2 (08:10→18:31)
[2025-02-19 08:46] LABS: E. coli EAEC Not Detected (Not Detect.); E. coli EPEC Not Detected (Not Detect.); E. coli ETEC Not Detected (Not Detect.); E. coli STEC Not Detected (Not Detect.); Shigella sp./EIEC Not Detected (Not Detect.)
--- NOTE | 2025-02-19 09:45 | P.PNGS_ITS ---
Subjective Subjective Date of Service: 02/19/25 Interval history: Largely unchanged from yesterday. Continues to endorse epigastric pain. Denies right lower quadrant pain. Denies nausea or vomiting but has been having some reflux symptoms. Denies fevers, chills. Tolerating clear liquid diet although did not care for the broth. Physical Exam 2 Vital Signs: Vital Signs: Last Vital Signs Temp 96.9 F 02/19/25 07:52 Pulse 70 02/19/25 07:52 Resp 16 02/19/25 07:52 BP 147/75 H 02/19/25 07:52 Pulse Ox 99 02/19/25 07:52 O2 Del Method Room Air 02/19/25 07:52 BMI result Body Mass Index 35.7 Const: General: comfortable and no acute distress O rientation/consciousness: patient oriented x3 Resp: Effort & Inspection: normal respiratory effort and able to speak in complete sentences GI: Inspection: No distended Palpation (GI): Soft to palpation, Tenderness to palpation present (GI) in the epigastrum and Guarding due to palpation present (GI) (Voluntary) Neuro: General: patient oriented x3 Objective Data Active Medications Acetaminophen (Acetaminophen 325 Mg Tablet) 650 mg PO Q6H PRN PRN Reason: Pain, Mild 1-3,fever,headache Calcium Carbonate (Calcium Carbonate 750 Mg Tab.Chew) 750 mg PO Q4H PRN PRN Reason: Heartburn Dextrose (Dextrose 50 % 25 Gm/50 Ml Syringe) 25 gm IVPUSH Q15M PRN; Protocol PRN Reason: per Hypoglycemia Standing Ord. Enoxaparin Sodium (Enoxaparin Sodium 30 Mg/0.3 Ml Syringe) 30 mg SUBCUT Q12H [facility] Last Admin: 02/19/25 02:07 Dose: 30 mg Documented By: PAULINE Glucose (Glucose Gel 15 Gm Gel..Gram.) 15 gm PO Q15M PRN; Protocol PRN Reason: per Hypoglycemia Standing Ord. Levofloxacin (Levaquin) 750 mg in 150 mls @ 100 mls/hr IV Q24H [facility] Last Infusion: 02/18/25 17:54 Dose: Infused Documented By: TERI Metronidazole (Flagyl) 500 mg in 100 mls @ 100 mls/hr IV Q12H [facility] Last Infusion: 02/19/25 07:08 Dose: Infused Documented By: PAULINE Lactated Ringer's (Lr) 1,000 mls @ 100 mls/hr IVCONT .Q10H YASH Magnesium Hydroxide (Milk Of Magnesia 30 Ml Oral.Susp) 30 ml PO DAILY PRN PRN Reason: Constipation Melatonin (Melatonin 3 Mg Tablet) 6 mg PO BEDTIME PRN PRN Reason: Insomnia Mirtazapine (Mirtazapine 15 Mg Tablet) 15 mg PO BEDTIME [facility] Last Admin: 02/18/25 22:06 Dose: 15 mg Documented By: PAULINE Morphine Sulfate (Morphine Sulfate 4 Mg/Ml Cartridge) 2 mg IVPUSH Q4H PRN; Protocol PRN Reason: Pain, Severe (Pain Scale 7-10) Last Admin: 02/19/25 08:12 Dose: 2 mg Documented By: WEN Ondansetron HCl (Ondansetron Hcl 4 Mg/2 Ml Vial) 4 mg IVPUSH Q8H PRN PRN Reason: Nausea and Vomiting Last Admin: 02/19/25 08:18 Dose: 4 mg Documented By: WEN Oxycodone HCl (Oxycodone Hcl Immed Release 5 Mg Tablet) 5 mg PO Q6H PRN PRN Reason: Pain, Moderate(Pain Scale 4-6) Last Admin: 02/18/25 20:20 Dose: 5 mg Documented By: PAULINE Pantoprazole Sodium (Pantoprazole Sodium 40 Mg/10 Ml Vial) 40 mg IVPUSH DAILY@0630 [facility] Ropinirole HCl (Ropinirole Hcl 2 Mg Tablet) 8 mg PO BID [facility] Last Admin: 02/19/25 08:11 Dose: 8 mg Documented By: WEN Sodium Chloride (0.9 % Sodium Chloride Flush 3 Ml Syringe) 3 ml IVFLUSH QSHIFT [facility] Last Admin: 02/19/25 08:10 Dose: 3 ml Documented By: EWN Labs 02/19/25 05:21 02/19/25 05:21 Labs: Laboratory Results - last 24 hr 02/18/25 02/18/25 02/18/25 09:17 10:03 10:21 MCV MCH MCHC RDW Plt Count MPV Absolute Nucleated RBC Nucleated RBC % (auto) Anion Gap 14 Estim Creat Clear Calc 77.3 Estimated GFR > 60 POC Glucose Random Glucose 158 H Lactic Acid Calcium 10.1 D Magnesium 1.2 L* Total Bilirubin 0.7 AST 29 ALT 24 Alkaline Phosphatase 122 H Total Protein 8.2 H Albumin 4.9 Lipase 12 Urine Color Yellow Urine Appearance Cloudy Urine pH 5.0 Ur Specific [place] >= 1.030 H Urine Protein 100 (2+) H Urine Glucose (UA) Negative Urine Ketones Trace Urine Blood Negative Urine Nitrite Negative Ur Leukocyte Esterase Trace H Urine RBC 0-2 Urine WBC 6-10 H Ur Squamous Epith Cells 3-5 Urine Bacteria None Seen Hyaline Casts 0-2 Stool Occult Blood NEGATIVE Stl C. cayetanensis PCR Stool Rotavirus A PCR Stl Adenov F PCR Stool Astrovirus (PCR) Stool Campylobacter PCR Stool Cryptosporidium PCR Stl Sh Tox Pr E STEC PCR Stool E coli O157 PCR Stl Enterotoxigenic E PCR Stool EPEC (PCR) Stool EAEC (PCR) Stl E. histolytica PCR Stool Giardia Lamblia PCR Stl P. shigelloides PCR Stool Salmonella PCR Stool Sapovirus (PCR) Stl Shigella/EIEC PCR St Y.enterocolitica PCR Stool Vibrio (PCR) Stl Vibrio cholerae PCR Stl Norovirus GI/GII PCR Urine Opiates Screen POSITIVE H Ur Buprenorphine Scrn Not Detected Ur Oxycodone Screen Not Detected Urine Methadone Screen Not Detected Urine Fentanyl Screen Not Detected Ur Barbiturates Screen Not Detected Ur Phencyclidine Scrn Not Detected Ur Amphetamines Screen Not Detected U Benzodiazepines Scrn Not Detected Urine Cocaine Screen POSITIVE H U Marijuana (THC) Screen POSITIVE H 02/18/25 02/18/25 02/18/25 11:21 13:50 14:57 MCV MCH MCHC RDW Plt Count MPV Absolute Nucleated RBC Nucleated RBC % (auto) Anion Gap Estim Creat Clear Calc Estimated GFR POC Glucose 191 H Random Glucose Lactic Acid 1.2 Calcium Magnesium 1.9 Total Bilirubin AST ALT Alkaline Phosphatase Total Protein Albumin Lipase Urine Color Urine Appearance Urine pH Ur Specific [place] Urine Protein Urine Glucose (UA) Urine Ketones Urine Blood Urine Nitrite Ur Leukocyte Esterase Urine RBC Urine WBC Ur Squamous Epith Cells Urine Bacteria Hyaline Casts Stool Occult Blood Stl C. cayetanensis PCR Stool Rotavirus A PCR Stl Adenov F 40 PCR Stool Astrovirus (PCR) Stool Campylobacter PCR Stool Cryptosporidium PCR Stl Sh Tox Pr E STEC PCR Stool E coli O157 PCR Stl Enterotoxigenic E PCR Stool EPEC (PCR) Stool EAEC (PCR) Stl E. histolytica PCR Stool Giardia Lamblia PCR Stl P. shigelloides PCR Stool Salmonella PCR Stool Sapovirus (PCR) Stl Shigella/EIEC PCR St Y.enterocolitica PCR Stool Vibrio (PCR) Stl Vibrio cholerae PCR Stl Norovirus GI/GII PCR Urine Opiates Screen Ur Buprenorphine Scrn Ur Oxycodone Screen Urine Methadone Screen Urine Fentanyl Screen Ur Barbiturates Screen Ur Phencyclidine Scrn Ur Amphetamines Screen U Benzodiazepines Scrn Urine Cocaine Screen U Marijuana (THC) Screen 02/19/25 02/19/25 05:21 06:06 MCV 91.5 MCH 30.4 MCHC 33.2 RDW 12.4 Plt Count 249 MPV 10.5 Absolute Nucleated RBC 0.000 Nucleated RBC % (auto) 0.0 Anion Gap 15 Estim Creat Clear Calc 89.1 Estimated GFR > 60 POC Glucose Random Glucose 292 H Lactic Acid Calcium 8.7 D Magnesium Total Bilirubin AST ALT Alkaline Phosphatase Total Protein Albumin Lipase Urine Color Urine Appearance Urine pH Ur Specific [place] Urine Protein Urine Glucose (UA) Urine Ketones Urine Blood Urine Nitrite Ur Leukocyte Esterase Urine RBC Urine WBC Ur Squamous Epith Cells Urine Bacteria Hyaline Casts Stool Occult Blood Stl C. cayetanensis PCR Not Detected Stool Rotavirus A PCR Not Detected Stl Adenov F 40/41 PCR Not Detected Stool Astrovirus (PCR) Not Detected Stool Campylobacter PCR Not Detected Stool Cryptosporidium PCR Not Detected Stl Sh Tox Pr E STEC PCR Not Detected Stool E coli O157 PCR Not applicable Stl Enterotoxigenic E PCR Not Detected Stool EPEC (PCR) Not Detected Stool EAEC (PCR) Not Detected Stl E. histolytica PCR Not Detected Stool Giardia Lamblia PCR Not Detected Stl P. shigelloides PCR Not Detected Stool Salmonella PCR Not Detected Stool Sapovirus (PCR) Not Detected Stl Shigella/EIEC PCR Not Detected St Y.enterocolitica PCR Not Detected Stool Vibrio (PCR) Not Detected Stl Vibrio cholerae PCR Not Detected Stl Norovirus GI/GII PCR Not Detected Urine Opiates Screen Ur Buprenorphine Scrn Ur Oxycodone Screen Urine Methadone Screen Urine Fentanyl Screen Ur Barbiturates Screen Ur Phencyclidine Scrn Ur Amphetamines Screen U Benzodiazepines Scrn Urine Cocaine Screen U Marijuana (THC) Screen Procedures Date of Service Date of Service: 02/19/25 Progress Note: A&P Assessment and plan (1) Appendicitis: Status: Acute Plan 59-year-old female with a history of hypertension, anxiety, depression, insulin- dependent diabetes admitted for acute appendicitis. Was spent for OR yesterday by anesthesia cancer case due to positive UDS for cocaine. Now following conservative management IV antibiotics. Patient largely unchanged from yesterday continued to complain of more epigastric pain. Denying nausea or vomiting, fever, chills. Complaining of some reflux symptoms. We will start her on PPI she does have a small hiatal hernia, which may be contributing to symptoms. White count improved today now within normal limits. To note sugars have been elevated, patient has insulin-dependent diabetes, sliding scale and POC is ordered. Fluids have been switched from D5 to LR. We will consult hospitalist for any further recommendations. She is tolerating clear diet. We will advance when symptoms improving. Hospitalist consult for medical management while inpatient Continue clear liquid diet Continue IV antibiotics Ambulation as tolerated Should follow up as outpatient for hiatal hernia Time Spent With Patient Time: Total time managing care of this patient today ____ minutes. Quality Stroke Does the patient have a stroke diagnosis?: No VTE Prior VTE?: No VTE Risk Level:: Surgical - moderate VTE Device Contraindication: N/A - Device Ordered VTE Drug Contraindication: N/A - Med Ordered
--- NOTE | 2025-02-19 09:53 | MHC.CM.PN ---
IMM 02/19/25, Pt. 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 She does not use VNA services, she has been to [facility] in the past at [place] (not a positive experience). For DME, she has cane and walker. She is able to arrange a ride home at [place]. HCP will be completed here and added to her chart, naming her sister Kirstie. PCP is Sydnie Andrade MD in [place]. DCP; home, self care. CM to follow for DC needs.
[2025-02-19] MEDS: Lactated Ringers 1,000 ML 100 ML IVCONT ×2 (11:18→21:49)
--- NOTE | 2025-02-19 11:34 | HO.PM.IMCN ---
History of Present Illness Data of Consult Service Date: 02/19/25 Requesting physician: Lito Rooney Primary Care Provider: Unknown Physician HPI Reason for consult: Medical management This is a 59-year-old female with history of type 2 diabetes, hypertension, fibromyalgia, chronic pain, restless leg syndrome, depression, PTSD, anxiety who presents to the emergency department with abdominal pain found to have imaging evidence concerning for acute appendicitis. Patient reports a long history of intermittent abdominal pain and intermittent chronic constipation as well as acid reflux. She was recently seen by her revenue cycle administrator with plans to schedule outpatient endoscopy with possible dilation. She reports ongoing epigastric and left upper quadrant abdominal pain with associated nausea. In the emergency department her white blood cell count was elevated to 15.7, CT scan showed non perforated acute appendicitis. She was admitted to the surgical service and initially was planned to undergo laparoscopic appendectomy. However her tox screen was positive for cocaine and therefore the procedure was canceled and conservative management with IV antibiotics has been pursued. The hospitalist service was consulted for assistance with medical management. Review of Systems Review of Systems: Yes all other systems are reviewed and are negative Constitutional: Constitutional: Denies chills and Denies fever(s) Cardiovascular: Cardiovascular: Denies chest pain, Denies palpitations and Denies dyspnea Respiratory: Respiratory: Denies cough and Denies dyspnea Gastrointestinal: Gastrointestinal: Reports abdominal pain and Reports nausea Endocrine: Endocrine: Denies palpitations [facility] Medical History Abdominal pain Kidney disease Dysphagia Hx of cyst of breast Chronic fatigue syndrome Osteoarthritis Hx of sciatica History of anxiety History of depression Fibromyalgia Plantar fasciitis Obesity Insulin dependent diabetes mellitus Elevated cholesterol HTN (hypertension) Rotator cuff syndrome of right shoulder Chronic pain Restless leg syndrome Surgical History H/O carpal tunnel repair History of surgery Hx of removal of cyst History of back surgery Hx of section Social History Household Members: None Housing: Apartment Do you presently have visiting nurse or other home services: Yes ([employer] rep) Patient Tobacco Use Status: Current someday Tobacco user Tobacco use type: Cigarette Cigarettes Per Day: 1 Smoked in Last 30 Days: Yes Patient Interested in Nicotine Replacement: No Patient Given Instructions on How to Stop Smoking: No Second Hand Smoke Exposure: No Use of substances other than those prescribed or required for medical reasons: Yes Substance Use Type: Marijuana Substance Use Type Other:: DENIES COCAINE USE Currently Displaying Signs/Symptoms of Drug Intoxication Withdrawal: No Have you been hit, kicked, punched, or otherwise hurt by someone within the past year? If so, by whom?: No Do you feel safe in your current relationship?: Yes Is there a partner from a previous relationship who is making you feel unsafe now?: No Are you made to feel afraid or neglected: No Are you DNR?: No Advance Directives: No Advance Directives Information Provided: Yes Do you have a plan to hurt others: No Plan Recently lost weight without trying: No Eating poorly because of decreased appetite: No Nutrition Risks: No Nutritional Risk Patient : No : No Poor oral hygiene: No service: No Meds Allergies Allergy/AdvReac Type Severity Reaction Status Date / Time No Known Allergies Allergy Verified 02/18/25 08:32 Active Medications: Current Medications Acetaminophen (Acetaminophen 325 Mg Tablet) 650 mg PO Q6H PRN PRN Reason: Pain, Mild 1-3,fever,headache Calcium Carbonate (Calcium Carbonate 750 Mg Tab.Chew) 750 mg PO Q4H PRN PRN Reason: Heartburn Dextrose (Dextrose 50 % 25 Gm/50 Ml Syringe) 25 gm IVPUSH Q15M PRN; Protocol PRN Reason: per Hypoglycemia Standing Ord. Enoxaparin Sodium (Enoxaparin Sodium 30 Mg/0.3 Ml Syringe) 30 mg SUBCUT Q12H [facility] Last Admin: 02/19/25 02:07 Dose: 30 mg Glucose (Glucose Gel 15 Gm Gel..Gram.) 15 gm PO Q15M PRN; Protocol PRN Reason: per Hypoglycemia Standing Ord. Levofloxacin (Levaquin) 750 mg in 150 mls @ 100 mls/hr IV Q24H [facility] Last Infusion: 02/18/25 17:54 Dose: Infused Metronidazole (Flagyl) 500 mg in 100 mls @ 100 mls/hr IV Q12H [facility] Last Infusion: 02/19/25 07:08 Dose: Infused Lactated Ringer's (Lr) 1,000 mls @ 100 mls/hr IVCONT .Q10H [facility] Last Admin: 02/19/25 11:18 Dose: 100 mls/hr Magnesium Hydroxide (Milk Of Magnesia 30 Ml Oral.Susp) 30 ml PO DAILY PRN PRN Reason: Constipation Melatonin (Melatonin 3 Mg Tablet) 6 mg PO BEDTIME PRN PRN Reason: Insomnia Mirtazapine (Mirtazapine 15 Mg Tablet) 15 mg PO BEDTIME [facility] Last Admin: 02/18/25 22:06 Dose: 15 mg Morphine Sulfate (Morphine Sulfate 4 Mg/Ml Cartridge) 2 mg IVPUSH Q4H PRN; Protocol PRN Reason: Pain, Severe (Pain Scale 7-10) Last Admin: 02/19/25 08:12 Dose: 2 mg Ondansetron HCl (Ondansetron Hcl 4 Mg/2 Ml Vial) 4 mg IVPUSH Q8H PRN PRN Reason: Nausea and Vomiting Last Admin: 02/19/25 08:18 Dose: 4 mg Oxycodone HCl (Oxycodone Hcl Immed Release 5 Mg Tablet) 5 mg PO Q6H PRN PRN Reason: Pain, Moderate(Pain Scale 4-6) Last Admin: 02/18/25 20:20 Dose: 5 mg Pantoprazole Sodium (Pantoprazole Sodium 40 Mg/10 Ml Vial) 40 mg IVPUSH DAILY@0630 [facility] Last Admin: 02/19/25 11:22 Dose: 40 mg Ropinirole HCl (Ropinirole Hcl 2 Mg Tablet) 8 mg PO BID [facility] Last Admin: 02/19/25 08:11 Dose: 8 mg Sodium Chloride (0.9 % Sodium Chloride Flush 3 Ml Syringe) 3 ml IVFLUSH [facility] Last Admin: 02/19/25 08:10 Dose: 3 ml Home Medications ?Medication ?Instructions ?Recorded ?Confirmed ?Last Taken ?Type atorvastatin 40 mg tablet 40 mg PO BEDTIME 01/25/20 02/18/25 02/16/25 History ropinirole 4 mg tablet 8 mg PO BID 01/25/20 02/18/25 02/16/25 History mirtazapine 15 mg tablet (Remeron) 15 mg PO BEDTIME 03/21/20 02/18/25 02/16/25 History estradiol 10 mcg vaginal tablet 10 mcg vaginal 2XW 07/10/22 02/18/25 02/16/25 History insulin degludec 100 unit/mL (3 75 unit subcut DAILY 04/02/2102/18/25 02/16/25 History mL) subcutaneous pen (Tresiba FlexTouch U-100 insulin) metformin 500 mg tablet 1,000 mg PO BID 07/10/22 02/18/25 02/16/25 History amlodipine 10 mg tablet 10 mg PO DAILY 02/18/25 02/18/25 02/16/25 History cranberry extract 250 mg capsule 250 mg PO DAILY 02/18/25 02/18/25 02/16/25 History docusate sodium 100 mg capsule 100 mg PO DAILY PRN constipation 02/18/25 02/18/25 Unknown History insulin lispro 100 unit/mL See Protocol subcut TIDAC 02/18/25 02/18/25 02/16/25 History subcutaneous pen lidocaine 4 % topical patch 1 patch topical DAILY 02/18/25 02/18/25 02/16/25 History (Lidocaine Pain Relief) morphine 15 mg tablet,extended 15 mg PO BID 02/18/25 02/18/25 02/16/25 History release multivitamin with folic acid 400 1 tab PO DAILY 02/18/25 02/18/25 02/16/25 History mcg tablet (Daily-Luciana (with folic acid)) oxybutynin chloride 10 mg 10 mg PO DAILY 02/18/25 02/18/25 02/16/25 History tablet,extended release 24 hr pantoprazole 40 mg tablet,delayed 40 mg PO BID@0630,1630 02/18/25 02/18/25 02/16/25 History release valsartan 320 1 tab PO DAILY 02/18/25 02/18/25 02/16/25 History mg-hydrochlorothiazide 12.5 mg tablet Physical Exam Vital Signs and Narrative: Vital Signs: Last Vital Signs Temp 96.9 F 02/19/25 07:52 Pulse 70 02/19/25 07:52 Resp 16 02/19/25 07:52 BP 147/75 H 02/19/25 07:52 Pulse Ox 99 02/19/25 07:52 O2 Del Method Room Air 02/19/25 07:52 BMI result Body Mass Index 35.7 Const: General: cooperative, alert and awake Nutritional Appearance: obese Orientation/consciousness: patient oriented x3 Resp: Effort & Inspection: normal respiratory effort, able to speak in complete sentences, no respiratory distress and no use of accessory muscles Cardio: Rate: regular rate GI: Other: tender epigastrum, LUQ Inspection: No distended Palpation (GI): Soft to palpation Neuro: General: patient oriented x3, moves all extremities and CN's II-XI intact bilaterally Results Labs 02/19/25 05:21 02/19/25 05:21 Labs: Laboratory Results - last 24 hr 02/18/25 02/18/25 02/18/25 10:03 11:21 13:50 MCV MCH MCHC RDW Plt Count MPV Absolute Nucleated RBC Nucleated RBC % (auto) Anion Gap Estim Creat Clear Calc Estimated GFR POC Glucose Random Glucose Lactic Acid 1.2 Calcium Magnesium 1.9 Stl C. cayetanensis PCR Stool Rotavirus A PCR Stl Adenov F / PCR Stool Astrovirus (PCR) Stool Campylobacter PCR Stool Cryptosporidium PCR Stl Sh Tox Pr E STEC PCR Stool E coli O157 PCR Stl Enterotoxigenic E PCR Stool EPEC (PCR) Stool EAEC (PCR) Stl E. histolytica PCR Stool Giardia Lamblia PCR Stl P. shigelloides PCR Stool Salmonella PCR Stool Sapovirus (PCR) Stl Shigella/EIEC PCR St Y.enterocolitica PCR Stool Vibrio (PCR) Stl Vibrio cholerae PCR Stl Norovirus GI/GII PCR Urine Opiates Screen POSITIVE H Ur Buprenorphine Scrn Not Detected Ur Oxycodone Screen Not Detected Urine Methadone Screen Not Detected Urine Fentanyl Screen Not Detected Ur Barbiturates Screen Not Detected Ur Phencyclidine Scrn Not Detected Ur Amphetamines Screen Not Detected U Benzodiazepines Scrn Not Detected Urine Cocaine Screen POSITIVE H U Marijuana (THC) Screen POSITIVE H 02/18/25 02/19/25 02/19/25 14:57 05:21 06:06 MCV 91.5 MCH 30.4 MCHC 33.2 RDW 12.4 Plt Count 249 MPV 10.5 Absolute Nucleated RBC 0.000 Nucleated RBC % (auto) 0.0 Anion Gap 15 Estim Creat Clear Calc 89.1 Estimated GFR > 60 POC Glucose 191 H Random Glucose 292 H Lactic Acid Calcium 8.7 D Magnesium Stl C. cayetanensis PCR Not Detected Stool Rotavirus A PCR Not Detected Stl Adenov F 40/ PCR Not Detected Stool Astrovirus (PCR) Not Detected Stool Campylobacter PCR Not Detected Stool Cryptosporidium PCR Not Detected Stl Sh Tox Pr E STEC PCR Not Detected Stool E coli O157 PCR Not applicable Stl Enterotoxigenic E PCR Not Detected Stool EPEC (PCR) Not Detected Stool EAEC (PCR) Not Detected Stl E. histolytica PCR Not Detected Stool Giardia Lamblia PCR Not Detected Stl P. shigelloides PCR Not Detected Stool Salmonella PCR Not Detected Stool Sapovirus (PCR) Not Detected Stl Shigella/EIEC PCR Not Detected St Y.enterocolitica PCR Not Detected Stool Vibrio (PCR) Not Detected Stl Vibrio cholerae PCR Not Detected Stl Norovirus GI/GII PCR Not Detected Urine Opiates Screen Ur Buprenorphine Scrn Ur Oxycodone Screen Urine Methadone Screen Urine Fentanyl Screen Ur Barbiturates Screen Ur Phencyclidine Scrn Ur Amphetamines Screen U Benzodiazepines Scrn Urine Cocaine Screen U Marijuana (THC) Screen Assessment and Plan (1) Acute appendicitis: Status: Acute Plan This is a 59-year-old female with a history of IDDM, HTN, HLD, RLS, depression, anxiety, PTSD, fibromyalgia, chronic pain, GERD who presents to the emergency department with abdominal pain found to have CT scan concerning for acute appendicitis Abdominal pain, possible appendicitis surgery canceled due to tox screen + for cocaine plan for conservative management with IV antibiotics agree with PPI as pain seems primarily epigastric - has recently seen GI and has plans for outpatient EGD and colonoscopy; previous scope in 2019 was unremarkable IDDM on treseba at baseline, on hold for now. will need to be converted to lantus when tolerating diet/depending on POCs on metformin cover with sliding scale HTN resume amlodipine can hold losartan/HCTZ for now, likely resume on discharge HLD statin on hold chronic pain on morphine po at baseline, currently on hold. pain management as per surgical team thank you for allowing us to participate in the care of this patient, we will follow along with you
[2025-02-19 13:41] VITALS: BP 146/75; PULSE 73; RESP 16; TEMP 36.7; O2SAT 98
[2025-02-19 13:42] LABS: Glucose, Whole Blood 284 mg/dL (60-115)
[2025-02-19] MEDS: Lidocaine 4 % Patch ADH..PATCH 1 PATCH TRANSDERMA (14:23)
[2025-02-19 15:44] VITALS: BP 141/72; PULSE 70; RESP 16; TEMP 36.2; O2SAT 98
[2025-02-19 16:09] LABS: Glucose, Whole Blood 189 mg/dL (60-115)
[2025-02-19 19:17] VITALS: BP 132/75; PULSE 71; RESP 18; TEMP 36.5; O2SAT 96
[2025-02-19 19:44] LABS: Glucose, Whole Blood 165 mg/dL (60-115)
[2025-02-20 03:42] VITALS: BP 149/75; PULSE 75; RESP 18; TEMP 36.4; O2SAT 98
[2025-02-20] MEDS: metroNIDAZOLE/NS 500 MG/100 ML PIGGYBACK 100 MG IV ×2 (06:18→18:26)
[2025-02-20 07:14] LABS: Glucose, Whole Blood 162 mg/dL (60-115)
[2025-02-20] MEDS: Lactated Ringers 1,000 ML 100 ML IVCONT (07:29)
[2025-02-20 07:33] VITALS: BP 149/81; PULSE 86; RESP 18; TEMP 36.3; O2SAT 98
[2025-02-20 07:46] VITALS: BP 149/81
[2025-02-20] MEDS: Lidocaine 4 % Patch ADH..PATCH 1 PATCH TRANSDERMA (07:46)
[2025-02-20 11:39] LABS: Glucose, Whole Blood 249 mg/dL (60-115)
--- NOTE | 2025-02-20 15:01 | P.PNGS_ITS ---
Subjective Subjective Date of Service: 02/20/25 Interval history: pt feeling better less pain, hungry Physical Exam 2 Vital Signs: Vital Signs: Last Vital Signs Temp 97.4 F 02/20/25 07:33 Pulse 86 02/20/25 07:33 Resp 18 02/20/25 07:33 BP 149/81 H 02/20/25 07:46 Pulse Ox 98 02/20/25 07:33 O2 Del Method Nasal Cannula 02/20/25 07:33 BMI result Body Mass Index 35.7 Const: General: cooperative, healthy appearing, comfortable and no acute distress GI: Other: soft nontender nondistended Objective Data Active Medications Acetaminophen (Acetaminophen 325 Mg Tablet) 650 mg PO Q6H PRN PRN Reason: Pain, Mild 1-3,fever,headache Amlodipine Besylate (Amlodipine Besylate 10 Mg Tablet) 10 mg PO DAILY [facility]; Protocol Last Admin: 02/20/25 07:46 Dose: 10 mg Documented By: JADEN Calcium Carbonate (Calcium Carbonate 750 Mg Tab.Chew) 750 mg PO Q4H PRN PRN Reason: Heartburn Dextrose (Dextrose 50 % 25 Gm/50 Ml Syringe) 25 gm IVPUSH Q15M PRN; Protocol PRN Reason: per Hypoglycemia Standing Ord. Enoxaparin Sodium (Enoxaparin Sodium 30 Mg/0.3 Ml Syringe) 30 mg SUBCUT Q12H [facility] Last Admin: 02/20/25 12:00 Dose: 30 mg Documented By: JADEN Glucose (Glucose Gel 15 Gm Gel..Gram.) 15 gm PO Q15M PRN; Protocol PRN Reason: per Hypoglycemia Standing Ord. Levofloxacin (Levaquin) 750 mg in 150 mls @ 100 mls/hr IV Q24H [facility] Last Infusion: 02/19/25 20:49 Dose: Infused Documented By: KIRK Metronidazole (Flagyl) 500 mg in 100 mls @ 100 mls/hr IV Q12H [facility] Last Infusion: 02/20/25 07:32 Dose: Infused Documented By: JDAEN Lactated Ringer's (Lr) 1,000 mls @ 100 mls/hr IVCONT .Q10H [facility] Last Admin: 02/20/25 07:29 Dose: 100 mls/hr Documented By: JADEN Insulin Human Lispro (Insulin Lispro 100 Unit/Ml 3 Ml Vial) 0 unit SUBCUT QIDACHS [facility]; Protocol Last Admin: 02/20/25 11:59 Dose: 4 unit Documented By: JADEN Lidocaine (Lidocaine 4 % Patch Adh..Patch) 1 patch TRANSDERMA DAILY [facility]; Protocol Last Admin: 02/20/25 07:46 Dose: 1 patch Documented By: JADEN Magnesium Hydroxide (Milk Of Magnesia 30 Ml Oral.Susp) 30 ml PO DAILY PRN PRN Reason: Constipation Melatonin (Melatonin 3 Mg Tablet) 6 mg PO BEDTIME PRN PRN Reason: Insomnia Mirtazapine (Mirtazapine 15 Mg Tablet) 15 mg PO BEDTIME [facility] Last Admin: 02/19/25 20:57 Dose: 15 mg Documented By: KIRK Morphine Sulfate (Morphine Sulfate 4 Mg/Ml Cartridge) 2 mg IVPUSH Q4H PRN; Protocol PRN Reason: Pain, Severe (Pain Scale 7-10) Last Admin: 02/20/25 11:59 Dose: 2 mg Documented By: JADEN Ondansetron HCl (Ondansetron Hcl 4 Mg/2 Ml Vial) 4 mg IVPUSH Q8H PRN PRN Reason: Nausea and Vomiting Last Admin: 02/19/25 08:18 Dose: 4 mg Documented By: WEN Oxycodone HCl (Oxycodone Hcl Immed Release 5 Mg Tablet) 5 mg PO Q6H PRN PRN Reason: Pain, Moderate(Pain Scale 4-6) Last Admin: 02/18/25 20:20 Dose: 5 mg Documented By: PAULINE Pantoprazole Sodium (Pantoprazole Sodium 40 Mg/10 Ml Vial) 40 mg IVPUSH DAILY@0630 [facility] Last Admin: 02/20/25 06:14 Dose: 40 mg Documented By: SHMUEL Ropinirole HCl (Ropinirole Hcl 2 Mg Tablet) 8 mg PO BID [facility] Last Admin: 02/20/25 07:46 Dose: 8 mg Documented By: JADEN Sodium Chloride (0.9 % Sodium Chloride Flush 3 Ml Syringe) 3 ml IVFLUSH QSHIFT [facility] Last Admin: 02/20/25 07:31 Dose: Not Given Documented By: JADEN Non-Admin Reason: IV Running Labs 02/19/25 05:21 02/19/25 05:21 Labs: Laboratory Results - last 24 hr 02/19/25 02/19/25 02/20/25 16:05 19:40 07:09 POC Glucose 189 H 165 H 162 H 02/20/25 11:34 POC Glucose 249 H Microbiology Microbiology Results: Microbiology 02/18/25 11:33 Blood Culture - Preliminary Blood - Venous No growth after 48 hours. 02/18/25 11:21 Blood Culture - Preliminary Blood - Venous No growth after 48 hours. 02/18/25 Unknown Urine Culture - Final Urine clean catch - Clean Catch Midstream Procedures Date of Service Date of Service: 02/20/25 Progress Note: A&P Assessment and plan (1) Acute appendicitis: Status: Acute Assessment and Plan: pt doing well on antibiotics for acute appendicitis - i think she will progress well without needing surgical intervention this admission - advance diet, iv antibx to continue but plan dc home tomorrow on po antibx. Time Spent With Patient Time: Total time managing care of this patient today ____ minutes. Quality Stroke Does the patient have a stroke diagnosis?: No VTE Prior VTE?: No VTE Risk Level:: Surgical - moderate VTE Device Contraindication: N/A - Device Ordered VTE Drug Contraindication: N/A - Med Ordered
[2025-02-20 15:05] VITALS: BP 143/84; PULSE 75; RESP 18; TEMP 36.3; O2SAT 98
[2025-02-20 16:32] LABS: Glucose, Whole Blood 184 mg/dL (60-115)
[2025-02-20 20:00] VITALS: BP 176/74; PULSE 89; RESP 18; TEMP 37.1; O2SAT 95
[2025-02-20 21:37] LABS: Glucose, Whole Blood 233 mg/dL (60-115)
--- NOTE | 2025-02-21 00:49 | PC.NURSE ---
Pt expressing 9/10 pain. After retrieving morphine, per pts request the pt asks this RN why the morphine was diluted and expressed concern that this was a saline flush and not morphine. This RN explained half of the medication needed to be wasted with another nurse per MAR and then was diluted. Pt asked if she would like this RN to get a different morphine container that was not diluted. Pt declined this stating she just wanted the morphine at this time. Morphine administered per MAR. Nursing superviser and charge were notified at this time. Patient resting comfortably in bed with respirations even and unlabored.
[2025-02-21 04:00] VITALS: BP 156/74; PULSE 81; RESP 18; TEMP 36; O2SAT 98
[2025-02-21] MEDS: metroNIDAZOLE/NS 500 MG/100 ML PIGGYBACK 100 MG IV (05:28)
[2025-02-21 07:20] LABS: Glucose, Whole Blood 298 mg/dL (60-115)
[2025-02-21 07:41] VITALS: BP 117/70; PULSE 84; RESP 18; TEMP 36.6; O2SAT 97
[2025-02-21 07:56] VITALS: BP 117/70
[2025-02-21] MEDS: Lidocaine 4 % Patch ADH..PATCH 1 PATCH TRANSDERMA (07:56)
[2025-02-21] MEDS: 0.9 % Sodium Chloride Flush 3 ML SYRINGE IVFLUSH (08:07)
--- NOTE | 2025-02-21 09:56 | PM.DS ---
DS: Providers Provider Date of Service: 02/21/25 Date of admission: 02/18/25 12:21 Date of discharge: 02/21/25 Primary care physician: Sydnie Andrade MD Attending physician on admission: Andrey Gambino Consults: 02/19/25 08:57 Consult to Hospitalist Routine Comment: Consulting Provider: [facility] Reason For Exam: medical management Attending physician on discharge: Gloria Rush DS: Diagnosis Discharge Diagnosis (1) Acute appendicitis: Status: Acute DS: Summary Hospital Course Hospital Course: HPI AT ADMISSION: Yuli Hayden is a 59 year old female sudden onset yesterday p.m. with nausea vomiting diarrhea and abdominal pain, more in the epigastric/periumbilical region. HOSPITAL COURSE: Patient has a somewhat unusual presentation of acute appendicitis which was diagnosed radiographically on CT scan earlier today. The patient was admitted to the surgical service for further treatment of the acute appendicitis. She was consulted with regard to treatment options in chose to undergo operative intervention form of laparoscopic possible open appendectomy after discussion of risks, benefits and alternatives. She was added onto the OR schedule for that day. She however tested positive for cocaine and admits to recent usage. With this in mind and the patient's strong family history of cardiovascular disease, I discussed the case with anesthesiologist Dr. Angella Yoder. As the patient appears nontoxic and as literature supports antibiotic therapy as the sole modality for treatment of mild, non perforated appendicitis I think it is reasonable to forego surgery at this point. This was reviewed with the patient and she indicated that she understood and indicated that she agreed with the nonoperative plan. She was therefore continued on IV levaquin and flagyl. Hospitalist consult was obtained for management of her comorbidities. She had some improvement in her symptoms but had continued epigastric pain and was started on PPI therapy. She has appt scheduled for repeat EGD/colonoscopy. Her diet was slowly advanced. She remained inpatient for 3 days of IV abx therapy. On the day of discharge, she felt well and was tolerating a solid diet without nausea or vomiting, had minimal abd pain and was ambulating without difficulty. She was hemodynamically stable. Her abdomen was benign and soft, nontender. She felt ready for discharge. She was discharged to home on 02/21/25 in stable condition on course of oral flagyl and levaquin. She is to follow up in the office in 1-2 weeks. Status at Discharge Functional status at discharge: independent ambulation Overall status at discharge: patient is back to baseline Time Attestation Discharge Coordination Time (in mins): 25 Quality: Safe Use of Opioids Does Pt have an Active Cancer Diagnosis on the Problem List?: No Quality: Stroke Does the patient have a stroke diagnosis?: No Physical Exam Vital Signs: Vital Signs: Last Vital Signs Temp 97.8 F 02/21/25 07:41 Pulse 84 02/21/25 07:41 Resp 18 02/21/25 07:41 BP 117/70 02/21/25 07:56 Pulse Ox 97 02/21/25 07:41 O2 Del Method Room Air 02/21/25 07:41 BMI result Body Mass Index 35.7 Const: General: comfortable, no acute distress and alert Orientation/consciousness: patient oriented x3 GI: Other: soft, nontender, nondistended Neuro: General: patient oriented x3 DS: Data Data Completed and Pending Labs on day of discharge: Preliminary micro results at discharge 02/18/25 11:33 Blood Culture - Preliminary Blood - Venous No growth after 48 hours. 02/18/25 11:21 Blood Culture - Preliminary Blood - Venous No growth after 48 hours. Discharge Plan Discharge Anticipated Discharge Date/Time: 02/21/25 15:00 Patient Disposition: Home, Self-Care Discharge Diagnosis: appendicitis Referrals: Physician,Unknown J [Physician, Medical] - 1 Week Discharge Medications: New levofloxacin 750 mg tablet 750 mg PO DAILY Qty: 5 0RF metronidazole 500 mg tablet 500 mg PO Q8H Qty: 15 0RF metronidazole 500 mg tablet 500 mg PO Q8H Qty: 15 0RF acetaminophen 325 mg Tablet 650 mg PO Q6H PRN (Reason: Pain, Mild 1-3,Fever,Headache) Qty: 10 0RF metronidazole 500 mg Tablet 500 mg PO Q12H Qty: 15 0RF levofloxacin 750 mg Tablet 750 mg PO Q24H Qty: 5 0RF Continued atorvastatin 40 mg Tablet 40 mg PO BEDTIME ropinirole 4 mg Tablet 8 mg PO BID metformin 500 mg tablet 1,000 mg PO BID estradiol 10 mcg tablet 10 mcg vaginal 2XW insulin degludec [Tresiba FlexTouch U-100] 100 unit/mL (3 mL) Insulin Pen 75 unit SUBCUT DAILY lidocaine [Lidocaine Pain Relief] 4 % adhesive patch,medicated 1 patch topical DAILY oxybutynin chloride 10 mg tablet extended release 24hr 10 mg PO DAILY amlodipine 10 mg tablet 10 mg PO DAILY pantoprazole 40 mg tablet,delayed release (DR/EC) 40 mg PO BID@0630,1630 docusate sodium 100 mg capsule 100 mg PO DAILY PRN (Reason: constipation) morphine 15 mg tablet extended release 15 mg PO BID valsartan-hydrochlorothiazide 320-12.5 mg tablet 1 tab PO DAILY multivitamin with folic acid [Daily-Luciana (with folic acid)] 400 mcg tablet 1 tab PO DAILY cranberry extract 250 mg Capsule 250 mg PO DAILY Rx Instructions: administer with a meal insulin lispro 100 unit/mL insulin pen See Protocol SUBCUT TIDAC Protocol: Insulin Correction Scale Less than or equal to 110 ---- Give (units): 0 111 to 150 Give (units): 0 151 to 200 Give (units): 2 201 to 250 Give (units): 4 251 to 300 Give (units): 6 301 to 350 Give (units): 8 Greater than 350 Give (units): 10 Call MD if Blood Glucose > : 350 mirtazapine [Remeron] 15 mg tablet 15 mg PO BEDTIME Patient Comments: Patient stated she is currently taking 15 mg QHS. Discharge Orders: Discharge Order (Routine); Ordered 02/21/25 Ordered By: Gloria Rush Activity on Discharge: As tolerated Stand Alone Forms: Patient Portal Discharge page Print Language: Bahamian Care Plan Goals: regular diet exercise as tolerated take all antibiotics Health Concerns: call for fevers or increased pain call [phone] for an appointment next week in the office Plan of Treatment: antibiotics Assessment: doing well with medical management of appendicitis Patient Instructions: Appendicitis (GEN) Discharge Date/Time: 02/21/25 13:19
--- NOTE | 2025-02-21 11:32 | PC.NURSE ---
Pt appeared upset with OFFICE MACHINES TEACHER that was asked to provide urine sample for Drug Screen Order. Primary RN and this fiction and nonfiction prose writer stated it was a duplicate order from the MD. Pt states understanding of this and does not need another Drug Screen. Duplicate order d/c.
[2025-02-21 12:04] LABS: Glucose, Whole Blood 238 mg/dL (60-115)
--- NOTE | 2025-02-21 12:10 | PC.NURSE ---
Patient now refusing to have any PREPARED FOODS ASSOCIATE come and take care for her.
--- NOTE | 2025-02-21 12:31 | PC.NURSE ---
patient accusing staff of talking about her and her situation related to admission outside her room, stating it has been the POWER CRANE OPERATOR's and nurses judging her and making assumptions based on positve utox for cocaine as well as talking poorly about other patients. Patient had already had a discussion with overnight nursing supervisor wound Noelle but felt she was not being listened to adequately and that nothing was done about the situation. T/w offered to reach out to the daytime nursing supervisor wound Bria but pt declined and said she would not like me to speak to anyone else about the situation including the case sealer and that she would deal with the issue herself. Patient would also not like to have a POWER CRANE OPERATOR present and would only like for t/w to provide care/give meds until she is discharged this afternoon.
--- NOTE | 2025-02-21 13:12 | MHC.CM.PN ---
DP: PT HAS BEEN MEDICALLY CLEARED FOR DC HOME, NO SERVICES. PT HAS OWN RIDE HOME.
--- NOTE | 2025-02-21 13:18 | PC.NURSE ---
Patient refused to sign D/C Paperwork, Sister coming in 10 minutes to bring patient home. D/C paperwork left with patient. Refusing Staff escort to bring down stairs.
== END 2025-02-21 13:19 | disposition home or self-care (01) | DRG 373 ==
LOC: HO.ED 09:09 → HO.EDOVER 12:42 → HO.S3 14:08
PROVIDERS: Anesthesiology; Physician Assistant Medical; Admitting Provider Surgery; Emergency Provider Emergency Medicine; PCP Internal Medicine; Visit Provider Surgery
DX: K35.890 Other acute appendicitis without perforation or gangrene (principal); E11.9 Type 2 diabetes mellitus without complications; I10 Essential (primary) hypertension; G89.29 Other chronic pain; F41.9 Anxiety disorder, unspecified; F14.90 Cocaine use, unspecified, uncomplicated; M79.7 Fibromyalgia; K59.09 Other constipation; Z82.49 Family history of ischemic heart disease and other diseases of the circulatory system; F17.210 Nicotine dependence, cigarettes, uncomplicated; Z71.6 Tobacco abuse counseling; Z79.4 Long term (current) use of insulin; Z79.84 Long term (current) use of oral hypoglycemic drugs; Z79.899 Other long term (current) drug therapy
CPT/HCPCS: 36415; 74177; 80048; 80053; 80307; 81001; 82272; 82947; 83605; 83690; 83735; 85025; 85027; 87040; 87086; 87507; 93005; 99285; J1650; J1836; J1956; J2270; J2405; J2470; J2543; J3475; J7120; Q9967

== ENCOUNTER → 2025-02-18 09:08 | Outpatient (BNV) | payer OTHER, SELFPAY | PROVIDERS: Emergency Provider Emergency Medicine; Visit Provider Surgery | DX: K35.80 Unspecified acute appendicitis (principal) | CPT/HCPCS: 99232; 99238 ==

== ENCOUNTER → 2025-02-18 10:16 | Outpatient (BNV) | payer OTHER, SELFPAY | PROVIDERS: Emergency Provider Emergency Medicine; Visit Provider Radiology Diagnostic Radiology | DX: K76.0 Fatty (change of) liver, not elsewhere classified (principal); R16.0 Hepatomegaly, not elsewhere classified | CPT/HCPCS: 74177 ==

== ENCOUNTER 2025-02-18 12:21 | Outpatient (BNV) | payer OTHER, SELFPAY | END 2025-02-18 15:24 | PROVIDERS: Admitting Provider Surgery; Emergency Provider Emergency Medicine; Visit Provider Internal Medicine | DX: Z48.812 Encounter for surgical aftercare following surgery on the circulatory system (principal); R94.31 Abnormal electrocardiogram [ECG] [EKG] | CPT/HCPCS: 93010 ==

== ENCOUNTER → 2025-02-18 12:21 | Outpatient (BNV) | payer OTHER, SELFPAY | PROVIDERS: Admitting Provider Surgery; Emergency Provider Emergency Medicine; Visit Provider Physician Assistant Medical | DX: K35.80 Unspecified acute appendicitis (principal) | CPT/HCPCS: 99222 ==